=== PATIENT | female | born 1955 | race Caucasian/White ===

== ENCOUNTER → 2017-10-09 | Outpatient (CLI) | payer BC ==
[~2017-10-09] MED LIST: DOCU100C37 PO; HYDR-3816 PO; IBUP-1773 PO; LISI-552 PO; NITR-65 PO; PHEN-640 PO; SIME80TA16 PO; TRAM50TA2 PO
--- NOTE | 2017-10-10 19:51 | Diagnostic Imaging Report ---
Bilateral screening mammogram 2D views with tomosynthesis. The current study was also evaluated with a Computer Aided Detection (CAD) system. INDICATION: Screening. No current complaints stated on the questionnaire. COMPARISON: 02/02/2016. FINDINGS: The breasts are composed of scattered fibroglandular densities. There is suggestion of an intramammary lymph node in the outer aspect of the left breast stable from multiple prior exams. Allowing for technique and positional differences, no suspicious change is seen. IMPRESSION: No significant change. ACR BI-RADS Category 2: Benign findings. Result letter will be mailed to the patient. Note: At least 10% of breast cancer is not imaged by mammography. Dictated by: Dictated on workstation # [id number]
== END ==
LOC: RAD 09:27
PROVIDERS: ATTEND Internal Medicine
DX: Z12.31 Encounter for screening mammogram for malignant neoplasm of breast (principal)
CPT/HCPCS: 77067

== ENCOUNTER 2018-08-13 23:05 | Emergency (ER) | payer BC, MEDICARE ==
[~2018-08-13] VITALS: Ht 160 cm; Wt 79.4 kg
[~2018-08-13 23:05] MED LIST changes: +HYDR-34 PO; -HYDR-3816 PO
--- OUTSIDE RECORDS SUMMARY | 2018-08-13 23:10 | XMS REPORT ---
Author Author ANALI VEGA Organization [employer] Address Unknown Phone Unavailable Care Team Providers Care Bottle Machine Operator Name Role Phone ANALI VEGA CP Unavailable Allergies, Adverse Reactions, Alerts Substance Reaction Event Type N.K.D.A. Info Not Available Non Drug Allergy Problems Problem Type Condition Code Onset Dates Condition Status Problem Flat foot 734 Active Problem Cervicalgia 723.1 Active Problem Family history of diabetes mellitus V18.0 Active Assessment Allergic rhinitis, unspecified allergic rhinitis type J30.9 Active Assessment Acute otitis externa of left ear, unspecified type H60.502 Active Medications Medication Code System Code Instructions Start Date End Date Status Dosage Flonase [facility] 87149280999 50 MCG/ACT USE ONE SPRAY IN EACH NOSTRIL TWICE DAILY Lisinopril [facility] [address]-47 20 MG TAKE ONE TABLET BY MOUTH DAILY Flonase [facility] [address]-20 50 MCG/ACT Nasally Once a day June 10, 2016 1 spray in each nostril Albuterol Sulfate HFA [facility] [address]-01 108 (90 Base) MCG/ACT Inhalation every 4-6 hrs June 10, 2016 1-2 puffs as needed tramadol NDC 0 50 mg February 08, 2015 take 1 tablet by Oral route 1 time per day as needed PRN pain Procedures Procedure Coding System Code Date Office Visit, Est Pt., Level 3 CPT-4 06167 June 10, 2016 MEASURE BLOOD OXYGEN LEVEL CPT-4 93352 June 10, 2016 Vital Signs Date/Time: June 10, 2016 Cardiac Monitoring Heart Rate 80 bpm Weight 172.4 lbs Height 64 in Blood Pressure Diastolic 78 mmHg Blood Pressure Systolic 124 mmHg Results No Known Results Summary Purpose [employer] Submission
--- OUTSIDE RECORDS SUMMARY | 2018-08-13 23:10 | XMS REPORT ---
Author Author JAYY PRADO Organization [facility] Address [address] [place] [address] Care Team Providers Care Scanner Operator Name Role Phone JAYY PRADO Unavailable PROBLEMS Type Condition ICD9-CM Code CMT29-SK Code Onset Dates Condition Status SNOMED Code Problem Seasonal allergic rhinitis, unspecified trigger J30.2 Active [id number] ALLERGIES No Known Allergies ENCOUNTERS Encounter Location Date Diagnosis [facility] [address] [address] Jun, Seasonal allergic rhinitis, unspecified trigger J30.2 [facility] [address] [place] [address] Dec, Urinary frequency R35.0 ; Acute cystitis with hematuria N30.01 ; Seasonal allergic rhinitis, unspecified trigger J30.2 and Impacted cerumen, bilateral H61.23 [facility] [address] [address] Nov, Sore throat J02.9 and Strep pharyngitis J02.0 [facility] [address] [id number] Aug, Dental caries K02.9 [facility] [address] [place] [address] Jul, Allergic contact dermatitis, unspecified trigger L23.9 and Oral abscess K12.2 [facility] [address] [id number] Jul, Dental caries K02.9 and Dental examination Z01.20 [facility] [address] [place] [address] Aug, Periodontal abscess K05.219 [facility] [address] [address] May, Allergic rhinitis, unspecified allergic rhinitis type J30.9 and Acute otitis externa of left ear, unspecified type H60.502 [facility] [address] [address] Sep, [facility] [id number] [place] [address] Sep, Ankle pain, right M25.571 [facility] [id number] [place] [address] Aug, [facility] [id number] [place] [address] Aug, [facility] [id number] [place] [address] [id number] Jun, [facility] [id number] [place] [id number] May, Dental examination V72.2 [facility] [id number] [place] [address] May, [facility] [id number] [place] [phone] May, Dental examination V72.2 [facility] [id number] [place] [id number] Apr, Dental examination V72.2 [facility] [address] [id number] [address] Apr, [facility] [id number] [place] [id number] March, Dental examination V72.2 [facility] [address] [place] [address] March, [facility] [id number] [place] [address]16713- [address] 14 Feb, 2015 [facility] [place] [facility] [address] [id number] [place] [address] 13 Feb, 2015 [facility] [place] [facility] [address] [id number] [place] [address] 17 Jan, 2015 [facility] [place] [facility] [address] [id number] [place] [address] 17 Jan, 2015 [facility] [place] [facility] [address] [id number] [place] [address] 16 Jan, 2015 [facility] [place] [facility] [address] [id number] [place] [address] 16 Jan, 2015 [facility] [place] [facility] [address] [id number] [place] [address] 16 Jan, 2015 [facility] [place] [facility] [address] [id number] [place] [address] 16 Jan, 2015 [facility] [place] [facility] [address] [id number] [place] [address] 19 Dec, 2014 [facility] [place] [facility] [address] [id number] [place] [address] Dec, [facility] [place] [facility] [address] [id number] [place] [address] 16 Dec, 2014 [facility] [place] [facility] [address] [id number] [place] [address] 16 Dec, 2014 [facility] [place] [facility] [address] [id number] [place] [address] Nov, [facility] [place] [facility] [address] [id number] [place] [address] Nov, [facility] [place] [facility] [address] [id number] [place] [address] Oct, [facility] [place] [facility] [address] [id number] [place] [address] Oct, [facility] [place] [facility] [address] [id number] [place] [address] Oct, [facility] [place] [facility] [address] [id number] [place] [address] Oct, [facility] [place] [facility] [address] [id number] [place] [address] Oct, [facility] [place] [facility] [address] [id number] [place] [address] Oct, [facility] [place] [facility] [address] [id number] [place] [address] Sep, [facility] [place] [facility] [address] [id number] [place] [address] Sep, [facility] [place] [facility] [address] [id number] [place] [address] Sep, [facility] [place] [facility] [address] [id number] [place] [address] Sep, [facility] [place] [facility] [address] [id number] [place] [address] Sep, [facility] [place] [facility] [address] [id number] [place] [address] Sep, [facility] [place] [facility] [address] [id number] [place] [address] Sep, [facility] [place] [facility] [address] [id number] [place] [address] Sep, [facility] [place] [facility] [address] [id number] [place] [address] Aug, [facility] [place] [facility] [address] [id number] [place] [address] Aug, [facility] [place] [facility] [address] [id number] [place] [address]- [address] Aug, [facility] [place] [facility] [address] [id number] [place] [address]- 53[address] Aug, [facility] [place] [facility] [address] [id number] [place] [address] Aug, [facility] [place] [facility] [address] [id number] [place] [address] Aug, [facility] [place] [facility] [address] [id number] [place] [address]- [address] Aug, [facility] [place] [facility] [address] [id number] [place] [address] Aug, [facility] [place] [facility] [address] [id number] [place] [address]- [address] Aug, [facility] [place] [facility] [address] [id number] [place] [address]- [address] Aug, [facility] [place] [facility] [address] [id number] [place] [address]- [address] Jul, [facility] [place] [facility] [address] [id number] [place] [address]- [address] Jul, [facility] [place] [facility] [address] [id number] [place] [address]- 114[address] Jun, [facility] [place] [facility] [address] [id number] [place] [address] Jun, [facility] [place] [facility] [address] [id number] [place] [address]- [address] May, [facility] [place] [facility] [address] [id number], [place] [address] May, [facility] [place] [facility] [address] [id number] [place] [address]- [address] Apr, [facility] [place] [facility] [address] [id number] [place] [address]- [address] Apr, [facility] [place] [facility] [address] [id number] [place] [address]- 0[address] Apr, [facility] [place] [facility] [address] [id number] [place] [address]- 114[address] Apr, [facility] [place] [facility] [address] [id number] [place] [address]- [address] March, [facility] [place] [facility] [address] [id number] [place] [address]- 9[address] March, [facility] [place] [facility] [address] [id number] [place] [address]- [address] Jan, [facility] [place] [facility] [address] [id number] [place] [address]- 7[address] Jan, [facility] [place] [facility] [address] [id number] [place] [address] Oct, [facility] [place] [facility] [address] [id number] [place] [address]- [address] Oct, [facility] [place] [facility] [address] [id number] [place] [address]- 0[address] Sep, [facility] [place] [facility] [address] [id number] [place] [address]- 73[address] Sep, [facility] [place] [facility] [address] [id number] [place] [address]- 4[address] Aug, [facility] [place] [facility] [address] [facility] [id number] [place] [address]- 79[address] Aug, [facility] [place] [facility] [address] [id number] [place] [address]- 8[address] 25 Jul, 2012 [facility] [place] [facility] [address] [id number] [place] [address]- 68[address] 20 Jul, 2012 [facility] [place] [facility] [address] [id number] [place] [address]- 8987 16 Sep, 2012 [facility] [place] [facility] [address] [id number] [place] [address]- 9769 09 Sep, 2012 [facility] [place] [facility] [address] [id number] [place] [address]- 4[address] 05 Sep, 2012 [facility] [place] [facility] [address] [id number] [place] [address]- [address] Jul, [facility] [address] [id number] [place] [address]- 58[address] Jul, [facility] [place] [facility] [address] [id number] [place] [address]- [address] Jun, [facility] [place] [facility] [address] [id number] [place] [address]- 5199 Jun, [facility] [place] [facility] [address] [id number] [place] [address]- 9605 May, [facility] [place] [facility] [address] [id number] [place] [address]- 6510 May, [facility] [address] [id number] [place] [address]- [address] May, [facility] [address] [id number] [place] [address]- 7449 May, [facility] [address] [id number] [place] [address]- 4774 May, [facility] [address] [id number] [place] [address]- 6763 March, [facility] [address] [id number] [place] [address]- [address] March, [facility] [address] [id number] [place] [address]- 379[address] Oct, [facility] [place] [facility] [address] [id number] [place] [address]- [address] Oct, [facility] [place] [facility] [address] [id number] [place] [address]- 9[address] Jun, [facility] [place] [facility] [address] [id number] [place] [address]- [address] Nov, [facility] [place] [facility] [address] [id number] [place] [address]- [address] Aug, [facility] [address] [facility] [id number] [place] [address]- [address] Aug, [facility] [address] [facility] [address] [id number], [place] [address] Dec, [facility] [address] [facility] [address] [id number], [place] [address] Oct, [facility] [address] [facility] [address] [id number], [place] [address] Oct, [facility] [address] [facility] [address] [id number], [place] [address] Jun, IMMUNIZATIONS No Known Immunizations SOCIAL HISTORY Never Assessed REASON FOR VISIT congestion and stuffy nose--TRU Briones PLAN OF CARE Activity Details Follow Up 1 Week, prn Reason:if symptoms worsen or not improving VITAL SIGNS Height 64 in 2018-06-28 Weight 189.8 lbs 2018-06-28 Temperature 98.3 degrees Fahrenheit 2018-06-28 Heart Rate 84 bpm 2018-06-28 Respiratory Rate 18 2018-06-28 BMI 32.58 kg/m2 2018-06-28 Blood pressure systolic 134 mmHg 2018-06-28 Blood pressure diastolic 76 mmHg 2018-06-28 MEDICATIONS Medication Instructions Dosage Frequency Start Date End Date Duration Status Lisinopril 20 MG TAKE ONE TABLET BY MOUTH DAILY 30 Active Flonase 50 MCG/ACT Nasally twice a day 1 spray in each nostril 12h 16 May, 2016 30 days Active Cetirizine HCl 10 mg Orally Once a day 1 tablet 24h 2 Jul, 2018 30 days Active tramadol 50 mg take 1 tablet by Oral route 1 time per day as needed PRN pain Jan, Active RESULTS No Results PROCEDURES Procedure Date Ordered Result Body Site [facility] VISIT ESTABLISHED PATIENT Jun 28, 2018 INSTRUCTIONS MEDICATIONS ADMINISTERED No Known Medications MEDICAL (GENERAL) HISTORY Type Description Date Medical History hypertension Medical History Arthritis Medical History Family history of diabetes mellitus Medical History Flat foot Medical History Cervicalgia Surgical History bladder surgery Surgical History cyst removal Hospitalization History surgery related
--- OUTSIDE RECORDS SUMMARY | 2018-08-13 23:10 | XMS REPORT ---
Author Author ORQUIDEA FIORE Organization [employer] Address Unknown Phone Unavailable Care Team Providers Care Lock Up Worker Name Role Phone ORQUIDEA FIORE CP Unavailable Allergies No Known Allergies Problems Problem Type Condition Code Onset Dates Condition Status Problem Flat foot 734 Active Problem Cervicalgia 723.1 Active Problem Family history of diabetes mellitus V18.0 Active Medications Medication Code System Code Instructions Start Date End Date Status Dosage tramadol NDC 0 50 mg February 08, 2015 take 1 tablet by Oral route 1 time per day as needed PRN pain Results No Known Results Summary Purpose [employer] Submission
--- OUTSIDE RECORDS SUMMARY | 2018-08-13 23:11 | XMS REPORT ---
Author Author ORQUIDEA FIORE Organization [employer] Address Unknown Phone Unavailable Care Team Providers Care Uplands Division Director Name Role Phone ORQUIDEA FIORE CP Unavailable Allergies No Known Allergies Problems Problem Type Condition Code Onset Dates Condition Status Problem Flat foot 734 Active Problem Cervicalgia 723.1 Active Problem Family history of diabetes mellitus V18.0 Active Medications Medication Code System Code Instructions Start Date End Date Status Dosage Lisinopril [facility] [address]-01 20 MG TAKE ONE TABLET BY MOUTH DAILY Results No Known Results Summary Purpose [employer] Submission
--- OUTSIDE RECORDS SUMMARY | 2018-08-13 23:11 | XMS REPORT ---
Author Author SONIA RIVERA [facility] [employer] Address Unknown Phone Unavailable Care Team Providers Care Fur Trimmer Name Role Phone SONIA RIVERA CP Unavailable Allergies, Adverse Reactions, Alerts Substance Reaction Event Type N.K.D.A. Info Not Available Non Drug Allergy Problems Problem Type Condition Code Onset Dates Condition Status Problem Flat foot 734 Active Problem Cervicalgia 723.1 Active Problem Family history of diabetes mellitus V18.0 Active Assessment Ankle pain, right M25.571 Active Medications Medication Code System Code Instructions Start Date End Date Status Dosage Flonase ND 24117816016 50 MCG/ACT USE ONE SPRAY IN EACH NOSTRIL TWICE DAILY tramadol NDC 0 50 mg February 08, 2015 take 1 tablet by Oral route 1 time per day [place] [address]-43 20 MG TAKE ONE TABLET BY MOUTH DAILY Procedures Procedure Coding System Code Date Office Visit, Est Pt., Level 3 CPT-4 78093 Sep 30, 2015 X-RAY EXAM OF ANKLE CPT-4 08032 Sep 30, 2015 Vital Signs Date/Time: Sep 30, 2015 Temperature 98.8 F Weight 169 lbs Height 64 in BMI 29.01 Index Blood Pressure Diastolic 60 mmHg Blood Pressure Systolic 120 mmHg Cardiac Monitoring Heart Rate 70 bpm Results No Known Results Summary Purpose [employer] Submission
--- OUTSIDE RECORDS SUMMARY | 2018-08-13 23:11 | XMS REPORT ---
Author Author URIAH BLAKELY Organization [facility] Address [address] [place] [address] Care Team Providers Care Clinical Assessment Manager Name Role Phone URIAH BLAKELY Unavailable PROBLEMS Type Condition ICD9-CM Code [id number] Code Onset Dates Condition Status SNOMED Code Problem Cervicalgia 723.1 Active 80218010 Problem Flat foot 734 Active 50959344 Problem Family history of diabetes mellitus V18.0 Active [id number] ALLERGIES No Known Allergies ENCOUNTERS Encounter Location Date Diagnosis [facility] [address] [address] 16 Dec, 2017 Urinary frequency R35.0 ; Acute cystitis with hematuria N30.01 ; Seasonal allergic rhinitis, unspecified trigger J30.2 and Impacted cerumen, bilateral H61.23 [facility] [address] [address] Nov, Sore throat J02.9 and Strep pharyngitis J02.0 [facility] [address] [id number] Aug, Dental caries K02.9 [facility] [address] [address] Jul, Allergic contact dermatitis, unspecified trigger L23.9 and Oral abscess K12.2 [facility] [address] [id number] Jul, Dental caries K02.9 and Dental examination Z01.20 [facility] [address] [address] Aug, Periodontal abscess K05.219 [facility] [address] [address] May, Allergic rhinitis, unspecified allergic rhinitis type J30.9 and Acute otitis externa of left ear, unspecified type H60.502 [facility] [address] [address] Sep, [facility] [address] [address] Sep, Ankle pain, right M25.571 [facility] [address] [address] Aug, [facility] [id number] [place] [address] Aug, [facility] [id number] [place] [address] Jun, [facility] [id number] [place] [id number] May, Dental examination V72.2 [facility] [address] [id number] [address] May, [facility] [address] [place] [id number] [place] [id number] May, Dental examination V72.2 [facility] [address] [place] [id number] Apr, Dental examination V72.2 [facility] [address] [address] Apr, [facility] [address] [place] [address] [id number] [place] [id number] March, Dental examination V72.2 [facility] [address] [address] March, [facility] [address] [address] Feb, [facility] [address] [place] [address] 13 Feb, 2015 [facility] [place] [facility] [address] [id number] [place] [address] 17 Jan, 2014 [facility] [place] [facility] [address] [id number] [place] [address] 17 Jan, 2014 [facility] [place] [facility] [address] [facility] [id number] [place] [address] 16 Jan, 2014 [facility] [place] [facility] [address] [id number] [place] [address] 16 Jan, 2014 [facility] [place] [facility] [address] [id number] [place] [address] 16 Jan, 2015 [facility] [place] [facility] [address] [id number] [place] [address] 16 Jan, 2014 [facility] [place] [facility] [address] [facility] [id number] [place] [address] 19 Dec, 2014 [facility] [place] [facility] [address] [id number] [place] [address] 19 Dec, 2014 [facility] [place] [facility] [address] [id number] [place] [address] 16 Dec, 2014 [facility] [place] [facility] [address] [facility] [id number] [place] [address] 16 Dec, 2014 [facility] [place] [facility] [address] [facility] [id number] [place] [address] Nov, [facility] [place] [facility] [address] [facility] [id number] [place] [address] Nov, [facility] [place] [facility] [address] [id number] [place] [address] Oct, [facility] [place] [facility] [address] [facility] [id number] [place] [address] Oct, [facility] [place] [facility] [address] [facility] [id number] [place] [address] Oct, [facility] [place] [facility] [address] [id number] [place] [address] Oct, [facility] [place] [facility] [address] [id number] [place] [address] Oct, [facility] [place] [facility] [address] [id number] [place] [address] Oct, [facility] [place] [facility] [address] [id number] [place] [address] Sep, [facility] [place] [facility] [address] [id number] [place] [address] Sep, [facility] [place] [facility] [address] [id number] [place] [address] Sep, [facility] [place] [facility] [address] [id number] [place] [address]- [address] Sep, [facility] [place] [facility] [address] [id number] [place] [address]- [address] Sep, [facility] [place] [facility] [address] [id number] [place] [address] Sep, [facility] [place] [facility] [address] [id number] [place] [address]- [address] Sep, [facility] [place] [facility] [address] [id number] [place] [address]- [address] Sep, [facility] [place] [facility] [address] [id number] [place] [address] Aug, [facility] [place] [facility] [address] [id number] [place] [address]- [address] Aug, [facility] [place] [facility] [address] [id number] [place] [address]- [address] Aug, [facility] [place] [facility] [address] [id number] [place] [address]- [address] Aug, [facility] [place] [facility] [address] [id number] [place] [address]- [address] Aug, [facility] [place] [facility] [address] [id number] [place] [address]- [address] Aug, [facility] [place] [facility] [address] [id number] [place] [address]- [address] Aug, [facility] [place] [facility] [address] [id number] [place] [address] Aug, [facility] [place] [facility] [address] [id number] [place] [address] Aug, [facility] [place] [facility] [address] [id number] [place] [address]- [address] Aug, [facility] [place] [facility] [address] [id number] [place] [address]- [address] Jul, [facility] [place] [facility] [address] [id number] [place] [address]- [address] Jul, [facility] [place] [facility] [address] [id number] [place] [address]- [address] Jun, [facility] [place] [facility] [address] [id number] [place] [address]- [address] Jun, [facility] [place] [facility] [address] [id number] [place] [address]- [address] May, [facility] [place] [facility] [address] [id number] [place] [address]- [address] May, [facility] [place] [facility] [address] [id number] [place] [address]- [address] Apr, [facility] [place] [facility] [address] [id number] [place] [address]- [address] Apr, [facility] [place] [facility] [address] [id number] [place] [address]- [address] Apr, [facility] [place] [facility] [address] [id number] [place] [address]- [address] Apr, [facility] [place] [facility] [address] [id number] [place] [address]- [address] March, [facility] [address] [id number] [place] [address]- 4[address] March, [facility] [address] [id number] [place] [address]- [address] Jan, [facility] [address] [id number] [place] [address]- [address] Jan, [facility] [address] [id number] [place] [address]- 15[address] Oct, [facility] [address] [id number] [place] [address]- [address] Oct, [facility] [address] [id number] [place] [address]- [address] Sep, [facility] [address] [id number] [place] [address]- [address] Sep, [facility] [address] [id number] [place] [address]- [address] Aug, [facility] [address] [id number] [place] [address]- [address] Aug, [facility] [address] [id number] [place] [address]- [address] 25 Jul, 2012 [facility] [place] [facility] [address] [id number] [place] [address]- [address] 20 Jul, 2012 [facility] [address] [id number] [place] [address]- [address] 16 Sep, 2012 [facility] [place] [facility] [address] [id number] [place] [address]- [address] 09 Sep, 2012 [facility] [place] [facility] [address] [id number] [place] [address]- [address] 05 Sep, 2012 [facility] [address] [id number] [place] [address]- [address] Jul, [facility] [place] [facility] [address] [id number] [place] [address]- 0647 Jul, [facility] [place] [facility] [address] [id number] [place] [address]- [address] Jun, [facility] [place] [facility] [address] [id number] [place] [address]- [address] Jun, [facility] [place] [facility] [address] [id number] [place] [address]- [address] May, [facility] [place] [facility] [address] [id number] [place] [address]- 0[address] May, [facility] [place] [facility] [address] [id number] [place] [address]- 3480 May, [facility] [place] [facility] [address] [id number] [place] [address]- [address] May, [facility] [place] [facility] [address] [id number] [place] [address]- [address] May, [facility] [place] [facility] [address] [id number] [place] [address]- [address] March, [facility] [place] [facility] [address] [id number] [place] [address]- 75[address] March, [facility] [place] [facility] [address] [id number] [place] [address]- [address] Oct, [facility] [place] [facility] [address] [id number] [address]- [address] Oct, [facility] [place] [facility] [address] [id number] [place] [address]- [address] Jun, [facility] [place] [facility] [address] [id number] [place] [address]- [address] Nov, [facility] [place] [facility] [address] [id number] [place] [address]- [address] Aug, [facility] [place] [facility] [address] [id number] [address] Aug, [facility] [address] [facility] [id number] [address] Dec, [facility] [address] [facility] [id number] [address] Oct, [facility] [address] [facility] [id number] [address]- [address] Oct, [place] [address] [facility] [id number] [place] [address]- [address] Jun, IMMUNIZATIONS Vaccine Route Administration Date Status DEXAMETHASONE 4MG/ML (PER 1 MG) IM Intramuscular Aug 23, 2017 Administered DEPO MEDROL 40 MG/ML IM Intramuscular Aug 23, 2017 Administered SOCIAL HISTORY Never Assessed REASON FOR VISIT Rash on arms and neck. TRU Estes. PLAN OF CARE Activity Details Follow Up prn Reason: VITAL SIGNS Height 64 in 2017-08-23 Weight 182 lbs 2017-08-23 Temperature 98.1 degrees Fahrenheit 2017-08-23 Heart Rate 82 bpm 2017-08-23 Respiratory Rate 16 2017-08-23 BMI 31.24 kg/m2 2017-08-23 Blood pressure systolic 126 mmHg 2017-08-23 Blood pressure diastolic 76 mmHg 2017-08-23 MEDICATIONS Medication Instructions Dosage Frequency Start Date End Date Duration Status Lisinopril 20 MG TAKE ONE TABLET BY MOUTH DAILY 30 Active Amoxicillin 500 MG Orally every 8 hrs 1 capsule 8h Jul, Aug, 7 days Active Amoxicillin 500 MG Orally every 8 hrs 1 tablet 8h Jul, Aug, 7 days Active Flonase 50 MCG/ACT Nasally Once a day 1 spray in each nostril 24h May, Active tramadol 50 mg take 1 tablet by Oral route 1 time per day as needed PRN pain Jan, Active RESULTS No Results PROCEDURES Procedure Date Ordered Result Body Site DEPO MEDROL 40 MG/ML Aug 23, 2017 THER/PROPH/DIAG INJ, SC/IM Aug 23, 2017 DEXAMETHASONE 4MG/ML (PER 1 MG) Aug 23, 2017 INSTRUCTIONS MEDICATIONS ADMINISTERED No Known Medications MEDICAL (GENERAL) HISTORY Type Description Date Medical History hypertension Medical History Arthritis Surgical History bladder surgery Surgical History cyst removal Hospitalization History surgery related
--- OUTSIDE RECORDS SUMMARY | 2018-08-13 23:11 | XMS REPORT ---
Author Author URIAH BLAKELY Organization [facility] Address [address] [place] [address] Care Team Providers Care Business Sales Consultant Name Role Phone URIAH BLAKELY Unavailable PROBLEMS Type Condition ICD9-CM Code ERQ71-BL Code Onset Dates Condition Status SNOMED Code Problem Cervicalgia 723.1 Active 00593041 Problem Flat foot 734 Active 06115513 Problem Family history of diabetes mellitus V18.0 Active [id number] ALLERGIES No Known Allergies ENCOUNTERS Encounter Location Date Diagnosis [facility] [address] [address] Dec, Urinary frequency R35.0 ; Acute cystitis with hematuria N30.01 ; Seasonal allergic rhinitis, unspecified trigger J30.2 and Impacted cerumen, bilateral H61.23 [facility] [address] [address] Nov, Sore throat J02.9 and Strep pharyngitis J02.0 [facility] [address] [id number] Aug, Dental caries K02.9 [facility] [address] [address] Jul, Allergic contact dermatitis, unspecified trigger L23.9 and Oral abscess K12.2 [facility] [address] [id number] Jul, Dental caries K02.9 and Dental examination Z01.20 [facility] [address] [address] Aug, Periodontal abscess K05.219 [facility] [address] [address] May, Allergic rhinitis, unspecified allergic rhinitis type J30.9 and Acute otitis externa of left ear, unspecified type H60.502 [facility] [address] [address] Sep, [facility] [address] [address] Sep, Ankle pain, right M25.571 [facility] [address] [address] Aug, [facility] [address] [place] [address] Aug, [facility] [address] [place] [address] Jun, [facility] [address] [place] [phone] May, Dental examination V72.2 [facility] [address] [id number] [address] May, [facility] [id number] [place] [id number] May, Dental examination V72.2 [facility] [address] [place] [id number] Apr, Dental examination V72.2 [facility] [address] [address] Apr, [facility] [id number] [place] [phone] March, Dental examination V72.2 [facility] [address] [address] March, [facility] [address] [address] Feb, [facility] [address] [place] [address] 13 Feb, 2015 [facility] [place] [facility] [address] [id number] [place] [address] 17 Jan, 2014 [facility] [place] [facility] [address] [id number] [place] [address] 17 Jan, 2014 [facility] [place] [facility] [address] [facility] [id number] [place] [address] 16 Jan, 2014 [facility] [place] [facility] [address] [id number] [place] [address] 16 Jan, 2014 [facility] [place] [facility] [address] [id number] [place] [address] 16 Jan, 2015 [facility] [place] [facility] [address] [id number] [place] [address] 16 Jan, 2014 [facility] [place] [facility] [address] [facility] [id number] [place] [address] 19 Dec, 2014 [facility] [place] [facility] [address] [id number] [place] [address] 19 Dec, 2014 [facility] [place] [facility] [address] [id number] [place] [address] 16 Dec, 2014 [facility] [place] [facility] [address] [facility] [id number] [place] [address] 16 Dec, 2014 [facility] [place] [facility] [address] [facility] [id number] [place] [address] Nov, [facility] [place] [facility] [address] [facility] [id number] [address] Nov, [facility] [place] [facility] [address] [id number] [place] [address] Oct, [facility] [place] [facility] [address] [facility] [id number] [place] [address] Oct, [facility] [place] [facility] [address] [facility] [id number] [place] [address] Oct, [facility] [place] [facility] [address] [id number] [place] [address] Oct, [facility] [place] [facility] [address] [id number] [place] [address] Oct, [facility] [place] [facility] [address] [id number] [place] [address] Oct, [facility] [place] [facility] [address] [id number] [place] [address] Sep, [facility] [place] [facility] [address] [id number] [place] [address] Sep, [facility] [place] [facility] [address] [id number] [place] [address] Sep, [facility] [place] [facility] [address] [id number] [place] [address] Sep, [facility] [place] [facility] [address] [id number] [place] [address] Sep, [facility] [place] [facility] [address] [id number] [place] [address] Sep, [facility] [place] [facility] [address] [id number] [place] [address] Sep, [facility] [place] [facility] [address] [id number] [place] [address] Sep, [facility] [place] [facility] [address] [id number] [place] [address] Aug, [facility] [place] [facility] [address] [id number] [place] [address] Aug, [facility] [place] [facility] [address] [id number] [place] [address] Aug, [facility] [place] [facility] [address] [id number] [place] [address] Aug, [facility] [place] [facility] [address] [id number] [place] [address] Aug, [facility] [place] [facility] [address] [id number] [place] [address] Aug, [facility] [place] [facility] [address] [id number] [place] [address] Aug, [facility] [place] [facility] [address] [id number] [place] [address] Aug, [facility] [place] [facility] [address] [id number] [place] Aug, [facility] [place] [facility] [address] [id number] [place] [address] Aug, [facility] [place] [facility] [address] [id number] [place] [address] Jul, [facility] [place] [facility] [address] [id number] [place] [address] Jul, [facility] [place] [facility] [address] [id number] [place] [address] Jun, [facility] [place] [facility] [address] [id number] [place] [address] Jun, [facility] [place] [facility] [address] [id number] [place] [address] May, [facility] [place] [facility] [address] [id number] [place] [address] May, [facility] [place] [facility] [address] [id number] [place] [address] Apr, [facility] [place] [facility] [address] [id number] [place] [address] Apr, [facility] [place] [facility] [address] [id number] [place] [address]- [address] Apr, [facility] [place] [facility] [address] [id number] [place] [address] Apr, [facility] [place] [facility] [address] [id number] [place] [address] March, [facility] [address] [id number] [place] [address] March, [facility] [address] [id number] [place] [address] Jan, [facility] [address] [id number] [place] [address] Jan, [facility] [address] [id number] [place] [address] Oct, [facility] [address] [id number] [place] [address] Oct, [facility] [address] [id number] [place] [address] Sep, [facility] [address] [id number] [place] [address] Sep, [facility] [address] [id number] [place] [address]- [address] Aug, [facility] [address] [id number] [place] [address]- [address] Aug, [facility] [address] [id number] [place] [address]- [address] 25 Jul, 2012 [facility] [place] [facility] [address] [id number] [place] [address]- [address] 20 Jul, 2012 [facility] [address] [id number] [place] [address]- [address] 16 Sep, 2012 [facility] [place] [facility] [address] [id number] [place] [address]- [address] 09 Sep, 2012 [facility] [place] [facility] [address] [id number] [place] [address]- [address] 05 Sep, 2012 [facility] [address] [id number] [place] [address] Jul, [facility] [place] [facility] [address] [id number] [place] [address]- [address] Jul, [facility] [place] [facility] [address] [id number] [place] [address]- [address] Jun, [facility] [place] [facility] [address] [id number] [place] [address]- [address] Jun, [facility] [place] [facility] [address] [id number] [place] [address] May, [facility] [place] [facility] [address] [id number] [place] [address]- [address] May, [facility] [place] [facility] [address] [id number] [place] [address]- [address] May, [facility] [place] [facility] [address] [id number] [place] [address]- [address] May, [facility] [place] [facility] [address] [id number] [place] [address]- [address] May, [facility] [place] [facility] [address] [id number] [place] [address]- [address] March, [facility] [place] [facility] [address] [id number] [place] [address]- [address] March, [facility] [place] [facility] [address] [id number] [place] [address]- [address] Oct, [facility] [place] [facility] [address] [id number] [place] [address] Oct, [facility] [place] [facility] [address] [id number] [place] [address]- 76[address] Jun, [facility] [place] [facility] [address] [id number] [place] [address]- [address] Nov, [facility] [place] [facility] [address] [id number] [place] [address]- [address] Aug, [facility] [place] [facility] [address] [id number] [place] [address] Aug, [facility] [address] [facility] [id number] [address] Dec, [facility] [address] [facility] [id number] [place] [address] Oct, [facility] [address] [facility] [id number] [place] [address] Oct, [place] [address] [facility] [id number] [place] [address] Jun, IMMUNIZATIONS No Known Immunizations SOCIAL HISTORY Never Assessed REASON FOR VISIT fever/sore throat Pt states sore throat, fever and body aches for 2-3 days [facility] Lee PLAN OF CARE Activity Details Follow Up prn Reason: VITAL SIGNS Height 64 in 2017-12-14 Weight 182.4 lbs 2017-12-14 Temperature 98.6 degrees Fahrenheit 2017-12-14 Heart Rate 76 bpm 2017-12-14 Respiratory Rate 20 2017-12-14 BMI 31.31 kg/m2 2017-12-14 Blood pressure systolic 124 mmHg 2017-12-14 Blood pressure diastolic 70 mmHg 2017-12-14 MEDICATIONS Medication Instructions Dosage Frequency Start Date End Date Duration Status Amoxicillin 500 MG Orally every 12 hrs 1 capsule 12h Nov, Nov, 10 day(s) Active Albuterol Sulfate HFA 108 (90 Base) MCG/ACT Inhalation every 4-6 hrs 1-2 puffs as needed May, Not-Taking Flonase 50 MCG/ACT Nasally Once a day 1 spray in each nostril 24h May, Active Lisinopril 20 MG TAKE ONE TABLET BY MOUTH DAILY 30 Active tramadol 50 mg take 1 tablet by Oral route 1 time per day as needed PRN pain Jan, Active Flonase 50 MCG/ACT USE ONE SPRAY IN EACH NOSTRIL TWICE DAILY 30 Not-Taking RESULTS Name Result Date Reference Range INFLUENZA A & B (IN HOUSE) 2017-12-14 INFLUENZA A negative INFLUENZA B negative Control + Lot # [id number] Exp date [id number] STREP A (IN HOUSE) 2017-12-14 STREP A positive Control + Lot # [id number] Exp date 10/25/2018 PROCEDURES Procedure Date Ordered Result Body Site INFLUENZA ASSAY W/OPTIC Dec 14, 2017 STREP A ASSAY W/OPTIC Dec 14, 2017 INSTRUCTIONS MEDICATIONS ADMINISTERED No Known Medications MEDICAL (GENERAL) HISTORY Type Description Date Medical History hypertension Medical History Arthritis Surgical History bladder surgery Surgical History cyst removal Hospitalization History surgery related
--- OUTSIDE RECORDS SUMMARY | 2018-08-13 23:11 | XMS REPORT ---
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 Active Problem Lumbago 724.2 Active Problem Cervicalgia 723.1 Active Assessment Dental examination V72.2 Active Problem Other malaise and fatigue 780.79 Active Problem Special screening for malignant neoplasms, colon V76.51 Active Problem Other specified counseling V65.49 Active Problem Routine general medical examination at health care facility V70.0 Active Problem Special screening examination, human papillomavirus [HPV] V73.81 Active Problem Unspecified hypertrophic and atrophic condition of skin 701.9 Active Problem Impacted cerumen 380.4 Active Problem Flat foot 734 Active Problem Other hammer toe (acquired) 735.4 Active Problem Pain in soft tissues of limb 729.5 Active Problem Pain in joint, site unspecified 719.40 Active Problem Rash and other nonspecific skin eruption 782.1 Active Problem Other, multiple, and unspecified sites, insect bite, nonvenomous, without mention of infection 919.4 Active Problem Allergic rhinitis due to pollen 477.0 Active Problem Routine gynecological examination V72.31 Active Medications No Known Medications Procedures Procedure Coding System Code Date RESIN COMPOS - 2 SURFACES ANTERIOR CPT-4 D2331 June 11, 2015 Dental no charge CPT-4 D0099 June 11, 2015 RESIN COMPOS - 2 SURFACES ANTERIOR CPT-4 D2331 June 11, 2015 Billing Notes on claim CPT-4 EC109 June 11, 2015 Results No Known Results Summary Purpose [employer] Submission
--- OUTSIDE RECORDS SUMMARY | 2018-08-13 23:11 | XMS REPORT ---
Author Author SHANT MAYEN Rosalio [facility] Address Unknown Care Team Providers Care Neurological Surgery Teacher Name Role Phone SHANT MAYEN Unavailable PROBLEMS Type Condition ICD9-CM Code PMS26-WL Code Onset Dates Condition Status SNOMED Code Problem Cervicalgia 723.1 Active 83438711 Problem Flat foot 734 Active 68160572 Problem Family history of diabetes mellitus V18.0 Active [id number] ALLERGIES No Known Allergies ENCOUNTERS Encounter Location Date Diagnosis [facility] [address] [address] Dec, Urinary frequency R35.0 ; Acute cystitis with hematuria N30.01 ; Seasonal allergic rhinitis, unspecified trigger J30.2 and Impacted cerumen, bilateral H61.23 [facility] [address] [address] Nov, Sore throat J02.9 and Strep pharyngitis J02.0 [facility] [address] [id number] Aug, Dental caries K02.9 [facility] [address] [address] Jul, Allergic contact dermatitis, unspecified trigger L23.9 and Oral abscess K12.2 [facility] [address] [id number] Jul, Dental caries K02.9 and Dental examination Z01.20 [facility] [address] [address] Aug, Periodontal abscess K05.219 [facility] [address] [address] May, Allergic rhinitis, unspecified allergic rhinitis type J30.9 and Acute otitis externa of left ear, unspecified type H60.502 [facility] [address] [address] Sep, [facility] [address] [facility] [id number], [place] [address] Sep, Ankle pain, right M25.571 [facility] [address], [place] [address] Aug, [facility] [address] [address] Aug, [facility] [address], [place] [address] Jun, [facility] [address] [id number] May, Dental examination V72.2 [facility] [address] [id number], [place] [address] May, [facility] [address] [id number] [id number] May, Dental examination V72.2 [facility] [id number] [place] [id number] Apr, Dental examination V72.2 [facility] [address], [place] [address] Apr, [facility] [address] [id number] March, Dental examination V72.2 [facility] [address], [place] [address] March, [facility] [address] [id number] [address] Feb, [facility] [address], [place] [address] Feb, [facility] [place] [facility] [address] [id number] [place] [address] 17 Jan, 2015 [facility] [place] [facility] [address] [id number] [place] [address] 17 Jan, 2015 [facility] [place] [facility] [address] [id number] [place] [address] 16 Jan, 2015 [facility] [place] [facility] [address] [id number] [place] [address] 16 Jan, 2015 [facility] [place] [facility] [address] [id number] [place] [address] 16 Jan, 2015 [facility] [place] [facility] [address] [id number] [place] [address] 16 Jan, 2015 [facility] [place] [facility] [address] [id number] [place] [address] 19 Dec, 2014 [facility] [place] [facility] [address] [id number] [place] [address] 19 Dec, 2014 [facility] [place] [facility] [address] [id number] [place] [address] 16 Dec, 2014 [facility] [place] [facility] [address] [id number] [place] [address] 16 Dec, 2014 [facility] [place] [facility] [address] [id number] [place] [address] Nov, [facility] [place] [facility] [address] [id number] [place] [address] Nov, [facility] [place] [facility] [address] [id number] [place] [address] Oct, [facility] [place] [facility] [address] [id number] [place] [address] Oct, [facility] [place] [facility] [address] [id number] [place] [address] Oct, [facility] [place] [facility] [address] [id number], [place] [address] Oct, [facility] [place] [facility] [address] [id number] [place] [address] Oct, [facility] [place] [facility] [address] [id number] [place] [address] Oct, [facility] [place] [facility] [address] [id number] [place] [address] Sep, [facility] [place] [facility] [address] [id number] [place] [address] Sep, [facility] [place] [facility] [address] [id number] [place] [address] Sep, [facility] [place] [facility] [address] [id number] [place] [address] Sep, [facility] [place] [facility] [address] [id number] [place] [address] Sep, [facility] [place] [facility] [address] [id number], [place] [address] Sep, [facility] [place] [facility] [address] [id number] [place] [address] Sep, [facility] [place] [facility] [address] [id number], [place] [address] Sep, [facility] [place] [facility] [address] [id number], [place] [address] Aug, [facility] [place] [facility] [address] [id number], [place] [address] Aug, [facility] [place] [facility] [address] [id number], [place] [address] Aug, [facility] [place] [facility] [address] [id number], [place] [address] Aug, [facility] [place] [facility] [address] [id number], [place] [address] Aug, [facility] [place] [facility] [address] [id number] [place] [address] Aug, [facility] [place] [facility] [address] [id number] [place] [address] Aug, [facility] [place] [facility] [address] [id number] [place] [address] Aug, [facility] [place] [facility] [address] [id number] [place] [address] Aug, [facility] [place] [facility] [address] [id number] [place] [address] Aug, [facility] [place] [facility] [address] [id number] [place] [address] Jul, [facility] [place] [facility] [address] [id number] [place] [address] Jul, [facility] [place] [facility] [address] [id number] [place] [address] Jun, [facility] [place] [facility] [address] [id number] [place] [address] Jun, [facility] [place] [facility] [address] [id number] [place] [address] May, [facility] [place] [facility] [address] [id number] [place] [address] May, [facility] [place] [facility] [address] [id number] [place] [address] Apr, [facility] [place] [facility] [address] [id number] [place] [address] Apr, [facility] [place] [facility] [address] [id number] [place] [address] Apr, [facility] [place] [facility] [address] [id number] [place] [address] Apr, [facility] [place] [facility] [address] [id number] [place] [address] March, [facility] [place] [facility] [address] [id number] [place] [address] March, [facility] [place] [facility] [address] [id number] [place] [address] Jan, [facility] [place] [facility] [address] [id number] [place] [address] Jan, [facility] [place] [facility] [address] [id number] [place] [address] Oct, [facility] [place] [facility] [address] [id number] [place] [address] Oct, [facility] [place] [facility] [address] [id number] [place] [address] Sep, [facility] [place] [facility] [address] [id number] [place] [address] Sep, [facility] [place] [facility] [address] [id number], [place] [address] Aug, [facility] [place] [facility] [address] [id number] [place] [address] Aug, [facility] [place] [facility] [address] [id number] [place] [address] 25 Jul, 2013 [facility] [place] [facility] [address] [id number], [place] [address] 20 Jul, 2012 [facility] [place] [facility] [address] [id number], [place] [address] 16 Sep, 2012 [facility] [place] [facility] [address] [id number] [place] [address] 09 Sep, 2012 [facility] [place] [facility] [address] [id number], [place] [address] 05 Sep, 2012 [facility] [place] [facility] [address] [id number] [place] [address] 05 Sep, 2012 [facility] [place] [facility] [address] [id number] [place] [address] Jul, [facility] [address] [id number] [place] [address]- [address] Jun, [facility] [place] [facility] [address] [id number] [place] [address] Jun, [facility] [address] [id number] [place] [address] May, [facility] [place] [facility] [address] [id number] [place] [address] May, [facility] [address] [id number] [place] [address] May, [facility] [address] [id number] [place] [address]- [address] May, [facility] [address] [id number] [place] [address] May, [facility] [address] [id number] [place] [address] March, [facility] [address] [id number] [place] [address] March, [facility] [address] [id number] [place] [address] Oct, [facility] [place] [facility] [address] [id number] [place] [address]- [address] Oct, [facility] [place] [facility] [address] [id number] [place] [address] Jun, [facility] [place] [facility] [address] [id number] [place] [address]- [address] Nov, [facility] [place] [facility] [address] [id number] [place] [address]- [address] Aug, [facility] [place] [facility] [address] [id number] [place] [address] Aug, [facility] [address] [facility] [id number] [place] [address] Dec, [facility] [address] [facility] [id number], [place] [address] Oct, [facility] [address] [facility] [id number], [place] [address] Oct, [facility] [address] [facility] [id number], [place] [address] Jun, IMMUNIZATIONS No Known Immunizations SOCIAL HISTORY Never Assessed REASON FOR VISIT joaquina PLAN OF CARE Activity Details Follow Up 2 Weeks Reason:Extraction #26 and #27 VITAL SIGNS Height 64 in 2017-08-21 Blood pressure systolic 135 mmHg 2017-08-21 Blood pressure diastolic 78 mmHg 2017-08-21 MEDICATIONS Medication Instructions Dosage Frequency Start Date End Date Duration Status Amoxicillin 500 MG Orally every 8 hrs [...] PROCEDURES Procedure Date Ordered Result Body Site LTD ORAL EVALUATION - PROBLEM FOCUS Aug 21, 2017 INTRAORL-PERIAPICAL 1 FILM [id number] Aug 21, 2017 INSTRUCTIONS MEDICATIONS ADMINISTERED No Known Medications MEDICAL (GENERAL) HISTORY Type Description Date Medical History hypertension Medical History Arthritis Surgical History bladder surgery Surgical History cyst removal Hospitalization History surgery related
--- OUTSIDE RECORDS SUMMARY | 2018-08-13 23:11 | XMS REPORT ---
Author Author ORQUIDEA FIORE Organization [employer] Address Unknown Phone Unavailable Care Team Providers Care Client Service Manager Name Role Phone ORQUIDEA FIORE CP Unavailable [...]
--- OUTSIDE RECORDS SUMMARY | 2018-08-13 23:12 | XMS REPORT ---
Author MALICK Almeida [facility] [employer] Address Unknown Phone Unavailable Care Team Providers Care Diagram Clerk Name Role Phone MALICK MOFFETT CP Unavailable Allergies, Adverse Reactions, Alerts Substance Reaction Event Type N.K.D.A. Info Not Available Non Drug Allergy Problems Problem Type Condition Code Onset Dates Condition Status Problem Flat foot 734 Active Problem Cervicalgia 723.1 Active Problem Family history of diabetes mellitus V18.0 Active Assessment Periodontal abscess K05.219 Active Medications Medication Code System Code Instructions Start Date End Date [place] D[place] [address]-84 20 MG TAKE ONE TABLE[place] [address]-98 500 MG Orally every 12 hrs Sep 20, 2016 Sep 30, 2016 2 capsules tramadol NDC 0 50 mg February 08, 2015 take 1 tablet by Oral route 1 time per day as needed PRN pain Procedures Procedure Coding System Code Date Office Visit, Est Pt., Level 3 CPT-4 58573 Sep 20, 2016 Vital Signs Date/Time: Sep 20, 2016 Cardiac Monitoring Heart Rate 76 bpm Weight 167 lbs Height 64 in BMI 28.66 Index Blood Pressure Diastolic 90 mmHg Blood Pressure Systolic 130 mmHg Results No Known Results Summary Purpose [employer] Submission
--- OUTSIDE RECORDS SUMMARY | 2018-08-13 23:13 | XMS REPORT | Continuity of Care Document ---
Author Author [facility] Address Unknown Phone Unavailable Allergies Active Description Code Type Severity Reaction Onset Reported/Identified Relationship to Patient Clinical Status Yes No Known Drug Allergies [id number] Drug Allergy Unknown N/A 08/17/2016 Medications There is no data. Problems Date Dx Coded Attending Type Code Diagnosis Diagnosed By 07/14/2009 HILDA GOODRICH DO K 692.9 DERMATITIS 07/14/2009 692.9 DERMATITIS 07/14/2009 VIVIAN AQUINO APRN A 692.9 DERMATITIS 07/14/2009 ORQUIDEA FIORE APRN S 692.9 DERMATITIS 07/14/2009 JOCELYNE GOODRICH DOA K 692.9 DERMATITIS 07/14/2009 RUTH OSORIO DDS 692.9 DERMATITIS 07/14/2009 PATTI VMWARE ADMINISTRATORJOEY Brandt 692.9 DERMATITIS 07/14/2009 MALICK MOFFETT APRN 692.9 DERMATITIS 07/14/2009 GOODRICH , HILDA K 692.9 DERMATITIS 07/14/2009 JORGE FIORE APRNA S 692.9 DERMATITIS 07/14/2009 GOODRICH JOCELYNE CASTILLOA K 692.9 DERMATITIS 07/14/2009 GOODRICH JOCELYNE CASTILLOA K 692.9 DERMATITIS 07/14/2009 RANJANA FIORE APRNNDA S 692.9 DERMATITIS 11/02/2009 GOODRICH DO HILDA K 595.0 CYSTITIS ACUTE 11/02/2009 GOODRICH JOCELYNE CASTILLOA K 788.42 frequent, full-bladder emptying (polyuria) 11/02/2009 595.0 CYSTITIS ACUTE 11/02/2009 788.42 frequent, full-bladder emptying (polyuria) 11/02/2009 VIVIAN AQUINO APRN A 595.0 CYSTITIS ACUTE 11/02/2009 CARLOS A AQUINO APRNIDI A 788.42 frequent, full-bladder emptying (polyuria) 11/02/2009 ADEBAYO VMWARE ADMINISTRATOR, ORQUIDEA S 595.0 CYSTITIS ACUTE 11/02/2009 ADEBAYO VMWARE ADMINISTRATOR, ORQUIDEA S 788.42 FREQUENT, FULL-BLADDER EMPTYING (POLYURIA) 11/02/2009 GOODRICH DO, HILDA K 595.0 CYSTITIS ACUTE 11/02/2009 GOODRICH DO, HILDA K 788.42 FREQUENT, FULL-BLADDER EMPTYING (POLYURIA) 11/02/2009 WHITE DDS, RUTH D 595.0 CYSTITIS ACUTE 11/02/2009 WHITE DDS, RUTH D 788.42 FREQUENT, FULL-BLADDER EMPTYING (POLYURIA) 11/02/2009 MADL VMWARE ADMINISTRATOR, JOEY L 595.0 CYSTITIS ACUTE 11/02/2009 MADL VMWARE ADMINISTRATOR, JOEY L 788.42 FREQUENT, FULL-BLADDER EMPTYING (POLYURIA) 11/02/2009 ZUHAIR VMWARE ADMINISTRATOR, MALICK T 595.0 CYSTITIS ACUTE 11/02/2009 ZUHAIR VMWARE ADMINISTRATOR, MALICK T 788.42 FREQUENT, FULL-BLADDER EMPTYING (POLYURIA) 11/02/2009 GOODRICH DO, HILDA K 595.0 CYSTITIS ACUTE 11/02/2009 GOODRICH DO, HILDA K 788.42 FREQUENT, FULL-BLADDER EMPTYING (POLYURIA) 11/02/2009 ADEBAYO VMWARE ADMINISTRATOR, ORQUIDEA S 595.0 CYSTITIS ACUTE 11/02/2009 ADEBAYO VMWARE ADMINISTRATOR, ORQUIDEA S 788.42 FREQUENT, FULL-BLADDER EMPTYING (POLYURIA) 11/02/2009 GOODRICH DO, HILDA K 595.0 CYSTITIS ACUTE 11/02/2009 GOODRICH DO, HILDA K 788.42 FREQUENT, FULL-BLADDER EMPTYING (POLYURIA) 11/02/2009 GOODRICH DO, HILDA K 595.0 CYSTITIS ACUTE 11/02/2009 GOODRICH DO, HILDA K 788.42 FREQUENT, FULL-BLADDER EMPTYING (POLYURIA) 11/02/2009 ADEBAYO VMWARE ADMINISTRATOR, ORQUIDEA S 595.0 CYSTITIS ACUTE 11/02/2009 ADEBAYO VMWARE ADMINISTRATOR, ORQUIDEA S 788.42 FREQUENT, FULL-BLADDER EMPTYING (POLYURIA) 11/16/2009 GOODRICH DO, HILDA K V72.31 Pelvic Exam (Internal) 11/16/2009 V72.31 Pelvic Exam ( Internal) 11/16/2009 VIVIAN AQUINO APRN V72.31 Pelvic Exam (Internal) 11/16/2009 ADEBAYO COATSRANJANAORQUIDEA S V72.31 PELVIC EXAM (INTERNAL) 11/16/2009 GOODRICH DOJOCELYNEA K V72.31 PELVIC EXAM (INTERNAL) 11/16/2009 DEVON DDSRUTH V72.31 PELVIC EXAM (INTERNAL) 11/16/2009 JOEY ARMSTRONG APRN V72.31 PELVIC EXAM (INTERNAL) 11/16/2009 MALICK MOFFETT APRN V72.31 PELVIC EXAM (INTERNAL) 11/16/2009 GOODRICH DO HILDA K V72.31 PELVIC EXAM (INTERNAL) 11/16/2009 ADEBAYO MIDDLETONNRANJANAORQUIDEA S V72.31 PELVIC EXAM (INTERNAL) 11/16/2009 GOODRICH DO HILDA K V72.31 PELVIC EXAM (INTERNAL) 11/16/2009 GOODRICH DO HILDA K V72.31 PELVIC EXAM (INTERNAL) 11/16/2009 ADEBAYO COATS ORQUIDEA S V72.31 PELVIC EXAM (INTERNAL) 01/12/2010 JOLEEN CASTILLO HILDA K 599.0 URINARY TRACT INFECTION 01/12/2010 GOODRICH DO HILDA K 788.41 urinary frequency increased 01/12/2010 GOODRICH DO HILDA K 795.01 Cerv Pap Smear (+) Atyp Squamous Cells Undetermined Signif 01/12/2010 599.0 URINARY TRACT INFECTION 01/12/2010 788.41 urinary frequency increased 01/12/2010 795.01 Cerv Pap Smear (+) Atyp Squamous Cells Undetermined Signif 01/12/2010 KENIA VMWARE ADMINISTRATOR, VIVIAN A 599.0 URINARY TRACT INFECTION 01/12/2010 KENIA VMWARE ADMINISTRATOR, VIVIAN A 788.41 urinary frequency increased 01/12/2010 KENIA VMWARE ADMINISTRATOR, VIVIAN A 795.01 Cerv Pap Smear (+) Atyp Squamous Cells Undetermined Signif 01/12/2010 ADEBAYO VMWARE ADMINISTRATOR, ORQUIDEA S 599.0 URINARY TRACT INFECTION 01/12/2010 ADEBAYO VMWARE ADMINISTRATOR, ORQUIDEA S 788.41 URINARY FREQUENCY INCREASED 01/12/2010 ADEBAYO VMWARE ADMINISTRATOR, ORQUIDEA S 795.01 CERV PAP SMEAR (+) ATYP SQUAMOUS CELLS UNDETERMINED SIGNIF 01/12/2010 GOODRICH DO HILDA K 599.0 URINARY TRACT INFECTION 01/12/2010 GOODRICH DO HILDA K 788.41 URINARY FREQUENCY INCREASED 01/12/2010 GOODRICH DO, HILDA K 795.01 CERV PAP SMEAR (+) ATYP SQUAMOUS CELLS UNDETERMINED SIGNIF 01/12/2010 WHITE DDS, RUTH D 599.0 URINARY TRACT INFECTION 01/12/2010 WHITE DDS, RUTH D 788.41 URINARY FREQUENCY INCREASED 01/12/2010 WHITE DDS, RUTH D 795.01 CERV PAP SMEAR (+) ATYP SQUAMOUS CELLS UNDETERMINED SIGNIF 01/12/2010 MADL VMWARE ADMINISTRATOR, JOEY L 599.0 URINARY TRACT INFECTION 01/12/2010 MADL VMWARE ADMINISTRATOR, JOEY L 788.41 URINARY FREQUENCY INCREASED 01/12/2010 MADL VMWARE ADMINISTRATOR, JOEY L 795.01 CERV PAP SMEAR (+) ATYP SQUAMOUS CELLS UNDETERMINED SIGNIF 01/12/2010 ZUHAIR JORGE L MALICK T 599.0 URINARY TRACT INFECTION 01/12/2010 ZUHAIR VMWARE ADMINISTRATOR, MALICK T 788.41 URINARY FREQUENCY INCREASED 01/12/2010 ZUHAIR COATS MALICK T 795.01 CERV PAP SMEAR (+) ATYP SQUAMOUS CELLS UNDETERMINED SIGNIF 01/12/2010 GOODRICH DO, HILDA K 599.0 URINARY TRACT INFECTION 01/12/2010 GOODRICH DO, HILDA K 788.41 URINARY FREQUENCY INCREASED 01/12/2010 GOODRICH DO, HILDA K 795.01 CERV PAP SMEAR (+) ATYP SQUAMOUS CELLS UNDETERMINED SIGNIF 01/12/2010 ADEBAYO VMWARE ADMINISTRATOR, ORQUIDEA S 599.0 URINARY TRACT INFECTION 01/12/2010 ADEBAYO VMWARE ADMINISTRATOR, ORQUIDEA S 788.41 URINARY FREQUENCY INCREASED 01/12/2010 ADEBAYO VMWARE ADMINISTRATOR, ORQUIDEA S 795.01 CERV PAP SMEAR (+) ATYP SQUAMOUS CELLS UNDETERMINED SIGNIF 01/12/2010 GOODRICH DO, HILDA K 599.0 URINARY TRACT INFECTION 01/12/2010 GOODRICH DO, HILDA K 788.41 URINARY FREQUENCY INCREASED 01/12/2010 GOODRICH DO, HILDA K 795.01 CERV PAP SMEAR (+) ATYP SQUAMOUS CELLS UNDETERMINED SIGNIF 01/12/2010 GOODRICH DO, HILDA K 599.0 URINARY TRACT INFECTION 01/12/2010 GOODRICH DO, HILDA K 788.41 URINARY FREQUENCY INCREASED 01/12/2010 GOODRICH DO, HILDA K 795.01 CERV PAP SMEAR (+) ATYP SQUAMOUS CELLS UNDETERMINED SIGNIF 01/12/2010 ADEBAYO VMWARE ADMINISTRATOR ORQUIDEA S 599.0 URINARY TRACT INFECTION 01/12/2010 ADEBAYO VMWARE ADMINISTRATOR, ORQUIDEA S 788.41 URINARY FREQUENCY INCREASED 01/12/2010 ADEBAYO VMWARE ADMINISTRATOR, ORQUIDEA S 795.01 CERV PAP SMEAR (+) ATYP SQUAMOUS CELLS UNDETERMINED SIGNIF 01/31/2010 GOODRICH DO, HILDA K 380.4 IMPACTED CERUMEN 01/31/2010 GOODRICH DO, HILDA K 599.70 HEMATURIA, UNSPECIFIED 01/31/2010 380.4 IMPACTED CERUMEN 01/31/2010 599.70 HEMATURIA, UNSPECIFIED 01/31/2010 KENIA VMWARE ADMINISTRATOR, VIVIAN A 380.4 IMPACTED CERUMEN 01/31/2010 KENIA VMWARE ADMINISTRATOR, VIVIAN A 599.70 HEMATURIA, UNSPECIFIED 01/31/2010 ADEBAYO VMWARE ADMINISTRATOR, ORQUIDEA S 380.4 IMPACTED CERUMEN 01/31/2010 ADEBAYO VMWARE ADMINISTRATOR, ORQUIDEA S 599.70 HEMATURIA, UNSPECIFIED 01/31/2010 GOODRICH DO, HILDA K 380.4 IMPACTED CERUMEN 01/31/2010 GOODRICH DO, HILDA K 599.70 HEMATURIA, UNSPECIFIED 01/31/2010 WHITE DDS, RUTH D 380.4 IMPACTED CERUMEN 01/31/2010 WHITE DDS, RUTH D 599.70 HEMATURIA, UNSPECIFIED 01/31/2010 MADL VMWARE ADMINISTRATOR, JOEY L 380.4 IMPACTED CERUMEN 01/31/2010 MADL VMWARE ADMINISTRATOR, JOEY L 599.70 HEMATURIA, UNSPECIFIED 01/31/2010 MALICK MOFFETT APRN T 380.4 IMPACTED CERUMEN 01/31/2010 ZUHAIR VMWARE ADMINISTRATORMALICK Brandt T 599.70 HEMATURIA, UNSPECIFIED 01/31/2010 GOODRICH DO, HILDA K 380.4 IMPACTED CERUMEN 01/31/2010 GOODRICH DO, HILDA K 599.70 HEMATURIA, UNSPECIFIED 01/31/2010 ADEBAYO VMWARE ADMINISTRATOR, ORQUIDEA S 380.4 IMPACTED CERUMEN 01/31/2010 ADEBAYO VMWARE ADMINISTRATOR, ORQUIDEA S 599.70 HEMATURIA, UNSPECIFIED 01/31/2010 GOODRICH DO, HILDA K 380.4 IMPACTED CERUMEN 01/31/2010 GOODRICH DO, HILDA K 599.70 HEMATURIA, UNSPECIFIED 01/31/2010 GOODRICH DO, HILDA K 380.4 IMPACTED CERUMEN 01/31/2010 GOODRICH DOHILDA K 599.70 HEMATURIA, UNSPECIFIED 01/31/2010 ADEBAYO VMWARE ADMINISTRATORORQUIDEA S 380.4 IMPACTED CERUMEN 01/31/2010 ADEBAYO VMWARE ADMINISTRATOR, ORQUIDEA S 599.70 HEMATURIA, UNSPECIFIED 04/15/2010 GOODRICH DOHILDA K V06.5 DT, TETANUS-DIPHTHERIA [Td] ,TDAP 04/15/2010 V06.5 DT, TETANUS- DIPHTHERIA [Td] ,TDAP 04/15/2010 KENIA VMWARE ADMINISTRATORVIVIAN A V06.5 DT, TETANUS-DIPHTHERIA [Td] ,TDAP 04/15/2010 ADEBAYO COATS, ORQUIDEA S V06.5 DT, TETANUS-DIPHTHERIA [TD] ,TDAP 04/15/2010 GOODRICH DOHILDA K V06.5 DT, TETANUS-DIPHTHERIA [TD] ,TDAP 04/15/2010 DEVON DDS, RUTH Dacosta V06.5 DT, TETANUS-DIPHTHERIA [TD] ,TDAP 04/15/2010 PATTI VMWARE ADMINISTRATOR, JOEY Haile V06.5 DT, TETANUS-DIPHTHERIA [TD] ,TDAP 04/15/2010 ZUHAIR VMWARE ADMINISTRATORMALICK Brandt V06.5 DT, TETANUS-DIPHTHERIA [TD] ,TDAP 04/15/2010 GOODRICH DOHILDA K V06.5 DT, TETANUS-DIPHTHERIA [TD] ,TDAP 04/15/2010 ORQUIDEA FIORE APRN S V06.5 DT, TETANUS-DIPHTHERIA [TD] ,TDAP 04/15/2010 HILDA GOODRICH DO K V06.5 DT, TETANUS-DIPHTHERIA [TD] ,TDAP 04/15/2010 GOODRICH DOHILDA K V06.5 DT, TETANUS-DIPHTHERIA [TD] ,TDAP 04/15/2010 ORQUIDEA FIORE APRN S V06.5 DT, TETANUS-DIPHTHERIA [TD] ,TDAP 08/16/2011 HILDA GOODRICH DO K 401.0 HYPERTENSION MALIGNANT ESSENTIAL 08/16/2011 GOODRICH DOHILDA K 729.5 PAIN IN LIMB 08/16/2011 401.0 HYPERTENSION MALIGNANT ESSENTIAL 08/16/2011 729.5 PAIN IN LIMB 08/16/2011 KENIA VMWARE ADMINISTRATOR, VIVIAN A 401.0 HYPERTENSION MALIGNANT ESSENTIAL 08/16/2011 KENIA VMWARE ADMINISTRATOR, VIVIAN A 729.5 PAIN IN LIMB 08/16/2011 ADEBAYO VMWARE ADMINISTRATOR, ORQUIDEA S 401.0 HYPERTENSION MALIGNANT ESSENTIAL 08/16/2011 ADEBAYO VMWARE ADMINISTRATOR, ORQUIDEA S 729.5 PAIN IN LIMB 08/16/2011 GOODRICH DO, HILDA K 401.0 HYPERTENSION MALIGNANT ESSENTIAL 08/16/2011 GOODRICH DO, HILDA K 729.5 PAIN IN LIMB 08/16/2011 WHITE DDS, RUTH D 401.0 HYPERTENSION MALIGNANT ESSENTIAL 08/16/2011 WHITE DDS, RUTH D 729.5 PAIN IN LIMB 08/16/2011 MADL VMWARE ADMINISTRATOR, JOEY L 401.0 HYPERTENSION MALIGNANT ESSENTIAL 08/16/2011 MADL VMWARE ADMINISTRATOR, JOEY L 729.5 PAIN IN LIMB 08/16/2011 ZUHAIR VMWARE ADMINISTRATOR, MALICK T 401.0 HYPERTENSION MALIGNANT ESSENTIAL 08/16/2011 ZUHAIR VMWARE ADMINISTRATOR, MALICK T 729.5 PAIN IN LIMB 08/16/2011 GOODRICH DO, HILDA K 401.0 HYPERTENSION MALIGNANT ESSENTIAL 08/16/2011 GOODRICH DO, HILDA K 729.5 PAIN IN LIMB 08/16/2011 ADEBAYO VMWARE ADMINISTRATOR, ORQUIDEA S 401.0 HYPERTENSION MALIGNANT ESSENTIAL 08/16/2011 ADEBAYO VMWARE ADMINISTRATOR, ORQUIDEA S 729.5 PAIN IN LIMB 08/16/2011 GOODRICH DO, HILDA K 401.0 HYPERTENSION MALIGNANT ESSENTIAL 08/16/2011 GOODRICH DO, HILDA K 729.5 PAIN IN LIMB 08/16/2011 GOODRICH DO, HILDA K 401.0 HYPERTENSION MALIGNANT ESSENTIAL 08/16/2011 GOODRICH DO, HILDA K 729.5 PAIN IN LIMB 08/16/2011 ADEBAYO VMWARE ADMINISTRATOR, ORQUIDEA S 401.0 HYPERTENSION MALIGNANT ESSENTIAL 08/16/2011 ADEBAYO VMWARE ADMINISTRATOR, ORQUIDEA S 729.5 PAIN IN LIMB 08/23/2011 GOODRICH DO, HILDA K 465.9 UPPER RESPIRATORY INFECTION 08/23/2011 465.9 UPPER RESPIRATORY INFECTION 08/23/2011 KENIA VMWARE ADMINISTRATOR, VIVIAN A 465.9 UPPER RESPIRATORY INFECTION 08/23/2011 ADEBAYO VMWARE ADMINISTRATOR, ORQUIDEA S 465.9 UPPER RESPIRATORY INFECTION 08/23/2011 GOODRICH DO, HILDA K 465.9 UPPER RESPIRATORY INFECTION 08/23/2011 WHITE DDS, RUTH D 465.9 UPPER RESPIRATORY INFECTION 08/23/2011 PATTI VMWARE ADMINISTRATOR, JOEY L 465.9 UPPER RESPIRATORY INFECTION 08/23/2011 MALICK MOFFETT APRN 465.9 UPPER RESPIRATORY INFECTION 08/23/2011 GOODRICH DO, HILDA K 465.9 UPPER RESPIRATORY INFECTION 08/23/2011 ADEBAYO VMWARE ADMINISTRATOR, ORQUIDEA S 465.9 UPPER RESPIRATORY INFECTION 08/23/2011 GOODRICH DO, HILDA K 465.9 UPPER RESPIRATORY INFECTION 08/23/2011 GOODRICH DO, HILDA K 465.9 UPPER RESPIRATORY INFECTION 08/23/2011 ADEBAYO VMWARE ADMINISTRATOR, ORQUIDEA S 465.9 UPPER RESPIRATORY INFECTION 09/06/2011 GOODRICH DO, HILDA K V04.81 FLU DX (3 YRS AND ABOVE, IM) 09/06/2011 V04.81 FLU DX (3 YRS AND ABOVE, IM) 09/06/2011 CARLOS A AQUINO APRNIDI A V04.81 FLU DX (3 YRS AND ABOVE, IM) 09/06/2011 ADEBAYO VMWARE ADMINISTRATOR, ORQUIDEA S V04.81 FLU DX (3 YRS AND ABOVE, IM) 09/06/2011 GOODRICH DO, HILDA K V04.81 FLU DX (3 YRS AND ABOVE, IM) 09/06/2011 WHITE DDS, RUTH D V04.81 FLU DX (3 YRS AND ABOVE, IM) 09/06/2011 KELTONLazara VMWARE ADMINISTRATOR, JOEY L V04.81 FLU DX (3 YRS AND ABOVE, IM) 09/06/2011 MALICK MOFFETT APRN V04.81 FLU DX (3 YRS AND ABOVE, IM) 09/06/2011 GOODRICH DO, HILDA K V04.81 FLU DX (3 YRS AND ABOVE, IM) 09/06/2011 ADEBAYO VMWARE ADMINISTRATOR, ORQUIDEA S V04.81 FLU DX (3 YRS AND ABOVE, IM) 09/06/2011 GOODRICH DO, HILDA K V04.81 FLU DX (3 YRS AND ABOVE, IM) 09/06/2011 GOODRICH DO, HILDA K V04.81 FLU DX (3 YRS AND ABOVE, IM) 09/06/2011 ADEBAYO VMWARE ADMINISTRATOR, ORQUIDEA S V04.81 FLU DX (3 YRS AND ABOVE, IM) 12/22/2011 GOODRICH DO, HILDA K 726.79 TENDONITIS PERONEAL 12/22/2011 GOODRICH DO, HILDA K 734 FLAT FOOT 12/22/2011 GOODRICH DO, HILDA K 735.4 HAMMER TOE (ACQUIRED) 12/22/2011 726.79 TENDONITIS PERONEAL 12/22/2011 734 FLAT FOOT 12/22/2011 735.4 HAMMER TOE ( ACQUIRED) 12/22/2011 KENIA VMWARE ADMINISTRATOR, VIVIAN A 726.79 TENDONITIS PERONEAL 12/22/2011 KENIA VMWARE ADMINISTRATOR, VIVIAN A 734 FLAT FOOT 12/22/2011 KENIA VMWARE ADMINISTRATOR, VIVIAN A 735.4 HAMMER TOE (ACQUIRED) 12/22/2011 ADEBAYO VMWARE ADMINISTRATOR, ORQUIDEA S 726.79 TENDONITIS PERONEAL 12/22/2011 ADEBAYO VMWARE ADMINISTRATOR, ORQUIDEA S 734 FLAT FOOT 12/22/2011 ADEBAYO VMWARE ADMINISTRATOR, ORQUIDEA S 735.4 HAMMER TOE (ACQUIRED) 12/22/2011 GOODRICH DO, HILDA K 726.79 TENDONITIS PERONEAL 12/22/2011 GOODRICH DO, HILDA K 734 FLAT FOOT 12/22/2011 GOODRICH DO, HILDA K 735.4 HAMMER TOE (ACQUIRED) 12/22/2011 WHITE DDS, RUTH D 726.79 TENDONITIS PERONEAL 12/22/2011 WHITE DDS, RUTH D 734 FLAT FOOT 12/22/2011 WHITE DDS, RUTH D 735.4 HAMMER TOE (ACQUIRED) 12/22/2011 MADL VMWARE ADMINISTRATOR, JOEY L 726.79 TENDONITIS PERONEAL 12/22/2011 MADL VMWARE ADMINISTRATOR, JOEY L 734 FLAT FOOT 12/22/2011 MADL VMWARE ADMINISTRATOR, JOEY L 735.4 HAMMER TOE (ACQUIRED) 12/22/2011 MLAICK MOFFETT APRN T 726.79 TENDONITIS PERONEAL 12/22/2011 MALICK MOFFETT APRN T 734 FLAT FOOT 12/22/2011 MALICK MOFFETT APRN T 735.4 HAMMER TOE (ACQUIRED) 12/22/2011 GOODRICH DO, HILDA K 726.79 TENDONITIS PERONEAL 12/22/2011 GOODRICH DO, HILDA K 734 FLAT FOOT 12/22/2011 GOODRICH DO, HILDA K 735.4 HAMMER TOE (ACQUIRED) 12/22/2011 ADEBAYO VMWARE ADMINISTRATOR, ORQUIDEA S 726.79 TENDONITIS PERONEAL 12/22/2011 ADEBAYO VMWARE ADMINISTRATOR, ORQUIDEA S 734 FLAT FOOT 12/22/2011 ADEBAYO VMWARE ADMINISTRATOR, ORQUIDEA S 735.4 HAMMER TOE (ACQUIRED) 12/22/2011 GOODRICH DO, HILDA K 726.79 TENDONITIS PERONEAL 12/22/2011 GOODRICH DO, HILDA K 734 FLAT FOOT 12/22/2011 GOODRICH DO, HILDA K 735.4 HAMMER TOE (ACQUIRED) 12/22/2011 GOODRICH DO, HILDA K 726.79 TENDONITIS PERONEAL 12/22/2011 GOODRICH DO, HILDA K 734 FLAT FOOT 12/22/2011 GOODRICH DO, HILDA K 735.4 HAMMER TOE (ACQUIRED) 12/22/2011 ADEBAYO COATS, OQRUIDEA S 726.79 TENDONITIS PERONEAL 12/22/2011 ADEBAYO COATS, ORQUIDEA S 734 FLAT FOOT 12/22/2011 ADEBAYO MIDDLETONN, ORQUIDEA S 735.4 HAMMER TOE (ACQUIRED) 05/27/2013 724.2 BACK PAIN, LOWER 05/27/2013 780.79 fatigue 05/27/2013 V18.0 FAMILY HISTORY OF DIABETES MELLITUS 05/27/2013 V70.0 EXAM - ROUTINE H&P 05/27/2013 KENIA MIDDLETONN, VIVIAN A 724.2 BACK PAIN, LOWER 05/27/2013 KENIA MIDDLETONN, VIVIAN A 780.79 fatigue 05/27/2013 KENIA VMWARE ADMINISTRATOR, VIVIAN A V18.0 FAMILY HISTORY OF DIABETES MELLITUS 05/27/2013 KENIA VMWARE ADMINISTRATOR, VIVIAN A V70.0 EXAM - ROUTINE H&P 05/27/2013 ADEBAYO COATS OQRUIDEA S 724.2 BACK PAIN, LOWER 05/27/2013 ADEBAYO MIDDLETONN ORQUIDEA S 780.79 FATIGUE 05/27/2013 ADEBAYO COATS, ORQUIDEA S V18.0 FAMILY HISTORY OF DIABETES MELLITUS 05/27/2013 RANJANA FIORE APRNNDA S V70.0 EXAM - ROUTINE H&P 05/27/2013 GOODRICH DO, HILDA K 724.2 BACK PAIN, LOWER 05/27/2013 GOODRICH DO, HILDA K 780.79 FATIGUE 05/27/2013 GOODRICH DO, HILDA K V18.0 FAMILY HISTORY OF DIABETES MELLITUS 05/27/2013 GOODRICH DO, HILDA K V70.0 EXAM - ROUTINE H&P 05/27/2013 WHITE DDS, RUTH D 724.2 BACK PAIN, LOWER 05/27/2013 WHITE DDS, RUTH D 780.79 FATIGUE 05/27/2013 WHITE DDS, RUTH D V18.0 FAMILY HISTORY OF DIABETES MELLITUS 05/27/2013 WHITE DDS, RUTH D V70.0 EXAM - ROUTINE H&P 05/27/2013 MADL VMWARE ADMINISTRATOR, JOEY L 724.2 BACK PAIN, LOWER 05/27/2013 MADL VMWARE ADMINISTRATOR, JOEY L 780.79 FATIGUE 05/27/2013 MADL VMWARE ADMINISTRATOR, JOEY L V18.0 FAMILY HISTORY OF DIABETES MELLITUS 05/27/2013 MADL VMWARE ADMINISTRATOR, JOEY L V70.0 EXAM - ROUTINE H&P 05/27/2013 ZUHAIR VMWARE ADMINISTRATOR, MALICK T 724.2 BACK PAIN, LOWER 05/27/2013 ZUHAIR VMWARE ADMINISTRATOR, MALICK T 780.79 FATIGUE 05/27/2013 ZUHAIR COATS MALICK T V18.0 FAMILY HISTORY OF DIABETES MELLITUS 05/27/2013 ZUHAIR COATS MALICK T V70.0 EXAM - ROUTINE H&P 05/27/2013 GOODRICH DO, HILDA K 724.2 BACK PAIN, LOWER 05/27/2013 GOODRICH DO, HILDA K 780.79 FATIGUE 05/27/2013 GOODRICH DO, HILDA K V18.0 FAMILY HISTORY OF DIABETES MELLITUS 05/27/2013 GOODRICH DO, HILDA K V70.0 EXAM - ROUTINE H&P 05/27/2013 ADEBAYO VMWARE ADMINISTRATOR, ORQUIDEA S 724.2 BACK PAIN, LOWER 05/27/2013 ADEBAYO VMWARE ADMINISTRATOR, ORQUIDEA S 780.79 FATIGUE 05/27/2013 ADEBAYO VMWARE ADMINISTRATOR, ORQUIDEA S V18.0 FAMILY HISTORY OF DIABETES MELLITUS 05/27/2013 ADEBAYO VMWARE ADMINISTRATOR, ORQUIDEA S V70.0 EXAM - ROUTINE H&P 05/27/2013 GOODRICH DO, HILDA K 724.2 BACK PAIN, LOWER 05/27/2013 GOODRICH DO, HILDA K 780.79 FATIGUE 05/27/2013 GOODRICH DO, HILDA K V18.0 FAMILY HISTORY OF DIABETES MELLITUS 05/27/2013 JOLEEN CASTILLO, HILDA K V70.0 EXAM - ROUTINE H&P 05/27/2013 GOODRICH DO, HILDA K 724.2 BACK PAIN, LOWER 05/27/2013 GOODRICH DO, HILDA K 780.79 FATIGUE 05/27/2013 GOODRICH DO, HILDA K V18.0 FAMILY HISTORY OF DIABETES MELLITUS 05/27/2013 JOLEEN CASTILLO, HILDA K V70.0 EXAM - ROUTINE H&P 05/27/2013 RANJANA FIORE APRNNDA S 724.2 BACK PAIN, LOWER 05/27/2013 RANJANA FIORE APRNNDA S 780.79 FATIGUE 05/27/2013 RANJANA FIORE APRNNDA S V18.0 FAMILY HISTORY OF DIABETES MELLITUS 05/27/2013 RANJANA FIORE APRNNDA S V70.0 EXAM - ROUTINE H&P 07/23/2013 VIVIAN AQUINO APRN A 723.1 CERVICALGIA 07/23/2013 ORQUIDEA FIORE APRN S 723.1 CERVICALGIA 07/23/2013 GOODRICH DO HILDA K 723.1 CERVICALGIA 07/23/2013 RUTH OSORIO DDS 723.1 CERVICALGIA 07/23/2013 JOEY ARMSTRONG APRN 723.1 CERVICALGIA 07/23/2013 MALICK MOFFETT APRN 723.1 CERVICALGIA 07/23/2013 GOODRICH DO HILDA K 723.1 CERVICALGIA 07/23/2013 JROGE FIORE APRNA S 723.1 CERVICALGIA 07/23/2013 GOODRICH DO HILDA K 723.1 CERVICALGIA 07/23/2013 GOODRICH DO HILDA K 723.1 CERVICALGIA 07/23/2013 JORGE FIORE APRNA S 723.1 CERVICALGIA 07/29/2013 VIVIAN AQUINO APRN V65.49 OTHER SPECIFIED COUNSELING 07/29/2013 VIVIAN AQUINO APRN V73.81 HPV SCREENING 07/29/2013 VIVIAN AQUINO APRN V76.10 BREAST CANCER SCREENING 07/29/2013 VIVIAN AQUINO APRN V76.2 CERVICAL CANCER SCREENING (PAP SMEAR) 07/29/2013 KENIA [employer] ADMINISTRATOR, VIVIAN A V76.51 COLON CANCER SCREENING 07/29/2013 KENIA [employer] ADMINISTRATOR, VIVIAN A V82.81 SPECIAL SCREENING FOR OSTEOPOROSIS 07/29/2013 ADEBAYO [employer] ADMINISTRATOR ORQUIDEA S V65.49 OTHER SPECIFIED COUNSELING 07/29/2013 ADEBAYO VM[employer] ADMINISTRATOR, ORQUIDEA S V73.81 HPV SCREENING 07/29/2013 ADEBAYO VM[employer] ADMINISTRATOR, ORQUIDEA S V76.10 BREAST CANCER SCREENING 07/29/2013 ADEBAYO [employer] ADMINISTRATOR, ORQUIDEA S V76.2 CERVICAL CANCER SCREENING (PAP SMEAR) 07/29/2013 ADEBAYO [employer] ADMINISTRATOR, ORQUIDEA S V76.51 COLON CANCER SCREENING 07/29/2013 ADEBAYO VM[employer] ADMINISTRATOR, ORQUIDEA S V82.81 SPECIAL SCREENING FOR OSTEOPOROSIS 07/29/2013 HILDA GOODRICH DO V65.49 OTHER SPECIFIED COUNSELING 07/29/2013 HILDA GOODRICH DO K V73.81 HPV SCREENING 07/29/2013 HILDA GOODRICH DO K V76.10 BREAST CANCER SCREENING 07/29/2013 JOCELYNE GOODRICH DOA K V76.2 CERVICAL CANCER SCREENING (PAP SMEAR) 07/29/2013 HILDA GOODRICH DO K V76.51 COLON CANCER SCREENING 07/29/2013 JOCELYNE GOODRICH DOA K V82.81 SPECIAL SCREENING FOR OSTEOPOROSIS 07/29/2013 WHITE DDS, RUTH D V65.49 OTHER SPECIFIED COUNSELING 07/29/2013 WHITE DDS, RUTH D V73.81 HPV SCREENING 07/29/2013 WHITE DDSRUTH D V76.10 BREAST CANCER SCREENING 07/29/2013 WHITE DDSRUTH D V76.2 CERVICAL CANCER SCREENING (PAP SMEAR) 07/29/2013 WHITE DDS, RUTH D V76.51 COLON CANCER SCREENING 07/29/2013 WHITE DDS, RUTH D V82.81 SPECIAL SCREENING FOR OSTEOPOROSIS 07/29/2013 KELTONL VMWARE ADMINISTRATORJOEY Brandt L V65.49 OTHER SPECIFIED COUNSELING 07/29/2013 MADL VMWARE ADMINISTRATORNATHALIE BrandtA L V73.81 HPV SCREENING 07/29/2013 MADL [employer] ADMINISTRATOR, JOEY L V76.10 BREAST CANCER SCREENING 07/29/2013 MADL [employer] ADMINISTRATOR, JOEY L V76.2 CERVICAL CANCER SCREENING (PAP SMEAR) 07/29/2013 JOEY ARMSTRONG APRN L V76.51 COLON CANCER SCREENING 07/29/2013 PATTI VMWARE ADMINISTRATORJOEY Brandt L V82.81 SPECIAL SCREENING FOR OSTEOPOROSIS 07/29/2013 MALICK MOFFETT APRN V65.49 OTHER SPECIFIED COUNSELING 07/29/2013 MALICK MOFFETT APRN V73.81 HPV SCREENING 07/29/2013 MALICK MOFFETT APRN V76.10 BREAST CANCER SCREENING 07/29/2013 MALICK MOFFETT APRN V76.2 CERVICAL CANCER SCREENING (PAP SMEAR) 07/29/2013 MALICK MOFFETT APRN V76.51 COLON CANCER SCREENING 07/29/2013 MALICK MOFFETT APRN V82.81 SPECIAL SCREENING FOR OSTEOPOROSIS 07/29/2013 JOLEEN CASTILLO HILDA K V65.49 OTHER SPECIFIED COUNSELING 07/29/2013 GOODRICH DO HILDA K V73.81 HPV SCREENING 07/29/2013 GOODRICH DO HILDA K V76.10 BREAST CANCER SCREENING 07/29/2013 GOODRICH DO HILDA K V76.2 CERVICAL CANCER SCREENING (PAP SMEAR) 07/29/2013 GOODRICH DO HILDA K V76.51 COLON CANCER SCREENING 07/29/2013 GOODRICH DO HILDA K V82.81 SPECIAL SCREENING FOR OSTEOPOROSIS 07/29/2013 ADEBAYO COATS ORQUIDEA S V65.49 OTHER SPECIFIED COUNSELING 07/29/2013 ADEBAYO COATS ORQUIDEA S V73.81 HPV SCREENING 07/29/2013 ADEBAYO [employer] ADMINISTRATOR, ORQUIDEA S V76.10 BREAST CANCER SCREENING 07/29/2013 ADEBAYO COATS ORQUIDEA S V76.2 CERVICAL CANCER SCREENING (PAP SMEAR) 07/29/2013 ADEBAYO COATS ORQUIDEA S V76.51 COLON CANCER SCREENING 07/29/2013 ADEBAYO [employer] ADMINISTRATOR, ORQUIDEA S V82.81 SPECIAL SCREENING FOR OSTEOPOROSIS 07/29/2013 GOODRICH DO HILDA K V65.49 OTHER SPECIFIED COUNSELING 07/29/2013 GOODRICH DO HILDA K V73.81 HPV SCREENING 07/29/2013 GOODRICH DO, HILDA K V76.10 BREAST CANCER SCREENING 07/29/2013 GOODRICH DO, HILDA K V76.2 CERVICAL CANCER SCREENING (PAP SMEAR) 07/29/2013 GOODRICH DO HILDA K V76.51 COLON CANCER SCREENING 07/29/2013 GOODRICH DO, HILDA K V82.81 SPECIAL SCREENING FOR OSTEOPOROSIS 07/29/2013 GOODRICH DO, HILDA K V65.49 OTHER SPECIFIED COUNSELING 07/29/2013 GOODRICH DO, HILDA K V73.81 HPV SCREENING 07/29/2013 GOODRICH DO, HILDA K V76.10 BREAST CANCER SCREENING 07/29/2013 GOODRICH DO, HILDA K V76.2 CERVICAL CANCER SCREENING (PAP SMEAR) 07/29/2013 GOODRICH DO, HIDLA K V76.51 COLON CANCER SCREENING 07/29/2013 GOODRICH DO, HILDA K V82.81 SPECIAL SCREENING FOR OSTEOPOROSIS 07/29/2013 ADEBAYO VM[employer] ADMINISTRATOR, ORQUIDEA S V65.49 OTHER SPECIFIED COUNSELING 07/29/2013 ADEBAYO [employer] ADMINISTRATOR, ORQUIDEA S V73.81 HPV SCREENING 07/29/2013 ADEBAYO VMWARE ADMINISTRATOR, ORQUIDEA S V76.10 BREAST CANCER SCREENING 07/29/2013 ADEBAYO VM[employer] ADMINISTRATOR, ORQUIDEA S V76.2 CERVICAL CANCER SCREENING (PAP SMEAR) 07/29/2013 ADEBAYO VM[employer] ADMINISTRATOR, ORQUIDEA S V76.51 COLON CANCER SCREENING 07/29/2013 ADEBAYO [employer] ADMINISTRATOR, ORQUIDEA S V82.81 SPECIAL SCREENING FOR OSTEOPOROSIS 05/08/2014 JOEY ARMSTRONG APRN 919.4 INSECT BITE NONVENOMOUS OF OTHER MULTIPLE AND UNSPECIFIED SITES WITHOUT INFECTION 05/08/2014 MALICK MOFFETT APRN 919.4 INSECT BITE NONVENOMOUS OF OTHER MULTIPLE AND UNSPECIFIED SITES WITHOUT INFECTION 05/08/2014 GOODRICH DO, HILDA K 919.4 INSECT BITE NONVENOMOUS OF OTHER MULTIPLE AND UNSPECIFIED SITES WITHOUT INFECTION 05/08/2014 ADEBAYO VMWARE ADMINISTRATOR, ORQUIDEA S 919.4 INSECT BITE NONVENOMOUS OF OTHER MULTIPLE AND UNSPECIFIED SITES WITHOUT INFECTION 05/08/2014 GOODRICH DO, HILDA K 919.4 INSECT BITE NONVENOMOUS OF OTHER MULTIPLE AND UNSPECIFIED SITES WITHOUT INFECTION 05/08/2014 GOODRICH DO, HILDA K 919.4 INSECT BITE NONVENOMOUS OF OTHER MULTIPLE AND UNSPECIFIED SITES WITHOUT INFECTION 05/08/2014 ADEBAYO VMWARE ADMINISTRATOR, ORQUIDEA S 919.4 INSECT BITE NONVENOMOUS OF OTHER MULTIPLE AND UNSPECIFIED SITES WITHOUT INFECTION 06/16/2014 MALICK MOFFETT APRN 701.9 SKIN TAG 06/16/2014 GOODRICH DO, HILDA K 701.9 SKIN TAG 06/16/2014 ADEBAYO VMWARE ADMINISTRATOR, ORQUIDEA S 701.9 SKIN TAG 06/16/2014 GOODRICH DO, HILDA K 701.9 SKIN TAG 06/16/2014 GOODRICH DO, HILDA K 701.9 SKIN TAG 06/16/2014 ADEBAYO VMWARE ADMINISTRATOR, ORQUIDEA S 701.9 SKIN TAG 07/29/2014 GOODRICH DO, HILDA K V65.49 OTHER SPECIFIED COUNSELING 07/29/2014 GOODRICH DO, HILDA K V72.31 FIRE PROTECTION DESIGNER EXAM, ROUTINE 07/29/2014 GOODRICH DO, HILDA K V76.10 BREAST CANCER SCREENING 07/29/2014 GOODRICH DO, HILDA K V76.51 COLON CANCER SCREENING 07/29/2014 ADEBAYO VMWARE ADMINISTRATOR, ORQUIDEA S V65.49 OTHER SPECIFIED COUNSELING 07/29/2014 ADEBAYO VMWARE ADMINISTRATOR, ORQUIDEA S V72.31 FIRE PROTECTION DESIGNER EXAM, ROUTINE 07/29/2014 ADEBAYO VMWARE ADMINISTRATOR, ORQUIDEA S V76.10 BREAST CANCER SCREENING 07/29/2014 ADEBAYO VMWARE ADMINISTRATOR, ORQUIDEA S V76.51 COLON CANCER SCREENING 07/29/2014 GOODRICH DO, HILDA K V65.49 OTHER SPECIFIED COUNSELING 07/29/2014 GOODRICH DO, HILDA K V72.31 FIRE PROTECTION DESIGNER EXAM, ROUTINE 07/29/2014 GOODRICH DO, HILDA K V76.10 BREAST CANCER SCREENING 07/29/2014 GOODRICH DO, HILDA K V76.51 COLON CANCER SCREENING 07/29/2014 GOODRICH DO, HILDA K V65.49 OTHER SPECIFIED COUNSELING 07/29/2014 GOODRICH DO, HILDA K V72.31 FIRE PROTECTION DESIGNER EXAM, ROUTINE 07/29/2014 GOODRICH DO, HILDA K V76.10 BREAST CANCER SCREENING 07/29/2014 GOODRICH DO, HILDA K V76.51 COLON CANCER SCREENING 07/29/2014 ADEBAYO VMWARE ADMINISTRATOR, ORQUIDEA S V65.49 OTHER SPECIFIED COUNSELING 07/29/2014 ADEBAYO VMWARE ADMINISTRATOR, ORQUIDEA S V72.31 FIRE PROTECTION DESIGNER EXAM, ROUTINE 07/29/2014 ADEBAYO VMWARE ADMINISTRATOR, ORQUIDEA S V76.10 BREAST CANCER SCREENING 07/29/2014 ADEBAYO VMWARE ADMINISTRATOR, ORQUIDEA S V76.51 COLON CANCER SCREENING 09/14/2014 ADEBAYO VMWARE ADMINISTRATOR, ORQUIDEA S 380.4 CERUMEN IMPACTION 09/14/2014 GOODRICH DO, HILDA K 380.4 CERUMEN IMPACTION 09/14/2014 GOODRICH DO, HILDA K 380.4 CERUMEN IMPACTION 09/14/2014 ADEBAYO VMWARE ADMINISTRATOR, ORQUIDEA S 380.4 CERUMEN IMPACTION 10/15/2014 GOODRICH DO, HILDA K 477.0 ALLERGIC RHINITIS DUE TO POLLEN 10/15/2014 GOODRICH DO, HILDA K 782.1 RASH 10/15/2014 GOODRICH DO, HILDA K 477.0 ALLERGIC RHINITIS DUE TO POLLEN 10/15/2014 GOODRICH DO, HILDA K 782.1 RASH 10/15/2014 ADEBAYO VMWARE ADMINISTRATOR, ORQUIDEA S 477.0 ALLERGIC RHINITIS DUE TO POLLEN 10/15/2014 ADEBAYO VMWARE ADMINISTRATOR, ORQUIDEA S 782.1 RASH 11/06/2014 VIVIAN AQUINO APRN Ot V76.12 11/12/2014 GOODRICH DO, HILDA K 729.5 PAIN IN LIMB 11/12/2014 ADEBAYO VMWARE ADMINISTRATOR, ORQUIDEA S 729.5 PAIN IN LIMB 02/08/2015 ADEBAYO VMWARE ADMINISTRATOR, ORQUIDEA S 719.40 PAIN IN JOINT SITE UNSPECIFIED 02/02/2016 VIVIAN AQUINO VMWARE ADMINISTRATOR Ot V76.12 02/02/2016 VIVIAN AQUINO VMWARE ADMINISTRATOR Ot V76.12 02/16/2016 KRISTAL PARIKH, BETTY Dacosta Ot Z12.31 02/18/2016 HOWARD PARIKH, MARCO A Ot Z01.818 02/18/2016 HOWARD PARIKH, MARCO A Ot Z12.11 02/22/2016 HOWARD PARIKH, MARCO A Ot Z01.818 02/22/2016 HOWARD PARIKH, MARCO A Ot Z12.11 02/23/2016 HOWARD PARIKH, MARCO A Ot Z01.818 02/23/2016 HOWARD PARIKH, MARCO A Ot Z12.11 02/23/2016 HOWARD PARIKH, MARCO A Ot Z01.818 02/23/2016 HOWARD PARIKH, MARCO A Ot Z12.11 02/23/2016 HOWARD PARIKH, MARCO A Ot Z01.818 02/23/2016 HOWARD PARIKH, MARCO A Ot Z12.11 02/23/2016 HOWARD PARIKH, MARCO A Ot Z01.818 02/23/2016 HOWARD PARIKH, MARCO A [employer] Z12.11 02/23/2016 HOWARD PARIKH, MARCO A Ot K57.90 02/23/2016 HOWARD PARIKH, MARCO A Ot K64.0 02/23/2016 HOWARD PARIKH, MARCO A Sagastume Z12.11 02/23/2016 BETTY GIRALDO MD, Ot Z12.31 04/20/2016 JACKIE FREY [facility] Ot V76.12 OTH SCREEN MAMMO-MALIGN NEOPLASM OF FRANCOIS 04/21/2016 BETTY GIRALDO MD Ot R31.9 HEMATURIA, UNSPECIFIED 04/21/2016 BETTY GIRALDO MD Ot R31.9 HEMATURIA, UNSPECIFIED 05/01/2016 BETTY GIRALDO MD Ot R19.04 LEFT LOWER QUADRANT ABDOMINAL SWELLING, 05/05/2016 BETTY GIRALDO MD Ot R31.9 HEMATURIA, UNSPECIFIED 05/10/2016 BETTY GIRALDO MD Ot R19.04 LEFT LOWER QUADRANT ABDOMINAL SWELLING, 08/14/2016 JACKIE FREYP Ot V76.12 OTH SCREEN MAMMO-MALIGN NEOPLASM OF FRANCOIS 08/14/2016 BETTY GIRALDO MD Ot R31.9 HEMATURIA, UNSPECIFIED 08/14/2016 BETTY GIRALDO MD Ot R19.04 LEFT LOWER QUADRANT ABDOMINAL SWELLING, 08/14/2016 RICKY IBARRA DO Ot N81.10 CYSTOCELE, UNSPECIFIED 08/14/2016 RICKY IBARRA DO Ot N83.20 UNSPECIFIED OVARIAN CYSTS 08/14/2016 RICKY IBARRA DO Ot R32 UNSPECIFIED URINARY INCONTINENCE 08/14/2016 RICKY IBARRA DO Ot Z01.812 ENCOUNTER FOR PREPROCEDURAL LABORATORY E 08/14/2016 RICKY IBARRA DO Ot Z11.2 ENCOUNTER FOR SCREENING FOR OTHER BACTER 08/18/2016 RICKY IBARRA DO Ot N39.3 STRESS INCONTINENCE (FEMALE) (MALE) 08/18/2016 RICKY IBARRA DO Ot N81.4 UTEROVAGINAL PROLAPSE, UNSPECIFIED 08/18/2016 RICKY IBARRA DO Ot N83.20 UNSPECIFIED OVARIAN CYSTS 08/18/2016 RICKY IBARRA DO Ot N83.8 OTH NONINFLAMMATORY DISORD OF OVARY, FAL 08/18/2016 FENECH DO, RICKY S Ot N84.0 POLYP OF CORPUS UTERI 08/18/2016 SAURAV DO CORA K Ot I10 ESSENTIAL (PRIMARY) HYPERTENSION 08/18/2016 SAURAV DO, CORA K Ot N39.0 URINARY TRACT INFECTION, SITE NOT SPECIF 08/18/2016 SAURAV DO, CORA K Ot R30.0 DYSURIA 08/18/2016 SAURAV DO CORA K Ot Z79.899 OTHER USP (CURRENT) DRUG THERAPY 08/21/2016 FENECH DO, RICKY S Ot N39.3 STRESS INCONTINENCE (FEMALE) (MALE) 08/21/2016 FENECH DO, RICKY S Ot N81.4 UTEROVAGINAL PROLAPSE, UNSPECIFIED 08/21/2016 FENECH DO, RICKY S Ot N83.20 UNSPECIFIED OVARIAN CYSTS 08/21/2016 FENECH DO, RICKY S Ot N83.8 OTH NONINFLAMMATORY DISORD OF OVARY, FAL 08/21/2016 FENECH DO, RICKY S Ot N84.0 POLYP OF CORPUS UTERI 08/24/2016 FENECH DO, RICKY S Ot N39.3 STRESS INCONTINENCE (FEMALE) (MALE) 08/24/2016 FENECH DO, RICKY S Ot N81.4 UTEROVAGINAL PROLAPSE, UNSPECIFIED 08/24/2016 FENECH DO, RICKY S Ot N83.20 UNSPECIFIED OVARIAN CYSTS 08/24/2016 FENECH DO, RICKY S Ot N83.8 OTH NONINFLAMMATORY DISORD OF OVARY, FAL 08/24/2016 FENECH DO, RICKY S Ot N84.0 POLYP OF CORPUS UTERI 08/24/2016 SAURAV DO CORA K Ot I10 ESSENTIAL (PRIMARY) HYPERTENSION 08/24/2016 SAURAV DO CORA K Ot N39.0 URINARY TRACT INFECTION, SITE NOT SPECIF 08/24/2016 SAURAV DO CORA K Ot R30.0 DYSURIA 08/24/2016 SAURAV DO CORA K Ot Z79.899 OTHER USP (CURRENT) DRUG THERAPY 08/25/2016 FENECH DO, RICKY S Ot N39.3 STRESS INCONTINENCE (FEMALE) (MALE) 08/25/2016 FENECH DO, RICKY S Ot N81.4 UTEROVAGINAL PROLAPSE, UNSPECIFIED 08/25/2016 FENECH DO, RICKY S Ot N83.20 UNSPECIFIED OVARIAN CYSTS 08/25/2016 FENPERNELL CASTILLO, RICKY S Ot N83.8 OTH NONINFLAMMATORY DISORD OF OVARY, FAL 08/25/2016 FRED CASTILLO, RICKY S Ot N84.0 POLYP OF CORPUS UTERI 08/30/2016 JACKIE FREY PRODUCT SAFETY EXPERT Ot V76.12 OTH SCREEN MAMMO-MALIGN NEOPLASM OF FRANCOIS 08/30/2016 BETTY GIRALDO MD Ot R31.9 HEMATURIA, UNSPECIFIED 08/30/2016 BETTY GIRALDO MD Ot R19.04 LEFT LOWER QUADRANT ABDOMINAL SWELLING, 08/30/2016 JACKIE FREYP Ot V76.12 OTH SCREEN MAMMO-MALIGN NEOPLASM OF FRANCOIS 08/30/2016 BETTY GIRALDO MD Ot R31.9 HEMATURIA, UNSPECIFIED 08/30/2016 BETTY GIRALDO MD Ot R19.04 LEFT LOWER QUADRANT ABDOMINAL SWELLING, 08/30/2016 LUIS ANTONIO THORPE MD Ot S61.411A LACERATION WITHOUT FOREIGN BODY OF RIGHT 08/30/2016 LUIS ANTONIO THORPE MD Ot W25.XXXA CONTACT WITH [place], INITIAL ENCOUN 08/30/2016 LUIS ANTONIO THORPE MD Ot Y92.[address] IN [facility] NON-INSTITUT (PRIVATE 08/30/2016 LUIS ANTONIO THORPE MD Ot Y93.E5 ACTIVITY, FLOOR MOPPING AND CLEANING 08/30/2016 LUIS ANTONIO THORPE MD Ot Y99.8 OTHER EXTERNAL CAUSE STATUS 08/30/2016 LUIS ANTONIO THORPE MD Ot Z23 ENCOUNTER FOR IMMUNIZATION 09/01/2016 LUIS ANTONIO THORPE MD Ot S61.411A LACERATION WITHOUT FOREIGN BODY OF RIGHT 09/01/2016 LUIS ANTONIO THORPE MD Ot W25.XXXA CONTACT WITH [place], INITIAL ENCOUN 09/01/2016 LUIS ANTONIO THORPE MD Ot Y92.[address] IN [facility] NON-INSTITUT (PRIVATE 09/01/2016 LUIS ANTONIO THORPE MD Ot Y93.E5 ACTIVITY, FLOOR MOPPING AND CLEANING 09/01/2016 LUIS ANTONIO THORPE MD Ot Y99.8 OTHER EXTERNAL CAUSE STATUS 09/01/2016 LUIS ANTONIO THORPE MD Ot Z23 ENCOUNTER FOR IMMUNIZATION 09/05/2016 LUIS ANTONIO THORPE MD Ot S61.411A LACERATION WITHOUT FOREIGN BODY OF RIGHT 09/05/2016 LUIS ANTONIO THORPE MD Ot W25.XXXA CONTACT WITH [place], INITIAL ENCOUN 09/05/2016 LUIS ANTONIO THORPE MD Ot Y92.[address] [facility] [address] IN [facility] NON-INSTITUT (PRIVATE 09/05/2016 LUIS ANTONIO THORPE MD Ot Y93.E5 ACTIVITY, FLOOR MOPPING AND CLEANING 09/05/2016 LUIS ANTONIO THORPE MD Ot Y99.8 OTHER EXTERNAL CAUSE STATUS 09/05/2016 LUIS ANTONIO THORPE MD Ot Z23 ENCOUNTER FOR IMMUNIZATION 09/07/2016 ABRAN PARIKH, RD Umanzor Ot S61.412D LACERATION WITHOUT FOREIGN BODY OF LEFT 11/12/2016 JACKIE FREY [facility] Ot V76.12 OTH SCREEN MAMMO-MALIGN NEOPLASM OF FRANCOIS 11/12/2016 BETTY GIRALDO MD Ot R31.9 HEMATURIA, UNSPECIFIED 11/12/2016 BETTY GIRALDO MD Ot R19.04 LEFT LOWER QUADRANT ABDOMINAL SWELLING, 10/09/2017 JACKIE FREYP Ot V76.12 OTH SCREEN MAMMO-MALIGN NEOPLASM OF FRANCOIS 10/09/2017 BETTY GIRALDO MD Ot R31.9 HEMATURIA, UNSPECIFIED 10/09/2017 BETTY GIRALDO MD Ot R19.04 LEFT LOWER QUADRANT ABDOMINAL SWELLING, 10/10/2017 BETTY GIRALDO MD Ot Z12.31 ENCNTR SCREEN MAMMOGRAM FOR MALIGNANT NE 10/15/2017 BETTY GIRALDO MD Ot Z12.31 ENCNTR SCREEN MAMMOGRAM FOR MALIGNANT NE 10/17/2017 BETTY GIRALDO MD Ot Z12.31 ENCNTR SCREEN MAMMOGRAM FOR MALIGNANT NE Procedures Code [place] [address] BONE MINERAL DENSITY, HEEL US (IN HOUSE) 07/29/2013 47742 UA LONG DIP 07/29/2013 67109 HEMOCCULT 07/29/2013 28009 MAMMOGRAM, SCREENING 07/31/2013 55977 CULTURE URINE 07/31/2013 99712 PAP SMEAR 07/31/2013 Q0091 PAP SMEAR OBTAIN SMEAR 07/31/2013 98761 SKIN TAG REM 1-15 06/16/2014 75263 MAMMOGRAM, SCREENING 07/29/2014 GENERAL S JANE LAWRENCE 07/29/2014 77342 CERUMEN REMOVAL 09/18/2014 35691 ROUTINE VENIPUNCTURE 09/18/2014 60125 LIPID PANEL 09/18/2014 80506 CBC 09/18/2014 5764558 GFR CALC (RESULT ONLY) 09/18/2014 35002 CMP 09/18/2014 71954 XRAY FOOT LEFT 2 VIEWS 11/12/2014 57473 AMERITOX 02/08/2015 Results Test Result Range Methicillin resistant Staphylococcus aureus (MRSA) screening culture - 13:35 Methicillin resistant Staphylococcus aureus (MRSA) screening culture NEG NRG Complete blood count (CBC) with automated white blood cell (WBC) differential - 08/14/16 13:40 Blood leukocytes automated count (number/volume) 6.6 10*3/uL 4.3-11.0 Blood erythrocytes automated count (number/volume) 3.85 10*6/uL 4.35-5.85 Venous blood hemoglobin measurement (mass/volume) 11.5 g/dL 11.5-16.0 Blood hematocrit (volume fraction) 35 % 35-52 Automated erythrocyte mean corpuscular volume 90 [foz_us] 80-99 Automated erythrocyte mean corpuscular hemoglobin (mass per erythrocyte) 30 pg 25-34 Automated erythrocyte mean corpuscular hemoglobin concentration measurement ( mass/volume) 33 g/dL 32-36 Automated erythrocyte distribution width ratio 12.3 % 10.0-14.5 Automated blood platelet count (count/volume) 203 10*3/uL 130-400 Automated blood platelet mean volume measurement 10.6 [foz_us] 7.4-10.4 Automated blood neutrophils/100 leukocytes 58 % 42-75 Automated blood lymphocytes/100 leukocytes 30 % 12-44 Blood monocytes/100 leukocytes 7 % 0-12 Automated blood eosinophils/100 leukocytes 5 % 0-10 Automated blood basophils/100 leukocytes 1 % 0-10 Blood neutrophils automated count (number/volume) 3.8 10*3 1.8-7.8 Blood lymphocytes automated count (number/volume) 2.0 10*3 1.0-4.0 Blood monocytes automated count (number/volume) 0.4 10*3 0.0-1.0 Automated eosinophil count 0.3 10*3/uL 0.0-0.3 Automated blood basophil count (count/volume) 0.0 10*3/uL 0.0-0.1 Blood type T Indirect antibody screen panel - 08/14/16 13:40 ABO+Rh group OP NRG Transfusion band number TNP NRG Blood group antibody screen NEGATIVE NRG Blood type T Indirect antibody screen panel - 08/17/16 08:11 ABO+Rh group OP NRG Transfusion band number [id number] NRG Blood group antibody screen NEGATIVE NRG Complete urinalysis with reflex to culture - 08/18/16 21:45 Urine color determination YELLOW NRG Urine clarity determination CLEAR NRG Urine pH measurement by test strip 6.5 5-9 Specific gravity of urine by test strip 1.005 1.016- 1.022 Urine protein assay by test strip, semi-quantitative 1+ NEGATIVE Urine glucose detection by automated test strip NEGATIVE NEGATIVE Erythrocytes detection in urine sediment by light microscopy 5+ NEGATIVE Urine ketones detection by automated test strip NEGATIVE NEGATIVE Urine nitrite detection by test strip NEGATIVE NEGATIVE Urine total bilirubin detection by test strip NEGATIVE NEGATIVE Urine urobilinogen measurement by automated test strip (mass/volume) NORMAL NORMAL Urine leukocyte esterase detection by dipstick 3+ NEGATIVE Automated urine sediment erythrocyte count by microscopy (number/high power field) [HPF] NRG Automated urine sediment leukocyte count by microscopy (number/high power field ) [HPF] NRG Bacteria detection in urine sediment by light microscopy FEW NRG Crystals detection in urine sediment by light microscopy NONE NRG Casts detection in urine sediment by light microscopy NONE NRG Mucus detection in urine sediment by light microscopy NEGATIVE NRG Complete urinalysis with reflex to culture YES NRG Bacterial urine culture - 08/18/16 21:45 Bacterial urine culture [id number] NRG COLONY COUNT <10,000 NRG FTX;REPORTABLE SENSITIVITY REPORTED AT 08, 08-21-16 NRG Bacterial susceptibility panel - 08/18/16 21:45 Gentamicin susceptibility test by minimum inhibitory concentration < = NRG Trimethoprim/sulfamethoxazole susceptibility test by minimum inhibitoryconcentration <= NRG Tobramycin susceptibility test by minimum inhibitory concentration < = NRG Cefazolin susceptibility test by minimum inhibitory concentration > = NRG Piperacillin/tazobactam susceptibility test by minimum inhibitory concentration <= NRG Ciprofloxacin susceptibility test by minimum inhibitory concentration <= NRG Meropenem susceptibility test by minimum inhibitory concentration < = NRG Nitrofurantoin susceptibility test by minimum inhibitory concentration 32 NRG Aztreonam susceptibility test by minimum inhibitory concentration < = NRG Cefepime susceptibility test by minimum inhibitory concentration <= NRG Encounters ACCT No. Visit Date/Time Discharge Status Pt. Type Provider Facility Loc./Unit Complaint [id number] 02/08/2015 14:51:00 02/08/2015 23:59:59 CLS Outpatient ORQUIDEA FIORE APRN [id number] 11/12/2014 13:42:00 11/12/2014 23:59:59 CLS Outpatient HILDA GOODRICH DO [id number] 10/15/2014 12:51:00 10/15/2014 23:59:59 CLS Outpatient HILDA GOODRICH DO [id number] 09/18/2014 07:58:00 09/18/2014 23:59:59 CLS Outpatient ORQUIDEA FIORE APRN [id number] 07/29/2014 11:00:00 07/29/2014 23:59:59 CLS Outpatient HILDA GOODRICH DO [id number] 06/16/2014 13:48:00 06/16/2014 23:59:59 CLS Outpatient MALICK MOFFETT APRN Ruiz [id number] 05/08/2014 09:30:00 05/08/2014 23:59:59 CLS Outpatient JOEY ARMSTRONG APRN [id number] 05/01/2014 14:53:00 05/01/2014 23:59:59 CLS Outpatient DEVON JANY RUTH Dacosta [id number] 02/02/2014 16:57:00 02/02/2014 23:59:59 CLS Outpatient HILDA GOODRICH DO [id number] 09/11/2013 13:07:00 09/11/2013 23:59:59 CLS Outpatient ORQUIDEA FIORE APRN [id number] 07/29/2013 15:50:00 07/29/2013 23:59:59 CLS Outpatient KENIAVIVIAN HERRMANN APRN [id number] 12/22/2011 08:27:00 12/22/2011 23:59:59 CLS Outpatient HILDA GOODRICH DO [id number] 05/30/2013 08:41:00 Document Registration [id number] 01/11/2018 11:30:00 01/11/2018 23:59:59 CLS Outpatient LISA LAC, [facility] [id number] 10/09/2017 09:27:00 10/09/2017 23:59:59 CLS Outpatient BETTY GIRALDO MD [facility] RAD SCREENING [id number] 09/07/2016 08:05:00 09/07/2016 08:50:[address] OSULLIVAN MD [facility] ER STICHES REMOVAL [id number] 08/30/2016 07:31:00 08/30/2016 09:20:00 DIS Emergency LUIS ANTONIO THORPE MD [facility] ER FALL/MULTIPLE LAC ON RIGHT HAND [id number] 08/18/2016 21:24:00 08/18/2016 22:37:00 DIS Emergency SAURAV CASTILLO CORA K [facility] ER BURNING WHEN URINATING, INCONTINENCE [id number] 08/17/2016 07:58:00 08/18/2016 11:47:00 DIS Outpatient RICKY IBARRA DO Via [facility] RIGHT PELVIC ORGAN PROLAPSE; CYSTOCELE [id number] 08/14/2016 13:06:00 08/14/2016 13:55:00 DIS Outpatient RICKY IBARRA DO [facility] PREOP RIGHT PELVIC ORGAN PROLAPSE;CYSTOCELE [id number] 04/28/2016 09:22:00 04/28/2016 23:59:59 CLS Outpatient BETTY GIRALDO MD [facility] RAD L ADNEXA MASS [id number] 04/20/2016 12:35:00 04/20/2016 23:59:59 CLS Outpatient BETTY GIRALDO MD [facility] RAD HEMATURIA, NO INFECTION [id number] 02/23/2016 05:37:00 02/23/2016 23:59:59 CLS Outpatient MARCO A LAWRENCE MD [facility] PREOP [id number] 02/23/2016 08:31:00 02/23/2016 11:36:00 DIS Outpatient MARCO A LAWRENCE MD [facility] [id number] 02/02/2016 08:06:00 02/02/2016 23:59:59 CLS Outpatient BETTY GIRALDO MD [facility] RAD [id number] 11/13/2014 10:15:00 11/13/2014 23:59:59 CLS Preadmit RICKY MARCOS MD [facility] RAD [id number] 08/26/2014 09:32:00 08/26/2014 23:59:59 CLS Outpatient VIVIAN AQUINO APRN [facility] RAD [id number] 08/15/2013 09:15:00 08/15/2013 23:59:59 CLS Outpatient JACKIE FREY [facility] RAD SCREENING [id number] 04/20/2016 12:34:00 Document Registration
[2018-08-13] MEDS ORDERED: DEXAMETHASONE PF 10 MG/ML (DECADRON) VIAL IM STA (23:52)
--- NOTE | 2018-08-13 23:59 | ED Cough/URI ---
General Chief Complaint: Cough/Cold/Flu Symptoms Stated Complaint: CONGESTION Nursing Triage Note: nasal congestion x2 days. went to [facility] today no treatment. Source: patient Exam Limitations: no limitations History of Present Illness Date Seen by Provider: Aug 13, 2018 Time Seen by Provider: 23:40 Initial Comments Here with report of upper respiratory symptoms for the last 2-3 days. She was seen at [facility] today and not really better. She was started on treatment for urinary tract infection. She has been using dzrw-mub-[id number] cough and cold medicine and that is not helping. She was hoping for steroid Shot. Timing/Duration: getting worse Severity/Quality: moderate, dry cough Prior Episodes/Possible Cause: occasional episodes Modifying Factors: Worse With Coughing; Improves With Rest Associated Symptoms: cough, fever/chills, nasal congestion, nasal drainage, sore throat Allergies and Home Medications Allergies Coded Allergies: No Known Drug Allergies (Verified , 02/23/16) Home Medications Docusate Sodium 100 Mg Capsule, 100 MG PO BID PRN for CONSTIPATION Prescribed by: RICKY IBARRA on 08/17/16 1146 Lisinopril 20 Mg Tablet, 20 MG PO DAILY, (Reported) Tramadol HCl 50 Mg Tablet, 50-100 MG PO DAILY PRN for PAIN, (Reported) Patient Home Medication List Home Medication List Reviewed: Yes Review of Systems Review of Systems Constitutional: see HPI; No chills, No fever EENTM: nose congestion, throat pain Respiratory: cough; No short of breath Cardiovascular: no symptoms reported Gastrointestinal: no symptoms reported Musculoskeletal: no symptoms reported Past Nbkjsgj-Ufeoab-Fmindt Hx Past Med/Social Hx: Reviewed Nursing Past Med/Soc Hx Patient Social History Alcohol Use: Denies Use Recreational Drug Use: No Smoking Status: Never a Smoker Recent Foreign Travel: No Contact w/Someone Who Travel: No Recent Infectious Disease Expo: No Recent Hopitalizations: No Immunizations Up To Date Tetanus Booster (TDap): Unknown Date of Influenza Vaccine: Aug 11, 2016 Seasonal Allergies Seasonal Allergies: Yes Past Medical History Surgeries: Yes (BLADDER SLING/CYSTOCOELE REPAIR AND HYST/BSO 08/17/16) Bladder Surgery, Hysterectomy, Oophorectomy Respiratory: No Cardiac: Yes Hypertension Neurological: Yes Headaches /Migraines Reproductive Disorders: Yes Female Reproductive Disorders: Ovarian Cyst [employer] S[employer]TER History: Hysterectomy Genitourinary: No Gastrointestinal: No Musculoskeletal: Yes (MUSCLE CRAMPS) Arthritis Endocrine: No HEENT: No Loss of Vision: Bilateral Hearing Impairment: Denies Cancer: No Psychosocial: No Integumentary: No Blood Disorders: No Family Medical History Reviewed Nursing Family Hx Diabetes mellitus 19 FATHER Drug abuse G8 BROTHER FH: ovarian cancer G8 SISTER Respiratory disorder 19 MOTHER Physical Exam Vital Signs - First Documented 08/13/18 23:20 Temp 97.6 Pulse 90 Resp 18 B/P (MAP) 139/89 (106) Pulse Ox 98 O2 Delivery Room Air Capillary Refill : Less Than 3 Seconds Height: 5'3" Weight: 175lbs. 0oz. 79.852038kc; 29.23 BMI Method:Stated General Appearance: WD/WN, no apparent distress HEENT: PERRL/EOMI, pharynx normal Neck: full range of motion, supple Respiratory: lungs clear, normal breath sounds Cardiovascular: regular rate, rhythm, no murmur Neurologic/Psychiatric: alert, oriented x 3 Skin: normal color, warm/dry Procedures/Interventions Suture Size: 5-0 Progress/Results/Core Measures Suspected Sepsis Recent Fever Within 48 Hours: No Infection Criteria Present: None New/Unexplained Altered Menta: No Sepsis Screen: No Definite Risk SIRS Temperature:97.6 Pulse: 90 Respiratory Rate: 18 Blood Pressure 139 /89 Mean: 106 Results/Orders My Orders Orders - MAVERICK FOX MD Dexamethasone Pf Injection (Decadron Pf (08/13/18 23:52) Vital Signs/I&O 08/13/18 23:20 Temp 97.6 Pulse 90 Resp 18 B/P (MAP) 139/89 (106) Pulse Ox 98 O2 Delivery Room Air Capillary Refill : Less Than 3 Seconds Blood Pressure Mean: 106 Progress Note : Progress Note Seen and evaluated. Decadron 10 mg IM. Discharged home with return precautions. Patient verbalize understanding instructions and agreement with plan. Departure Impression Primary Impression: Upper respiratory infection Qualified Codes: J06.9 - Acute upper respiratory infection, unspecified Disposition: 01 HOME, SELF-CARE Condition: Stable Departure-Patient Inst. Decision time for Depature: 23:59 Referrals: [facility] (PCP/Family) Primary Care Physician Patient Instructions: Viral Upper Respiratory Infection, Adult (DC) Add. Discharge Instructions: All discharge instructions reviewed with patient and/or family. Voiced understanding. Continue your supportive therapy at home including plenty of fluids and rest. You may take Tylenol/acetaminophen and/or ibuprofen as needed for discomfort. You may take [id number] cold medicines but make sure that you are not taking too much acetaminophen. Follow-up with your Dr. in a few days for recheck. Return for worse pain, fever, vomiting, weakness, breathing problems or other concerns as needed. MAVERICK FOX MD Aug 13, 2018 23:59
[2018-08-14 00:05] VITALS: BP 139/89
[2018-08-14] MEDS ORDERED: RT-ALBUTEROL SULF 2.5 MG/3 ML PRE-MIX VIAL ONE (02:06)
== END 2018-08-14 00:03 | disposition home or self-care (01) ==
LOC: EDUNIT# 23:05 → ER 23:06
DX: J06.9 Acute upper respiratory infection, unspecified (principal); I10 Essential (primary) hypertension; G43.909 Migraine, unspecified, not intractable, without status migrainosus; Z80.41 Family history of malignant neoplasm of ovary; Z87.448 Personal history of other diseases of urinary system; Z90.710 Acquired absence of both cervix and uterus; Z96.0 Presence of urogenital implants
CPT/HCPCS: 96372; 99284

== ENCOUNTER 2019-05-26 09:15 | Outpatient (CLI) | payer MEDICARE ==
[~2019-05-26] VITALS: Ht 160 cm; Wt 79.4 kg
[~2019-05-26 09:15] MED LIST changes: +CETI10TA17 PO
== END 2019-05-26 09:27 | disposition home or self-care (01) ==
LOC: PREOP 09:15
PROVIDERS: ATTEND Surgery
DX: Z01.818 Encounter for other preprocedural examination (principal)

== ENCOUNTER → 2019-05-27 | Outpatient (CLI) | payer MEDICARE ==
--- NOTE | 2019-05-27 15:37 | Diagnostic Imaging Report ---
INDICATION: Screening. TECHNIQUE: The current study was also evaluated with a Computer Aided Detection (CAD) system. 3D Tomographic imaging was also performed. COMPARISON: 10/09/2017, 02/02/2016, and 08/26/2014. FINDINGS: There are scattered fibroglandular densities bilaterally. There are vascular calcifications. There is no dominant mass, spiculated lesion, or suspicious calcifications identified. The skin, nipples, and axillae are unremarkable. IMPRESSION: Benign findings. ACR BI-RADS Category 2: Benign findings. Result letter will be mailed to the patient. Note: At least 10% of breast cancer is not imaged by mammography. Dictated by: Dictated on workstation # [id number]
== END ==
LOC: RAD 11:33
PROVIDERS: ATTEND Internal Medicine
DX: Z12.31 Encounter for screening mammogram for malignant neoplasm of breast (principal); R19.5 Other fecal abnormalities
CPT/HCPCS: 77067

== ENCOUNTER 2019-05-28 10:49 | Day surgery (SDC) | payer MEDICARE ==
[~2019-05-28] VITALS: Ht 160 cm; Wt 79.4 kg
[~2019-05-28 10:49] MED LIST changes: +NS IV 500 ML 500 ML ONE
--- NOTE | 2019-05-28 11:04 | Conscious Sedation/ASA ---
Conscious Sedation Pre-Proced Time 10:30 ASA Score 2 For ASA 3 and 4: Consider anesthesia and medical clearance. Also, for patients with a history of failed moderate sedation consider anesthesia. Airway Lungs Heart ASA score ASA 1: a normal healthy patient ASA 2: a patient with a mild systemic disease (mid diabetes, controlled hypertension, obesity ASA 3: a patient with a severe systemic disease that limits activity (angina, COPD, prior Myocardial infarction) ASA 4: a patient with an incapacitating disease that is a constant threat to life (CHF, renal failure) ASA 5: a moribund patient not expected to survive 24 hrs. (ruptured aneurysm) ASA 6: a declared brain- patient whose organs are being harvested. For emergent operations, add the letter E after the classification Mallampati Classification Grade 2 Sedation Plan Analgesia, Amnesia, Plan communicated to team members, Discussed options with patient/fam, Discussed risks with patient/fam The patient is an appropriate candidate to undergo the planned procedure, sedation, and anesthesia. The patient immediately re-assessed prior to indication. MARCO A LAWRENCE MD May 28, 2019 11:04
--- NOTE | 2019-05-28 11:05 | Progress Note-Pre Operative ---
Pre-Operative Progress Note H&P Reviewed The H&P was reviewed, patient examined and no changes noted. Date Seen by Provider: May 28, 2019 Time Seen by Provider: 10:30 Date H&P Reviewed: May 28, 2019 Time H&P Reviewed: 10:30 Pre-Operative Diagnosis: heme positive stool MARCO A LAWRENCE MD May 28, 2019 11:04
--- NOTE | 2019-05-28 11:06 | Discharge Inst-Surgical ---
D/C Lap Instructions-HOWARD Follow Up Activity as tolerated High Fiber Diet 25g or more per day Avoid Alcohol, Caffeine, Spicy Nocatee and Acid foods. Drink 64 fluid oz or more of fluids per day. Symptoms to Report: Fever over 101 degree F, Nausea/Vomiting If any problems/questions: Contact your physician or go to Emergency Room MARCO A LAWRENCE MD May 28, 2019 11:06
[2019-05-28 11:15] VITALS: BP 119/78
[2019-05-28] MEDS ORDERED: ONDANSETRON 4 MG/2 ML (SDV) Z0FRAN IVP PRN (11:15)
[2019-05-28] MEDS ORDERED: morphine INJ 10 MG/ML 1ML (SYR OR VIAL) IVP PRN ×2 (11:15)
[2019-05-28] MEDS ORDERED: ACETAMINOPHEN 325 MG TABLET PO PRN (11:15)
[2019-05-28] MEDS ORDERED: HYDROcodone/APAP 5 MG/325 MG (LORTAB) TAB PO PRN (11:15)
[2019-05-28] MEDS ORDERED: NS IV 500 ML 500 ML IV PRN (11:25)
[2019-05-28] MEDS ORDERED: fentaNYL INJECTION 100 MCG/2 ML AMP IVP ONE (11:30)
[2019-05-28] MEDS ORDERED: MIDAZOLAM 2 MG/2 ML (VERSED) VIAL IVP ONE (11:30)
[2019-05-28] MEDS ORDERED: LIDOCAINE JELLY 2% 6 ML SYRINGE MM PRN (11:30)
[2019-05-28] MEDS ORDERED: MIDAZOLAM 2 MG/2 ML (VERSED) VIAL ONE ×5 (11:47→13:16)
[2019-05-28] MEDS ORDERED: LIDOCAINE JELLY 2% 6 ML SYRINGE ONE (11:47)
[2019-05-28] MEDS ORDERED: fentaNYL INJECTION 100 MCG/2 ML AMP ONE ×2 (11:48→13:18)
--- NOTE | 2019-05-28 13:49 | Progress Note-Post Operative ---
Post-Operative Progess Note Surgeon (s)/Skein Bleacher (s) Surgeon MARCO A LAWRENCE MD Skein Bleacher: none Pre-Operative Diagnosis heme positive stool Post-Operative Diagnosis mild colitis rectum and distal sig colon, mod sigmoid diverticulosis. Procedure & Operative Findings Date of Procedure 05/28/19 Procedure Performed/Findings colonoscopy with bx. Anesthesia Type cs Estimated Blood Loss Estimated blood loss (mL): minimal Specimens/Packing Specimens Removed sigmoid colon MARCO A LAWRENCE MD May 28, 2019 13:49
[2019-05-28 13:55] VITALS: BP 102/53
[2019-05-28 14:55] VITALS: BP 105/54
--- NOTE | 2019-05-28 21:04 | OPERATIVE REPORT ---
DATE OF SERVICE: 05/28/2019 ATTENDING PRIMARY CARE PHYSICIAN: Dr. Jolly. PREOPERATIVE DIAGNOSIS: Heme positive stools. POSTOPERATIVE DIAGNOSES: Mild chronic stage II external and internal hemorrhoids, mild patchy inflammatory changes of the rectum and distal sigmoid colon. No active bleeding. Moderate sigmoid diverticulosis. Remainder of the colon was normal. PROCEDURE: Colonoscopy with biopsy. SURGEON: Marco A Lawrence MD ANESTHESIA: Conscious sedation. ESTIMATED BLOOD LOSS: Minimal. FINDINGS: Same as postop. DISPOSITION: The patient tolerated the procedure well. INDICATIONS: The patient is a 64-year-old female known to us. She had a colonoscopy by us in 01/2016. Before that her last colonoscopy was in 1999 and 2003 where findings were diverticulosis. She has had issues of constipation and also has had a Hemoccult stool test that was positive recently. She does not report any family history of colon cancer. DESCRIPTION OF PROCEDURE: The patient was brought to the endoscopy suite, laid in the left lateral decubitus position. After adequate IV pain and sedative medications and conscious sedation anesthesia, a digital rectal examination was performed. Mild chronic stage II external and internal hemorrhoids were identified. Normal sphincter tone was felt and there were no palpable masses. The endoscope was then intubated to the anus and rectum gently insufflated. The endoscope was then advanced to the [facility] [place] in the rectum. Through the rectum as well as through the distal sigmoid colon, there were small areas of patchy inflammation. This may be related to some level of undiagnosed low level inflammatory bowel disease; however, this also could be related to bacterial overgrowth versus the colonic preparation alone. A biopsy was taken of one of these areas of patchy inflammation with visualization of good hemostasis. Endoscope was then advanced to the remainder of the sigmoid colon where a moderate sigmoid diverticulosis identified. The endoscope was then advanced to the remainder of the descending, transverse and ascending colon to the cecum. These segments were normal. There were no polyps or any neoplasms identified throughout the colon or rectum. The endoscope was then slowly withdrawn while taking a second look and suctioning of residual air with no additional findings. The patient tolerated the procedure well. We will recommend a high fiber diet with at least 25 grams of fiber per day as well as significant amounts of water daily to promote soft stools on a daily basis. We will await the biopsy results; however, if she does have worsening symptoms of crampy abdominal pain usually in the left lower abdominal quadrant as well as a rectal bleed, this may be related to worsening colitis or inflammatory bowel disease and we will treat her appropriately. Job ID: [id number] DocumentID: [id number] Dictated Date: 05/28/2019 13:38:18 City Administrator Date: 05/28/2019 21:04:08 Dictated By: MARCO A LAWRENCE MD
== END 2019-05-28 15:33 | disposition home or self-care (01) ==
LOC: ENDO 10:49
PROVIDERS: ATTEND Surgery
DX: K52.9 Noninfective gastroenteritis and colitis, unspecified (principal); K57.30 Diverticulosis of large intestine without perforation or abscess without bleeding; K64.1 Second degree hemorrhoids; I10 Essential (primary) hypertension; M19.91 Primary osteoarthritis, unspecified site; Z79.899 Other long term (current) drug therapy
CPT/HCPCS: 88305

== ENCOUNTER 2020-02-05 02:18 | Emergency (ER) | payer MEDICARE ==
[~2020-02-05] VITALS: Ht 160 cm; Wt 78.4 kg
[~2020-02-05 02:18] MED LIST changes: -NS IV 500 ML 500 ML ONE; -TRAM50TA2 PO; +TRM50T PO
[2020-02-05 02:28] VITALS: BP 139/98
[2020-02-05] MEDS ORDERED: methylPREDNISolone 125 MG (Solu-MEDROL) VIAL IM ONE (02:45)
[2020-02-05] MEDS ORDERED: PSEU60TA88 PO (02:45)
--- NOTE | 2020-02-05 02:46 | ED EENT ---
History of Present Illness General Stated Complaint: STUFFED UP NOSE Source: patient Exam Limitations: no limitations History of Present Illness Date Seen by Provider: Feb 05, 2020 Time Seen by Provider: 02:29 Initial Comments Patient resents ER by private conveyance with chief complaint she has a history of chronic nasal congestion. She went to see Dr. Giraldo her primary care doctor and he put her on Augmentin 2 days ago which she's been taking. She does not feel it is better. She would like a steroid. She also would like to try pseudoephedrine. She says she's used Flonase with no benefit. She has not used Afrin. She denies a history of coronary disease, dysrhythmia, thyroid disorder. Allergies and Home Medications Allergies Coded Allergies: No Known Drug Allergies (Verified , 02/23/16) Home Medications Cetirizine HCl 10 Mg Tablet, 10 MG PO DAILY, (Reported) Lisinopril 20 Mg Tablet, 20 MG PO DAILY, (Reported) Patient Home Medication List Home Medication List Reviewed: Yes Review of Systems Review of Systems Constitutional: No chills, No diaphoresis Eyes: Denies Blindness, Denies Blurred Vision Ears: Denies Dizziness, Denies Pain Nose: see HPI; denies clots; congestion Mouth: denies clots, denies loose teeth Throat: denies pain, denies swelling Gastrointestinal: No abdominal pain, No nausea Past Uxkgeoj-Qgrhdl-Zgaops Hx Patient Social History Recent Foreign Travel: No Contact w/Someone Who Travel: No Recent Hopitalizations: No Immunizations Up To Date Tetanus Booster (TDap): Unknown Date of Influenza Vaccine: Aug 11, 2016 Seasonal Allergies Seasonal Allergies: Yes Past Medical History Surgeries: Yes (BLADDER SLING/CYSTOCOELE REPAIR AND HYST/BSO 08/17/16) Bladder Surgery, Gallbladder, Hysterectomy, Oophorectomy Respiratory: No Cardiac: Yes Hypertension Neurological: Yes Headaches /Migraines Reproductive Disorders: Yes 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 0.0oz. 79.068777xf; 31.0 BMI Method:Stated General Appearance: WD/WN, no apparent distress Eyes: bilateral eye normal inspection, bilateral eye PERRL, bilateral eye EOMI Ears: bilateral ear auricle normal, bilateral ear canal normal, bilateral ear TM normal Nose: sinus tenderness (mild bilateral maxillary), other (nasal congestion bilateral rhinorrhea) Mouth/Throat: normal mouth inspection, pharynx normal; No dental tenderness Neck: full range of motion, supple, normal inspection Cardiovascular: normal peripheral pulses, regular rate, rhythm Respiratory: no respiratory distress, no accessory muscle use Neurologic/Psychiatric: alert, normal mood/affect, oriented x 3 Procedures/Interventions Suture Size: 5-0 Progress/Results/Core Measures Results/Orders My Orders Orders - SATURNINO LOPEZ Methylprednisolone Sod Succ (Solu-Medrol (02/05/20 02:45) Progress Progress Note : Time: 02:43 Progress Note Solu-Medrol IM. Pseudoephedrine. Recommended she follow up with Dr. Giraldo and discuss whether referral to ENT would be beneficial. Departure Impression Primary Impression: Nasal congestion with rhinorrhea Additional Impression: Sinusitis, acute maxillary Qualified Codes: J01.01 - Acute recurrent maxillary sinusitis Disposition: HOME, SELF-CARE Condition: Stable Departure-Patient Inst. Decision time for Depature: 02:44 Referrals: BETTY GIRALDO MD (PCP/Family) Primary Care Physician Patient Instructions: Chronic Sinusitis Add. Discharge Instructions: Continue taking the antibiotics as prescribed. Pseudoephedrine as prescribed. Follow-up with Dr. Giraldo and discuss whether your chronic sinusitis would be worth discussing with an ear nose and throat surgeon. Continue taking Zyrtec or Claritin daily. Rinse your nose out with nasal saline as often as necessary. Scripts Pseudoephedrine HCl (Pseudoephedrine HCl) 60 Mg Tablet 60 MG PO Q6H PRN for CONGESTION, #20 TAB 0 Refills Prov: SATURNINO LOPEZ 02/05/20 SATURNINO LOPEZ Feb 05, 2020 02:46
== END 2020-02-05 02:57 | disposition home or self-care (01) ==
LOC: EDUNIT# 02:18 → ER 02:22
DX: J01.90 Acute sinusitis, unspecified (principal); I10 Essential (primary) hypertension; Z80.8 Family history of malignant neoplasm of other organs or systems
CPT/HCPCS: 99284

== ENCOUNTER 2020-05-26 22:04 | Emergency (ER) | payer MEDICARE ==
[~2020-05-26] VITALS: Ht 160 cm; Wt 81.8 kg
[~2020-05-26 22:04] MED LIST changes: +PSEU60TA88 PO
--- NOTE | 2020-05-26 22:22 | ED EENT ---
History of Present Illness General Chief Complaint: Dental Problems/Pain Stated Complaint: FACIAL SWELLING,DENTAL PAIN Source: patient Exam Limitations: no limitations History of Present Illness Date Seen by Provider: May 26, 2020 Time Seen by Provider: 22:22 Allergies and Home Medications Allergies Coded Allergies: No Known Drug Allergies (Verified , 02/23/16) Home Medications Cetirizine HCl 10 Mg Tablet, 10 MG PO DAILY, (Reported) Lisinopril 20 Mg Tablet, 20 MG PO DAILY, (Reported) Pseudoephedrine HCl 60 Mg Tablet, 60 MG PO Q6H PRN for CONGESTION Prescribed by: SATURNINO LOPEZ on 02/05/20 0245 Past Elycdkg-Lzqrhl-Jueihf Hx Patient Social History 2nd Hand Smoke Exposure: Yes Recent Foreign Travel: No Contact w/Someone Who Travel: No Recent Hopitalizations: No Immunizations Up To Date Tetanus Booster (TDap): Unknown Date of Influenza Vaccine: Aug 11, 2016 Seasonal Allergies Seasonal Allergies: Yes Past Medical History Surgeries: Yes (BLADDER SLING/CYSTOCOELE REPAIR AND HYST/BSO 08/17/16) Bladder Surgery, Gallbladder, Hysterectomy, Oophorectomy Respiratory: No Cardiac: Yes Hypertension Neurological: Yes Headaches /Migraines Reproductive Disorders: Yes 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 0.0oz. [id number]; 30.00 BMI Method:Stated Procedures/Interventions Suture Size: 5-0 Progress/Results/Core Measures Results/Orders My Orders Orders - NICHOLAS MCCLURE Amoxicillin/Clavulanate Tablet (Augmenti (05/27/20 08:00) Vital Signs/I&O 05/26/20 22:21 Temp 36.3 Pulse 65 Resp 20 B/P (MAP) 132/81 (98) Pulse Ox 99 Departure Impression Primary Impression: Tooth abscess Disposition: 01 HOME, SELF-CARE Condition: Stable/Unchanged Departure-Patient Inst. Decision time for Depature: 22:34 Referrals: BETTY GIRALDO MD (PCP/Family) Primary Care Physician Patient Instructions: Tooth Abscess (DC) Add. Discharge Instructions: Medications as directed. You may use ibuprofen Tylenol as directed by the packaging. Follow-up with your dentist within 1 week for evaluation. Follow-up through primary care provider as needed. Return back to the emergency room for worsening symptoms or concerns as needed. All discharge instructions reviewed with patient and/or family. Voiced understanding. Scripts Amoxicillin/Potassium Clav (Augmentin 875-125 Tablet) 1 Each Tablet 1 EACH PO BID for 10 Days, #20 TAB 0 Refills Prov: NICHOLAS MCCLURE 05/26/20 NICHOLAS MCCLURE May 26, 2020 22:22
[2020-05-26] MEDS ORDERED: AMOX-358 PO (22:36)
[2020-05-26] MEDS ORDERED: AUGMENTIN 875 MG TAB (AMOXICILLIN/CLAVULANATE) ONE (22:42)
[2020-05-26 22:46] VITALS: BP 132/74
--- OUTSIDE RECORDS SUMMARY | 2020-05-26 23:06 | XMS REPORT ---
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 [email or web address] [facility] [employer] [facility] [employer] Address [address] [address] Care Team Providers Care Technical Aid Name Role Phone GARY ANALI Unavailable Unavailable BETTY GIRALDO Unavailable SONIA RIVERA Unavailable Unavailable ADEBAYO, ORQUIDEA Unavailable Unavailable RUTH OSORIO Unavailable Unavailable SHANT MAYEN Unavailable URIAH BLAKELY Unavailable URIAH BLAKELY Unavailable JAYY PRADO Unavailable JAYY PRADO Unavailable JOHAN JAIMA Unavailable HILDA GOODRICH Unavailable Migration, Doctor Unavailable Unavailable Migration, Doctor Unavailable Unavailable Migration, Doctor Unavailable Unavailable Migration, Doctor Unavailable Unavailable ADEBAYO, ORQUIDEA Unavailable MARCO A LAWRENCE MD Unavailable Unavailable FRED DORICKY Unavailable Unavailable SAURAV CASTILLO, CORA Umanzor Unavailable Unavailable BETTY GIRALDO MD Unavailable Unavailable MAURILIO PARIKH, LUIS ANTONIO Melchor Unavailable Unavailable JACKIE FREY Unavailable Unavailable RD OSULLIVAN MD Unavailable Unavailable ADEBAYO, ORQUIDEA Unavailable ADEBAYO, ORQUIDEA Unavailable BETTY GIRALDO MD Unavailable Unavailable MAVERICK FOX MD Unavailable Unavailable MALICK MOFFETT Unavailable VIVIAN Chung Unavailable ADEBAYO, ORQUIDEA Unavailable ADEBAYO, ORQUIDEA Unavailable ADEBAYO, ORQUIDEA Unavailable Migration, Doctor Unavailable Unavailable ADEBAYO, ORQUIDEA Unavailable ADEBAYO, ORQUIDEA Unavailable ADEBAYO, ORQUIDEA Unavailable ADEBAYO, ORQUIDEA Unavailable ADEBAYO, ORQUIDEA Unavailable JOEY ARMSTRONG Unavailable MALICK MOFFETT Unavailable zzHEIMROLF, VIVIAN Unavailable ADEBAYO, ORQUIDEA Unavailable Migration, Doctor Unavailable Unavailable MD Praneeth GIRALDO PCP SATURNINO LOPEZ MD Unavailable Unavailable zzHEIMAN, VIVIAN Unavailable ADEBAYO, ORQUIDEA Unavailable ADEBAYO, ORQUIDEA Unavailable ADEBAYO, ORQUIDEA Unavailable zzHEIMAN, VIVIAN Unavailable ADEBAYO, ORQUIDEA Unavailable ADEBAYO, ORQUIDEA Unavailable Unavailable Unavailable Unavailable Unavailable Unavailable Unavailable Unavailable Unavailable Allergies Normalized Allergy Reported Date of Reaction(s) Care Provider Facility Allergy Type classification allergen Allergy Onset DA (20 Unclassified No Known Drug 08-17-2016 - no information JACKIE Not Available sources.) Allergies SHANTE (03895) Medications Current Medications Medication Ingredient Drug Dose Dates Status Sig Sig Care Class(es) (Normalized) (Original) Provid er clotrimazol Clotrimazol Azole 10-15-20 Active no Gina trimazole no e 10 mg/ml e Antifungal mg/mL 14 information 1 % 1 inch name topical Translation by Topical cream (1 s: [ route 2 source.) Clotrimazol times per e 1 %] day for 10 days Sep, Active doxycycline Doxycycline Tetracyclin 100 mg 05-08-20 Active take 1 Doxycycline no hyclate 100 Translation e-class 14 tablet by Hyclate 100 name mg oral s: [ Drug mouth twice mg 1 tablet tablet (1 Doxycycline daily by Oral source.) Hyclate 100 route 2 mg] times per day for 14 days Apr, Active no Flonase 50 no 1 11-20-20 Active take 1 Flonase 5 0 no information mcg/actuati information spray( 14 spray(s) mcg/ac tuatio name (1 source.) on s) nasal route n 1 sprays twice daily by Nasal route 2 times per day in each nostril Sep, Active pseudoephed Pseudoephed alpha-Adren 02-05-20 Active no Pseud oephedr no rine rine ergic 20 information ine Hcl name hydrochlori Agonist Active 60 de 60 mg ORAL Every 6 oral tablet Hours as (1 source.) needed for Congestion February 05, 2020 2:45am sulfamethox sulfamethox Dihydrofola 08-13-20 Active no Sulfa methoxa no azole 800 azole / te 18 - information zole-Trimeth n laura mg / trimethopri Reductase 08-18-20 oprim trimethopri m Inhibitor 18 800-160 MG m 160 mg Translation Antibacteri Orally Twice oral tablet s: [ al, a day 1 (1 source.) Sulfamethox Sulfonamide tablet 12h azole-Trime Antimicrobi Jul, thoprim al Jul, 800-160 MG] 5 days Active Completed/Discontinued Medications Medication Ingredient Drug Dose Dates Status Sig Sig Care Class(es) (Normalized) (Original) Provid er no Nitrofurant no 08-19-20 Complete no Nitrofuranto no information oin information 16 - d information in name (1 source.) Monohyd/M-C 08-30-20 Monohyd/M-Cr ryst 16 yst Discontinued 100 ORAL Twice A Day August 18, 2016 10:32pm August 30, 2016 Problems Active Problems Problem Normalized Date Last Normalized Normalized Provider Fa cility Classification Problem(s) Recorded Problem Problem Sta tus Duration Residual Acquired Episodic Active MAVERICK [facility] Via codes; absence of MD Deob FOX unclassified both cervix Hospital - (2 sources.) and uterus [place] ([address]60) Acute Acute Episodic Active Doctor Community bronchitis (20 bronchitis, [facility] sources.) unspecified of [place] Translations: [place] (40093) [ - Acute bronchitis, unspecified organism J20.9] Diseases of Cellulitis and Episodic Active VIVIAN zzHEIMAN [facility] [place] [address] [facility] excluding mouth of [place] dental (10 Translations: [place] (38180) sources.) [ - Oral abscess K12.2] Diverticulosis Diverticulosis Chronic Active MARCO A LAWRENCE , Not Available and of intestine, (67041) diverticulitis part (6 sources.) unspecified, without perforation or abscess without bleeding Translations: [ DVRTCLOS OF LG INT W/O PERFORATION OR AB] Essential Essential Chronic Active CORA MG , DO Not Olga ilable hypertension (primary) (98338) (11 sources.) hypertension Residual Family history Episodic Active SATURNINO LOPEZ [facility] Via codes; of malignant MD [place] unclassified neoplasm of Hospital - (2 sources.) other organs [place] or systems (04334) Residual Family history Episodic Active MAVERICK [facility] Via codes; of malignant MD Debo FOX unclassified neoplasm of Hospital - (2 sources.) ovary [place] (81549) Hemorrhoids (6 First degree Episodic Active TAKAAKI KIDO , Not Available sources.) hemorrhoids (98029) Translations: [ SECOND DEGREE HEMORRHOIDS] Other ear and Impacted Episodic Active JAYY PRADO Commun ity sense organ cerumen, [address] [facility] disorders (20 bilateral of [place] sources.) Translations: [place] (75381) [ - Impacted cerumen, bilateral H61.23, - Impacted cerumen, bilateral H61.23] Open wounds of Laceration Episodic Active RD ODGERS No t Available extremities (3 without , (42932) sources.) foreign body of left hand, subsequent encounter Translations: [ Laceration of left hand] Headache; Migraine, Chronic Active MAVERICK [facility] Via including unspecified, MD [place] FOX migraine (4 not Hospital - sources.) intractable, [place] without status (06063) migrainosus Other upper Nasal Episodic Active SATURNINO LOPEZ [facility] Vi a respiratory congestion MD [place] disease (2 Hospital - sources.) [place] (64808) Other upper Nasal Episodic Active MD BETTY GIRALDO [facility] Via respiratory discharge [address] [place] disease (1 Hospital source.) (08021) Noninfectious Noninfective Episodic Active TAKAAKI KIDO , [facility] Via gastroenteriti gastroenteriti MD [place] s (4 sources.) s and colitis, Hospital - unspecified [place] (08307) Other Occult blood Episodic Active MD BETTY GIRALDO Asce nsion Via gastrointestin in stools [address] [place] al disorders Hospital (1 source.) (51262) Other Other fecal Episodic Active BETTY GIRALDO [facility] Vi a gastrointestin abnormalities MD [place] al disorders Hospital - (4 sources.) [place] ([address]50) Other Other long Episodic Active CORA MG , DO Not Av ailable aftercare (5 term (current) (66979) sources.) drug therapy Other upper Other seasonal Chronic Active JAYY PRADO [facility] respiratory allergic [address] [facility] disease (20 rhinitis of [facility] sources.) Translations: [place] (45177) [ - Seasonal allergic rhinitis, unspecified trigger J30.2, - Seasonal allergic rhinitis, unspecified trigger J30.2] Genitourinary Personal no information Active MAVERICK [facility] Via symptoms and history of MD Debo FOX ill-defined other diseases Hospital - conditions (4 of urinary [place] sources.) system (36995) Translations: [ PRESENCE OF UROGENITAL IMPLANTS, PRESENCE OF UROGENITAL IMPLANTS] Osteoarthritis Primary Chronic Active MARCO A LAWRENCE [facility] Via (4 sources.) osteoarthritis MD [place] , unspecified Hospital - site [place] (89727) Other upper Seasonal Chronic Active JAHILDA PRADO Communit y respiratory allergic [address] [facility] Center disease (20 rhinitis of [facility] sources.) Translations: [place] (57358) [ Seasonal allergic rhinitis, unspecified trigger, Seasonal allergic rhinitis, unspecified trigger] Genitourinary Unspecified Chronic Active RICKY IBARRA N ot Available symptoms and urinary , DO (98483) ill-defined incontinence conditions (2 Translations: sources.) [ PRESENCE OF UROGENITAL IMPLANTS] Prolapse of Uterovaginal Chronic Active RICKY IBARRA No t Available female genital prolapse, , DO (79004) organs (2 unspecified sources.) Translations: [ CYSTOCELE, UNSPECIFIED] Past or Other Problems Problem Normalized Date Last Normalized Normalized Provider Fa cility Classification Problem(s) Recorded Problem Problem Sta tus Duration External cause Activity, no information no information LUIS ANTONIO Not Available codes: floor mopping MAURILIO , (78741) Unspecified (2 and cleaning MD sources.) Translations: [ OTHER EXTERNAL CAUSE STATUS] External cause Contact with no information no information JOSHU A Not Available codes: sharp MAURILIO hopkins , (06777) Cut/kaplan (1 initial MD source.) encounter Open wounds of Laceration Episodic Completed LUIS ANTONIO Not Av ailable extremities (2 without [facility] , (74327) sources.) foreign body MD of right hand, initial encounter Other Left lower Episodic Completed BETTY GIRALDO , Not Olga ilable gastrointestin quadrant (44227) al disorders abdominal (1 source.) swelling, mass and lump Other female Other Episodic Completed RICKY FENECH Not A vailable genital noninflammator , DO (67003) disorders (1 y disorders of source.) ovary, fallopian tube and broad ligament Other female Polyp of Episodic Completed RICKY FENECH Not A vailable genital corpus uteri , DO (57849) disorders (1 source.) Ovarian cyst Unspecified Episodic Completed RICKY FENECH No t Available (2 sources.) ovarian cysts , DO (22737) External cause Unspecified no information no information LUIS ANTONIO Not Available codes: Place place in [facility] , (31194) of occurrence unspecified (1 source.) [facility] as the place of occurrence of the external cause Procedures Procedure Normalized Procedure Procedure Result Performer Facility Date 05-30-2013 Assay of thyroid no information no name [facility] stimulating hormone [facility] (69182) 09-18-2014 Blood count complete no information no name [facility] auto&auto difrntl wbc [facility] (70856) 05-30-2013 Blood count complete no information no name [facility] auto&auto difrntl wbc [facility] (97264) 09-18-2014 Collection venous no information no name [facility] blood venipuncture [facility] (14675) 05-30-2013 Collection venous no information no name [facility] blood venipuncture [facility] (66836) 09-18-2014 Comprehensive no information no name [facility] metabolic panel [facility] (43792) 05-30-2013 Comprehensive no information no name [facility] metabolic panel [facility] (67789) 08-13-2018 [facility] visit, estab pt no information no name [facility] (67403) 06-28-2018 [facility] visit, estab pt no information no name [facility] (72615) 05-30-2013 Hemoglobin no information no name [facility] glycosylated a1c [facility] (18326) 08-13-2018 LAB NOT BILLED BY no information no name [facility] (45359) 09-18-2014 Lipid panel no information no name [facility] (66533) 05-30-2013 Lipid panel no information no name [facility] (69423) 07-29-2014 Mammogram, screening no information no name [facility] (24360) 09-14-2014 Removal impacted no information no name [facility] cerumen [facility] instrumentation unilat [place] (21689) 06-16-2014 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 no 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 no name Co [facility] fibrq tags any area [facility] upw/[address] [place] [address] (56523) 08-13-2018 Urnls dip stick/tablet no information no name [facility] rgnt auto w/o [facility] (96134) Immunizations Normalized Immunization Date Notes Care Provider Facili ty Immunization pneumococcal 11-04-2019 no information no name [facility] conjugate vaccine, [facility] (04056) tetanus toxoid, 08-30-2016 no information MD BETTY GIRALDO [address] [place] [address] [facility] toxoid, and (51724) acellular pertussis vaccine, adsorbed Results Test Name Value Interpretation Reference Range Date Time Fa cility (Normalized) (Normalized) (Medline Reference) urinalysis on 2018-08-13 Bacteria SEE NOTE (no code) [facility] identified Cx [facility] Nom (U) [facility] (56911) Protein mass Negative (no code) 0 - 20 mg/dL [facility] conc (U) [facility] (47023) other on 2018-08-13 BLO 1+ (no code) [facility] (83427) Exp date Negative (no code) [facility] (83140) KET 09-25-2018~clear (no code) [facility] lth ~yellow~none~neg [facility] ative~negative~n [facility] egative (55499) Lot # [id number] (no code) [facility] (15949) SG 1.010 (no code) [facility] (77859) URO 0.2 (no code) [facility] (14368) hematology on 2018-08-13 pH (Bld) 5.5 [pH] (no code) 7.38 - 7.42 [pH] [facility] (19259) urinalysis on 2018-01-11 Protein mass Negative (no code) 0 - 20 mg/dL [facility] ealth conc (U) [facility] (81056) other on 2018-01-11 BLO 2+ (no code) [facility] (19475) Exp date Negative (no code) [facility] (35963) KET 2018 10 (no code) [facility] 31~clear~yellow~ [facility] none~negative~[facility] gative~negative (85867) Lot # [id number] (no code) [facility] (81616) SG 1.015 (no code) [facility] (52174) URO 0.2 (no code) [facility] (98323) hematology on 2018-01-11 pH (Bld) 5.0 [pH] (no code) 7.38 - 7.42 [pH] [facility] (80856) other on 2017-12-14 Control Negative (no code) [facility] (47327) Exp date Positive (no code) [facility] (51935) Exp date [id number] (no code) [facility] (76850) Vital Signs Vital Sign Value Interpretation Reference Date Time Care Prov ider Facility (Normalized) (Normalized) Range BMI (Body Mass 32.16 kg/m2 (no code) 15 - 25 kg/m2 08-13-2018 [facility] Index) 18:10-0400 40624 [facility] (79538) BMI (Body Mass 32.58 kg/m2 (no code) 15 - 25 kg/m2 06-28-2018 [facility] Index) 13:50-0400 57280 [facility] (97011) Body height 162.56 cm (no code) cm 07-29-2014 VIVIAN BANSAL [facility] 12:00-0400 83573 [facility] (49868) Body 98.1 [degF] (no code) 97.8 - 99.0 08-13-2018 [facility] Temperature [degF] 18:10-0400 89299 [facility] (79342) Body 98.3 [degF] (no code) 97.8 - 99.0 06-28-2018 [facility] Temperature [degF] 13:50-0400 06874 [facility] (10855) Body 99.1 [degF] (no code) 97.8 - 99.0 02-08-2015 [facility] Temperature [degF] 11:06-0400 93783 [facility] (87665) Body 98 [degF] (no code) 97.8 - 99.0 10-15-2014 [facility] Temperature [degF] 12:51-0500 33758 [facility] (97976) Body 97.8 [degF] (no code) 97.8 - 99.0 09-14-2014 [facility] Temperature [degF] 13:42-0400 90390 [facility] (36190) Body 97.1 [degF] (no code) 97.8 - 99.0 07-29-2014 VIVIAN HERRMANN [facility] temperature [degF] 12:00-0400 81813 [facility] (11206) Body 97.8 [degF] (no code) 97.8 - 99.0 06-16-2014 MALICK LOZANO Community Temperature [degF] 14:48-0400 63292 [facility] [place] (10411) Body 97.7 [degF] (no code) 97.8 - 99.0 05-08-2014 JOEYPRETTY MELARA [facility] Temperature [degF] 10:30-[id number] [place] [address] (40977) Body weight 77.25 kg (no code) kg 02-08-2015 [facility] 11:060400 57031 [facility] (30050) Body weight 76.66 kg (no code) kg 10-15-2014 ORQUIDEARaffaele [facility] 12:51-0500 16571 [facility] (77154) Body weight 75.89 kg (no code) kg 09-14-2014 [facility]ATOLY [facility] 13:42-0400 99478 [facility] (32483) Body weight 75.07 kg (no code) kg 07-29-2014 VIVIAN Guerra [facility] 12:00-0400 27032 [facility] (10932) Body weight 75.66 kg (no code) kg 06-16-2014 [facility] 14:48-0400 00415 [facility] (02678) Body weight 75.55 kg (no code) kg 05-08-2014 JOEYPRETTY ARMTSRONG [facility] 10:30-[id number] [place] [address] (64375) Height 162.56 cm (no code) cm 08-13-2018 JAYY Guevara [facility] 18:10-0400 22859 [facility] (72408) Height 162.56 cm (no code) cm 06-28-2018 JAYY Guevara [facility] 13:50-0400 76655 [facility] (75501) Height 162.56 cm (no code) cm 02-08-2015 [facility] 11:06-[id number] [place] [address] (92030) Height 162.56 cm (no code) cm 10-15-2014 [facility] 12:510500 [address] [place] [address] (71629) Height 162.56 cm (no code) cm 09-14-2014 [facility] 13:42-0400 43387 [facility] (54107) Height 162.56 cm (no code) cm 06-16-2014 MALICK Guevara [facility] 14:48-0400 93214 [facility] (40253) Height 162.56 cm (no code) cm 05-08-2014 JOEY ARMSTRONG [facility] 10:30-0400 41377 [facility] (51294) Weight 85 kg (no code) kg 08-13-2018 JAHILDA PRADO [facility] 18:10-0400 31893 [facility] (59911) Weight 86.09 kg (no code) kg 06-28-2018 JHOANAIMA PRADO [facility] 13:50-0400 25988 [facility] (20531) Interventions No Information Plan of Treatment Normalized Care Care Detail Care Activity Date Care Provider F acility Activity Patient Education Chronic Sinusitis [place] [address] [place] [address] [facility] (38531) Patient referral no information no information MD BETTY GIRALDO [address] [place] [address] [facility] (98263) Goals Patient Goal Desired Goal no information no information Social History Normalized Code Original Code Date Value no information no information 02-05-2020 Denies Use no information no information 02-05-2020 No no information no information 02-05-2020 Denies Sex Assigned At Sex Assigned At no information F emale Functional Status The data below is from unstructured sources Query Response Date Carmelo rded Patient Orientation Person Place Time Situation August 18, 2016 12:34pm Mental Status The data below is from unstructured sourcesNo Mental Status Information Available Encounters Encounter Normalized Encounter Encounter Diagnosis Care Provi shalom Organization Date Type 08-30-2018 (ESTAB) Establish Care no information MALICK MOFFETT (no [facility] phone) (no phone) 11-09-2018 (WALK-IN) Walk-In Care Acute bronchitis, RICKY BRIGHT (no [employer] [facility] - unspecified phone) RICKY MILTON (no phone) 11-09-2018 Alek (no phone) - 11-09-2018 08-13-2018 (WALK-IN) Walk-In Care Frequency of JAYY PRADO (n o [facility] - micturition phone) JAYY Gaston CARE (no phone) 08-13-2018 (no phone) - 08-13-2018 06-28-2018 (WALK-IN) Walk-In Care Other seasonal JAYY PRADO (no [facility] - allergic rhinitis phone) JAYY Gaston CARE (no phone) 06-28-2018 (no phone) - 06-28-2018 11-17-2019 [facility] Acute upper JAN BRINK (no [facility] CARE respiratory infection, phone) CARE (n o phone) unspecified 11-04-2019 [facility] Encounter for HILDA GOODRICH (no phone) [facility] immunization (no phone) 02-05-2020 Emergency department no information (no phone) [facility] [place] - patient visit Hospital (no phone) 02-05-2020 02-04-2020 Emergency department no information SATURNINO LOPEZ MD (no [facility] - patient visit phone) [facility] 02-04-2020 (no phone) 08-14-2018 Emergency department no information no name no organization name - patient visit 08-14-2018 08-13-2018 Emergency department no information MAVERICK VELEZ MD [facility] - patient visit (no phone) [facility] 08-13-2018 (no phone) 08-13-2018 Nursing evaluation of no information HILDA GOODRICH (no phone) [facility] - patient and report CARE (no phone) 08-13-2018 - 08-13-2018 08-14-2018 Patient encounter no information no name no or ganization name 08-13-2018 Patient encounter no information no name no or ganization name 01-11-2018 Patient encounter no information no name no or ganization name 12-14-2017 Patient encounter no information no name no or ganization name 10-09-2017 Patient encounter no information no name no or ganization name 04-20-2016 Patient encounter no information no name no or ganization name 02-04-2020 Patient encounter no information SATURNINO LOPEZ MD (no [facility] procedure phone) [facility] (no phone) 05-28-2019 Patient encounter no information no name no or ganization name - procedure 05-28-2019 05-28-2019 Patient encounter no information MARCO A LAWRENCE MD (n o [facility] - procedure phone) [facility] 05-28-2019 (no phone) 05-27-2019 Patient encounter no information BETTY GIRALDO MD ( no [facility] procedure phone) [facility] (no phone) 05-26-2019 Patient encounter no information no name no or ganization name - procedure 05-26-2019 05-26-2019 Patient encounter no information MARCO A LAWRENCE MD (n o [facility] - procedure phone) [facility] 05-26-2019 (no phone) 05-23-2019 Patient encounter no information no name no or ganization name procedure 11-09-2018 Patient encounter no information no name no or ganization name procedure 08-17-2016 Patient encounter no information no name no or ganization name - procedure 08-18-2016 04-28-2016 Patient encounter no information no name no or ganization name procedure 02-23-2016 Patient encounter no information no name no or ganization name - procedure 02-23-2016 08-26-2014 Patient encounter no information no name no or ganization name procedure 08-15-2013 Patient encounter no information no name no or ganization name procedure 08-13-2018 Telephone encounter no information JAYY PRADO (no [facility] - phone) JAYY Gaston (no phone) 08-13-2018 (no phone) - 08-13-2018 02-04-2020 no information Encounter for other no name no organization name preprocedural examination 02-08-2015 VISIT no information no name no organ ization name no information Encounter for dental no name no organi zation name examination and cleaning without abnormal findings no information Dental examination no name no organiza tion name no information Encounter for other no name no organiz ation name preprocedural examination no information Encounter for no name no organization name preprocedural laboratory examination Medical Equipment The data below is from unstructured sourcesNo Medical Equipment Information available Payers Normalized Payer Value Medicare no information ([id number]) Evaluation note Note Type Note Facility Evaluation No Assessments Information Available A scension note Via [facility] ([id number]) History general Narrative - Reported Note Type Note Facility History general Narrative - Reported Type Medical hypertension History Medical Arthritis History Medical Family history of diabetes mellitus History Medical Flat foot History Medical Cervicalgia History Surgical bladder surgery History Surgical cyst removal History Hospitaliz surgery related ation History [facility] ([id number]) Summary Purpose eClinicalWorks SubmissioneClinicalWorks SubmissioneClinicalWorks SubmissioneClinicalWorks SubmissioneClinicalWorks Submission Advance Directives Directive Response Recor ded Date/Time Advance Directives No 10:10am Health Care Power of X Ray Technologist No 08/17/16 10:10am Organ Donor No 08/17/16 10:10am Resuscitation Status Full Code 08/17/16 10:10am Directive Response Recor ded Date/Time Advance Directives No 9:41pm Health Care Power of X Ray Technologist No 08/18/16 9:41pm Organ Donor No 08/18/16 9:41pm Resuscitation Status Full Code 08/18/16 9:41pm Directive Response Recor ded Date/Time Advance Directives No 7:55am Health Care Power of X Ray Technologist No 08/30/16 7:55am Organ Donor No 08/30/16 7:55am Resuscitation Status Full Code 08/30/16 7:55am Directive Response Recor ded Date/Time Advance Directives No 7:55am Health Care Power of X Ray Technologist No 08/30/16 7:55am Organ Donor No 08/30/16 7:55am Directive Response Recor ded Date/Time Advance Directives No 3:09pm Health Care Power of X Ray Technologist No 02/22/16 3:09pm Advance Directive Response Recorded Date/Time Advance Directives No [facility] 2019 2:28am Health Care Power of X Ray Technologist No February 05, 2020 2:28am Organ Donor No January 2:28am Resuscitation Status Full Code February 05, 2020 2:28am Discharge Instructions Patient Instructions Physician Instructions New, Converted or Re-Newed RX: RX on Chart Additional Follow Up: Yes Activity: Activity as Tolerated Driving Instructions: No Driving for 1 Week NO SMOKING: NO SMOKING Nothing Inside Vagina: No Douching, No [place], No Tampons Discharge Diet: No Restrictions Symptoms to Report to : Bleeding Excessive, Pain Increased, Fever Over 101 Degrees F, Vaginal Bleeding Increase, Questions/Concerns For Any Problems or Questions: Contact Your Physician Infection Signs and Symptoms: Increased Redness, Foul Odor of Wound, Increased Drainage, Skin Itchy or Has a Rash, Increased Swelling, Temperature Above 101 F Operative Area Clean and Dry: Keep Incision Clean/Dry Stitches/[place]/Dermabond: Dermabond, Care of Stitches Bathing Instructions: Shower No hospital discharge instructions.No hospital discharge instructions.No hospital discharge instructions. Patient Instructions Physician Instructions Follow Up 10 years Activity as tolerated High Fiber Diet 25g or more per day Avoid Alcohol, Caffeine, Spicy [place] and Acid foods. Drink 64 fluid oz or more of fluids per day. Symptoms to Report: Fever over 101 degree F, Nausea/Vomiting If any problems/questions: Contact your physician or go to Emergency Room Chief Complaint and Reason for Visit Chief Complaint Nasal Problems Reason for Visit [id number] Additional Source Comments This clinical document has been generated using [employer] software that has been certified by the Office of the National Coordinator for Health Information Technology (ONC 15.99.04.3023.Diam.[id number]) and the National Committee for Weekend Anchor (NCQA, as an eMeasure certified technology). FOR RECORDS PERTAINING TO PATIENTS WHO ARE OR HAVE BEEN ENROLLED IN A CHEMICAL D EPENDENCY/SUBSTANCE ABUSE PROGRAM, SOME INFORMATION MAY BE OMITTED. This clinica l summary was aggregated from multiple sources. Caution should be exercised in using it in the provision of clinical care. This summary normalizes information from multiple sources, and as a consequence, information in this document may ma terially change the coding, format and clinical context of patient data. In jaime tion, data may be omitted in some cases. CLINICAL DECISIONS SHOULD BE BASED ON T HE PRIMARY CLINICAL RECORDS. [employer] provides no warranty or guara ntee of the accuracy or completeness of information in this document.The followi ng information is based on time limited clinical information UNRECOGNIZED CONTENT PROVIDED BELOW FOR UNRECOGNIZED SECTION MEDICAL (GENERAL) HISTORY Type Description Date Medical History hypertension Medical History Arthritis Surgical History bladder surgery Surgical History cyst removal Hospitalization History surgery related Type Description Date Medical History hypertension Medical History Arthritis Medical History Family history of di abetes mellitus Medical History Flat foot Medical History Cervicalgia Surgical History bladder surgery Surgical History cyst removal Hospitalization History surgery related UNRECOGNIZED CONTENT PROVIDED BELOW FOR UNRECOGNIZED SECTION REASON FOR VISIT congestion and stuffy nose--TSowell, MANasal congestion, sore throat JStrasserRN , Urinary frequency for awhile, worse now questioning careTriage JStrasserRNEMR- [id number]
--- OUTSIDE RECORDS SUMMARY | 2020-05-26 23:07 | XMS REPORT ---
Author Author Riya FIORE Organization [facility] Address [address] [place] [address] Care Team Providers Care Surveillance Manager Name Role Phone ORQUIDEA FIORE Unavailable PROBLEMS Type Condition ICD9-CM Code [id number] Code Onset Dates Condition S tatus SNOMED Code Problem Seasonal allergic rhinitis, unspecified trigger J3 0.2 Active [id number] ALLERGIES No Information ENCOUNTERS Encounter Location Date Diagnosis [facility] [place] [id number] [address] Oct, Viral upper respiratory trac t infection J06.[address] [address] Oct, Encounter for immunization Z 23 [facility] [address] [address] Oct, Acute bronchitis, unspecifie d organism J20.9 [facility] [address] [place] [id number] 18 Jul, 2018 [facility] [address] [place] [address] Jul, Urinary frequency R35.0 ; Ac [place] cystitis with hematuria N30.01 and Seasonal allergic rhinitis, unspecified trigger J30.2 [facility] [address] [place] [address] Jul, [facility] [address] [address] Jun, Seasonal allergic rhinitis, unspecified trigger J30.2 [facility] [address] [address] Dec, Urinary frequency R35.0 ; Ac [place] cystitis with hematuria N30.01 ; Seasonal allergic rhinitis, unspecified trigger J30.2 and Impacted cerumen, bilateral H61.23 [facility] [address] [address] Nov, Sore throat J02.9 and Strep pharyngitis J02.0 [facility] [address] [id number] Aug, Dental caries K02.9 [facility] [address] [address] Jul, Allergic contact dermatitis, unspecified trigger L23.9 and Oral abscess K12.2 [facility] [address] [id number] Jul, Dental caries K02.9 and Shanks al examination Z01.20 [facility] [address] [address] Aug, Periodontal abscess K05.219 [facility] [address] [address] May, Allergic rhinitis, unspecifi ed allergic rhinitis type J30.9 and Acute otitis externa of left ear, unspecified type H60.502 [place] [address] [address] Sep, [place] [address] [address] Sep, Ankle pain, right M25.571 [place] [address] [address] Aug, [place] [address] [address] Aug, [place] [address] [address] Jun, [facility] [address] [id number] [address] [place] [id number] May, Dental examination V72.2 [facility] [address] [id number] [address] [place] [address] May, [facility] [address] [id number] [address] [place] [id number] May, Dental examination V72.2 [facility] [address] [id number] [address] [place] [id number] Apr, Dental examination V72.2 [facility] [address] [id number] [address] [place] [phone] Apr, [facility] [address] [id number] [address] [place] [id number] March, Dental examination V72.2 [facility] [address] [id number] [address] [place] [phone] March, [facility] [address] [id number] [address] [place] [phone] Feb, [facility] [address] [id number] [address] [place] [phone] Feb, [facility] [address] [id number] [address] [place] [phone] Jan, [facility] [address] [id number] [address] [place] [phone] Jan, [facility] [address] [id number] [address] [place] [phone] Jan, [facility] [address] [id number] [address] [place] [phone] Jan, [facility] [address] [id number] [address] [place] [phone] Jan, [facility] [address] [id number] [address] [place] [phone] Jan, [facility] [address] [id number] [address] [place] [address], [place] [address] Dec, [facility] [address] [id number] [address] [place] [address], [place] [address] Dec, [facility] [address] [id number] [address] [place] [address], [place] [address] Dec, [facility] [address] [id number] [address] [place] [address], [place] [address] Dec, [facility] [address] [id number] [address] [place] [address], [place] [address] Nov, [facility] [address] [id number] [address] [place] [address], [place] [address] Nov, [facility] [address] [id number] [address] [place] [address], [place] [address] Oct, [facility] [address] [id number] [address] [place] [address], [place] [address] Oct, [facility] [address] [id number] [address] [place] [address], [place] [address] Oct, [facility] [address] [id number] [address] [place] [address], [place] [address] Oct, [facility] [address] [id number] [address] [place] [address], [place] [address] Oct, [facility] [address] [id number] [address] [place] [address], [place] [address] Oct, [facility] [address] [id number] [address] [place] [address], [place] [address] Sep, [facility] [address] [id number] [address] [place] [address], [place] [address] Sep, [facility] [address] [id number] [address] [place] [address], [place] [address] Sep, [facility] [address] [id number] [address] [place] [address], [place] [address] Sep, [facility] [address] [id number] [address] [place] [address], [place] [address] Sep, [facility] [address] [id number] [address] [place] [address], [place] [address] Sep, [facility] [address] [id number] [address] [place] [address], [place] [address] Sep, [facility] [address] [id number] [address] [place] [address], [place] [address] Sep, [facility] [address] [id number] [address] [place] [address], [place] [address] Aug, [facility] [address] [id number] [address] [place] [address], [place] [address] Aug, [facility] [address] [id number] [address] [place] [address], [place] [address] Aug, [facility] [address] [id number] [address] [place] [address], [place] [address] Aug, [facility] [address] [id number] [address] [place] [address], [place] [address] Aug, [facility] [address] [id number] [address] [place] [address], [place] [address] Aug, [facility] [address] [id number] [address] [place] [address], [place] [address] Aug, [facility] [address] [id number] [address] [place] [address], [place] [address] Aug, [facility] [address] [id number] [address] [place] [address], [place] [address] Aug, [facility] [address] [id number] [address] [place] [address], [place] [address] Aug, [facility] [address] [id number] [address] [place] [address], [place] [address] Jul, [facility] [address] [id number] [address] [place] [address], [place] [address] Jul, [facility] [address] [id number] [address] [place] [address], [place] [address] Jun, [facility] [address] [id number] [address] [place] [address], [place] [address] Jun, [facility] [address] [id number] [address] [place] [address], [place] [address] May, [facility] [address] [id number] [address] [place] [address], [place] [address] May, [facility] [address] [id number] [address] [place] [address], [place] [address] Apr, [facility] [address] [id number] [address] [place] [address], [place] [address] Apr, [facility] [address] [id number] [address] [place] [address], [place] [address] Apr, [facility] [address] [id number] [address] [place] [address], [place] [address] Apr, [facility] [address] [id number] [address] [place] [address], [place] [address] March, [facility] [address] [id number] [address] [place] [address], [place] [address] March, [facility] [address] [id number] [address] [place] [address], [place] [address] Jan, [facility] [address] [id number] [address] [place] [address], [place] [address] Jan, [facility] [address] [id number] [address] [place] [address], [place] [address] Oct, [facility] [address] [id number] [address] [place] [address], [place] [address] Oct, [facility] [address] [id number] [address] [place] [address], [place] [address] Sep, [facility] [address] [id number] [address] [place] [address], [place] [address] Sep, [facility] [address] [id number] [address] [place] [address], [place] [address] Aug, [facility] [address] [id number] [address] [place] [address], [place] [address] Aug, [facility] [address] [id number] [address] [place] [address], [place] [address] 25 Jul, 2012 [facility] [address] [id number] [address] [place] [address], [place] [address] 20 Jul, 2013 [facility] [address] [id number] [address] [place] [address], [place] [address] 16 Jul, 2013 [facility] [address] [id number] [address] [place] [address], [place] [address] 09 Jul, 2013 [facility] [address] [id number] [address] [place] [address], [place] [address] 05 Jul, 2013 [facility] [address] [id number] [address] [place] [address], [place] [address] 05 Jul, 2013 [facility] [address] [id number] [address] [place] [address], [place] [address] 03 Jul, 2013 [facility] [address] [id number] [address] [place] [address], [place] [address] Jun, [facility] [address] [id number] [address] [place] [address], [place] [address] Jun, [facility] [address] [id number] [address] [place] [address], [place] [address] May, [facility] [address] [id number] [address] [place] [address], [place] [address] May, [facility] [address] [id number] [address] [place] [address], [place] [address] May, [facility] [address] [id number] [address] [place] [phone] May, [facility] [address] [id number] [address] [place] [phone] May, [facility] [address] [id number] [address] [place] [phone] March, [facility] [address] [id number] [address] [place] [phone] March, [facility] [address] [id number] [address] [place] [address] Oct, [facility] [address] [id number] [address] [place] [phone] Oct, [facility] [address] [id number] [address] [place] [phone] Jun, [facility] [address] [id number] [address] [place] [phone] Nov, [facility] [address] [id number] [address] [place] [phone] Aug, [facility] [address] [id number] [address] [place] [phone] Aug, [facility] [address] [id number] [address] [place] [address] Dec, [facility] [address] [id number] [address] [place] [phone] Oct, [facility] [address] [id number] [address] [place] [phone] Oct, [facility] [address] [id number] [address] [place] [phone] Jun, IMMUNIZATIONS No Known Immunizations SOCIAL HISTORY Never Assessed REASON FOR VISIT PLAN OF CARE VITAL SIGNS Height 64 in 2013-05-27 Weight 184.57 lbs 2013-05-27 Temperature 97.2 degrees Fahrenheit 2013-05-27 Heart Rate 75 bpm 2013-05-27 Respiratory Rate 18 2013-05-27 Blood pressure systolic 120 mmHg 2013-05-27 Blood pressure diastolic 80 mmHg 2013-05-27 MEDICATIONS No Known Medications RESULTS No Results PROCEDURES Procedure Date Ordered Result Body Site X-RAY EXAM OF LOWER SPINE May 27, 2013 X-RAY EXAM OF NECK SPINE May 27, 2013 INSTRUCTIONS MEDICATIONS ADMINISTERED No Known Medications MEDICAL (GENERAL) HISTORY Type Description Date Medical History hypertension Medical History Arthritis Medical History Family history of diabetes mellitus Medical History Flat foot Medical History Cervicalgia Surgical History bladder surgery Surgical History cyst removal Hospitalization History surgery related
--- OUTSIDE RECORDS SUMMARY | 2020-05-26 23:07 | XMS REPORT ---
Author Author Riya Chung Organization [facility] Address [address] [place] [address] Care Team Providers Care Pattern Maker Programer Name Role Phone VIVIAN Chung Unavailable PROBLEMS Type Condition ICD9-CM Code [id number] Code Onset Dates Condition S tatus SNOMED Code Problem Seasonal allergic rhinitis, unspecified trigger J3 0.2 Active [id number] ALLERGIES No Information ENCOUNTERS Encounter Location Date Diagnosis [facility] [address] [address] Oct, Viral upper respiratory trac t infection J06.9 [facility] [address] [place] [address] Oct, Encounter for immunization Z 23 [facility] [address] [address] Oct, Acute bronchitis, unspecifie d organism J20.9 [facility] [address] [address] 18 Jul, 2018 [facility] [address] [address] Jul, Urinary frequency R35.0 ; Ac [place] cystitis with hematuria N30.01 and Seasonal allergic rhinitis, unspecified trigger J30.2 [facility] [address] [place] [address] Jul, [facility] [address] [address] Jun, Seasonal allergic rhinitis, unspecified trigger J30.2 [facility] [address] [address] Dec, Urinary frequency R35.0 ; Ac [place] cystitis with hematuria N30.01 ; Seasonal allergic rhinitis, unspecified trigger J30.2 and Impacted cerumen, bilateral H61.23 [facility] [address] [address] Nov, Sore throat J02.9 and Strep pharyngitis J02.0 [facility] [address] [id number] Aug, Dental caries K02.9 [facility] [address] [address] Jul, Allergic contact dermatitis, unspecified trigger L23.9 and Oral abscess K12.2 [facility] [address] [id number] Jul, Dental caries K02.9 and Lanagan al examination Z01.20 [facility] [address] [address] Aug, Periodontal abscess K05.219 [facility] [address] [address] May, Allergic rhinitis, unspecifi ed allergic rhinitis type J30.9 and Acute otitis externa of left ear, unspecified type H60.502 [place] [address] [address] Sep, [place] [address] [address] Sep, Ankle pain, right M25.571 [place] [address] [address] Aug, [place] [address] [address] Aug, [place] [address] [address] Jun, [facility] [address] [id number] [address] [place] [id number] May, Dental examination V72.2 [facility] [address] [id number] [address] [place] [address] May, [facility] [address] [id number] [address] [place] [id number] May, Dental examination V72.2 [facility] [address] [id number] [address] [place] [id number] Apr, Dental examination V72.2 [facility] [address] [id number] [address] [place] [address] Apr, [facility] [address] [id number] [address] [place] [id number] March, Dental examination V72.2 [facility] [address] [id number] [address] [place] [address] March, [facility] [address] [id number] [address] [place] [address] Feb, [facility] [address] [id number] [address] [place] [address] Feb, [facility] [address] [id number] [address] [place] [address] Jan, [facility] [address] [id number] [address] [place] [address] Jan, [facility] [address] [id number] [address] [place] [address] Jan, [facility] [address] [id number] [address] [place] [address] Jan, [facility] [address] [id number] [address] [place] [address] Jan, [facility] [address] [id number] [address] [place] [address] Jan, [facility] [address] [id number] [address] [place] [address], [place] [address] Dec, [facility] [address] [id number] [address] [place] [address], [place] [address] Dec, [facility] [address] [id number] [address] [place] [address], [place] [address] Dec, [facility] [address] [id number] [address] [place] [address], [place] [address] Dec, [facility] [address] [id number] [address] [place] [address], [place] [address] Nov, [facility] [address] [id number] [address] [place] [address], [place] [address] Nov, [facility] [address] [id number] [address] [place] [address], [place] [address] Oct, [facility] [address] [id number] [address] [place] [address], [place] [address] Oct, [facility] [address] [id number] [address] [place] [address], [place] [address] Oct, [facility] [address] [id number] [address] [place] [address], [place] [address] Oct, [facility] [address] [id number] [address] [place] [address], [place] [address] Oct, [facility] [address] [id number] [address] [place] [address], [place] [address] Oct, [facility] [address] [id number] [address] [place] [address], [place] [address] Sep, [facility] [address] [id number] [address] [place] [address], [place] [address] Sep, [facility] [address] [id number] [address] [place] [address], [place] [address] Sep, [facility] [address] [id number] [address] [place] [address], [place] [address] Sep, [facility] [address] [id number] [address] [place] [address], [place] [address] Sep, [facility] [address] [id number] [address] [place] [address], [place] [address] Sep, [facility] [address] [id number] [address] [place] [address], [place] [address] Sep, [facility] [address] [id number] [address] [place] [address], [place] [address] Sep, [facility] [address] [id number] [address] [place] [address], [place] [address] Aug, [facility] [address] [id number] [address] [place] [address], [place] [address] Aug, [facility] [address] [id number] [address] [place] [address], [place] [address] Aug, [facility] [address] [id number] [address] [place] [address], [place] [address] Aug, [facility] [address] [id number] [address] [place] [address], [place] [address] Aug, [facility] [address] [id number] [address] [place] [address], [place] [address] Aug, [facility] [address] [id number] [address] [place] [address], [place] [address] Aug, [facility] [address] [id number] [address] [place] [address], [place] [address] Aug, [facility] [address] [id number] [address] [place] [address], [place] [address] Aug, [facility] [address] [id number] [address] [place] [address], [place] [address] Aug, [facility] [address] [id number] [address] [place] [address], [place] [address] Jul, [facility] [address] [id number] [address] [place] [address], [place] [address] Jul, [facility] [address] [id number] [address] [place] [address], [place] [address] Jun, [facility] [address] [id number] [address] [place] [address], [place] [address] Jun, [facility] [address] [id number] [address] [place] [address], [place] [address] May, [facility] [address] [id number] [address] [place] [address], [place] [address] May, [facility] [address] [id number] [address] [place] [address], [place] [address] Apr, [facility] [address] [id number] [address] [place] [address], [place] [address] Apr, [facility] [address] [id number] [address] [place] [address], [place] [address] Apr, [facility] [address] [id number] [address] [place] [address], [place] [address] Apr, [facility] [address] [id number] [address] [place] [address], [place] [address] March, [facility] [address] [id number] [address] [place] [address], [place] [address] March, [facility] [address] [id number] [address] [place] [address], [place] [address] Jan, [facility] [address] [id number] [address] [place] [address], [place] [address] Jan, [facility] [address] [id number] [address] [place] [address], [place] [address] Oct, [facility] [address] [id number] [address] [place] [address], [place] [address] Oct, [facility] [address] [id number] [address] [place] [address], [place] [address] Sep, [facility] [address] [id number] [address] [place] [address], [place] [address] Sep, [facility] [address] [id number] [address] [place] [address], [place] [address] Aug, [facility] [address] [id number] [address] [place] [address], [place] [address] Aug, [facility] [address] [id number] [address] [place] [address], [place] [address] 25 Jul, 2012 [facility] [address] [id number] [address] [place] [address], [place] [address] 20 Jul, 2013 [facility] [address] [id number] [address] [place] [address], [place] [address] 16 Jul, 2013 [facility] [address] [id number] [address] [place] [address], [place] [address] 09 Jul, 2013 [facility] [address] [id number] [address] [place] [address], [place] [address] 05 Jul, 2013 [facility] [address] [id number] [address] [place] [address], [place] [address] 05 Jul, 2013 [facility] [address] [id number] [address] [place] [address], [place] [address] 03 Jul, 2013 [facility] [address] [id number] [address] [place] [address], [place] [address] Jun, [facility] [address] [id number] [address] [place] [address], [place] [address] Jun, [facility] [address] [id number] [address] [place] [address], [place] [address] May, [facility] [address] [id number] [address] [place] [address], [place] [address] May, [facility] [address] [id number] [address] [place] [address], [place] [address] May, [facility] [address] [id number] [address] [place] [address] May, [facility] [address] [id number] [address] [place] [address] May, [facility] [address] [id number] [address] [place] [address] March, [facility] [address] [id number] [address] [place] [address] March, [facility] [address] [id number] [address] [place] [address] Oct, [facility] [address] [id number] [address] [place] [address] Oct, [facility] [address] [id number] [address] [place] [address] Jun, [facility] [address] [id number] [address] [place] [address] Nov, [facility] [address] [id number] [address] [place] [address] Aug, [facility] [address] [id number] [address] [place] [address] Aug, [facility] [address] [id number] [address] [place] [address] Dec, [facility] [address] [id number] [address] [place] [address] Oct, [facility] [address] [id number] [address] [place] [address] Oct, [facility] [address] [id number] [address] [place] [address] Jun, IMMUNIZATIONS No Known Immunizations SOCIAL HISTORY Never Assessed REASON FOR VISIT PLAN OF CARE VITAL SIGNS MEDICATIONS No Known Medications RESULTS No Results PROCEDURES No Known procedures INSTRUCTIONS MEDICATIONS ADMINISTERED No Known Medications MEDICAL (GENERAL) HISTORY Type Description Date Medical History hypertension Medical History Arthritis Medical History Family history of diabetes mellitus Medical History Flat foot Medical History Cervicalgia Surgical History bladder surgery Surgical History cyst removal Hospitalization History surgery related
--- OUTSIDE RECORDS SUMMARY | 2020-05-26 23:07 | XMS REPORT ---
Author Author Riya FIORE Organization [facility] Address [address] [place] [address] Care Team Providers Care As400 Developer Name Role Phone ORQUIDEA FIORE Unavailable PROBLEMS Type Condition ICD9-CM Code XPU63-BL Code Onset Dates Condition S tatus SNOMED Code Problem Seasonal allergic rhinitis, unspecified trigger J3 0.2 Active [id number] ALLERGIES No Information ENCOUNTERS Encounter Location Date Diagnosis [facility] [place] [id number] [address] [address] Oct, Viral upper respiratory trac t infection J06.[address] [address] Oct, Encounter for immunization Z 23 [facility] [address] [address] Oct, Acute bronchitis, unspecifie d organism J20.9 [facility] [address] [place] [id number] 18 Jul, 2018 [facility] [address] [place] [address] Jul, Urinary frequency R35.0 ; Ac [place] cystitis with hematuria N30.01 and Seasonal allergic rhinitis, unspecified trigger J30.2 [facility] [address] [place] [address] Jul, [facility] [address] [address] Jun, Seasonal allergic rhinitis, unspecified trigger J30.2 [facility] [address] [address] Dec, Urinary frequency R35.0 ; Ac [place] cystitis with hematuria N30.01 ; Seasonal allergic rhinitis, unspecified trigger J30.2 and Impacted cerumen, bilateral H61.23 [facility] [address] [address] Nov, Sore throat J02.9 and Strep pharyngitis J02.0 [facility] [address] [id number] Aug, Dental caries K02.9 [facility] [address] [address] Jul, Allergic contact dermatitis, unspecified trigger L23.9 and Oral abscess K12.2 [facility] [address] [id number] Jul, Dental caries K02.9 and [place] al examination Z01.20 [facility] [address] [address] Aug, Periodontal abscess K05.219 [facility] [address] [address] May, Allergic rhinitis, unspecifi ed allergic rhinitis type J30.9 and Acute otitis externa of left ear, unspecified type H60.502 [place] [address] [address] Sep, [place] [address] [address] Sep, Ankle pain, right M25.571 [place] [address] [address] Aug, [place] [address] [address] Aug, [place] [address] [address] Jun, [facility] [address] [id number] [address] [place] [id number] May, Dental examination V72.2 [facility] [address] [id number] [address] [place] [address] May, [facility] [address] [id number] [address] [place] [id number] May, Dental examination V72.2 [facility] [address] [id number] [address] [place] [id number] Apr, Dental examination V72.2 [facility] [address] [id number] [address] [place] [address] Apr, [facility] [address] [id number] [address] [place] [id number] March, Dental examination V72.2 [facility] [address] [id number] [address] [place] [address] March, [facility] [address] [id number] [address] [place] [address] Feb, [facility] [address] [id number] [address] [place] [address] Feb, [facility] [address] [id number] [address] [place] [address] Jan, [facility] [address] [id number] [address] [place] [address] Jan, [facility] [address] [id number] [address] [place] [id number] Jan, [facility] [address] [id number] [address] [place] [address] Jan, [facility] [address] [id number] [address] [place] [id number] Jan, [facility] [address] [id number] [address] [place] [address] Jan, [facility] [address] [id number] [address] [place] [address], [place] [address] Dec, [facility] [address] [id number] [address] [place] [address], [place] [address] Dec, [facility] [address] [id number] [address] [place] [address], [place] [address] Dec, [facility] [address] [id number] [address] [place] [address], [place] [address] Dec, [facility] [address] [id number] [address] [place] [address], [place] [address] Nov, [facility] [address] [id number] [address] [place] [address], [place] [address] Nov, [facility] [address] [id number] [address] [place] [address], [place] [address] Oct, [facility] [address] [id number] [address] [place] [address], [place] [address] Oct, [facility] [address] [id number] [address] [place] [address], [place] [address] Oct, [facility] [address] [id number] [address] [place] [address], [place] [address] Oct, [facility] [address] [id number] [address] [place] [address], [place] [address] Oct, [facility] [address] [id number] [address] [place] [address], [place] [address] Oct, [facility] [address] [id number] [address] [place] [address], [place] [address] Sep, [facility] [address] [id number] [address] [place] [address], [place] [address] Sep, [facility] [address] [id number] [address] [place] [address], [place] [address] Sep, [facility] [address] [id number] [address] [place] [address], [place] [address] Sep, [facility] [address] [id number] [address] [place] [address], [place] [address] Sep, [facility] [address] [id number] [address] [place] [address], [place] [address] Sep, [facility] [address] [id number] [address] [place] [address], [place] [address] Sep, [facility] [address] [id number] [address] [place] [address], [place] [address] Sep, [facility] [address] [id number] [address] [place] [address], [place] [address] Aug, [facility] [address] [id number] [address] [place] [address], [place] [address] Aug, [facility] [address] [id number] [address] [place] [address], [place] [address] Aug, [facility] [address] [id number] [address] [place] [address], [place] [address] Aug, [facility] [address] [id number] [address] [place] [address], [place] [address] Aug, [facility] [address] [id number] [address] [place] [address], [place] [address] Aug, [facility] [address] [id number] [address] [place] [address], [place] [address] Aug, [facility] [address] [id number] [address] [place] [address], [place] [address] Aug, [facility] [address] [id number] [address] [place] [address], [place] [address] Aug, [facility] [address] [id number] [address] [place] [address], [place] [address] Aug, [facility] [address] [id number] [address] [place] [address], [place] [address] Jul, [facility] [address] [id number] [address] [place] [address], [place] [address] Jul, [facility] [address] [id number] [address] [place] [address], [place] [address] Jun, [facility] [address] [id number] [address] [place] [address], [place] [address] Jun, [facility] [address] [id number] [address] [place] [address], [place] [address] May, [facility] [address] [id number] [address] [place] [address], [place] [address] May, [facility] [address] [id number] [address] [place] [address], [place] [address] Apr, [facility] [address] [id number] [address] [place] [address], [place] [address] Apr, [facility] [address] [id number] [address] [place] [address], [place] [address] Apr, [facility] [address] [id number] [address] [place] [address], [place] [address] Apr, [facility] [address] [id number] [address] [place] [address], [place] [address] March, [facility] [address] [id number] [address] [place] [address], [place] [address] March, [facility] [address] [id number] [address] [place] [address], [place] [address] Jan, [facility] [address] [id number] [address] [place] [address], [place] [address] Jan, [facility] [address] [id number] [address] [place] [address], [place] [address] Oct, [facility] [address] [id number] [address] [place] [address], [place] [address] Oct, [facility] [address] [id number] [address] [place] [address], [place] [address] Sep, [facility] [address] [id number] [address] [place] [address], [place] [address] Sep, [facility] [address] [id number] [address] [place] [address], [place] [address] Aug, [facility] [address] [id number] [address] [place] [address], [place] [address] Aug, [facility] [address] [id number] [address] [place] [address], [place] [address] 25 Jul, 2012 [facility] [address] [id number] [address] [place] [address], [place] [address] 20 Jul, 2013 [facility] [address] [id number] [address] [place] [address], [place] [address] 16 Jul, 2013 [facility] [address] [id number] [address] [place] [address], [place] [address] 09 Jul, 2013 [facility] [address] [id number] [address] [place] [address], [place] [address] 05 Jul, 2013 [facility] [address] [id number] [address] [place] [address], [place] [address] 05 Jul, 2013 [facility] [address] [id number] [address] [place] [address], [place] [address] 03 Jul, 2013 [facility] [address] [id number] [address] [place] [address], [place] [address] Jun, [facility] [address] [id number] [address] [place] [address], [place] [address] Jun, [facility] [address] [id number] [address] [place] [address], [place] [address] May, [facility] [address] [id number] [address] [place] [address], [place] [address] May, [facility] [address] [id number] [address] [place] [address], [place] [address] May, [facility] [address] [id number] [address] [place] [address] May, [facility] [address] [id number] [address] [place] [address] May, [facility] [address] [id number] [address] [place] [address] March, [facility] [address] [id number] [address] [place] [address] March, [facility] [address] [id number] [address] [place] [address] Oct, [facility] [address] [id number] [address] [place] [address] Oct, [facility] [address] [id number] [address] [place] [address] Jun, [facility] [address] [id number] [address] [place] [address] Nov, [facility] [address] [id number] [address] [place] [address] Aug, [facility] [address] [id number] [address] [place] [address] Aug, [facility] [address] [id number] [address] [place] [address] Dec, [facility] [address] [id number] [address] [place] [address] Oct, [facility] [address] [id number] [address] [place] [address] Oct, [facility] [address] [id number] [address] [place] [address] Jun, IMMUNIZATIONS No Known Immunizations SOCIAL HISTORY [...]
--- OUTSIDE RECORDS SUMMARY | 2020-05-26 23:07 | XMS REPORT ---
Author Author Riya FIORE Organization [facility], [place] Address [address] [place] [address] Care Team Providers Care Histotechnologist Supervisor Name Role Phone ORQUIDEA FIORE Unavailable PROBLEMS Type Condition ICD9-CM Code [id number] Code Onset Dates Condition S tatus SNOMED Code Problem Seasonal allergic rhinitis, unspecified trigger J3 0.2 Active [id number] ALLERGIES No Information ENCOUNTERS Encounter Location Date Diagnosis [facility] WALK IN [place] [id number] [address] [address] Oct, Viral upper respiratory trac t infection J06.[address] [address] Oct, Encounter for immunization Z 23 [facility] WALK IN [address] [address] Oct, Acute bronchitis, unspecifie d organism J20.9 [facility] [place] [address] [place] [address] 18 Jul, 2018 [facility] WALK IN [facility] [address] [place] [address] Jul, Urinary frequency R35.0 ; Ac [place] cystitis with hematuria N30.01 and Seasonal allergic rhinitis, unspecified trigger J30.2 [facility] WALK IN CARE [address] [place] [address] Jul, [facility] WALK IN [address] [address] Jun, Seasonal allergic rhinitis, unspecified trigger J30.2 [facility] WALK IN CARE [facility] [address] [address] Dec, Urinary frequency R35.0 ; Ac [place] cystitis with hematuria N30.01 ; Seasonal allergic rhinitis, unspecified trigger J30.2 and Impacted cerumen, bilateral H61.23 [facility] WALK IN CARE [address] [address] Nov, Sore throat J02.9 and Strep pharyngitis J02.0 [facility] [address] [id number] Aug, Dental caries K02.9 [facility] WALK IN [facility] [address] [address] Jul, Allergic contact dermatitis, unspecified trigger L23.9 and Oral abscess K12.2 [facility] [address] [id number] Jul, Dental caries K02.9 and [place] al examination Z01.20 [facility] WALK IN CARE [address] [address] Aug, Periodontal abscess K05.219 [facility] WALK IN [address] [address] May, Allergic rhinitis, unspecifi ed allergic rhinitis type J30.9 and Acute otitis externa of left ear, unspecified type H60.502 [place] [address] [address] Sep, [place] [address] [address] Sep, Ankle pain, right M25.571 [place] [address] [address] Aug, [place] [address] [address] Aug, [place] [address] [address] Jun, [facility] [address] [id number] [address] [place] [id number] May, Dental examination V72.2 [facility] [address] [id number] [address] [place] [address] May, [facility] [address] [id number] [address] [place] [id number] May, Dental examination V72.2 [facility] [address] [id number] [address] [place] [id number] Apr, Dental examination V72.2 [facility] [place] [address] [id number] [address] [place] [address] Apr, [facility] [address] [id number] [address] [place] [id number] March, Dental examination V72.2 [facility] [place] [address] [id number] [address] [place] [address] March, [facility] [place] [address] [id number] [address] [place] [address] Feb, [facility] [address] [id number] [address] [place] [address] Feb, [facility] [address] [id number] [address] [place] [address] Jan, [facility] [address] [id number] [address] [place] [address] Jan, [facility] [address] [id number] [address] [place] [address] Jan, [facility] [address] [id number] [address] [place] [address] Jan, [facility] [address] [id number] [address] [place] [address] Jan, [facility] [address] [id number] [address] [place] [address] Jan, [facility] [address] [id number] [address] [place] [address], [place] [address] Dec, [facility] [address] [id number] [address] [place] [address], [place] [address] Dec, [facility] [address] [id number] [address] [place] [address], [place] [address] Dec, [facility] [address] [id number] [address] [place] [address], [place] [address] Dec, [facility] [address] [id number] [address] [place] [address], [place] [address] Nov, [facility] [address] [id number] [address] [place] [address], [place] [address] Nov, [facility] [address] [id number] [address] [place] [address], [place] [address] Oct, [facility] [address] [id number] [address] [place] [address], [place] [address] Oct, [facility] [address] [id number] [address] [place] [address], [place] [address] Oct, [facility] [address] [id number] [address] [place] [address], [place] [address] Oct, [facility] [address] [id number] [address] [place] [address], [place] [address] Oct, [facility] [address] [id number] [address] [place] [address], [place] [address] Oct, [facility] [address] [id number] [address] [place] [address], [place] [address] Sep, [facility] [address] [id number] [address] [place] [address], [place] [address] Sep, [facility] [address] [id number] [address] [place] [address], [place] [address] Sep, [facility] [address] [id number] [address] [place] [address], [place] [address] Sep, [facility] [address] [id number] [address] [place] [address], [place] [address] Sep, [facility] [address] [id number] [address] [place] [address], [place] [address] Sep, [facility] [address] [id number] [address] [place] [address], [place] [address] Sep, [facility] [address] [id number] [address] [place] [address], [place] [address] Sep, [facility] [address] [id number] [address] [place] [address], [place] [address] Aug, [facility] [address] [id number] [address] [place] [address], [place] [address] Aug, [facility] [address] [id number] [address] [place] [address], [place] [address] Aug, [facility] [address] [id number] [address] [place] [address], [place] [address] Aug, [facility] [address] [id number] [address] [place] [address], [place] [address] Aug, [facility] [address] [id number] [address] [place] [address], [place] [address] Aug, [facility] [address] [id number] [address] [place] [address], [place] [address] Aug, [facility] [address] [id number] [address] [place] [address], [place] [address] Aug, [facility] [address] [id number] [address] [place] [address], [place] [address] Aug, [facility] [address] [id number] [address] [place] [address], [place] [address] Aug, [facility] [address] [id number] [address] [place] [address], [place] [address] Jul, [facility] [address] [id number] [address] [place] [address], [place] [address] Jul, [facility] [address] [id number] [address] [place] [address], [place] [address] Jun, [facility] [address] [id number] [address] [place] [address], [place] [address] Jun, [facility] [address] [id number] [address] [place] [address], [place] [address] May, [facility] [address] [id number] [address] [place] [address], [place] [address] May, [facility] [address] [id number] [address] [place] [address], [place] [address] Apr, [facility] [address] [id number] [address] [place] [address], [place] [address] Apr, [facility] [address] [id number] [address] [place] [address], [place] [address] Apr, [facility] [address] [id number] [address] [place] [address], [place] [address] Apr, [facility] [address] [id number] [address] [place] [address], [place] [address] March, [facility] [address] [id number] [address] [place] [address], [place] [address] March, [facility] [address] [id number] [address] [place] [address], [place] [address] Jan, [facility] [address] [id number] [address] [place] [address], [place] [address] Jan, [facility] [address] [id number] [address] [place] [address], [place] [address] Oct, [facility] [address] [id number] [address] [place] [address], [place] [address] Oct, [facility] [address] [id number] [address] [place] [address], [place] [address] Sep, [facility] [address] [id number] [address] [place] [address], [place] [address] Sep, [facility] [address] [id number] [address] [place] [address], [place] [address] Aug, [facility] [address] [id number] [address] [place] [address], [place] [address] Aug, [facility] [address] [id number] [address] [place] [address], [place] [address] 25 Jul, 2012 [facility] [address] [id number] [address] [place] [address], [place] [address] 20 Jul, 2013 [facility] [address] [id number] [address] [place] [address], [place] [address] 16 Jul, 2013 [facility] [address] [id number] [address] [place] [address], [place] [address] 09 Jul, 2013 [facility] [address] [id number] [address] [place] [address], [place] [address] 05 Jul, 2013 [facility] [address] [id number] [address] [place] [address], [place] [address] 05 Jul, 2013 [facility] [address] [id number] [address] [place] [address], [place] [address] 03 Jul, 2013 [facility] [address] [id number] [address] [place] [address], [place] [address] Jun, [facility] [address] [id number] [address] [place] [address], [place] [address] Jun, [facility] [address] [id number] [address] [place] [address], [place] [address] May, [facility] [address] [id number] [address] [place] [address], [place] [address] May, [facility] [address] [id number] [address] [place] [address], [place] [address] May, [facility] [address] [id number] [address] [place] [address] May, [facility] [place] [address] [id number] [address] [place] [address] May, [facility] [place] [address] [id number] [address] [place] [address] March, [facility] [place] [address] [id number] [address] [place] [address] March, [facility] [place] [address] [id number] [address] [place] [address] Oct, [facility] [place] [address] [id number] [address] [place] [address] Oct, [facility] [place] [address] [id number] [address] [place] [address] Jun, [facility] [place] [address] [id number] [address] [place] [address] Nov, [facility] [place] [address] [id number] [address] [place] [address] Aug, [facility] [place] [address] [id number] [address] [place] [address] Aug, [facility] [place] [address] [id number] [address] [place] [address] Dec, [facility] [place] [address] [id number] [address] [place] [address] Oct, [facility] [place] [address] [id number] [address] [place] [address] Oct, [facility] [place] [address] [id number] [address] [place] [address] Jun, IMMUNIZATIONS No Known Immunizations SOCIAL HISTORY [...]
--- OUTSIDE RECORDS SUMMARY | 2020-05-26 23:07 | XMS REPORT ---
Author Author Riya FIORE Organization [facility] [place] Address [address] [place] [address] Care Team Providers Care Flat Sorting Machine Clerk Name Role Phone ORQUIDEA FIORE Unavailable PROBLEMS Type Condition ICD9-CM Code KLM93-IB Code Onset Dates Condition S tatus SNOMED Code Problem Seasonal allergic rhinitis, unspecified trigger J3 0.2 Active [id number] ALLERGIES No Information ENCOUNTERS Encounter Location Date Diagnosis [facility] [address] [address] Oct, Viral upper respiratory trac t infection J06.[address] [address] Oct, Encounter for immunization Z 23 [facility] [address] [address] Oct, Acute bronchitis, unspecifie d organism J20.9 [facility] [place] [address] [place] [address] Jul, [facility] [address] [address] Jul, Urinary frequency R35.0 ; Ac [place] cystitis with hematuria N30.01 and Seasonal allergic rhinitis, unspecified trigger J30.2 [facility] [address] [place] [address] Jul, [facility] [address] [address] Jun, Seasonal allergic rhinitis, unspecified trigger J30.2 [facility] [address] [address] Dec, Urinary frequency R35.0 ; Ac [place] cystitis with hematuria N30.01 ; Seasonal allergic rhinitis, unspecified trigger J30.2 and Impacted cerumen, bilateral H61.23 [facility] [address] [address] Nov, Sore throat J02.9 and Strep pharyngitis J02.0 [facility] [address] [id number] Aug, Dental caries K02.9 [facility] [address] [address] Jul, Allergic contact dermatitis, unspecified trigger L23.9 and Oral abscess K12.2 [facility] [address] [id number] Jul, Dental caries K02.9 and Jasper al examination Z01.20 [facility] [address] [address] Aug, Periodontal abscess K05.219 [facility] [address] [address] May, Allergic rhinitis, unspecifi ed allergic rhinitis type J30.9 and Acute otitis externa of left ear, unspecified type H60.502 [place] [address] [address] Sep, [place] [address] [address] Sep, Ankle pain, right M25.571 [place] [address] [address] Aug, [place] [address] [address] Aug, [place] [address] [address] Jun, [facility] [address] [id number] [address] [place] [id number] May, Dental examination V72.2 [facility] [address] [id number] [address] [place] [address] May, [facility] [address] [id number] [address] [place] [id number] May, Dental examination V72.2 [facility] [address] [id number] [address] [place] [id number] Apr, Dental examination V72.2 [facility] [place] [address] [id number] [address] [place] [address] Apr, [facility] [address] [id number] [address] [place] [id number] March, Dental examination V72.2 [facility] [place] [address] [id number] [address] [place] [phone] March, [facility] [place] [address] [id number] [address] [place] [address] Feb, [facility] [address] [id number] [address] [place] [phone] Feb, [facility] [address] [id number] [address] [place] [id number] Jan, [facility] [address] [id number] [address] [place] [phone] Jan, [facility] [address] [id number] [address] [place] [phone] Jan, [facility] [address] [id number] [address] [place] [phone] Jan, [facility] [address] [id number] [address] [place] [phone] Jan, [facility] [address] [id number] [address] [place] [phone] Jan, [facility] [address] [id number] [address] [place] [address], [place] [address] Dec, [facility] [address] [id number] [address] [place] [address], [place] [address] Dec, [facility] [address] [id number] [address] [place] [address], [place] [address] Dec, [facility] [address] [id number] [address] [place] [address], [place] [address] Dec, [facility] [address] [id number] [address] [place] [address], [place] [address] Nov, [facility] [address] [id number] [address] [place] [address], [place] [address] Nov, [facility] [address] [id number] [address] [place] [address], [place] [address] Oct, [facility] [address] [id number] [address] [place] [address], [place] [address] Oct, [facility] [address] [id number] [address] [place] [address], [place] [address] Oct, [facility] [address] [id number] [address] [place] [address], [place] [address] Oct, [facility] [address] [id number] [address] [place] [address], [place] [address] Oct, [facility] [address] [id number] [address] [place] [address], [place] [address] Oct, [facility] [address] [id number] [address] [place] [address], [place] [address] Sep, [facility] [address] [id number] [address] [place] [address], [place] [address] Sep, [facility] [address] [id number] [address] [place] [address], [place] [address] Sep, [facility] [address] [id number] [address] [place] [address], [place] [address] Sep, [facility] [address] [id number] [address] [place] [address], [place] [address] Sep, [facility] [address] [id number] [address] [place] [address], [place] [address] Sep, [facility] [address] [id number] [address] [place] [address], [place] [address] Sep, [facility] [address] [id number] [address] [place] [address], [place] [address] Sep, [facility] [address] [id number] [address] [place] [address], [place] [address] Aug, [facility] [address] [id number] [address] [place] [address], [place] [address] Aug, [facility] [address] [id number] [address] [place] [address], [place] [address] Aug, [facility] [address] [id number] [address] [place] [address], [place] [address] Aug, [facility] [address] [id number] [address] [place] [address], [place] [address] Aug, [facility] [address] [id number] [address] [place] [address], [place] [address] Aug, [facility] [address] [id number] [address] [place] [address], [place] [address] Aug, [facility] [address] [id number] [address] [place] [address], [place] [address] Aug, [facility] [address] [id number] [address] [place] [address], [place] [address] Aug, [facility] [address] [id number] [address] [place] [address], [place] [address] Aug, [facility] [address] [id number] [address] [place] [address], [place] [address] Jul, [facility] [address] [id number] [address] [place] [address], [place] [address] Jul, [facility] [address] [id number] [address] [place] [address], [place] [address] Jun, [facility] [address] [id number] [address] [place] [address], [place] [address] Jun, [facility] [address] [id number] [address] [place] [address], [place] [address] May, [facility] [address] [id number] [address] [place] [address], [place] [address] May, [facility] [address] [id number] [address] [place] [address], [place] [address] Apr, [facility] [address] [id number] [address] [place] [address], [place] [address] Apr, [facility] [address] [id number] [address] [place] [address], [place] [address] Apr, [facility] [address] [id number] [address] [place] [address], [place] [address] Apr, [facility] [address] [id number] [address] [place] [address], [place] [address] March, [facility] [address] [id number] [address] [place] [address], [place] [address] March, [facility] [address] [id number] [address] [place] [address], [place] [address] Jan, [facility] [address] [id number] [address] [place] [address], [place] [address] Jan, [facility] [address] [id number] [address] [place] [address], [place] [address] Oct, [facility] [address] [id number] [address] [place] [address], [place] [address] Oct, [facility] [address] [id number] [address] [place] [address], [place] [address] Sep, [facility] [address] [id number] [address] [place] [address], [place] [address] Sep, [facility] [address] [id number] [address] [place] [address], [place] [address] Aug, [facility] [address] [id number] [address] [place] [address], [place] [address] Aug, [facility] [address] [id number] [address] [place] [address], [place] [address] 25 Jul, 2012 [facility] [address] [id number] [address] [place] [address], [place] [address] 20 Jul, 2013 [facility] [address] [id number] [address] [place] [address], [place] [address] 16 Jul, 2013 [facility] [address] [id number] [address] [place] [address], [place] [address] 09 Jul, 2013 [facility] [address] [id number] [address] [place] [address], [place] [address] 05 Jul, 2013 [facility] [address] [id number] [address] [place] [address], [place] [address] 05 Jul, 2013 [facility] [address] [id number] [address] [place] [address], [place] [address] 03 Jul, 2013 [facility] [address] [id number] [address] [place] [address], [place] [address] Jun, [facility] [address] [id number] [address] [place] [address], [place] [address] Jun, [facility] [address] [id number] [address] [place] [address], [place] [address] May, [facility] [address] [id number] [address] [place] [address], [place] [address] May, [facility] [address] [id number] [address] [place] [address], [place] [address] May, [facility] [address] [id number] [address] [place] [address] May, [facility] [place] [address] [id number] [address] [place] [id number] May, [facility] [place] [address] [id number] [address] [place] [address] March, [facility] [place] [address] [id number] [address] [place] [id number] March, [facility] [place] [address] [id number] [address] [place] [id number] Oct, [facility] [place] [address] [id number] [address] [place] [id number] Oct, [facility] [place] [address] [id number] [address] [place] [id number] Jun, [facility] [place] [address] [id number] [address] [place] [id number] Nov, [facility] [place] [address] [id number] [address] [place] [phone] Aug, [facility] [place] [address] [id number] [address] [place] [phone] Aug, [facility] [place] [address] [id number] [address] [place] [phone] Dec, [facility] [place] [address] [id number] [address] [place] [id number] Oct, [facility] [place] [address] [id number] [address] [place] [id number] Oct, [facility] [place] [address] [id number] [address] [place] [id number] Jun, IMMUNIZATIONS No Known Immunizations SOCIAL HISTORY [...]
--- OUTSIDE RECORDS SUMMARY | 2020-05-26 23:08 | XMS REPORT ---
Author Author Riya FIORE Organization [facility] Address [address] [place] [address] Care Team Providers Care Strategic Analyst Name Role Phone ORQUIDEA FIORE Unavailable PROBLEMS Type Condition ICD9-CM Code [id number] Code Onset Dates Condition S tatus SNOMED Code Problem Seasonal allergic rhinitis, unspecified trigger J3 0.2 Active [id number] ALLERGIES No Information ENCOUNTERS Encounter Location Date Diagnosis [facility] [place] [id number] [address] Oct, Viral upper respiratory trac t infection J06.[address] [address] Oct, Encounter for immunization Z 23 [facility] [address] [address] Oct, Acute bronchitis, unspecifie d organism J20.9 [facility] [address] [place] [address] 18 Jul, 2018 [facility] [address] [place] [address] Jul, Urinary frequency R35.0 ; Ac [place] cystitis with hematuria N30.01 and Seasonal allergic rhinitis, unspecified trigger J30.2 [facility] [address] [place] [address] Jul, [facility] [address] [address] Jun, Seasonal allergic rhinitis, unspecified trigger J30.2 [facility] [address] [address] Dec, Urinary frequency R35.0 ; Ac [place] cystitis with hematuria N30.01 ; Seasonal allergic rhinitis, unspecified trigger J30.2 and Impacted cerumen, bilateral H61.23 [facility] [address] [address] Nov, Sore throat J02.9 and Strep pharyngitis J02.0 [facility] [address] [id number] Aug, Dental caries K02.9 [facility] [address] [address] Jul, Allergic contact dermatitis, unspecified trigger L23.9 and Oral abscess K12.2 [facility] [address] [id number] Jul, Dental caries K02.9 and [place] al examination Z01.20 [facility] [address] [address] Aug, Periodontal abscess K05.219 [facility] [address] [address] May, Allergic rhinitis, unspecifi ed allergic rhinitis type J30.9 and Acute otitis externa of left ear, unspecified type H60.502 [place] [address] [address] Sep, [place] [address] [address] Sep, Ankle pain, right M25.571 [place] [address] [address] Aug, [place] [address] [address] Aug, [place] [address] [address] Jun, [facility] [address] [id number] [address] [place] [id number] May, Dental examination V72.2 [facility] [address] [id number] [address] [place] [address] May, [facility] [address] [id number] [address] [place] [id number] May, Dental examination V72.2 [facility] [address] [id number] [address] [place] [id number] Apr, Dental examination V72.2 [facility] [address] [id number] [address] [place] [address] Apr, [facility] [address] [id number] [address] [place] [id number] March, Dental examination V72.2 [facility] [address] [id number] [address] [place] [address] March, [facility] [address] [id number] [address] [place] [address] Feb, [facility] [address] [id number] [address] [place] [address] Feb, [facility] [address] [id number] [address] [place] [address] Jan, [facility] [address] [id number] [address] [place] [address] Jan, [facility] [address] [id number] [address] [place] [id number] Jan, [facility] [address] [id number] [address] [place] [phone] Jan, [facility] [address] [id number] [address] [place] [address] Jan, [facility] [address] [id number] [address] [place] [address] Jan, [facility] [address] [id number] [address] [place] [address], [place] [address] Dec, [facility] [address] [id number] [address] [place] [address], [place] [address] Dec, [facility] [address] [id number] [address] [place] [address], [place] [address] Dec, [facility] [address] [id number] [address] [place] [address], [place] [address] Dec, [facility] [address] [id number] [address] [place] [address], [place] [address] Nov, [facility] [address] [id number] [address] [place] [address], [place] [address] Nov, [facility] [address] [id number] [address] [place] [address], [place] [address] Oct, [facility] [address] [id number] [address] [place] [address], [place] [address] Oct, [facility] [address] [id number] [address] [place] [address], [place] [address] Oct, [facility] [address] [id number] [address] [place] [address], [place] [address] Oct, [facility] [address] [id number] [address] [place] [address], [place] [address] Oct, [facility] [address] [id number] [address] [place] [address], [place] [address] Oct, [facility] [address] [id number] [address] [place] [address], [place] [address] Sep, [facility] [address] [id number] [address] [place] [address], [place] [address] Sep, [facility] [address] [id number] [address] [place] [address], [place] [address] Sep, [facility] [address] [id number] [address] [place] [address], [place] [address] Sep, [facility] [address] [id number] [address] [place] [address], [place] [address] Sep, [facility] [address] [id number] [address] [place] [address], [place] [address] Sep, [facility] [address] [id number] [address] [place] [address], [place] [address] Sep, [facility] [address] [id number] [address] [place] [address], [place] [address] Sep, [facility] [address] [id number] [address] [place] [address], [place] [address] Aug, [facility] [address] [id number] [address] [place] [address], [place] [address] Aug, [facility] [address] [id number] [address] [place] [address], [place] [address] Aug, [facility] [address] [id number] [address] [place] [address], [place] [address] Aug, [facility] [address] [id number] [address] [place] [address], [place] [address] Aug, [facility] [address] [id number] [address] [place] [address], [place] [address] Aug, [facility] [address] [id number] [address] [place] [address], [place] [address] Aug, [facility] [address] [id number] [address] [place] [address], [place] [address] Aug, [facility] [address] [id number] [address] [place] [address], [place] [address] Aug, [facility] [address] [id number] [address] [place] [address], [place] [address] Aug, [facility] [address] [id number] [address] [place] [address], [place] [address] Jul, [facility] [address] [id number] [address] [place] [address], [place] [address] Jul, [facility] [address] [id number] [address] [place] [address], [place] [address] Jun, [facility] [address] [id number] [address] [place] [address], [place] [address] Jun, [facility] [address] [id number] [address] [place] [address], [place] [address] May, [facility] [address] [id number] [address] [place] [address], [place] [address] May, [facility] [address] [id number] [address] [place] [address], [place] [address] Apr, [facility] [address] [id number] [address] [place] [address], [place] [address] Apr, [facility] [address] [id number] [address] [place] [address], [place] [address] Apr, [facility] [address] [id number] [address] [place] [address], [place] [address] Apr, [facility] [address] [id number] [address] [place] [address], [place] [address] March, [facility] [address] [id number] [address] [place] [address], [place] [address] March, [facility] [address] [id number] [address] [place] [address], [place] [address] Jan, [facility] [address] [id number] [address] [place] [address], [place] [address] Jan, [facility] [address] [id number] [address] [place] [address], [place] [address] Oct, [facility] [address] [id number] [address] [place] [address], [place] [address] Oct, [facility] [address] [id number] [address] [place] [address], [place] [address] Sep, [facility] [address] [id number] [address] [place] [address], [place] [address] Sep, [facility] [address] [id number] [address] [place] [address], [place] [address] Aug, [facility] [address] [id number] [address] [place] [address], [place] [address] Aug, [facility] [address] [id number] [address] [place] [address], [place] [address] 25 Jul, 2012 [facility] [address] [id number] [address] [place] [address], [place] [address] 20 Jul, 2013 [facility] [address] [id number] [address] [place] [address], [place] [address] 16 Jul, 2013 [facility] [address] [id number] [address] [place] [address], [place] [address] 09 Jul, 2013 [facility] [address] [id number] [address] [place] [address], [place] [address] 05 Jul, 2013 [facility] [address] [id number] [address] [place] [address], [place] [address] 05 Jul, 2013 [facility] [address] [id number] [address] [place] [address], [place] [address] 03 Jul, 2013 [facility] [address] [id number] [address] [place] [address], [place] [address] Jun, [facility] [address] [id number] [address] [place] [address], [place] [address] Jun, [facility] [address] [id number] [address] [place] [address], [place] [address] May, [facility] [address] [id number] [address] [place] [address], [place] [address] May, [facility] [address] [id number] [address] [place] [address], [place] [address] May, [facility] [address] [id number] [address] [place] [address] May, [facility] [address] [id number] [address] [place] [address] May, [facility] [address] [id number] [address] [place] [address] March, [facility] [address] [id number] [address] [place] [address] March, [facility] [address] [id number] [address] [place] [address] Oct, [facility] [address] [id number] [address] [place] [address] Oct, [facility] [address] [id number] [address] [place] [address] Jun, [facility] [address] [id number] [address] [place] [address] Nov, [facility] [address] [id number] [address] [place] [address] Aug, [facility] [address] [id number] [address] [place] [address] Aug, [facility] [address] [id number] [address] [place] [address] Dec, [facility] [address] [id number] [address] [place] [address] Oct, [facility] [address] [id number] [address] [place] [id number] Oct, [facility] [address] [id number] [address] [place] [address] Jun, IMMUNIZATIONS No Known Immunizations SOCIAL HISTORY [...]
--- OUTSIDE RECORDS SUMMARY | 2020-05-26 23:08 | XMS REPORT ---
Author Author Riya MOFFETT Organization [facility] Address [address] [place] [address] Care Team Providers Care Manager Of Internal Audit Name Role Phone MALICK MOFFETT Unavailable PROBLEMS Type Condition ICD9-CM Code [id number] Code Onset Dates Condition S tatus SNOMED Code Problem Seasonal allergic rhinitis, unspecified trigger J3 0.2 Active [id number] ALLERGIES No Information ENCOUNTERS Encounter Location Date Diagnosis [facility] [address] [place] [id number] Oct, Acute bronchitis, unspecifie d organism J20.9 [facility] [address] [address] Jul, [facility] [address] [address] Jul, Urinary frequency R35.0 ; Ac segundo cystitis with hematuria N30.01 and Seasonal allergic rhinitis, unspecified trigger J30.2 [facility] [address] [place] [address] Jul, [facility] [address] [address] Jun, Seasonal allergic rhinitis, unspecified trigger J30.2 [facility] [address] [place] [id number] 16 Dec, 2017 Urinary frequency R35.0 ; Ac segundo cystitis with hematuria N30.01 ; Seasonal allergic rhinitis, unspecified trigger J30.2 and Impacted cerumen, bilateral H61.23 [facility] [address] [place] [address] Nov, Sore throat J02.9 and Strep pharyngitis J02.0 [facility] [address] [id number] [address] [place] [id number] Aug, Dental caries K02.9 [facility] [address] [id number] [address] [place] [address] Jul, Allergic contact dermatitis, unspecified trigger L23.9 and Oral abscess K12.2 [facility] [address] [id number] [address] [place] [id number] Jul, Dental caries K02.9 and Jewell al examination Z01.20 [facility] [address] [id number] [address] [place] [address] Aug, Periodontal abscess K05.219 [facility] [address] [id number] [address] [place] [address] May, Allergic rhinitis, unspecifi ed allergic rhinitis type J30.9 and Acute otitis externa of left ear, unspecified type H60.502 [facility] [address] [id number] [address] [place] [address] Sep, [facility] [address] [id number] [address] [place] [address] Sep, Ankle pain, right M25.571 [facility] [address] [id number] [address] [place] [address] Aug, [facility] [address] [id number] [address] [place] [address] Aug, [facility] [address] [id number] [address] [place] [address] Jun, [facility] [address] [id number] [address] [place] [id number] May, Dental examination V72.2 [facility] [address] [id number] [address] [place] [address] May, [facility] [address] [id number] [address] [place] [address] [id number] May, Dental examination V72.2 [facility] [address] [id number] [address] [place] [id number] Apr, Dental examination V72.2 [facility] [address] [id number] [address] [place] [address] Apr, [facility] [address] [id number] [address] [place] [address] [id number] March, Dental examination V72.2 [facility] [address] [id number] [address] [place] [address] March, [facility] [address] [id number] [address] [place] [address] Feb, [facility] [address] [id number] [address] [place] [address] Feb, [facility] [address] [id number] [address] [place] [address] Jan, [facility] [address] [id number] [address] [place] [id number] 17 Jan, 2015 [facility] [address] [id number] [address] [place] [address] 16 Jan, 2015 [facility] [address] [id number] [address] [place] [address] 16 Jan, 2015 [facility] [address] [id number] [address] [place] [address] Jan, [facility] [address] [id number] [address] [place] [address] Jan, [facility] [address] [id number] [address] [place] [address] Dec, [facility] [address] [id number] [address] [place] [address] Dec, [facility] [address] [id number] [address] [place] [address] Dec, [facility] [address] [id number] [address] [place] [address], [place] [address] Dec, [facility] [address] [id number] [address] [place] [address], [place] [address] Nov, [facility] [address] [id number] [address] [place] [address], [place] [address] Nov, [facility] [address] [id number] [address] [place] [address], [place] [address] Oct, [facility] [address] [id number] [address] [place] [address], [place] [address] Oct, [facility] [address] [id number] [address] [place] [address], [place] [address] Oct, [facility] [address] [id number] [address] [place] [address], [place] [address] Oct, [facility] [address] [id number] [address] [place] [address], [place] [address] Oct, [facility] [address] [id number] [address] [place] [address], [place] [address] Oct, [facility] [address] [id number] [address] [place] [address], [place] [address] Sep, [facility] [address] [id number] [address] [place] [address], [place] [address] Sep, [facility] [address] [id number] [address] [place] [address], [place] [address] Sep, [facility] [address] [id number] [address] [place] [address], [place] [address] Sep, [facility] [address] [id number] [address] [place] [address], [place] [address] Sep, [facility] [address] [id number] [address] [place] [address], [place] [address] Sep, [facility] [address] [id number] [address] [place] [address], [place] [address] Sep, [facility] [address] [id number] [address] [place] [address], [place] [address] Sep, [facility] [address] [id number] [address] [place] [address], [place] [address] Aug, [facility] [address] [id number] [address] [place] [address], [place] [address] Aug, [facility] [address] [id number] [address] [place] [address], [place] [address] Aug, [facility] [address] [id number] [address] [place] [address], [place] [address] Aug, [facility] [address] [id number] [address] [place] [address], [place] [address] Aug, [facility] [address] [id number] [address] [place] [address], [place] [address] Aug, [facility] [address] [id number] [address] [place] [address], [place] [address] Aug, [facility] [address] [id number] [address] [place] [address], [place] [address] Aug, [facility] [address] [id number] [address] [place] [address], [place] [address] Aug, [facility] [address] [id number] [address] [place] [address], [place] [address] Aug, [facility] [address] [id number] [address] [place] [address], [place] [address] Jul, [facility] [address] [id number] [address] [place] [address], [place] [address] Jul, [facility] [address] [id number] [address] [place] [address], [place] [address] Jun, [facility] [address] [id number] [address] [place] [address] [address] Jun, [facility] [address] [id number] [address] [place] [address], [place] [address] May, [facility] [address] [id number] [address] [place] [address], [place] [address] May, [facility] [address] [id number] [address] [place] [address], [place] [address] Apr, [facility] [address] [id number] [address] [place] [address], [place] [address] Apr, [facility] [address] [id number] [address] [place] [address], [place] [address] Apr, [facility] [address] [id number] [address] [place] [address], [place] [address] Apr, [facility] [address] [id number] [address] [place] [address], [place] [address] March, [facility] [address] [id number] [address] [place] [address], [place] [address] March, [facility] [address] [id number] [address] [place] [address], [place] [address] Jan, [facility] [address] [id number] [address] [place] [address], [place] [address] Jan, [facility] [address] [id number] [address] [place] [address], [place] [address] Oct, [facility] [address] [id number] [address] [place] [address], [place] [address] Oct, [facility] [address] [id number] [address] [place] [address], [place] [address] Sep, [facility] [address] [id number] [address] [place] [address], [place] [address] Sep, [facility] [address] [id number] [address] [place] [address], [place] [address] 17 Aug, 2013 [facility] [address] [id number] [address] [place] [address], [place] [address] 17 Aug, 2013 [facility] [address] [id number] [address] [place] [address], [place] [address] 25 Jul, 2012 [facility] [address] [id number] [address] [place] [address], [place] [address] 20 Jul, 2012 [facility] [address] [id number] [address] [place] [address], [place] [address] 16 Jul, 2012 [facility] [address] [id number] [address] [place] [address], [place] [address] 09 Jul, 2012 [facility] [address] [id number] [address] [place] [address], [place] [address] 05 Jul, 2012 [facility] [address] [id number] [address] [place] [address], [place] [address] 05 Jul, 2012 [facility] [address] [id number] [address] [place] [address], [place] [address] 03 Jul, 2012 [facility] [address] [id number] [address] [place] [address], [place] [address] Jun, [facility] [address] [id number] [address] [place] [address], [place] [address] Jun, [facility] [address] [id number] [address] [place] [address], [place] [address] May, [facility] [address] [id number] [address] [place] [address], [place] [address] May, [facility] [address] [id number] [address] [place] [address], [place] [address] May, [facility] [address] [id number] [address] [place] [address], [place] [address] May, [facility] [address] [id number] [address] [place] [address], [place] [address] May, [facility] [address] [id number] [address] [place] [address], [place] [address] March, [facility] [address] [id number] [address] [place] [address] March, [facility] [address] [id number] [address] [place] [address] Oct, [facility] [address] [id number] [address] [place] [address] Oct, [facility] [address] [id number] [address] [place] [address] Jun, [facility] [address] [id number] [address] [place] [address] Nov, [facility] [address] [id number] [address] [place] [address] Aug, [facility] [address] [id number] [address] [place] [address] Aug, [facility] [address] [id number] [address] [place] [address] Dec, [facility] [address] [id number] [address] [place] [address] Oct, [facility] [address] [id number] [address] [place] [address] Oct, [facility] [address] [id number] [address] [place] [address] Jun, IMMUNIZATIONS No Known Immunizations SOCIAL HISTORY Never Assessed REASON FOR VISIT PLAN OF CARE VITAL SIGNS Height 64 in 2014-06-16 Weight 166.8 lbs 2014-06-16 Temperature 97.8 degrees Fahrenheit 2014-06-16 Heart Rate 80 bpm 2014-06-16 Respiratory Rate 16 2014-06-16 Blood pressure systolic 118 mmHg 2014-06-16 Blood pressure diastolic 74 mmHg 2014-06-16 MEDICATIONS No Known Medications RESULTS No Results PROCEDURES Procedure Date Ordered Result Body Site REMOVAL OF SKIN TAGS June 16, 2014 INSTRUCTIONS MEDICATIONS ADMINISTERED No Known Medications MEDICAL (GENERAL) HISTORY Type Description Date Medical History hypertension Medical History Arthritis Medical History Family history of diabetes mellitus Medical History Flat foot Medical History Cervicalgia Surgical History bladder surgery Surgical History cyst removal Hospitalization History surgery related
--- OUTSIDE RECORDS SUMMARY | 2020-05-26 23:08 | XMS REPORT ---
Author Author Riya FIORE Organization [facility] Address [address] [place] [address] Care Team Providers Care Formulation Technician Name Role Phone ORQUIDEA FIORE Unavailable PROBLEMS Type Condition ICD9-CM Code DHF13-SE Code Onset Dates Condition S tatus SNOMED Code Problem Seasonal allergic rhinitis, unspecified trigger J3 0.2 Active [id number] ALLERGIES No Information ENCOUNTERS Encounter Location Date Diagnosis [facility] [place] [id number] [address] [address] Oct, Viral upper respiratory trac t infection J06.[address] [address] Oct, Encounter for immunization Z 23 [facility] [address] [address] Oct, Acute bronchitis, unspecifie d organism J20.9 [facility] [address] [place] [id number] 18 Jul, 2018 [facility] [address] [place] [address] Jul, Urinary frequency R35.0 ; Ac akhiok cystitis with hematuria N30.01 and Seasonal allergic rhinitis, unspecified trigger J30.2 [facility] [address] [place] [address] Jul, [facility] [address] [address] Jun, Seasonal allergic rhinitis, unspecified trigger J30.2 [facility] [address] [address] Dec, Urinary frequency R35.0 ; Ac akhiok cystitis with hematuria N30.01 ; Seasonal allergic rhinitis, unspecified trigger J30.2 and Impacted cerumen, bilateral H61.23 [facility] [address] [address] Nov, Sore throat J02.9 and Strep pharyngitis J02.0 [facility] [address] [id number] Aug, Dental caries K02.9 [facility] [address] [address] Jul, Allergic contact dermatitis, unspecified trigger L23.9 and Oral abscess K12.2 [facility] [address] [id number] Jul, Dental caries K02.9 and [place] al examination Z01.20 [facility] [address] [address] Aug, Periodontal abscess K05.219 [facility] [address] [address] May, Allergic rhinitis, unspecifi ed allergic rhinitis type J30.9 and Acute otitis externa of left ear, unspecified type H60.502 [place] [address] [address] Sep, [place] [address] [address] Sep, Ankle pain, right M25.571 [place] [address] [address] Aug, [place] [address] [address] Aug, [place] [address] [address] Jun, [facility] [address] [id number] [address] [place] [id number] May, Dental examination V72.2 [facility] [address] [id number] [address] [place] [address] May, [facility] [address] [id number] [address] [place] [id number] May, Dental examination V72.2 [facility] [address] [id number] [address] [place] [id number] Apr, Dental examination V72.2 [facility] [address] [id number] [address] [place] [address] Apr, [facility] [address] [id number] [address] [place] [id number] March, Dental examination V72.2 [facility] [address] [id number] [address] [place] [address] March, [facility] [address] [id number] [address] [place] [address] Feb, [facility] [address] [id number] [address] [place] [address] Feb, [facility] [address] [id number] [address] [place] [address] Jan, [facility] [address] [id number] [address] [place] [address] Jan, [facility] [address] [id number] [address] [place] [address] Jan, [facility] [address] [id number] [address] [place] [address] Jan, [facility] [address] [id number] [address] [place] [address] Jan, [facility] [address] [id number] [address] [place] [address] Jan, [facility] [address] [id number] [address] [place] [address], [place] [address] Dec, [facility] [address] [id number] [address] [place] [address], [place] [address] Dec, [facility] [address] [id number] [address] [place] [address], [place] [address] Dec, [facility] [address] [id number] [address] [place] [address], [place] [address] Dec, [facility] [address] [id number] [address] [place] [address], [place] [address] Nov, [facility] [address] [id number] [address] [place] [address], [place] [address] Nov, [facility] [address] [id number] [address] [place] [address], [place] [address] Oct, [facility] [address] [id number] [address] [place] [address], [place] [address] Oct, [facility] [address] [id number] [address] [place] [address], [place] [address] Oct, [facility] [address] [id number] [address] [place] [address], [place] [address] Oct, [facility] [address] [id number] [address] [place] [address], [place] [address] Oct, [facility] [address] [id number] [address] [place] [address], [place] [address] Oct, [facility] [address] [id number] [address] [place] [address], [place] [address] Sep, [facility] [address] [id number] [address] [place] [address], [place] [address] Sep, [facility] [address] [id number] [address] [place] [address], [place] [address] Sep, [facility] [address] [id number] [address] [place] [address], [place] [address] Sep, [facility] [address] [id number] [address] [place] [address], [place] [address] Sep, [facility] [address] [id number] [address] [place] [address], [place] [address] Sep, [facility] [address] [id number] [address] [place] [address], [place] [address] Sep, [facility] [address] [id number] [address] [place] [address], [place] [address] Sep, [facility] [address] [id number] [address] [place] [address], [place] [address] Aug, [facility] [address] [id number] [address] [place] [address], [place] [address] Aug, [facility] [address] [id number] [address] [place] [address], [place] [address] Aug, [facility] [address] [id number] [address] [place] [address], [place] [address] Aug, [facility] [address] [id number] [address] [place] [address], [place] [address] Aug, [facility] [address] [id number] [address] [place] [address], [place] [address] Aug, [facility] [address] [id number] [address] [place] [address], [place] [address] Aug, [facility] [address] [id number] [address] [place] [address], [place] [address] Aug, [facility] [address] [id number] [address] [place] [address], [place] [address] Aug, [facility] [address] [id number] [address] [place] [address], [place] [address] Aug, [facility] [address] [id number] [address] [place] [address], [place] [address] Jul, [facility] [address] [id number] [address] [place] [address], [place] [address] Jul, [facility] [address] [id number] [address] [place] [address], [place] [address] Jun, [facility] [address] [id number] [address] [place] [address], [place] [address] Jun, [facility] [address] [id number] [address] [place] [address], [place] [address] May, [facility] [address] [id number] [address] [place] [address], [place] [address] May, [facility] [address] [id number] [address] [place] [address], [place] [address] Apr, [facility] [address] [id number] [address] [place] [address], [place] [address] Apr, [facility] [address] [id number] [address] [place] [address], [place] [address] Apr, [facility] [address] [id number] [address] [place] [address], [place] [address] Apr, [facility] [address] [id number] [address] [place] [address], [place] [address] March, [facility] [address] [id number] [address] [place] [address], [place] [address] March, [facility] [address] [id number] [address] [place] [address], [place] [address] Jan, [facility] [address] [id number] [address] [place] [address], [place] [address] Jan, [facility] [address] [id number] [address] [place] [address], [place] [address] Oct, [facility] [address] [id number] [address] [place] [address], [place] [address] Oct, [facility] [address] [id number] [address] [place] [address], [place] [address] Sep, [facility] [address] [id number] [address] [place] [address], [place] [address] Sep, [facility] [address] [id number] [address] [place] [address], [place] [address] Aug, [facility] [address] [id number] [address] [place] [address], [place] [address] Aug, [facility] [address] [id number] [address] [place] [address], [place] [address] 25 Jul, 2012 [facility] [address] [id number] [address] [place] [address], [place] [address] 20 Jul, 2013 [facility] [address] [id number] [address] [place] [address], [place] [address] 16 Jul, 2013 [facility] [address] [id number] [address] [place] [address], [place] [address] 09 Jul, 2013 [facility] [address] [id number] [address] [place] [address], [place] [address] 05 Jul, 2013 [facility] [address] [id number] [address] [place] [address], [place] [address] 05 Jul, 2013 [facility] [address] [id number] [address] [place] [address], [place] [address] 03 Jul, 2013 [facility] [address] [id number] [address] [place] [address], [place] [address] Jun, [facility] [address] [id number] [address] [place] [address], [place] [address] Jun, [facility] [address] [id number] [address] [place] [address], [place] [address] May, [facility] [address] [id number] [address] [place] [address], [place] [address] May, [facility] [address] [id number] [address] [place] [address], [place] [address] May, [facility] [address] [id number] [address] [place] [address] May, [facility] [address] [id number] [address] [place] [address] May, [facility] [address] [id number] [address] [place] [address] March, [facility] [address] [id number] [address] [place] [address] March, [facility] [address] [id number] [address] [place] [address] Oct, [facility] [address] [id number] [address] [place] [address] Oct, [facility] [address] [id number] [address] [place] [address] Jun, [facility] [address] [id number] [address] [place] [address] Nov, [facility] [address] [id number] [address] [place] [address] Aug, [facility] [address] [id number] [address] [place] [address] Aug, [facility] [address] [id number] [address] [place] [address] Dec, [facility] [address] [id number] [address] [place] [address] Oct, [facility] [address] [id number] [address] [place] [address] Oct, [facility] [address] [id number] [address] [place] [address] Jun, IMMUNIZATIONS No Known Immunizations SOCIAL HISTORY [...]
--- OUTSIDE RECORDS SUMMARY | 2020-05-26 23:08 | XMS REPORT ---
Author Author iRya FIORE Organization [facility] Address [address] [place] [address] Care Team Providers Care Alarm Signal Operator Name Role Phone ORQUIDEA FIORE Unavailable PROBLEMS Type Condition ICD9-CM Code QAU04-VO Code Onset Dates Condition S tatus SNOMED Code Problem Seasonal allergic rhinitis, unspecified trigger J3 0.2 Active [id number] ALLERGIES No Information ENCOUNTERS Encounter Location Date Diagnosis [facility] [place] [id number] [address] [address] Oct, Viral upper respiratory trac t infection J06.[address] [address] Oct, Encounter for immunization Z 23 [facility] [address] [address] Oct, Acute bronchitis, unspecifie d organism J20.9 [facility] [address] [place] [address] 18 Jul, 2018 [facility] [address] [place] [address] Jul, Urinary frequency R35.0 ; Ac wiyot cystitis with hematuria N30.01 and Seasonal allergic rhinitis, unspecified trigger J30.2 [facility] [address] [place] [address] Jul, [facility] [address] [address] Jun, Seasonal allergic rhinitis, unspecified trigger J30.2 [facility] [address] [address] Dec, Urinary frequency R35.0 ; Ac wiyot cystitis with hematuria N30.01 ; Seasonal allergic rhinitis, unspecified trigger J30.2 and Impacted cerumen, bilateral H61.23 [facility] [address] [address] Nov, Sore throat J02.9 and Strep pharyngitis J02.0 [facility] [address] [id number] Aug, Dental caries K02.9 [facility] [address] [address] Jul, Allergic contact dermatitis, unspecified trigger L23.9 and Oral abscess K12.2 [facility] [address] [id number] Jul, Dental caries K02.9 and [place] al examination Z01.20 [facility] [address] [address] Aug, Periodontal abscess K05.219 [facility] [address] [address] May, Allergic rhinitis, unspecifi ed allergic rhinitis type J30.9 and Acute otitis externa of left ear, unspecified type H60.502 [place] [address] [address] Sep, [place] [address] [address] Sep, Ankle pain, right M25.571 [place] [address] [address] Aug, [place] [address] [address] Aug, [place] [address] [address] Jun, [facility] [address] [id number] [address] [place] [id number] May, Dental examination V72.2 [facility] [address] [id number] [address] [place] [address] May, [facility] [address] [id number] [address] [place] [id number] May, Dental examination V72.2 [facility] [address] [id number] [address] [place] [id number] Apr, Dental examination V72.2 [facility] [address] [id number] [address] [place] [address] Apr, [facility] [address] [id number] [address] [place] [id number] March, Dental examination V72.2 [facility] [address] [id number] [address] [place] [address] March, [facility] [address] [id number] [address] [place] [address] Feb, [facility] [address] [id number] [address] [place] [address] Feb, [facility] [address] [id number] [address] [place] [address] Jan, [facility] [address] [id number] [address] [place] [phone] Jan, [facility] [address] [id number] [address] [place] [phone] Jan, [facility] [address] [id number] [address] [place] [address] Jan, [facility] [address] [id number] [address] [place] [address] Jan, [facility] [address] [id number] [address] [place] [phone] Jan, [facility] [address] [id number] [address] [place] [address], [place] [address] Dec, [facility] [address] [id number] [address] [place] [address], [place] [address] Dec, [facility] [address] [id number] [address] [place] [address], [place] [address] Dec, [facility] [address] [id number] [address] [place] [address], [place] [address] Dec, [facility] [address] [id number] [address] [place] [address], [place] [address] Nov, [facility] [address] [id number] [address] [place] [address], [place] [address] Nov, [facility] [address] [id number] [address] [place] [address], [place] [address] Oct, [facility] [address] [id number] [address] [place] [address], [place] [address] Oct, [facility] [address] [id number] [address] [place] [address], [place] [address] Oct, [facility] [address] [id number] [address] [place] [address], [place] [address] Oct, [facility] [address] [id number] [address] [place] [address], [place] [address] Oct, [facility] [address] [id number] [address] [place] [address], [place] [address] Oct, [facility] [address] [id number] [address] [place] [address], [place] [address] Sep, [facility] [address] [id number] [address] [place] [address], [place] [address] Sep, [facility] [address] [id number] [address] [place] [address], [place] [address] Sep, [facility] [address] [id number] [address] [place] [address], [place] [address] Sep, [facility] [address] [id number] [address] [place] [address], [place] [address] Sep, [facility] [address] [id number] [address] [place] [address], [place] [address] Sep, [facility] [address] [id number] [address] [place] [address], [place] [address] Sep, [facility] [address] [id number] [address] [place] [address], [place] [address] Sep, [facility] [address] [id number] [address] [place] [address], [place] [address] Aug, [facility] [address] [id number] [address] [place] [address], [place] [address] Aug, [facility] [address] [id number] [address] [place] [address], [place] [address] Aug, [facility] [address] [id number] [address] [place] [address], [place] [address] Aug, [facility] [address] [id number] [address] [place] [address], [place] [address] Aug, [facility] [address] [id number] [address] [place] [address], [place] [address] Aug, [facility] [address] [id number] [address] [place] [address], [place] [address] Aug, [facility] [address] [id number] [address] [place] [address], [place] [address] Aug, [facility] [address] [id number] [address] [place] [address], [place] [address] Aug, [facility] [address] [id number] [address] [place] [address], [place] [address] Aug, [facility] [address] [id number] [address] [place] [address], [place] [address] Jul, [facility] [address] [id number] [address] [place] [address], [place] [address] Jul, [facility] [address] [id number] [address] [place] [address], [place] [address] Jun, [facility] [address] [id number] [address] [place] [address], [place] [address] Jun, [facility] [address] [id number] [address] [place] [address], [place] [address] May, [facility] [address] [id number] [address] [place] [address], [place] [address] May, [facility] [address] [id number] [address] [place] [address], [place] [address] Apr, [facility] [address] [id number] [address] [place] [address], [place] [address] Apr, [facility] [address] [id number] [address] [place] [address], [place] [address] Apr, [facility] [address] [id number] [address] [place] [address], [place] [address] Apr, [facility] [address] [id number] [address] [place] [address], [place] [address] March, [facility] [address] [id number] [address] [place] [address], [place] [address] March, [facility] [address] [id number] [address] [place] [address], [place] [address] Jan, [facility] [address] [id number] [address] [place] [address], [place] [address] Jan, [facility] [address] [id number] [address] [place] [address], [place] [address] Oct, [facility] [address] [id number] [address] [place] [address], [place] [address] Oct, [facility] [address] [id number] [address] [place] [address], [place] [address] Sep, [facility] [address] [id number] [address] [place] [address], [place] [address] Sep, [facility] [address] [id number] [address] [place] [address], [place] [address] Aug, [facility] [address] [id number] [address] [place] [address], [place] [address] Aug, [facility] [address] [id number] [address] [place] [address], [place] [address] 25 Jul, 2012 [facility] [address] [id number] [address] [place] [address], [place] [address] 20 Jul, 2013 [facility] [address] [id number] [address] [place] [address], [place] [address] 16 Jul, 2013 [facility] [address] [id number] [address] [place] [address], [place] [address] 09 Jul, 2013 [facility] [address] [id number] [address] [place] [address], [place] [address] 05 Jul, 2013 [facility] [address] [id number] [address] [place] [address], [place] [address] 05 Jul, 2013 [facility] [address] [id number] [address] [place] [address], [place] [address] 03 Jul, 2013 [facility] [address] [id number] [address] [place] [address], [place] [address] Jun, [facility] [address] [id number] [address] [place] [address], [place] [address] Jun, [facility] [address] [id number] [address] [place] [address], [place] [address] May, [facility] [address] [id number] [address] [place] [address], [place] [address] May, [facility] [address] [id number] [address] [place] [address], [place] [address] May, [facility] [address] [id number] [address] [place] [address] May, [facility] [address] [id number] [address] [place] [address] May, [facility] [address] [id number] [address] [place] [phone] March, [facility] [address] [id number] [address] [place] [address] March, [facility] [address] [id number] [address] [place] [address] Oct, [facility] [address] [id number] [address] [place] [address] Oct, [facility] [address] [id number] [address] [place] [address] Jun, [facility] [address] [id number] [address] [place] [address] Nov, [facility] [address] [id number] [address] [place] [address] Aug, [facility] [address] [id number] [address] [place] [phone] Aug, [facility] [address] [id number] [address] [place] [id number] Dec, [facility] [address] [id number] [address] [place] [address] Oct, [facility] [address] [id number] [address] [place] [phone] Oct, [facility] [address] [id number] [address] [place] [address] Jun, IMMUNIZATIONS No Known Immunizations SOCIAL HISTORY Never Assessed REASON FOR VISIT PLAN OF CARE VITAL SIGNS MEDICATIONS No Known Medications RESULTS No Results PROCEDURES Procedure Date Ordered Result Body Site COMPLETE CBC W/AUTO DIFF WBC May 30, 2013 ASSAY THYROID STIM HORMONE May 30, 2013 GLYCATED HEMOGLOBIN TEST May 30, 2013 LIPID PANEL May 30, 2013 COMPREHEN METABOLIC PANEL May 30, 2013 VENIPUNCT, ROUTINE* May 30, 2013 INSTRUCTIONS MEDICATIONS ADMINISTERED No Known Medications MEDICAL (GENERAL) HISTORY Type Description Date Medical History hypertension Medical History Arthritis Medical History Family history of diabetes mellitus Medical History Flat foot Medical History Cervicalgia Surgical History bladder surgery Surgical History cyst removal Hospitalization History surgery related
--- OUTSIDE RECORDS SUMMARY | 2020-05-26 23:08 | XMS REPORT ---
Author Author Riya Chung Organization [facility] Address [address] [place] [address] Care Team Providers Care Patient Accounts Coordinator Name Role Phone VIVIAN Chung Unavailable PROBLEMS Type Condition ICD9-CM Code MHQ18-KH Code Onset Dates Condition S tatus SNOMED Code Problem Seasonal allergic rhinitis, unspecified trigger J3 0.2 Active [id number] ALLERGIES No Information ENCOUNTERS Encounter Location Date Diagnosis [facility] [address] [address] Oct, Viral upper respiratory trac t infection J06.9 [facility] [address] [place] [address] Oct, Encounter for immunization Z 23 [facility] [address] [address] Oct, Acute bronchitis, unspecifie d organism J20.9 [facility] [address] [address] 18 Jul, 2018 [facility] [address] [address] Jul, Urinary frequency R35.0 ; Ac bad river band cystitis with hematuria N30.01 and Seasonal allergic rhinitis, unspecified trigger J30.2 [facility] [address] [place] [address] Jul, [facility] [address] [address] Jun, Seasonal allergic rhinitis, unspecified trigger J30.2 [facility] [address] [address] Dec, Urinary frequency R35.0 ; Ac bad river band cystitis with hematuria N30.01 ; Seasonal allergic rhinitis, unspecified trigger J30.2 and Impacted cerumen, bilateral H61.23 [facility] [address] [address] Nov, Sore throat J02.9 and Strep pharyngitis J02.0 [facility] [address] [id number] Aug, Dental caries K02.9 [facility] [address] [address] Jul, Allergic contact dermatitis, unspecified trigger L23.9 and Oral abscess K12.2 [facility] [address] [id number] Jul, Dental caries K02.9 and [place] al examination Z01.20 [facility] [address] [address] Aug, Periodontal abscess K05.219 [facility] [address] [address] May, Allergic rhinitis, unspecifi ed allergic rhinitis type J30.9 and Acute otitis externa of left ear, unspecified type H60.502 [place] [address] [address] Sep, [place] [address] [address] Sep, Ankle pain, right M25.571 [place] [address] [address] Aug, [place] [address] [address] Aug, [place] [address] [address] Jun, [facility] [address] [id number] [address] [place] [id number] May, Dental examination V72.2 [facility] [address] [id number] [address] [place] [address] May, [facility] [address] [id number] [address] [place] [id number] May, Dental examination V72.2 [facility] [address] [id number] [address] [place] [id number] Apr, Dental examination V72.2 [facility] [address] [id number] [address] [place] [address] Apr, [facility] [address] [id number] [address] [place] [id number] March, Dental examination V72.2 [facility] [address] [id number] [address] [place] [address] March, [facility] [address] [id number] [address] [place] [phone] Feb, [facility] [address] [id number] [address] [place] [id number] Feb, [facility] [address] [id number] [address] [place] [phone] Jan, [facility] [address] [id number] [address] [place] [phone] Jan, [facility] [address] [id number] [address] [place] [address] Jan, [facility] [address] [id number] [address] [place] [phone] Jan, [facility] [address] [id number] [address] [place] [address] Jan, [facility] [address] [id number] [address] [place] [phone] Jan, [facility] [address] [id number] [address] [place] [address], [place] [address] Dec, [facility] [address] [id number] [address] [place] [address], [place] [address] Dec, [facility] [address] [id number] [address] [place] [address], [place] [address] Dec, [facility] [address] [id number] [address] [place] [address], [place] [address] Dec, [facility] [address] [id number] [address] [place] [address], [place] [address] Nov, [facility] [address] [id number] [address] [place] [address], [place] [address] Nov, [facility] [address] [id number] [address] [place] [address], [place] [address] Oct, [facility] [address] [id number] [address] [place] [address], [place] [address] Oct, [facility] [address] [id number] [address] [place] [address], [place] [address] Oct, [facility] [address] [id number] [address] [place] [address], [place] [address] Oct, [facility] [address] [id number] [address] [place] [address], [place] [address] Oct, [facility] [address] [id number] [address] [place] [address], [place] [address] Oct, [facility] [address] [id number] [address] [place] [address], [place] [address] Sep, [facility] [address] [id number] [address] [place] [address], [place] [address] Sep, [facility] [address] [id number] [address] [place] [address], [place] [address] Sep, [facility] [address] [id number] [address] [place] [address], [place] [address] Sep, [facility] [address] [id number] [address] [place] [address], [place] [address] Sep, [facility] [address] [id number] [address] [place] [address], [place] [address] Sep, [facility] [address] [id number] [address] [place] [address], [place] [address] Sep, [facility] [address] [id number] [address] [place] [address], [place] [address] Sep, [facility] [address] [id number] [address] [place] [address], [place] [address] Aug, [facility] [address] [id number] [address] [place] [address], [place] [address] Aug, [facility] [address] [id number] [address] [place] [address], [place] [address] Aug, [facility] [address] [id number] [address] [place] [address], [place] [address] Aug, [facility] [address] [id number] [address] [place] [address], [place] [address] Aug, [facility] [address] [id number] [address] [place] [address], [place] [address] Aug, [facility] [address] [id number] [address] [place] [address], [place] [address] Aug, [facility] [address] [id number] [address] [place] [address], [place] [address] Aug, [facility] [address] [id number] [address] [place] [address], [place] [address] Aug, [facility] [address] [id number] [address] [place] [address], [place] [address] Aug, [facility] [address] [id number] [address] [place] [address], [place] [address] Jul, [facility] [address] [id number] [address] [place] [address], [place] [address] Jul, [facility] [address] [id number] [address] [place] [address], [place] [address] Jun, [facility] [address] [id number] [address] [place] [address], [place] [address] Jun, [facility] [address] [id number] [address] [place] [address], [place] [address] May, [facility] [address] [id number] [address] [place] [address], [place] [address] May, [facility] [address] [id number] [address] [place] [address], [place] [address] Apr, [facility] [address] [id number] [address] [place] [address], [place] [address] Apr, [facility] [address] [id number] [address] [place] [address], [place] [address] Apr, [facility] [address] [id number] [address] [place] [address], [place] [address] Apr, [facility] [address] [id number] [address] [place] [address], [place] [address] March, [facility] [address] [id number] [address] [place] [address], [place] [address] March, [facility] [address] [id number] [address] [place] [address], [place] [address] Jan, [facility] [address] [id number] [address] [place] [address], [place] [address] Jan, [facility] [address] [id number] [address] [place] [address], [place] [address] Oct, [facility] [address] [id number] [address] [place] [address], [place] [address] Oct, [facility] [address] [id number] [address] [place] [address], [place] [address] Sep, [facility] [address] [id number] [address] [place] [address], [place] [address] Sep, [facility] [address] [id number] [address] [place] [address], [place] [address] Aug, [facility] [address] [id number] [address] [place] [address], [place] [address] Aug, [facility] [address] [id number] [address] [place] [address], [place] [address] 25 Jul, 2012 [facility] [address] [id number] [address] [place] [address], [place] [address] 20 Jul, 2013 [facility] [address] [id number] [address] [place] [address], [place] [address] 16 Jul, 2013 [facility] [address] [id number] [address] [place] [address], [place] [address] 09 Jul, 2013 [facility] [address] [id number] [address] [place] [address], [place] [address] 05 Jul, 2013 [facility] [address] [id number] [address] [place] [address], [place] [address] 05 Jul, 2013 [facility] [address] [id number] [address] [place] [address], [place] [address] 03 Jul, 2013 [facility] [address] [id number] [address] [place] [address], [place] [address] Jun, [facility] [address] [id number] [address] [place] [address], [place] [address] Jun, [facility] [address] [id number] [address] [place] [address], [place] [address] May, [facility] [address] [id number] [address] [place] [address], [place] [address] May, [facility] [address] [id number] [address] [place] [address], [place] [address] May, [facility] [address] [id number] [address] [place] [address] May, [facility] [address] [id number] [address] [place] [id number] May, [facility] [address] [id number] [address] [place] [id number] March, [facility] [address] [id number] [address] [place] [address] March, [facility] [address] [id number] [address] [place] [id number] Oct, [facility] [address] [id number] [address] [place] [id number] Oct, [facility] [address] [id number] [address] [place] [phone] Jun, [facility] [address] [id number] [address] [place] [address] Nov, [facility] [address] [id number] [address] [place] [phone] Aug, [facility] [address] [id number] [address] [place] [id number] Aug, [facility] [address] [id number] [address] [place] [phone] Dec, [facility] [address] [id number] [address] [place] [phone] Oct, [facility] [address] [id number] [address] [place] [id number] Oct, [facility] [address] [id number] [address] [place] [id number] Jun, IMMUNIZATIONS No Known Immunizations SOCIAL HISTORY Never Assessed REASON FOR VISIT PLAN OF CARE VITAL SIGNS Height 64 in 2014-07-29 Weight 165.5 lbs 2014-07-29 Temperature 97.1 degrees Fahrenheit 2014-07-29 Heart Rate 82 bpm 2014-07-29 Respiratory Rate 18 2014-07-29 Blood pressure systolic 112 mmHg 2014-07-29 Blood pressure diastolic 72 mmHg 2014-07-29 MEDICATIONS No Known Medications RESULTS No Results PROCEDURES Procedure Date Ordered Result Body Site MAMMOGRAM, SCREENING Jul 29, 2014 INSTRUCTIONS MEDICATIONS ADMINISTERED No Known Medications MEDICAL (GENERAL) HISTORY Type Description Date Medical History hypertension Medical History Arthritis Medical History Family history of diabetes mellitus Medical History Flat foot Medical History Cervicalgia Surgical History bladder surgery Surgical History cyst removal Hospitalization History surgery related
--- OUTSIDE RECORDS SUMMARY | 2020-05-26 23:08 | XMS REPORT ---
Author Author Riya Chung Organization [facility] Address [address] [place] [address] Care Team Providers Care Commissioner Public [employer] Name Role Phone VIVIAN Chung Unavailable PROBLEMS Type Condition ICD9-CM Code ZEN74-QO Code Onset Dates Condition S tatus SNOMED Code Problem Seasonal allergic rhinitis, unspecified trigger J3 0.2 Active [id number] ALLERGIES No Information ENCOUNTERS Encounter Location Date Diagnosis [facility] [address] [address] Oct, Viral upper respiratory trac t infection J06.[address] [address] Oct, Encounter for immunization Z23 [facility] [address] [address] Oct, Acute bronchitis, unspecifie d organism J20.[address] [address] 18 Jul, 2018 [facility] [address] [address] Jul, Urinary frequency R35.0 ; Ac segundo cystitis with hematuria N30.01 and Seasonal allergic rhinitis, unspecified trigger J30.2 [facility] [address] [place] [address] Jul, [facility] [address] [place] [address] Jun, Seasonal allergic rhinitis, unspecified trigger J30.2 [facility] [address] [place] [address] Dec, Urinary frequency R35.0 ; Ac segundo cystitis with hematuria N30.01 ; Seasonal allergic rhinitis, unspecified trigger J30.2 and Impacted cerumen, bilateral H61.23 [facility] [address] [place] [address] Nov, Sore throat J02.9 and Strep pharyngitis J02.0 [facility] [address] [id number] Aug, Dental caries K02.9 [facility] [address] [address] Jul, Allergic contact dermatitis, unspecified trigger L23.9 and Oral abscess K12.2 [facility] [address] [id number] Jul, Dental caries K02.9 and Dental examinati on Z01.20 [facility] [address] [place] [address] Aug, Periodontal abscess K05.219 [facility] [address] [address] May, Allergic rhinitis, unspecifi ed allergic rhinitis type J30.9 and Acute otitis externa of left ear, unspecified type H60.502 [place] [address] [place] [address] [address] Sep, [address] [address] Sep, Ankle pain, right M25.[address] [address] Aug, [address] [address] Aug, [place] [address] [address] Jun, [facility] [address] [id number] May, Dental examination V72.2 [facility] [address] [id number] [place] [address] May, [facility] [address] [id number] May, Dental examination V72.2 [facility] [address] [id number] Apr, Dental examination V72.2 [facility] [address] [address] Apr, [facility] [address] [id number] March, Dental examination V72.2 [facility] [id number] [place] [address] March, [facility] [address] [address] Feb, [facility] [address] [id number] [place] [address] Feb, [facility] [address] [address] Jan, [facility] [id number] [place] [id number] 17 Jan, 2015 [facility] [id number] [place] [address] 16 Jan, 2015 [facility] [address] [address] Jan, [facility] [id number] [place] [address] Jan, [facility] [id number] [place] [address] Jan, [facility] [address] [id number] [place] [address] Dec, [facility] [address] [id number] [place] [address] Dec, 2014 [facility] [address] [id number] [place] [address] Dec, [facility] [address] [id number] [place] [address] Dec, [facility] [address] [id number] [place] [address] Nov, [facility] [address] [id number] [place] [address] Nov, [facility] [address] [id number] [place] [address] Oct, [facility] [address] [id number] [place] [address] Oct, [facility] [address] [id number] [place] [address] Oct, [facility] [address] [id number] [place] [address] Oct, [facility] [address] [id number] [place] [address] Oct, [facility] [address] [id number] [place] [address] Oct, [facility] [address] [id number] [place] [address] Sep, [facility] [address] [id number] [place] [address] Sep, [facility] [address] [id number] [place] [address] Sep, [facility] [address] [id number] [place] [address] Sep, [facility] [address] [id number] [place] [address] Sep, [facility] [address] [id number] [place] [address] Sep, [facility] [address] [id number] [place] [address] Sep, [facility] [address] [id number] [place] [address] Sep, [facility] [address] [id number] [place] [address] Aug, [facility] [address] [id number] [place] [address] Aug, [facility] [address] [id number] [place] [address] Aug, [facility] [address] [id number] [place] [address] Aug, [facility] [address] [id number] [place] [address] Aug, [facility] [address] [id number] [place] [address] Aug, [facility] [address] [id number] [place] [address] Aug, [facility] [address] [id number] [place] [address] Aug, [facility] [address] [id number] [place] [address] Aug, [facility] [address] [id number] [place] [address] Aug, [facility] [address] [id number] [place] [address] Jul, [facility] [address] [id number] [place] [address] Jul, [facility] [address] [id number] [place] [address] Jun, [facility] [address] [id number] [place] [address] Jun, [facility] [address] [id number] [place] [address] May, [facility] [address] [facility] [id number] [place] [address] May, [facility] [address] [facility] [id number] [facility] [address] Apr, [facility] [address] [id number] [place] [address] Apr, [facility] [address] [id number] [facility] [address] Apr, [facility] [address] [facility] [id number] [facility] [place] [address] Apr, [facility] [address] [id number] [place] [address] March, [facility] [address] [id number] [place] [address] March, [facility] [address] [id number] [place] [address] Jan, [facility] [address] [id number] [place] [address] Jan, [facility] [address] [id number] [place] [address] Oct, [facility] [address] [id number] [place] [address] Oct, [facility] [address] [id number] [place] [address] Sep, [facility] [address] [id number] [place] [address] Sep, [facility] [address] [id number] [place] [address] Aug, [facility] [address] [id number] [place] [address] Aug, [facility] [address] [id number] [place] [address] Jul, [facility] [address] [id number] [place] [address] 20 Jul, 2012 [facility] [address] [facility] [id number] [place] [address] 16 Jul, 2012 [facility] [address] [id number] [place] [address] Jul, 2012 [facility] [address] [id number] [place] [address] 05 Jul, 2012 [facility] [address] [id number] [place] [address] 05 Jul, 2012 [facility] [address] [id number] [place] [address] Jul, [facility] [address] [id number] [place] [address] Jun, [facility] [address] [id number] [place] [address] Jun, [facility] [address] [id number] [place] [address] May, [facility] [address] [id number] [place] [address] May, [facility] [address] [id number] [place] [address] May, [facility] [address] [id number] [place] [address] May, [facility] [address] [id number] [place] [address] May, [facility] [address] [id number] [place] [address] March, [facility] [address] [id number] [place] [address] March, [facility] [address] [id number] [place] [address] Oct, [facility] [address] [id number] [place] [address] Oct, [facility] [address] [id number] [place] [address] Jun, [facility] [address] [id number] [place] [address] Nov, [facility] [address] [id number] [place] [address] Aug, [facility] [address] [id number] [place] [address] Aug, [facility] [address] [id number] [place] [address] Dec, [facility] [address] [id number] [place] [address] Oct, [facility] [address] [id number] [place] [address] Oct, [facility] [address] [id number] [place] [address] Jun, IMMUNIZATIONS No Known Immunizations SOCIAL HISTORY [...]
--- OUTSIDE RECORDS SUMMARY | 2020-05-26 23:08 | XMS REPORT ---
Author Author Riya FIORE Organization [facility] Address [address] [place] [address] Care Team Providers Care Automation Qa Lead Name Role Phone ORQUIDEA FIORE Unavailable PROBLEMS Type Condition ICD9-CM Code SRP02-UP Code Onset Dates Condition S tatus SNOMED Code Problem Seasonal allergic rhinitis, unspecified trigger J3 0.2 Active [id number] ALLERGIES No Information ENCOUNTERS Encounter Location Date Diagnosis [facility] [address] [address] Oct, Viral upper respiratory trac t infection J06.[address] [address] Oct, Encounter for immunization Z23 [facility] [address] [address] Oct, Acute bronchitis, unspecifie d organism J20.[address] [address] 18 Jul, 2018 [facility] [address] [address] Jul, Urinary frequency R35.0 ; Ac segundo cystitis with hematuria N30.01 and Seasonal allergic rhinitis, unspecified trigger J30.2 [facility] [address] [place] [address] Jul, [facility] [address] [place] [address] Jun, Seasonal allergic rhinitis, unspecified trigger J30.2 [facility] [address] [place] [address] Dec, Urinary frequency R35.0 ; Ac segundo cystitis with hematuria N30.01 ; Seasonal allergic rhinitis, unspecified trigger J30.2 and Impacted cerumen, bilateral H61.23 [facility] [address] [place] [address] Nov, Sore throat J02.9 and Strep pharyngitis J02.0 [facility] [address] [id number] Aug, Dental caries K02.9 [facility] [address] [address] Jul, Allergic contact dermatitis, unspecified trigger L23.9 and Oral abscess K12.2 [facility] [address] [id number] Jul, Dental caries K02.9 and Dental examinati on Z01.20 [facility] [address] [place] [address] Aug, Periodontal abscess K05.219 [facility] [address] [address] May, Allergic rhinitis, unspecifi ed allergic rhinitis type J30.9 and Acute otitis externa of left ear, unspecified type H60.502 [place] [address] [address] Sep, [address] [address] Sep, Ankle pain, right M25.[address] [address] Aug, [address] [address] Aug, [place] [address] [address] Jun, [facility] [address] [id number] May, Dental examination V72.2 [facility] [place] [facility] [address] [id number] [place] [address] May, [facility] [place] [facility] [address] [id number] May, Dental examination V72.2 [facility] [address] [id number] Apr, Dental examination V72.2 [facility] [place] [facility] [address] [address] Apr, [facility] [place] [facility] [address] [id number] March, Dental examination V72.2 [facility] [place] [facility] [address] [id number] [place] [address] March, [facility] [place] [facility] [address] [address] Feb, [facility] [place] [facility] [address] [id number] [place] [address] Feb, [facility] [place] [facility] [address] [address] Jan, [facility] [place] [facility] [address] [id number] [place] [address] 17 Jan, 2015 [facility] [place] [facility] [address] [place] [id number] [place] [address] 16 Jan, 2015 [facility] [place] [facility] [address] [address] Jan, [facility] [place] [facility] [address] [id number] [place] [address] Jan, [facility] [place] [facility] [address] [place] [id number] [place] [address] Jan, [facility] [place] [facility] [address] [id number] [place] [address] Dec, [facility] [place] [facility] [address] [id number] [place] [address] Dec, 2014 [facility] [place] [facility] [address] [id number] [place] [address] Dec, [facility] [place] [facility] [address] [id number] [place] [address] Dec, [facility] [place] [facility] [address] [id number] [place] [address] Nov, [facility] [place] [facility] [address] [id number] [place] [address] Nov, [facility] [place] [facility] [address] [id number] [place] [address] Oct, [facility] [place] [facility] [address] [id number] [place] [address] Oct, [facility] [place] [facility] [address] [id number] [place] [address] Oct, [facility] [place] [facility] [address] [id number] [place] [address] Oct, [facility] [place] [facility] [address] [id number] [place] [address] Oct, [facility] [place] [facility] [address] [id number] [place] [address] Oct, [facility] [place] [facility] [address] [id number] [place] [address] Sep, [facility] [place] [facility] [address] [id number] [place] [address] Sep, [facility] [place] [facility] [address] [id number] [place] [address] Sep, [facility] [place] [facility] [address] [id number] [place] [address] Sep, [facility] [place] [facility] [address] [id number] [place] [address] Sep, [facility] [place] [facility] [address] [id number] [place] [address] Sep, [facility] [place] [facility] [address] [id number] [place] [address] Sep, [facility] [place] [facility] [address] [id number] [place] [address] Sep, [facility] [place] [facility] [address] [id number] [place] [address] Aug, [facility] [place] [facility] [address] [id number] [place] [address] Aug, [facility] [place] [facility] [address] [id number] [place] [address] Aug, [facility] [place] [facility] [address] [id number] [place] [address] Aug, [facility] [place] [facility] [address] [id number] [place] [address] Aug, [facility] [place] [facility] [address] [id number] [place] [address] Aug, [facility] [place] [facility] [address] [id number] [place] [address] Aug, [facility] [place] [facility] [address] [id number] [place] [address] Aug, [facility] [place] [facility] [address] [id number] [place] [address] Aug, [facility] [place] [facility] [address] [id number] [place] [address] Aug, [facility] [place] [facility] [address] [id number] [place] [address] Jul, [facility] [place] [facility] [address] [id number] [place] [address] Jul, [facility] [place] [facility] [address] [id number] [place] [address] Jun, [facility] [place] [facility] [address] [id number] [place] [address] Jun, [facility] [place] [facility] [address] [id number] [place] [address] May, [facility] [place] [facility] [address] [facility] [id number] [place] [address] May, [facility] [place] [facility] [address] [facility] [id number] [place] [address] Apr, [facility] [place] [facility] [address] [id number] [place] [address] Apr, [facility] [place] [facility] [address] [id number] [place] [address] Apr, [facility] [place] [facility] [address] [facility] [id number] [place] [address] Apr, [facility] [place] [facility] [address] [id number] [place] [address] March, [facility] [place] [facility] [address] [id number] [place] [address] March, [facility] [place] [facility] [address] [id number] [place] [address] Jan, [facility] [place] [facility] [address] [id number] [place] [address] Jan, [facility] [place] [facility] [address] [id number] [place] [address] Oct, [facility] [place] [facility] [address] [id number] [place] [address] Oct, [facility] [place] [facility] [address] [id number] [place] [address] Sep, [facility] [place] [facility] [address] [id number] [place] [address] Sep, [facility] [place] [facility] [address] [id number] [place] [address] Aug, [facility] [place] [facility] [address] [id number] [place] [address] Aug, [facility] [place] [facility] [address] [id number] [place] [address] Jul, [facility] [place] [facility] [address] [id number] [place] [address] 20 Jul, 2012 [facility] [place] [facility] [address] [facility] [id number] [place] [address] 16 Jul, 2012 [facility] [place] [facility] [address] [id number] [place] [address] Jul, 2012 [facility] [place] [facility] [address] [id number] [place] [address] 05 Jul, 2012 [facility] [place] [facility] [address] [id number] [place] [address] 05 Jul, 2012 [facility] [place] [facility] [address] [id number] [place] [address] Jul, [facility] [place] [facility] [address] [id number] [place] [address] Jun, [facility] [place] [facility] [address] [id number] [place] [address] Jun, [facility] [place] [facility] [address] [id number] [place] [address] May, [facility] [place] [facility] [address] [id number] [place] [address] May, [facility] [place] [facility] [address] [id number] [place] [address] May, [facility] [place] [facility] [address] [id number] [place] [address] May, [facility] [place] [facility] [address] [id number] [place] [address] May, [facility] [place] [facility] [address] [id number] [place] [address] March, [facility] [place] [facility] [address] [id number] [place] [address] March, [facility] [place] [facility] [address] [id number] [place] [address] Oct, [facility] [place] [facility] [address] [id number] [place] [address] Oct, [facility] [place] [facility] [address] [id number] [place] [address] Jun, [facility] [address] [id number] [place] [address] Nov, [facility] [address] [id number] [place] [address] Aug, [facility] [address] [id number] [place] [address] Aug, [facility] [address] [id number] [place] [address] Dec, [facility] [address] [id number] [place] [address] Oct, [facility] [address] [id number] [place] [address] Oct, [facility] [address] [id number] [place] [address] Jun, IMMUNIZATIONS No Known Immunizations SOCIAL HISTORY [...]
--- OUTSIDE RECORDS SUMMARY | 2020-05-26 23:08 | XMS REPORT ---
Author Author Riya ARMSTRONG Organization [facility] Address [address] [place] [address] Care Team Providers Care Hand Clerical Verifier Name Role Phone KELTONLazara JOEY Unavailable PROBLEMS Type Condition ICD9-CM Code TUW39-RP Code Onset Dates Condition S tatus SNOMED Code Problem Seasonal allergic rhinitis, unspecified trigger J3 0.2 Active [id number] ALLERGIES No Information ENCOUNTERS Encounter Location Date Diagnosis [facility] [address] [place] [id number] Oct, Acute bronchitis, unspecifie d organism J20.9 [facility] [address] [address] Jul, [facility] [address] [place] [phone] Jul, Urinary frequency R35.0 ; Ac naknek cystitis with hematuria N30.01 and Seasonal allergic rhinitis, unspecified trigger J30.2 [facility] [address] [address] Jul, [facility] [address] [place] [phone] Jun, Seasonal allergic rhinitis, unspecified trigger J30.2 [facility] [address] [place] [phone] Dec, Urinary frequency R35.0 ; Ac naknek cystitis with hematuria N30.01 ; Seasonal allergic rhinitis, unspecified trigger J30.2 and Impacted cerumen, bilateral H61.23 [facility] [address] [place] [id number] Nov, Sore throat J02.9 and Strep pharyngitis J02.0 [facility] [address] [id number] [address] [place] [id number] Aug, Dental caries K02.9 [facility] [address] [id number] [address] [place] [id number] Jul, Allergic contact dermatitis, unspecified trigger L23.9 and Oral abscess K12.2 [facility] [address] [id number] [address] [place] [id number] Jul, Dental caries K02.9 and Wykoff al examination Z01.20 [facility] [address] [facility] [id number] [address] [place] [phone] Aug, Periodontal abscess K05.219 [facility] [address] [place] [id number] [address] [place] [phone] May, Allergic rhinitis, unspecifi ed allergic rhinitis type J30.9 and Acute otitis externa of left ear, unspecified type H60.502 [facility] [id number] [place] [phone] Sep, [facility] [address] [address] Sep, Ankle pain, right M25.571 [facility] [address] [place] [id number] [address] [place] [phone] Aug, [facility] [address] [place] [id number] [address] [place] [phone] Aug, [facility] [address] [place] [id number] [address] [place] [phone] Jun, [facility] [id number] [place] [id number] May, Dental examination V72.2 [facility] [address] [facility] [id number] [address] [place] [phone] May, [facility] [address] [place] [id number] [address] [place] [id number] May, Dental examination V72.2 [facility] [address] [id number] [address] [place] [address] [id number] Apr, Dental examination V72.2 [facility] [address] [id number] [address] [place] [phone] Apr, [facility] [address] [id number] [address] [place] [id number] March, Dental examination V72.2 [facility] [address] [id number] [address] [place] [phone] March, [facility] [address] [id number] [address] [place] [phone] Feb, [facility] [address] [id number] [address] [place] [phone] Feb, [facility] [address] [id number] [address] [place] [phone] Jan, [facility] [address] [id number] [address] [place] [phone] 17 Jan, 2015 [facility] [address] [id number] [address] [place] [phone] 16 Jan, 2015 [facility] [address] [id number] [address] [place] [phone] 16 Jan, 2015 [facility] [address] [id number] [address] [place] [phone] Jan, [facility] [address] [id number] [address] [place] [phone] Jan, [facility] [address] [id number] [address] [place] [phone] Dec, [facility] [address] [id number] [address] [place] [phone] Dec, [facility] [address] [id number] [address] [place] [address], [place] [address] 16 Dec, 2014 [facility] [address] [id number] [address] [place] [address], [place] [address] Dec, [facility] [address] [id number] [address] [place] [address], [place] [address] Nov, [facility] [address] [id number] [address] [place] [address], [place] [address] Nov, [facility] [address] [id number] [address] [place] [address], [place] [address] Oct, [facility] [address] [id number] [address] [place] [address], [place] [address] Oct, [facility] [address] [id number] [address] [place] [address], [place] [address] Oct, [facility] [address] [id number] [address] [place] [address], [place] [address] Oct, [facility] [address] [id number] [address] [place] [address], [place] [address] Oct, [facility] [address] [id number] [address] [place] [address], [place] [address] Oct, [facility] [address] [id number] [address] [place] [address], [place] [address] Sep, [facility] [address] [id number] [address] [place] [address], [place] [address] Sep, [facility] [address] [id number] [address] [place] [address], [place] [address] Sep, [facility] [address] [id number] [address] [place] [address], [place] [address] Sep, [facility] [address] [id number] [address] [place] [address], [place] [address] Sep, [facility] [address] [id number] [address] [place] [address], [place] [address] Sep, [facility] [address] [id number] [address] [place] [address], [place] [address] Sep, [facility] [address] [id number] [address] [place] [address], [place] [address] Sep, [facility] [address] [id number] [address] [place] [address], [place] [address] Aug, [facility] [address] [id number] [address] [place] [address], [place] [address] Aug, [facility] [address] [id number] [address] [place] [address], [place] [address] Aug, [facility] [address] [id number] [address] [place] [address], [place] [address] Aug, [facility] [address] [id number] [address] [place] [address], [place] [address] Aug, [facility] [address] [id number] [address] [place] [address], [place] [address] Aug, [facility] [address] [id number] [address] [place] [address], [place] [address] Aug, [facility] [address] [id number] [address] [place] [phone] Aug, [facility] [address] [id number] [address] [place] [phone] Aug, [facility] [address] [id number] [address] [place] [phone] Aug, [facility] [address] [id number] [address] [place] [address], [place] [address] Jul, [facility] [address] [id number] [address] [place] [address], [place] [address] Jul, [facility] [address] [id number] [address] [place] [phone] Jun, [facility] [address] [id number] [address] [place] [phone] Jun, [facility] [address] [id number] [address] [place] [address], [place] [address] May, [facility] [address] [id number] [address] [place] [address], [place] [address] May, [facility] [address] [id number] [address] [place] [address], [place] [address] Apr, [facility] [address] [id number] [address] [place] [address], [place] [address] Apr, [facility] [address] [id number] [address] [place] [address], [place] [address] Apr, [facility] [address] [id number] [address] [place] [address], [place] [address] Apr, [facility] [address] [id number] [address] [place] [address], [place] [address] March, [facility] [address] [id number] [address] [place] [address], [place] [address] March, [facility] [address] [id number] [address] [place] [address], [place] [address] Jan, [facility] [address] [id number] [address] [place] [address], [place] [address] Jan, [facility] [address] [id number] [address] [place] [address], [place] [address] Oct, [facility] [address] [id number] [address] [place] [address], [place] [address] Oct, [facility] [address] [id number] [address] [place] [address], [place] [address] Sep, [facility] [address] [id number] [address] [place] [address], [place] [address] Sep, [facility] [address] [id number] [address] [place] [address], [place] [address] Aug, [facility] [address] [id number] [address] [place] [address], [place] [address] 17 Aug, 2013 [facility] [address] [id number] [address] [place] [address], [place] [address] 25 Jul, 2012 [facility] [address] [id number] [address] [place] [address], [place] [address] 20 Jul, 2012 [facility] [address] [id number] [address] [place] [address], [place] [address] 16 Jul, 2012 [facility] [address] [id number] [address] [place] [address], [place] [address] 09 Jul, 2012 [facility] [address] [id number] [address] [place] [address], [place] [address] 05 Jul, 2012 [facility] [address] [id number] [address] [place] [address], [place] [address] 05 Jul, 2012 [facility] [address] [id number] [address] [place] [address], [place] [address] 03 Jul, 2012 [facility] [address] [id number] [address] [place] [address], [place] [address] Jun, [facility] [address] [id number] [address] [place] [address], [place] [address] Jun, [facility] [address] [id number] [address] [place] [address], [place] [address] May, [facility] [address] [id number] [address] [place] [address], [place] [address] May, [facility] [address] [id number] [address] [place] [address], [place] [address] May, [facility] [address] [id number] [address] [place] [address], [place] [address] May, [facility] [address] [id number] [address] [place] [address], [place] [address] May, [facility] [address] [id number] [address] [place] [address] [address] March, [facility] [address] [id number] [address] [place] [phone] March, [facility] [address] [id number] [address] [place] [phone] Oct, [facility] [address] [id number] [address] [place] [address] Oct, [facility] [address] [id number] [address] [place] [id number] Jun, [facility] [address] [id number] [address] [place] [phone] Nov, [facility] [address] [id number] [address] [place] [phone] Aug, [facility] [address] [id number] [address] [place] [phone] Aug, [facility] [address] [id number] [address] [place] [phone] Dec, [facility] [address] [id number] [address] [place] [phone] Oct, [facility] [address] [id number] [address] [place] [address] Oct, [facility] [address] [id number] [address] [place] [address] Jun, IMMUNIZATIONS No Known Immunizations SOCIAL HISTORY Never Assessed REASON FOR VISIT PLAN OF CARE VITAL SIGNS Height 64 in 2014-05-08 Weight 166.56 lbs 2014-05-08 Temperature 97.7 degrees Fahrenheit 2014-05-08 Heart Rate 78 bpm 2014-05-08 Respiratory Rate 16 2014-05-08 Blood pressure systolic 114 mmHg 2014-05-08 Blood pressure diastolic 70 mmHg 2014-05-08 MEDICATIONS No Known Medications RESULTS No Results PROCEDURES No Known procedures INSTRUCTIONS MEDICATIONS ADMINISTERED No Known Medications MEDICAL (GENERAL) HISTORY Type Description Date Medical History hypertension Medical History Arthritis Medical History Family history of diabetes mellitus Medical History Flat foot Medical History Cervicalgia Surgical History bladder surgery Surgical History cyst removal Hospitalization History surgery related
--- OUTSIDE RECORDS SUMMARY | 2020-05-26 23:08 | XMS REPORT ---
Author Author Riya Aguirre Doctor Organization [facility] Address Unknown Phone Unavailable Care Team Providers Care Turf Keeper Name Role Phone Migration, Doctor Unavailable Unavailable PROBLEMS Type Condition ICD9-CM Code QHL53-HR Code Onset Dates Condition S tatus SNOMED Code Problem Seasonal allergic rhinitis, unspecified trigger J3 0.2 Active [id number] ALLERGIES No Information ENCOUNTERS Encounter Location Date Diagnosis [facility] WALK IN [address] [address] Oct, Viral upper respiratory trac t infection J06.[address] [address] Oct, Encounter for immunization Z23 [facility] W[facility] IN [address] [address] Oct, Acute bronchitis, unspecifie d organism J20.[address] [address] 18 Jul, 2018 [facility] W[facility] IN [address] [address] 18 Jul, 2018 Urinary frequency R35.0 ; Ac kake cystitis with hematuria N30.01 and Seasonal allergic rhinitis, unspecified trigger J30.2 [facility] Formerly named [facility] [address] [address] Jul, [facility]ARE [address] [place] [address] Jun, Seasonal allergic rhinitis, unspecified trigger J30.2 [facility] [address] [place] [address] 16 Dec, 2017 Urinary frequency R35.0 ; Ac kake cystitis with hematuria N30.01 ; Seasonal allergic rhinitis, unspecified trigger J30.2 and Impacted cerumen, bilateral H61.23 [facility] [address] [address] Nov, Sore throat J02.9 and Strep pharyngitis J02.0 [facility] [address] [id number] Aug, Dental caries K02.9 [facility] [address] [address] Jul, Allergic contact dermatitis, unspecified trigger L23.9 and Oral abscess K12.2 [facility] [address] [id number] Jul, Dental caries K02.9 and Dental examinati on Z01.20 [facility] W[facility] IN [address] [address] Aug, Periodontal abscess K05.219 [facility] [address] [address] May, Allergic rhinitis, unspecifi ed allergic rhinitis type J30.9 and Acute otitis externa of left ear, unspecified type H60.502 [place] [address] [address] Sep, [place] [address] [address] Sep, Ankle pain, right M25.571 [place] [address] [address] Aug, [place] [address] [address] Aug, [place] [address] [address] Jun, [facility] [address] [id number] May, Dental examination V72.2 [place] [address] [place] [id number] [place] [address] May, [facility] [address] [place] [id number] [place] [id number] May, Dental examination V72.2 [facility] [address] [place] [id number] [place] [id number] Apr, Dental examination V72.2 [facility] [address] [place] [address] [id number] [place] [address] Apr, [facility] [address] [id number] March, Dental examination V72.2 [facility] [address] [address] March, [facility] [address] [place] [id number] [place] [address] Feb, [facility] [address] [address] Feb, [facility] [id number] [place] [address] Jan, [facility] [address] [place] [id number] [place] [address] Jan, [facility] [address] [place] [id number] [place] [address] 16 Jan, 2015 [facility] [address] [id number] [place] [address] Jan, [facility] [id number] [place] [address] Jan, [facility] [address] [id number] [place] [address] Jan, [facility] [id number] [place] [address] Dec, [facility] [id number] [place] [address] Dec, [facility] [id number] [place] [address] Dec, [facility] [address] [id number] [place] [address] Dec, [facility] [address] [id number] [place] [address] Nov, [facility] [address] [id number] [place] [address] Nov, [facility] [address] [id number] [place] [address] Oct, [facility] [address] [id number] [place] [address] Oct, [facility] [address] [id number] [place] [address] Oct, [facility] [address] [id number] [place] [address] Oct, [facility] [address] [id number] [place] [address] Oct, [facility] [address] [id number] [place] [address] Oct, [facility] [address] [id number] [place] [address] Sep, [facility] [address] [id number] [place] [address] Sep, [facility] [address] [id number] [place] [address] Sep, [facility] [address] [id number] [place] [address] Sep, [facility] [address] [place] [address] [id number] [place] [address] Sep, [facility] [address] [id number] [place] [address] Sep, [facility] [address] [id number] [place] [address] 15 Sep, 2014 [facility] [address] [id number] [place] [address] Sep, [facility] [address] [id number] [place] [address] Aug, [facility] [address] [id number] [place] [address] Aug, [facility] [address] [id number] [place] [address] Aug, [facility] [address] [facility] [id number] [place] [address] Aug, [facility] [address] [id number] [place] [address] Aug, [facility] [address] [id number] [place] [address] Aug, [facility] [address] [id number] [place] [address] Aug, [facility] [address] [id number] [place] [address] Aug, [facility] [address] [id number] [place] [address] Aug, [facility] [address] [id number] [place] [address] Aug, [facility] [address] [id number] [place] [address] Jul, [facility] [address] [id number] [place] [address] Jul, [facility] [address] [id number] [place] [address] Jun, [facility] [address] [id number] [place] [address] Jun, [facility] [address] [id number] [place] [address] May, [facility] [address] [id number] [place] [address] May, [facility] [address] [facility] [id number] [place] [address] Apr, [facility] [address] [id number] [place] [address] Apr, [facility] [address] [id number] [place] [address] Apr, [facility] [address] [id number] [place] [address] Apr, [facility] [address] [facility] [id number] [place] [address] March, [facility] [address] [id number] [place] [address] March, [facility] [address] [id number] [place] [address] Jan, [facility] [address] [id number] [place] [address] Jan, [facility] [address] [id number] [place] [address] Oct, [facility] [address] [id number] [place] [address] Oct, [facility] [address] [id number] [place] [address] Sep, [facility] [address] [id number] [place] [address] Sep, [facility] [address] [id number] [place] [address] Aug, [facility] [address] [id number] [place] [address] Aug, [facility] [address] [id number] [place] [address] Jul, [facility] [address] [id number] [place] [address] Jul, [facility] [address] [id number] [place] [address] 16 Jul, 2012 [facility] [address] [id number] [facility] [place] [address] 09 Jul, 2012 [facility] [address] [id number] [place] [address] 05 Jul, 2012 [facility] [address] [id number] [place] [address] 05 Jul, 2012 [facility] [address] [id number] [place] [address] Jul, 2012 [facility] [address] [id number] [place] [address] Jun, [facility] [address] [id number] [place] [address] Jun, [facility] [address] [id number] [place] [address] May, [facility] [address] [id number] [place] [address] May, [facility] [address] [id number] [place] [address] May, [facility] [address] [id number] [place] [address] May, [facility] [address] [id number] [place] [address] May, [facility] [address] [id number] [place] [address] March, [facility] [address] [id number] [place] [address] March, [facility] [address] [id number] [place] [address] Oct, [facility] [address] [id number] [place] [address] Oct, [facility] [address] [id number] [place] [address] Jun, [facility] [address] [id number] [place] [address] Nov, [facility] [address] [id number] [place] [address] Aug, [facility] [address] [id number] [place] [address] Aug, [facility] [address] [id number] [place] [address] Dec, [facility] [address] [id number] [place] [address] Oct, [facility] [address] [id number] [place] [address] Oct, [facility] [address] [id number] [place] [address] Jun, IMMUNIZATIONS No Known Immunizations SOCIAL HISTORY [...]
--- OUTSIDE RECORDS SUMMARY | 2020-05-26 23:09 | XMS REPORT ---
Author Author Riya FIORE Organization [facility] Address [address] [place] [address] Care Team Providers Care Wastewater Supervisor Name Role Phone ORQUIDEA FIORE Unavailable PROBLEMS Type Condition ICD9-CM Code [id number] Code Onset Dates Condition S tatus SNOMED Code Problem Seasonal allergic rhinitis, unspecified trigger J3 0.2 Active [id number] ALLERGIES No Information ENCOUNTERS Encounter Location Date Diagnosis [facility] [address] [place] [address] Oct, Acute bronchitis, unspecifie d organism J20.9 [facility] [address] [address] Jul, [facility] [address] [place] [address] Jul, Urinary frequency R35.0 ; Ac [place] cystitis with hematuria N30.01 and Seasonal allergic rhinitis, unspecified trigger J30.2 [facility] [address] [address] Jul, [facility] [address] [place] [address] Jun, Seasonal allergic rhinitis, unspecified trigger J30.2 [facility] [address] [place] [address] Dec, Urinary frequency R35.0 ; Ac [place] cystitis with hematuria N30.01 ; Seasonal allergic rhinitis, unspecified trigger J30.2 and Impacted cerumen, bilateral H61.23 [facility] [address] [place] [address] Nov, Sore throat J02.9 and Strep pharyngitis J02.0 [facility] [address] [id number] [address] [place] [phone] Aug, Dental caries K02.9 [facility] [address] [id number] [address] [place] [address] Jul, Allergic contact dermatitis, unspecified trigger L23.9 and Oral abscess K12.2 [facility] [address] [id number] [address] [place] [id number] Jul, Dental caries K02.9 and [place] al examination Z01.20 [facility] [address] [facility] [id number] [address] [place] [address] Aug, Periodontal abscess K05.219 [facility] [address] [place] [id number] [address] [place] [address] May, Allergic rhinitis, unspecifi ed allergic rhinitis type J30.9 and Acute otitis externa of left ear, unspecified type H60.502 [facility] [id number] [place] [address] Sep, [facility] [address] [address] Sep, Ankle pain, right M25.571 [facility] [address] [place] [id number] [address] [place] [address] Aug, [facility] [address] [place] [id number] [address] [place] [address] Aug, [facility] [address] [place] [id number] [address] [place] [address] Jun, [facility] [address] [id number] [place] [id number] May, Dental examination V72.2 [facility] [address] [facility] [id number] [address] [place] [address] May, [facility] [address] [place] [id number] [address] [place] [id number] May, Dental examination V72.2 [facility] [address] [id number] [address] [place] [id number] Apr, Dental examination V72.2 [facility] [address] [id number] [address] [place] [address] Apr, [facility] [address] [id number] [address] [place] [id number] March, Dental examination V72.2 [facility] [address] [id number] [address] [place] [address] March, [facility] [address] [id number] [address] [place] [address] Feb, [facility] [address] [id number] [address] [place] [address] Feb, [facility] [address] [id number] [address] [place] [phone] Jan, [facility] [address] [id number] [address] [place] [id number] 17 Jan, 2015 [facility] [address] [id number] [address] [place] [id number] 16 Jan, 2015 [facility] [address] [id number] [address] [place] [id number] 16 Jan, 2015 [facility] [address] [id number] [address] [place] [id number] Jan, [facility] [address] [id number] [address] [place] [phone] Jan, [facility] [address] [id number] [address] [place] [address] Dec, [facility] [address] [id number] [address] [place] [id number] Dec, [facility] [address] [id number] [address] [place] [address], [place] [address] 16 Dec, 2014 [facility] [address] [id number] [address] [place] [address], [place] [address] Dec, [facility] [address] [id number] [address] [place] [address], [place] [address] Nov, [facility] [address] [id number] [address] [place] [address], [place] [address] Nov, [facility] [address] [id number] [address] [place] [address], [place] [address] Oct, [facility] [address] [id number] [address] [place] [address], [place] [address] Oct, [facility] [address] [id number] [address] [place] [address], [place] [address] Oct, [facility] [address] [id number] [address] [place] [address], [place] [address] Oct, [facility] [address] [id number] [address] [place] [address], [place] [address] Oct, [facility] [address] [id number] [address] [place] [address], [place] [address] Oct, [facility] [address] [id number] [address] [place] [address], [place] [address] Sep, [facility] [address] [id number] [address] [place] [address], [place] [address] Sep, [facility] [address] [id number] [address] [place] [address], [place] [address] Sep, [facility] [address] [id number] [address] [place] [address], [place] [address] Sep, [facility] [address] [id number] [address] [place] [address], [place] [address] Sep, [facility] [address] [id number] [address] [place] [address], [place] [address] Sep, [facility] [address] [id number] [address] [place] [address], [place] [address] Sep, [facility] [address] [id number] [address] [place] [address], [place] [address] Sep, [facility] [address] [id number] [address] [place] [address], [place] [address] Aug, [facility] [address] [id number] [address] [place] [address], [place] [address] Aug, [facility] [address] [id number] [address] [place] [address], [place] [address] Aug, [facility] [address] [id number] [address] [place] [address], [place] [address] Aug, [facility] [address] [id number] [address] [place] [address], [place] [address] Aug, [facility] [address] [id number] [address] [place] [address], [place] [address] Aug, [facility] [address] [id number] [address] [place] [address], [place] [address] Aug, [facility] [address] [id number] [address] [place] [id number] Aug, [facility] [address] [id number] [address] [place] [address] Aug, [facility] [address] [id number] [address] [place] [address] Aug, [facility] [address] [id number] [address] [place] [address], [place] [address] Jul, [facility] [address] [id number] [address] [place] [address], [place] [address] Jul, [facility] [address] [id number] [address] [place] [address] Jun, [facility] [address] [id number] [address] [place] [id number] Jun, [facility] [address] [id number] [address] [place] [address], [place] [address] May, [facility] [address] [id number] [address] [place] [address], [place] [address] May, [facility] [address] [id number] [address] [place] [address], [place] [address] Apr, [facility] [address] [id number] [address] [place] [address], [place] [address] Apr, [facility] [address] [id number] [address] [place] [address], [place] [address] Apr, [facility] [address] [id number] [address] [place] [address], [place] [address] Apr, [facility] [address] [id number] [address] [place] [address], [place] [address] March, [facility] [address] [id number] [address] [place] [address], [place] [address] March, [facility] [address] [id number] [address] [place] [address], [place] [address] Jan, [facility] [address] [id number] [address] [place] [address], [place] [address] Jan, [facility] [address] [id number] [address] [place] [address], [place] [address] Oct, [facility] [address] [id number] [address] [place] [address], [place] [address] Oct, [facility] [address] [id number] [address] [place] [address], [place] [address] Sep, [facility] [address] [id number] [address] [place] [address], [place] [address] Sep, [facility] [address] [id number] [address] [place] [address], [place] [address] Aug, [facility] [address] [id number] [address] [place] [address], [place] [address] 17 Aug, 2013 [facility] [address] [id number] [address] [place] [address], [place] [address] 25 Jul, 2012 [facility] [address] [id number] [address] [place] [address], [place] [address] 20 Jul, 2012 [facility] [address] [id number] [address] [place] [address], [place] [address] 16 Jul, 2012 [facility] [address] [id number] [address] [place] [address], [place] [address] 09 Jul, 2012 [facility] [address] [id number] [address] [place] [address], [place] [address] 05 Jul, 2012 [facility] [address] [id number] [address] [place] [address], [place] [address] 05 Jul, 2012 [facility] [address] [id number] [address] [place] [address], [place] [address] 03 Jul, 2012 [facility] [address] [id number] [address] [place] [address], [place] [address] Jun, [facility] [address] [id number] [address] [place] [address], [place] [address] Jun, [facility] [address] [id number] [address] [place] [address], [place] [address] May, [facility] [address] [id number] [address] [place] [address], [place] [address] May, [facility] [address] [id number] [address] [place] [address], [place] [address] May, [facility] [address] [id number] [address] [place] [address], [place] [address] May, [facility] [address] [id number] [address] [place] [address], [place] [address] May, [facility] [address] [id number] [address] [place] [address] [address] March, [facility] [address] [id number] [address] [place] [address] March, [facility] [address] [id number] [address] [place] [address] Oct, [facility] [address] [id number] [address] [place] [address] Oct, [facility] [address] [id number] [address] [place] [address] Jun, [facility] [address] [id number] [address] [place] [address] Nov, [facility] [address] [id number] [address] [place] [address] Aug, [facility] [address] [id number] [address] [place] [address] Aug, [facility] [address] [id number] [address] [place] [address] Dec, [facility] [address] [id number] [address] [place] [address] Oct, [facility] [address] [id number] [address] [place] [address] Oct, [facility] [address] [id number] [address] [place] [address] Jun, IMMUNIZATIONS No Known Immunizations SOCIAL HISTORY Never Assessed REASON FOR VISIT PLAN OF CARE VITAL SIGNS Height 64 in 2014-10-15 Weight 169 lbs 2014-10-15 Temperature 98 degrees Fahrenheit 2014-10-15 Heart Rate 80 bpm 2014-10-15 Respiratory Rate 18 2014-10-15 Blood pressure systolic 122 mmHg 2014-10-15 Blood pressure diastolic 64 mmHg 2014-10-15 MEDICATIONS No Known Medications RESULTS No Results PROCEDURES No Known procedures INSTRUCTIONS MEDICATIONS ADMINISTERED No Known Medications MEDICAL (GENERAL) HISTORY Type Description Date Medical History hypertension Medical History Arthritis Medical History Family history of diabetes mellitus Medical History Flat foot Medical History Cervicalgia Surgical History bladder surgery Surgical History cyst removal Hospitalization History surgery related
--- OUTSIDE RECORDS SUMMARY | 2020-05-26 23:09 | XMS REPORT ---
Author Author Riya FIORE Organization [facility] Address [address] [place] [address] Care Team Providers Care Sticker Machine Operator Name Role Phone ORQUIDEA FIORE Unavailable PROBLEMS Type Condition ICD9-CM Code EDQ77-HR Code Onset Dates Condition S tatus SNOMED Code Problem Seasonal allergic rhinitis, unspecified trigger J3 0.2 Active [id number] ALLERGIES No Information ENCOUNTERS Encounter Location Date Diagnosis [facility] [address] [place] [id number] Oct, Acute bronchitis, unspecifie d organism J20.9 [facility] [address] [id number] Jul, [facility] [address] [place] [phone] Jul, Urinary frequency R35.0 ; Ac [place] cystitis with hematuria N30.01 and Seasonal allergic rhinitis, unspecified trigger J30.2 [facility] [address] [address] Jul, [facility] [address] [place] [phone] Jun, Seasonal allergic rhinitis, unspecified trigger J30.2 [facility] [address] [place] [phone] Dec, Urinary frequency R35.0 ; Ac [place] cystitis with hematuria N30.01 ; Seasonal allergic rhinitis, unspecified trigger J30.2 and Impacted cerumen, bilateral H61.23 [facility] [address] [place] [phone] Nov, Sore throat J02.9 and Strep pharyngitis J02.0 [facility] [address] [id number] [address] [place] [id number] Aug, Dental caries K02.9 [facility] [address] [id number] [address] [place] [address] Jul, Allergic contact dermatitis, unspecified trigger L23.9 and Oral abscess K12.2 [facility] [address] [id number] [address] [place] [address] [id number] Jul, Dental caries K02.9 and [place] al examination Z01.20 [facility] [address] [facility] [id number] [address] [place] [id number] Aug, Periodontal abscess K05.219 [facility] [address] [place] [id number] [address] [place] [address] May, Allergic rhinitis, unspecifi ed allergic rhinitis type J30.9 and Acute otitis externa of left ear, unspecified type H60.502 [facility] [id number] [place] [address] Sep, [facility] [address] [address] Sep, Ankle pain, right M25.571 [facility] [address] [place] [id number] [address] [place] [phone] Aug, [facility] [address] [place] [id number] [address] [place] [address] Aug, [facility] [address] [place] [id number] [address] [place] [phone] Jun, [facility] [address] [id number] [place] [id number] May, Dental examination V72.2 [facility] [address] [facility] [id number] [address] [place] [address] May, [facility] [address] [place] [id number] [address] [place] [id number] May, Dental examination V72.2 [facility] [address] [id number] [address] [place] [id number] Apr, Dental examination V72.2 [facility] [address] [id number] [address] [place] [phone] Apr, [facility] [address] [id number] [address] [place] [address] [id number] March, Dental examination V72.2 [facility] [address] [id number] [address] [place] [phone] March, [facility] [address] [id number] [address] [place] [id number] Feb, [facility] [address] [id number] [address] [place] [phone] Feb, [facility] [address] [id number] [address] [place] [phone] Jan, [facility] [address] [id number] [address] [place] [phone] 17 Jan, 2015 [facility] [address] [id number] [address] [place] [id number] 16 Jan, 2015 [facility] [address] [id number] [address] [place] [id number] 16 Jan, 2015 [facility] [address] [id number] [address] [place] [phone] Jan, [facility] [address] [id number] [address] [place] [phone] Jan, [facility] [address] [id number] [address] [place] [phone] Dec, [facility] [address] [id number] [address] [place] [phone] Dec, [facility] [address] [id number] [address] [place] [address], [place] [address] 16 Dec, 2014 [facility] [address] [id number] [address] [place] [address], [place] [address] Dec, [facility] [address] [id number] [address] [place] [address], [place] [id number] Nov, [facility] [address] [id number] [address] [place] [address], [place] [address] Nov, [facility] [address] [id number] [address] [place] [address], [place] [id number] Oct, [facility] [address] [id number] [address] [place] [address], [place] [address] Oct, [facility] [address] [id number] [address] [place] [address], [place] [address] Oct, [facility] [address] [id number] [address] [place] [address], [place] [address] Oct, [facility] [address] [id number] [address] [place] [address], [place] [address] Oct, [facility] [address] [id number] [address] [place] [address], [place] [address] Oct, [facility] [address] [id number] [address] [place] [address], [place] [id number] Sep, [facility] [address] [id number] [address] [place] [address], [place] [address] Sep, [facility] [address] [id number] [address] [place] [address], [place] [address] Sep, [facility] [address] [id number] [address] [place] [address], [place] [address] Sep, [facility] [address] [id number] [address] [place] [address], [place] [address] Sep, [facility] [address] [id number] [address] [place] [address], [place] [address] Sep, [facility] [address] [id number] [address] [place] [address], [place] [address] Sep, [facility] [address] [id number] [address] [place] [address], [place] [address] Sep, [facility] [address] [id number] [address] [place] [address], [place] [address] Aug, [facility] [address] [id number] [address] [place] [address], [place] [address] Aug, [facility] [address] [id number] [address] [place] [address], [place] [address] Aug, [facility] [address] [id number] [address] [place] [address], [place] [address] Aug, [facility] [address] [id number] [address] [place] [address], [place] [address] Aug, [facility] [address] [id number] [address] [place] [address], [place] [address] Aug, [facility] [address] [id number] [address] [place] [address], [place] [address] Aug, [facility] [address] [id number] [address] [place] [phone] Aug, [facility] [address] [id number] [address] [place] [address] Aug, [facility] [address] [id number] [address] [place] [id number] Aug, [facility] [address] [id number] [address] [place] [address], [place] [address] Jul, [facility] [address] [id number] [address] [place] [address], [place] [address] Jul, [facility] [address] [id number] [address] [place] [id number] Jun, [facility] [address] [id number] [address] [place] [address] Jun, [facility] [address] [id number] [address] [place] [address], [place] [address] May, [facility] [address] [id number] [address] [place] [address], [place] [address] May, [facility] [address] [id number] [address] [place] [address], [place] [address] Apr, [facility] [address] [id number] [address] [place] [address], [place] [address] Apr, [facility] [address] [id number] [address] [place] [address], [place] [address] Apr, [facility] [address] [id number] [address] [place] [address], [place] [address] Apr, [facility] [address] [id number] [address] [place] [address], [place] [address] March, [facility] [address] [id number] [address] [place] [address], [place] [address] March, [facility] [address] [id number] [address] [place] [address], [place] [address] Jan, [facility] [address] [id number] [address] [place] [address], [place] [address] Jan, [facility] [address] [id number] [address] [place] [address], [place] [address] Oct, [facility] [address] [id number] [address] [place] [address], [place] [address] Oct, [facility] [address] [id number] [address] [place] [address], [place] [address] Sep, [facility] [address] [id number] [address] [place] [address], [place] [address] Sep, [facility] [address] [id number] [address] [place] [address], [place] [address] Aug, [facility] [address] [id number] [address] [place] [address], [place] [address] 17 Aug, 2013 [facility] [address] [id number] [address] [place] [address], [place] [address] 25 Jul, 2012 [facility] [address] [id number] [address] [place] [address], [place] [address] 20 Jul, 2012 [facility] [address] [id number] [address] [place] [address], [place] [address] 16 Jul, 2012 [facility] [address] [id number] [address] [place] [address], [place] [address] 09 Jul, 2012 [facility] [address] [id number] [address] [place] [address], [place] [address] 05 Jul, 2012 [facility] [address] [id number] [address] [place] [address], [place] [address] 05 Jul, 2012 [facility] [address] [id number] [address] [place] [address], [place] [address] 03 Jul, 2012 [facility] [address] [id number] [address] [place] [address], [place] [address] Jun, [facility] [address] [id number] [address] [place] [address], [place] [address] Jun, [facility] [address] [id number] [address] [place] [address], [place] [address] May, [facility] [address] [id number] [address] [place] [address], [place] [address] May, [facility] [address] [id number] [address] [place] [address], [place] [address] May, [facility] [address] [id number] [address] [place] [address], [place] [address] May, [facility] [address] [id number] [address] [place] [address], [place] [address] May, [facility] [address] [id number] [address] [place] [address] [address] March, [facility] [address] [id number] [address] [place] [address] March, [facility] [address] [id number] [address] [place] [address] Oct, [facility] [address] [id number] [address] [place] [address] Oct, [facility] [address] [id number] [address] [place] [address] Jun, [facility] [address] [id number] [address] [place] [address] Nov, [facility] [address] [id number] [address] [place] [address] Aug, [facility] [address] [id number] [address] [place] [address] Aug, [facility] [address] [id number] [address] [place] [id number] Dec, [facility] [address] [id number] [address] [place] [phone] Oct, [facility] [address] [id number] [address] [place] [address] Oct, [facility] [address] [id number] [address] [place] [address] Jun, IMMUNIZATIONS No Known Immunizations SOCIAL HISTORY [...]
--- OUTSIDE RECORDS SUMMARY | 2020-05-26 23:09 | XMS REPORT ---
Author Author Riya FIORE Organization [facility] Address [address] [place] [address] Care Team Providers Care Vault Person Name Role Phone ORQUIDEA FIORE Unavailable PROBLEMS Type Condition ICD9-CM Code WIF10-CN Code Onset Dates Condition S tatus SNOMED Code Problem Seasonal allergic rhinitis, unspecified trigger J3 0.2 Active [id number] ALLERGIES No Information ENCOUNTERS Encounter Location Date Diagnosis [facility] [address] [place] [id number] Oct, Acute bronchitis, unspecifie d organism J20.9 [facility] [address] [id number] Jul, [facility] [address] [place] [id number] Jul, Urinary frequency R35.0 ; Ac [place] cystitis with hematuria N30.01 and Seasonal allergic rhinitis, unspecified trigger J30.2 [facility] [address] [address] Jul, [facility] [address] [place] [phone] Jun, Seasonal allergic rhinitis, unspecified trigger J30.2 [facility] [address] [place] [phone] Dec, Urinary frequency R35.0 ; Ac [place] cystitis with hematuria N30.01 ; Seasonal allergic rhinitis, unspecified trigger J30.2 and Impacted cerumen, bilateral H61.23 [facility] [address] [place] [phone] Nov, Sore throat J02.9 and Strep pharyngitis J02.0 [facility] [address] [id number] [address] [place] [id number] Aug, Dental caries K02.9 [facility] [address] [id number] [address] [place] [address] Jul, Allergic contact dermatitis, unspecified trigger L23.9 and Oral abscess K12.2 [facility] [address] [id number] [address] [place] [id number] Jul, Dental caries K02.9 and [place] al examination Z01.20 [facility] [address] [facility] [id number] [address] [place] [address] Aug, Periodontal abscess K05.219 [facility] [address] [id number] [address] [place] [phone] May, Allergic rhinitis, unspecifi ed allergic rhinitis type J30.9 and Acute otitis externa of left ear, unspecified type H60.502 [facility] [id number] [place] [address] Sep, [facility] [address] [address] Sep, Ankle pain, right M25.571 [facility] [address] [id number] [address] [place] [id number] Aug, [facility] [address] [id number] [address] [place] [phone] Aug, [facility] [address] [id number] [address] [place] [id number] Jun, [facility] [id number] [place] [address] [id number] May, Dental examination V72.2 [facility] [address] [facility] [id number] [address] [place] [phone] May, [facility] [address] [id number] [address] [place] [id number] May, Dental examination V72.2 [facility] [address] [id number] [address] [place] [address] [id number] Apr, Dental examination V72.2 [facility] [address] [id number] [address] [place] [phone] Apr, [facility] [address] [id number] [address] [place] [id number] March, Dental examination V72.2 [facility] [address] [id number] [address] [place] [phone] March, [facility] [address] [id number] [address] [place] [id number] Feb, [facility] [address] [id number] [address] [place] [id number] Feb, [facility] [address] [id number] [address] [place] [id number] Jan, [facility] [address] [id number] [address] [place] [phone] 17 Jan, 2015 [facility] [address] [id number] [address] [place] [id number] 16 Jan, 2015 [facility] [address] [id number] [address] [place] [id number] 16 Jan, 2015 [facility] [address] [id number] [address] [place] [id number] Jan, [facility] [address] [id number] [address] [place] [phone] Jan, [facility] [address] [id number] [address] [place] [phone] Dec, [facility] [address] [id number] [address] [place] [id number] Dec, [facility] [address] [id number] [address] [place] [address], [place] [phone] 16 Dec, 2014 [facility] [address] [id number] [address] [place] [address], [place] [phone] Dec, [facility] [address] [id number] [address] [place] [address], [place] [address] Nov, [facility] [address] [id number] [address] [place] [address], [place] [address] Nov, [facility] [address] [id number] [address] [place] [address], [place] [phone] Oct, [facility] [address] [id number] [address] [place] [address], [place] [address] Oct, [facility] [address] [id number] [address] [place] [address], [place] [id number] Oct, [facility] [address] [id number] [address] [place] [address], [place] [address] Oct, [facility] [address] [id number] [address] [place] [address], [place] [phone] Oct, [facility] [address] [id number] [address] [place] [address], [place] [phone] Oct, [facility] [address] [id number] [address] [place] [address], [place] [phone] Sep, [facility] [address] [id number] [address] [place] [address], [place] [id number] Sep, [facility] [address] [id number] [address] [place] [address], [place] [address] Sep, [facility] [address] [id number] [address] [place] [address], [place] [address] Sep, [facility] [address] [id number] [address] [place] [address], [place] [id number] Sep, [facility] [address] [id number] [address] [place] [address], [place] [address] Sep, [facility] [address] [id number] [address] [place] [address], [place] [address] Sep, [facility] [address] [id number] [address] [place] [address], [place] [id number] Sep, [facility] [address] [id number] [address] [place] [address], [place] [address] Aug, [facility] [address] [id number] [address] [place] [address], [place] [address] Aug, [facility] [address] [id number] [address] [place] [address], [place] [address] Aug, [facility] [address] [id number] [address] [place] [address], [place] [address] Aug, [facility] [address] [id number] [address] [place] [address], [place] [address] Aug, [facility] [address] [id number] [address] [place] [address], [place] [address] Aug, [facility] [address] [id number] [address] [place] [address], [place] [address] Aug, [facility] [address] [id number] [address] [place] [phone] Aug, [facility] [address] [id number] [address] [place] [phone] Aug, [facility] [address] [id number] [address] [place] [phone] Aug, [facility] [address] [id number] [address] [place] [address], [place] [address] Jul, [facility] [address] [id number] [address] [place] [address], [place] [address] Jul, [facility] [address] [id number] [address] [place] [phone] Jun, [facility] [address] [id number] [address] [place] [phone] Jun, [facility] [address] [id number] [address] [place] [address], [place] [address] May, [facility] [address] [id number] [address] [place] [address], [place] [id number] May, [facility] [address] [id number] [address] [place] [address], [place] [address] Apr, [facility] [address] [id number] [address] [place] [address], [place] [address] Apr, [facility] [address] [id number] [address] [place] [address], [place] [address] Apr, [facility] [address] [id number] [address] [place] [address], [place] [address] Apr, [facility] [address] [id number] [address] [place] [address], [place] [address] March, [facility] [address] [id number] [address] [place] [address], [place] [address] March, [facility] [address] [id number] [address] [place] [address], [place] [address] Jan, [facility] [address] [id number] [address] [place] [address], [place] [address] Jan, [facility] [address] [id number] [address] [place] [address], [place] [id number] Oct, [facility] [address] [id number] [address] [place] [address], [place] [address] Oct, [facility] [address] [id number] [address] [place] [address], [place] [address] Sep, [facility] [address] [id number] [address] [place] [address], [place] [id number] Sep, [facility] [address] [id number] [address] [place] [address], [place] [id number] Aug, [facility] [address] [id number] [address] [place] [address], [place] [id number] 17 Aug, 2013 [facility] [address] [id number] [address] [place] [address], [place] [address] 25 Jul, 2012 [facility] [address] [id number] [address] [place] [address], [place] [address] 20 Jul, 2012 [facility] [address] [id number] [address] [place] [address], [place] [address] 16 Jul, 2012 [facility] [address] [id number] [address] [place] [address], [place] [address] 09 Jul, 2012 [facility] [address] [id number] [address] [place] [address], [place] [address] 05 Jul, 2012 [facility] [address] [id number] [address] [place] [address], [place] [address] 05 Jul, 2012 [facility] [address] [id number] [address] [place] [address], [place] [address] 03 Jul, 2012 [facility] [address] [id number] [address] [place] [address], [place] [address] Jun, [facility] [address] [id number] [address] [place] [address], [place] [address] Jun, [facility] [address] [id number] [address] [place] [address], [place] [address] May, [facility] [address] [id number] [address] [place] [address], [place] [address] May, [facility] [address] [id number] [address] [place] [address], [place] [address] May, [facility] [address] [id number] [address] [place] [address], [place] [address] May, [facility] [address] [id number] [address] [place] [address], [place] [address] May, [facility] [address] [id number] [address] [place] [address] [address] March, [facility] [address] [id number] [address] [place] [phone] March, [facility] [address] [id number] [address] [place] [phone] Oct, [facility] [address] [id number] [address] [place] [id number] Oct, [facility] [address] [id number] [address] [place] [phone] Jun, [facility] [address] [id number] [address] [place] [phone] Nov, [facility] [address] [id number] [address] [place] [phone] Aug, [facility] [address] [id number] [address] [place] [phone] Aug, [facility] [address] [id number] [address] [place] [phone] Dec, [facility] [address] [id number] [address] [place] [phone] Oct, [facility] [address] [id number] [address] [place] [phone] Oct, [facility] [address] [id number] [address] [place] [phone] Jun, IMMUNIZATIONS No Known Immunizations SOCIAL HISTORY [...]
--- OUTSIDE RECORDS SUMMARY | 2020-05-26 23:09 | XMS REPORT ---
Author Author Riya FIORE Organization [facility] Address [address] [place] [address] Care Team Providers Care Line Dancer Name Role Phone ORQUIDEA FIORE Unavailable PROBLEMS Type Condition ICD9-CM Code [id number] Code Onset Dates Condition S tatus SNOMED Code Problem Seasonal allergic rhinitis, unspecified trigger J3 0.2 Active [id number] ALLERGIES No Information ENCOUNTERS Encounter Location Date Diagnosis [facility] [address] [place] [phone] Oct, Acute bronchitis, unspecifie d organism J20.9 [facility] [address] [phone] Jul, [facility] [address] [place] [phone] Jul, Urinary frequency R35.0 ; Ac [place] cystitis with hematuria N30.01 and Seasonal allergic rhinitis, unspecified trigger J30.2 [facility] [address] [address] Jul, [facility] [address] [place] [phone] Jun, Seasonal allergic rhinitis, unspecified trigger J30.2 [facility] [address] [place] [phone] Dec, Urinary frequency R35.0 ; Ac [place] cystitis with hematuria N30.01 ; Seasonal allergic rhinitis, unspecified trigger J30.2 and Impacted cerumen, bilateral H61.23 [facility] [address] [place] [phone] Nov, Sore throat J02.9 and Strep pharyngitis J02.0 [facility] [address] [id number] [address] [place] [id number] Aug, Dental caries K02.9 [facility] [address] [id number] [address] [place] [phone] Jul, Allergic contact dermatitis, unspecified trigger L23.9 and Oral abscess K12.2 [facility] [address] [id number] [address] [place] [id number] Jul, Dental caries K02.9 and [place] al examination Z01.20 [facility] [address] [facility] [id number] [address] [place] [phone] Aug, Periodontal abscess K05.219 [facility] [address] [id number] [address] [place] [phone] May, Allergic rhinitis, unspecifi ed allergic rhinitis type J30.9 and Acute otitis externa of left ear, unspecified type H60.502 [facility] [id number] [place] [phone] Sep, [facility] [address] [address] Sep, Ankle pain, right M25.571 [facility] [address] [id number] [address] [place] [phone] Aug, [facility] [address] [id number] [address] [place] [phone] Aug, [facility] [address] [id number] [address] [place] [phone] Jun, [facility] [id number] [place] [id number] May, Dental examination V72.2 [facility] [address] [facility] [id number] [address] [place] [phone] May, [facility] [address] [id number] [address] [place] [address] [id number] May, Dental examination V72.2 [facility] [address] [id number] [address] [place] [id number] Apr, Dental examination V72.2 [facility] [address] [id number] [address] [place] [phone] Apr, [facility] [address] [id number] [address] [place] [id number] March, Dental examination V72.2 [facility] [address] [id number] [address] [place] [phone] March, [facility] [address] [id number] [address] [place] [phone] Feb, [facility] [address] [id number] [address] [place] [phone] Feb, [facility] [address] [id number] [address] [place] [phone] Jan, [facility] [address] [id number] [address] [place] [phone] 17 Jan, 2015 [facility] [address] [id number] [address] [place] [phone] 16 Jan, 2015 [facility] [address] [id number] [address] [place] [phone] 16 Jan, 2015 [facility] [address] [id number] [address] [place] [phone] Jan, [facility] [address] [id number] [address] [place] [phone] Jan, [facility] [address] [id number] [address] [place] [phone] Dec, [facility] [address] [id number] [address] [place] [phone] Dec, [facility] [address] [id number] [address] [place] [address], [place] [id number] 16 Dec, 2014 [facility] [address] [id number] [address] [place] [address], [place] [address] Dec, [facility] [address] [id number] [address] [place] [address], [place] [address] Nov, [facility] [address] [id number] [address] [place] [address], [place] [address] Nov, [facility] [address] [id number] [address] [place] [address], [place] [address] Oct, [facility] [address] [id number] [address] [place] [address], [place] [address] Oct, [facility] [address] [id number] [address] [place] [address], [place] [address] Oct, [facility] [address] [id number] [address] [place] [address], [place] [address] Oct, [facility] [address] [id number] [address] [place] [address], [place] [address] Oct, [facility] [address] [id number] [address] [place] [address], [place] [address] Oct, [facility] [address] [id number] [address] [place] [address], [place] [address] Sep, [facility] [address] [id number] [address] [place] [address], [place] [address] Sep, [facility] [address] [id number] [address] [place] [address], [place] [address] Sep, [facility] [address] [id number] [address] [place] [address], [place] [address] Sep, [facility] [address] [id number] [address] [place] [address], [place] [address] Sep, [facility] [address] [id number] [address] [place] [address], [place] [address] Sep, [facility] [address] [id number] [address] [place] [address], [place] [address] Sep, [facility] [address] [id number] [address] [place] [address], [place] [address] Sep, [facility] [address] [id number] [address] [place] [address], [place] [address] Aug, [facility] [address] [id number] [address] [place] [address], [place] [address] Aug, [facility] [address] [id number] [address] [place] [address], [place] [address] Aug, [facility] [address] [id number] [address] [place] [address], [place] [address] Aug, [facility] [address] [id number] [address] [place] [address], [place] [address] Aug, [facility] [address] [id number] [address] [place] [address], [place] [address] Aug, [facility] [address] [id number] [address] [place] [address], [place] [address] Aug, [facility] [address] [id number] [address] [place] [phone] Aug, [facility] [address] [id number] [address] [place] [phone] Aug, [facility] [address] [id number] [address] [place] [phone] Aug, [facility] [address] [id number] [address] [place] [address], [place] [address] Jul, [facility] [address] [id number] [address] [place] [address], [place] [address] Jul, [facility] [address] [id number] [address] [place] [phone] Jun, [facility] [address] [id number] [address] [place] [phone] Jun, [facility] [address] [id number] [address] [place] [address], [place] [address] May, [facility] [address] [id number] [address] [place] [address], [place] [address] May, [facility] [address] [id number] [address] [place] [address], [place] [address] Apr, [facility] [address] [id number] [address] [place] [address], [place] [address] Apr, [facility] [address] [id number] [address] [place] [address], [place] [address] Apr, [facility] [address] [id number] [address] [place] [address], [place] [address] Apr, [facility] [address] [id number] [address] [place] [address], [place] [address] March, [facility] [address] [id number] [address] [place] [address], [place] [address] March, [facility] [address] [id number] [address] [place] [address], [place] [address] Jan, [facility] [address] [id number] [address] [place] [address], [place] [address] Jan, [facility] [address] [id number] [address] [place] [address], [place] [address] Oct, [facility] [address] [id number] [address] [place] [address], [place] [address] Oct, [facility] [address] [id number] [address] [place] [address], [place] [address] Sep, [facility] [address] [id number] [address] [place] [address], [place] [address] Sep, [facility] [address] [id number] [address] [place] [address], [place] [address] Aug, [facility] [address] [id number] [address] [place] [address], [place] [address] 17 Aug, 2013 [facility] [address] [id number] [address] [place] [address], [place] [address] 25 Jul, 2012 [facility] [address] [id number] [address] [place] [address], [place] [address] 20 Jul, 2012 [facility] [address] [id number] [address] [place] [address], [place] [address] 16 Jul, 2012 [facility] [address] [id number] [address] [place] [address], [place] [address] 09 Jul, 2012 [facility] [address] [id number] [address] [place] [address], [place] [address] 05 Jul, 2012 [facility] [address] [id number] [address] [place] [address], [place] [address] 05 Jul, 2012 [facility] [address] [id number] [address] [place] [address], [place] [address] 03 Jul, 2012 [facility] [address] [id number] [address] [place] [address], [place] [address] Jun, [facility] [address] [id number] [address] [place] [address], [place] [address] Jun, [facility] [address] [id number] [address] [place] [address], [place] [address] May, [facility] [address] [id number] [address] [place] [address], [place] [address] May, [facility] [address] [id number] [address] [place] [address], [place] [address] May, [facility] [address] [id number] [address] [place] [address], [place] [address] May, [facility] [address] [id number] [address] [place] [address], [place] [address] May, [facility] [address] [id number] [address] [place] [address] [address] March, [facility] [address] [id number] [address] [place] [phone] March, [facility] [address] [id number] [address] [place] [phone] Oct, [facility] [address] [id number] [address] [place] [phone] Oct, [facility] [address] [id number] [address] [place] [id number] Jun, [facility] [address] [id number] [address] [place] [phone] Nov, [facility] [address] [id number] [address] [place] [phone] Aug, [facility] [address] [id number] [address] [place] [id number] Aug, [facility] [address] [id number] [address] [place] [id number] Dec, [facility] [address] [id number] [address] [place] [id number] Oct, [facility] [address] [id number] [address] [place] [phone] Oct, [facility] [address] [id number] [address] [place] [id number] Jun, IMMUNIZATIONS No Known Immunizations SOCIAL HISTORY [...]
--- OUTSIDE RECORDS SUMMARY | 2020-05-26 23:09 | XMS REPORT ---
Author Author Riya FIORE Organization [facility] Address [address] [place] [address] Care Team Providers Care Rod Finisher Name Role Phone ORQUIDEA FIORE Unavailable PROBLEMS Type Condition ICD9-CM Code [id number] Code Onset Dates Condition S tatus SNOMED Code Problem Seasonal allergic rhinitis, unspecified trigger J3 0.2 Active [id number] ALLERGIES No Information ENCOUNTERS Encounter Location Date Diagnosis [facility] [address] [place] [id number] Oct, Acute bronchitis, unspecifie d organism J20.9 [facility] [address] [address] Jul, [facility] [address] [place] [phone] Jul, Urinary frequency R35.0 ; 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 and Seasonal allergic rhinitis, unspecified trigger J30.2 [facility] [address] [address] Jul, [facility] [address] [place] [address] Jun, Seasonal allergic rhinitis, unspecified trigger J30.2 [facility] [address] [place] [phone] Dec, Urinary frequency R35.0 ; 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 ; Seasonal allergic rhinitis, unspecified trigger J30.2 and Impacted cerumen, bilateral H61.23 [facility] [address] [place] [address] Nov, Sore throat J02.9 and Strep pharyngitis J02.0 [facility] [address] [id number] [address] [place] [phone] Aug, Dental caries K02.9 [facility] [address] [id number] [address] [place] [address] Jul, Allergic contact dermatitis, unspecified trigger L23.9 and Oral abscess K12.2 [facility] [address] [id number] [address] [place] [id number] Jul, Dental caries K02.9 and [place] al examination Z01.20 [facility] [address] [facility] [id number] [address] [place] [address] Aug, Periodontal abscess K05.[address] [facility] [address] [place] [id number] [address] [place] [address] May, Allergic rhinitis, unspecifi ed allergic rhinitis type J30.9 and Acute otitis externa of left ear, unspecified type H60.502 [facility] [id number] [place] [address] Sep, [facility] [address] [address] Sep, Ankle pain, right M25.571 [facility] [address] [id number] [address] [place] [address] Aug, [facility] [address] [id number] [address] [place] [address] Aug, [facility] [address] [id number] [address] [place] [phone] Jun, [facility] [id number] [place] [phone] May, Dental examination V72.2 [facility] [address] [facility] [id number] [address] [place] [phone] May, [facility] [address] [id number] [address] [place] [id number] May, Dental examination V72.2 [facility] [address] [id number] [address] [place] [id number] Apr, Dental examination V72.2 [facility] [address] [id number] [address] [place] [phone] Apr, [facility] [address] [id number] [address] [place] [phone] March, Dental examination V72.2 [facility] [address] [id number] [address] [place] [phone] March, [facility] [address] [id number] [address] [place] [phone] Feb, [facility] [address] [id number] [address] [place] [id number] Feb, [facility] [address] [id number] [address] [place] [phone] Jan, [facility] [address] [id number] [address] [place] [id number] 17 Jan, 2015 [facility] [address] [id number] [address] [place] [phone] 16 Jan, 2015 [facility] [address] [id number] [address] [place] [phone] 16 Jan, 2015 [facility] [address] [id number] [address] [place] [phone] Jan, [facility] [address] [id number] [address] [place] [phone] Jan, [facility] [address] [id number] [address] [place] [phone] Dec, [facility] [address] [id number] [address] [place] [phone] Dec, [facility] [address] [id number] [address] [place] [address], [place] [phone] 16 Dec, 2014 [facility] [address] [id number] [address] [place] [address], [place] [address] Dec, [facility] [address] [id number] [address] [place] [address], [place] [address] Nov, [facility] [address] [id number] [address] [place] [address], [place] [address] Nov, [facility] [address] [id number] [address] [place] [address], [place] [address] Oct, [facility] [address] [id number] [address] [place] [address], [place] [address] Oct, [facility] [address] [id number] [address] [place] [address], [place] [address] Oct, [facility] [address] [id number] [address] [place] [address], [place] [address] Oct, [facility] [address] [id number] [address] [place] [address], [place] [address] Oct, [facility] [address] [id number] [address] [place] [address], [place] [address] Oct, [facility] [address] [id number] [address] [place] [address], [place] [address] Sep, [facility] [address] [id number] [address] [place] [address], [place] [address] Sep, [facility] [address] [id number] [address] [place] [address], [place] [address] Sep, [facility] [address] [id number] [address] [place] [address], [place] [address] Sep, [facility] [address] [id number] [address] [place] [address], [place] [address] Sep, [facility] [address] [id number] [address] [place] [address], [place] [address] Sep, [facility] [address] [id number] [address] [place] [address], [place] [address] Sep, [facility] [address] [id number] [address] [place] [address], [place] [address] Sep, [facility] [address] [id number] [address] [place] [address], [place] [address] Aug, [facility] [address] [id number] [address] [place] [address], [place] [address] Aug, [facility] [address] [id number] [address] [place] [address], [place] [address] Aug, [facility] [address] [id number] [address] [place] [address], [place] [address] Aug, [facility] [address] [id number] [address] [place] [address], [place] [address] Aug, [facility] [address] [id number] [address] [place] [address], [place] [address] Aug, [facility] [address] [id number] [address] [place] [address], [place] [address] Aug, [facility] [address] [id number] [address] [place] [phone] Aug, [facility] [address] [id number] [address] [place] [phone] Aug, [facility] [address] [id number] [address] [place] [phone] Aug, [facility] [address] [id number] [address] [place] [address], [place] [address] Jul, [facility] [address] [id number] [address] [place] [address], [place] [address] Jul, [facility] [address] [id number] [address] [place] [phone] Jun, [facility] [address] [id number] [address] [place] [address] Jun, [facility] [address] [id number] [address] [place] [address], [place] [address] May, [facility] [address] [id number] [address] [place] [address], [place] [address] May, [facility] [address] [id number] [address] [place] [address], [place] [address] Apr, [facility] [address] [id number] [address] [place] [address], [place] [address] Apr, [facility] [address] [id number] [address] [place] [address], [place] [address] Apr, [facility] [address] [id number] [address] [place] [address], [place] [address] Apr, [facility] [address] [id number] [address] [place] [address], [place] [address] March, [facility] [address] [id number] [address] [place] [address], [place] [address] March, [facility] [address] [id number] [address] [place] [address], [place] [address] Jan, [facility] [address] [id number] [address] [place] [address], [place] [address] Jan, [facility] [address] [id number] [address] [place] [address], [place] [address] Oct, [facility] [address] [id number] [address] [place] [address], [place] [address] Oct, [facility] [address] [id number] [address] [place] [address], [place] [address] Sep, [facility] [address] [id number] [address] [place] [address], [place] [address] Sep, [facility] [address] [id number] [address] [place] [address], [place] [address] Aug, [facility] [address] [id number] [address] [place] [address], [place] [address] 17 Aug, 2013 [facility] [address] [id number] [address] [place] [address], [place] [address] 25 Jul, 2012 [facility] [address] [id number] [address] [place] [address], [place] [address] 20 Jul, 2012 [facility] [address] [id number] [address] [place] [address], [place] [address] 16 Jul, 2012 [facility] [address] [id number] [address] [place] [address], [place] [address] 09 Jul, 2012 [facility] [address] [id number] [address] [place] [address], [place] [address] 05 Jul, 2012 [facility] [address] [id number] [address] [place] [address], [place] [address] 05 Jul, 2012 [facility] [address] [id number] [address] [place] [address], [place] [address] 03 Jul, 2012 [facility] [address] [id number] [address] [place] [address], [place] [address] Jun, [facility] [address] [id number] [address] [place] [address], [place] [address] Jun, [facility] [address] [id number] [address] [place] [address], [place] [address] May, [facility] [address] [id number] [address] [place] [address], [place] [address] May, [facility] [address] [id number] [address] [place] [address], [place] [address] May, [facility] [address] [id number] [address] [place] [address], [place] [address] May, [facility] [address] [id number] [address] [place] [address], [place] [address] May, [facility] [address] [id number] [address] [place] [address] [address] March, [facility] [address] [id number] [address] [place] [address] March, [facility] [address] [id number] [address] [place] [id number] Oct, [facility] [address] [id number] [address] [place] [address] Oct, [facility] [address] [id number] [address] [place] [address] Jun, [facility] [address] [id number] [address] [place] [phone] Nov, [facility] [address] [id number] [address] [place] [address] Aug, [facility] [address] [id number] [address] [place] [id number] Aug, [facility] [address] [id number] [address] [place] [address] Dec, [facility] [address] [id number] [address] [place] [id number] Oct, [facility] [address] [id number] [address] [place] [address] Oct, [facility] [address] [id number] [address] [place] [phone] Jun, IMMUNIZATIONS No Known Immunizations SOCIAL HISTORY Never Assessed REASON FOR VISIT PLAN OF CARE VITAL SIGNS MEDICATIONS No Known Medications RESULTS No Results PROCEDURES Procedure Date Ordered Result Body Site COMPLETE CBC W/AUTO DIFF WBC Sep 18, 2014 LIPID PANEL Sep 18, 2014 COMPREHEN METABOLIC PANEL Sep 18, 2014 VENIPUNCT, ROUTINE* Sep 18, 2014 INSTRUCTIONS MEDICATIONS ADMINISTERED No Known Medications MEDICAL (GENERAL) HISTORY Type Description Date Medical History hypertension Medical History Arthritis Medical History Family history of diabetes mellitus Medical History Flat foot Medical History Cervicalgia Surgical History bladder surgery Surgical History cyst removal Hospitalization History surgery related
--- OUTSIDE RECORDS SUMMARY | 2020-05-26 23:09 | XMS REPORT ---
Author Author Riya Aguirre Doctor Organization [facility] Address Unknown Phone Unavailable Care Team Providers Care Panel Wirer Name Role Phone Migration, Doctor Unavailable Unavailable PROBLEMS ALLERGIES No Information ENCOUNTERS IMMUNIZATIONS No Known Immunizations SOCIAL HISTORY No smoking Hx information available REASON FOR VISIT PLAN OF CARE VITAL SIGNS MEDICATIONS No Known Medications RESULTS No Results PROCEDURES No Known procedures INSTRUCTIONS MEDICATIONS ADMINISTERED No Known Medications MEDICAL (GENERAL) HISTORY
--- OUTSIDE RECORDS SUMMARY | 2020-05-26 23:09 | XMS REPORT ---
Author Author Riya SEGUNDO Organization [facility] Address [address] [place] [address] Care Team Providers Care Store Standards Associate Name Role Phone ALEE SEGUNDO Unavailable PROBLEMS Type Condition ICD9-CM Code [id number] Code Onset Dates Condition S tatus SNOMED Code Problem Seasonal allergic rhinitis, unspecified trigger J3 0.2 Active [id number] ALLERGIES No Information ENCOUNTERS Encounter Location Date Diagnosis [facility] [address] [place] [phone] Oct, Acute bronchitis, unspecifie d organism J20.9 [facility] [address] [address] 18 Jul, 2018 [facility] [address] [place] [address] Jul, Urinary frequency R35.0 ; Ac kasigl[place] cystitis with hematuria N30.01 and Seasonal allergic rhinitis, unspecified trigger J30.2 [facility] [address] [place] [phone] Jul, [facility] [address] [place] [phone] Jun, Seasonal allergic rhinitis, unspecified trigger J30.2 [facility] [address] [place] [phone] Dec, Urinary frequency R35.0 ; Ac kasigl[place] cystitis with hematuria N30.01 ; Seasonal allergic rhinitis, unspecified trigger J30.2 and Impacted cerumen, bilateral H61.23 [facility] [address] [place] [address] Nov, Sore throat J02.9 and Strep pharyngitis J02.0 [facility] [address] [id number] [address] [place] [phone] Aug, Dental caries K02.9 [facility] [address] [id number] [address] [place] [phone] Jul, Allergic contact dermatitis, unspecified trigger L23.9 and Oral abscess K12.2 [facility] [address] [id number] [address] [place] [id number] Jul, Dental caries K02.9 and Converse al examination Z01.20 [facility] [address] [id number] [address] [place] [address] Aug, Periodontal abscess K05.219 [facility] [address] [id number] [address] [place] [phone] May, Allergic rhinitis, unspecifi ed allergic rhinitis type J30.9 and Acute otitis externa of left ear, unspecified type H60.502 [facility] [address] [id number] [address] [place] [address] Sep, [facility] [address] [id number] [address] [place] [address] Sep, Ankle pain, right M25.571 [facility] [address] [id number] [address] [place] [address] Aug, [facility] [address] [id number] [address] [place] [phone] Aug, [facility] [address] [id number] [address] [place] [phone] Jun, [facility] [address] [id number] [address] [place] [id number] May, Dental examination V72.2 [facility] [address] [id number] [address] [place] [address] May, [facility] [address] [id number] [address] [place] [address] [id number] May, Dental examination V72.2 [facility] [address] [id number] [address] [place] [id number] Apr, Dental examination V72.2 [facility] [address] [id number] [address] [place] [id number] Apr, [facility] [address] [id number] [address] [place] [id number] March, Dental examination V72.2 [facility] [address] [id number] [address] [place] [id number] March, [facility] [address] [id number] [address] [place] [id number] 14 Feb, 2015 [facility] [address] [id number] [address] [place] [id number] Feb, [facility] [address] [id number] [address] [place] [address] Jan, [facility] [address] [id number] [address] [place] [phone] 17 Jan, 2015 [facility] [address] [id number] [address] [place] [phone] 16 Jan, 2015 [facility] [address] [id number] [address] [place] [phone] Jan, [facility] [address] [id number] [address] [place] [phone] Jan, [facility] [address] [id number] [address] [place] [phone] Jan, [facility] [address] [id number] [address] [place] [id number] Dec, [facility] [address] [id number] [address] [place] [phone] Dec, [facility] [address] [id number] [address] [place] [address], [place] [address] 16 Dec, 2014 [facility] [address] [id number] [address] [place] [address], [place] [address] Dec, [facility] [address] [id number] [address] [place] [address], [place] [address] Nov, [facility] [address] [id number] [address] [place] [address], [place] [address] Nov, [facility] [address] [id number] [address] [place] [address], [place] [address] Oct, [facility] [address] [id number] [address] [place] [address], [place] [address] Oct, [facility] [address] [id number] [address] [place] [address], [place] [address] Oct, [facility] [address] [id number] [address] [place] [address], [place] [address] Oct, [facility] [address] [id number] [address] [place] [address], [place] [address] Oct, [facility] [address] [id number] [address] [place] [address], [place] [address] Oct, [facility] [address] [id number] [address] [place] [address], [place] [address] Sep, [facility] [address] [id number] [address] [place] [address], [place] [address] Sep, [facility] [address] [id number] [address] [place] [address], [place] [address] Sep, [facility] [address] [id number] [address] [place] [address], [place] [address] Sep, [facility] [address] [id number] [address] [place] [address], [place] [address] Sep, [facility] [address] [id number] [address] [place] [address], [place] [address] Sep, [facility] [address] [id number] [address] [place] [address], [place] [address] Sep, [facility] [address] [id number] [address] [place] [address], [place] [address] Sep, [facility] [address] [id number] [address] [place] [address], [place] [address] Aug, [facility] [address] [id number] [address] [place] [address], [place] [address] Aug, [facility] [address] [id number] [address] [place] [address], [place] [address] Aug, [facility] [address] [id number] [address] [place] [address], [place] [address] Aug, [facility] [address] [id number] [address] [place] [address], [place] [address] Aug, [facility] [address] [id number] [address] [place] [address], [place] [address] Aug, [facility] [address] [id number] [address] [place] [address], [place] [address] Aug, [facility] [address] [id number] [address] [place] [address], [place] [address] Aug, [facility] [address] [id number] [address] [place] [address], [place] [address] Aug, [facility] [address] [id number] [address] [place] [address], [place] [address] Aug, [facility] [address] [id number] [address] [place] [address], [place] [address] Jul, [facility] [address] [id number] [address] [place] [address], [place] [address] Jul, [facility] [address] [id number] [address] [place] [address], [place] [address] Jun, [facility] [address] [id number] [address] [place] [address], [place] [address] Jun, [facility] [address] [id number] [address] [place] [address], [place] [address] May, [facility] [address] [id number] [address] [place] [address], [place] [address] May, [facility] [address] [id number] [address] [place] [address], [place] [address] Apr, [facility] [address] [id number] [address] [place] [address], [place] [address] Apr, [facility] [address] [id number] [address] [place] [address], [place] [address] Apr, [facility] [address] [id number] [address] [place] [address], [place] [address] Apr, [facility] [address] [id number] [address] [place] [address], [place] [address] March, [facility] [address] [id number] [address] [place] [address], [place] [address] March, [facility] [address] [id number] [address] [place] [address], [place] [address] Jan, [facility] [address] [id number] [address] [place] [address], [place] [address] Jan, [facility] [address] [id number] [address] [place] [address], [place] [address] Oct, [facility] [address] [id number] [address] [place] [address], [place] [address] Oct, [facility] [address] [id number] [address] [place] [address], [place] [address] Sep, [facility] [address] [id number] [address] [place] [address], [place] [address] Sep, [facility] [address] [id number] [address] [place] [address], [place] [address] Aug, [facility] [address] [id number] [address] [place] [address], [place] [address] 17 Aug, 2013 [facility] [address] [id number] [address] [place] [address], [place] [address] 25 Jul, 2012 [facility] [address] [id number] [address] [place] [address], [place] [address] 20 Jul, 2012 [facility] [address] [id number] [address] [place] [address], [place] [address] 16 Jul, 2012 [facility] [address] [id number] [address] [place] [address], [place] [address] 09 Jul, 2012 [facility] [address] [id number] [address] [place] [address], [place] [address] 05 Jul, 2012 [facility] [address] [id number] [address] [place] [address], [place] [address] 05 Jul, 2012 [facility] [address] [id number] [address] [place] [address], [place] [address] Jul, 2012 [facility] [address] [id number] [address] [place] [address], [place] [address] Jun, [facility] [address] [id number] [address] [place] [address], [place] [address] Jun, [facility] [address] [id number] [address] [place] [address], [place] [address] May, [facility] [address] [id number] [address] [place] [address], [place] [address] May, [facility] [address] [id number] [address] [place] [address], [place] [address] May, [facility] [address] [id number] [address] [place] [address], [place] [address] May, [facility] [address] [id number] [address] [place] [address], [place] [address] May, [facility] [address] [id number] [address] [place] [address], [place] [address] March, [facility] [address] [id number] [address] [place] [address] March, [facility] [address] [id number] [address] [place] [address] Oct, [facility] [address] [id number] [address] [place] [address] Oct, [facility] [address] [id number] [address] [place] [address] Jun, [facility] [address] [id number] [address] [place] [address] Nov, [facility] [address] [id number] [address] [place] [address] Aug, [facility] [address] [id number] [address] [place] [address] Aug, [facility] [address] [id number] [address] [place] [address] Dec, [facility] [address] [id number] [address] [place] [address] Oct, [facility] [address] [id number] [address] [place] [address] Oct, [facility] [address] [id number] [address] [place] [address] Jun, IMMUNIZATIONS No Known Immunizations SOCIAL HISTORY [...]
--- OUTSIDE RECORDS SUMMARY | 2020-05-26 23:09 | XMS REPORT ---
Author Author Riya FIORE Organization [facility] Address [address] [place] [address] Care Team Providers Care Extruder Operator Vertical Name Role Phone ORQUIDEA FIORE Unavailable PROBLEMS Type Condition ICD9-CM Code [id number] Code Onset Dates Condition S tatus SNOMED Code Problem Seasonal allergic rhinitis, unspecified trigger J3 0.2 Active [id number] ALLERGIES No Information ENCOUNTERS Encounter Location Date Diagnosis [facility] [address] [place] [id number] Oct, Acute bronchitis, unspecifie d organism J20.9 [facility] [address] [address] Jul, [facility] [address] [place] [phone] Jul, Urinary frequency R35.0 ; Ac venetie cystitis with hematuria N30.01 and Seasonal allergic rhinitis, unspecified trigger J30.2 [facility] [address] [address] Jul, [facility] [address] [place] [phone] Jun, Seasonal allergic rhinitis, unspecified trigger J30.2 [facility] [address] [place] [id number] Dec, Urinary frequency R35.0 ; Ac venetie cystitis with hematuria N30.01 ; Seasonal allergic rhinitis, unspecified trigger J30.2 and Impacted cerumen, bilateral H61.23 [facility] [address] [place] [id number] Nov, Sore throat J02.9 and Strep pharyngitis J02.0 [facility] [address] [id number] [address] [place] [id number] Aug, Dental caries K02.9 [facility] [address] [id number] [address] [place] [id number] Jul, Allergic contact dermatitis, unspecified trigger L23.9 and Oral abscess K12.2 [facility] [address] [id number] [address] [place] [id number] Jul, Dental caries K02.9 and [place] al examination Z01.20 [facility] [address] [facility] [id number] [address] [place] [id number] Aug, Periodontal abscess K05.219 [facility] [address] [id number] [address] [place] [id number] May, Allergic rhinitis, unspecifi ed allergic rhinitis type J30.9 and Acute otitis externa of left ear, unspecified type H60.502 [facility] [id number] [place] [address] Sep, [facility] [address] [address] Sep, Ankle pain, right M25.571 [facility] [address] [id number] [address] [place] [id number] Aug, [facility] [address] [id number] [address] [place] [id number] Aug, [facility] [address] [id number] [address] [place] [id number] Jun, [facility] [id number] [place] [id number] May, Dental examination V72.2 [facility] [address] [facility] [id number] [address] [place] [phone] May, [facility] [address] [id number] [address] [place] [id number] May, Dental examination V72.2 [facility] [address] [id number] [address] [place] [id number] Apr, Dental examination V72.2 [facility] [address] [id number] [address] [place] [id number] Apr, [facility] [address] [id number] [address] [place] [id number] March, Dental examination V72.2 [facility] [address] [id number] [address] [place] [id number] March, [facility] [address] [id number] [address] [place] [id number] Feb, [facility] [address] [id number] [address] [place] [id number] Feb, [facility] [address] [id number] [address] [place] [id number] Jan, [facility] [address] [id number] [address] [place] [id number] 17 Jan, 2015 [facility] [address] [id number] [address] [place] [id number] 16 Jan, 2015 [facility] [address] [id number] [address] [place] [id number] 16 Jan, 2015 [facility] [address] [id number] [address] [place] [phone] Jan, [facility] [address] [id number] [address] [place] [id number] Jan, [facility] [address] [id number] [address] [place] [id number] Dec, [facility] [address] [id number] [address] [place] [phone] Dec, [facility] [address] [id number] [address] [place] [address], [place] [id number] 16 Dec, 2014 [facility] [address] [id number] [address] [place] [address], [place] [id number] Dec, [facility] [address] [id number] [address] [place] [address], [place] [id number] Nov, [facility] [address] [id number] [address] [place] [address], [place] [id number] Nov, [facility] [address] [id number] [address] [place] [address], [place] [id number] Oct, [facility] [address] [id number] [address] [place] [address], [place] [id number] Oct, [facility] [address] [id number] [address] [place] [address], [place] [id number] Oct, [facility] [address] [id number] [address] [place] [address], [place] [id number] Oct, [facility] [address] [id number] [address] [place] [address], [place] [id number] Oct, [facility] [address] [id number] [address] [place] [address], [place] [id number] Oct, [facility] [address] [id number] [address] [place] [address], [place] [id number] Sep, [facility] [address] [id number] [address] [place] [address], [place] [id number] Sep, [facility] [address] [id number] [address] [place] [address], [place] [id number] Sep, [facility] [address] [id number] [address] [place] [address], [place] [id number] Sep, [facility] [address] [id number] [address] [place] [address], [place] [address] Sep, [facility] [address] [id number] [address] [place] [address], [place] [address] Sep, [facility] [address] [id number] [address] [place] [address], [place] [address] Sep, [facility] [address] [id number] [address] [place] [address], [place] [id number] Sep, [facility] [address] [id number] [address] [place] [address], [place] [address] Aug, [facility] [address] [id number] [address] [place] [address], [place] [id number] Aug, [facility] [address] [id number] [address] [place] [address], [place] [address] Aug, [facility] [address] [id number] [address] [place] [address], [place] [id number] Aug, [facility] [address] [id number] [address] [place] [address], [place] [id number] Aug, [facility] [address] [id number] [address] [place] [address], [place] [id number] Aug, [facility] [address] [id number] [address] [place] [address], [place] [id number] Aug, [facility] [address] [id number] [address] [place] [phone] Aug, [facility] [address] [id number] [address] [place] [id number] Aug, [facility] [address] [id number] [address] [place] [id number] Aug, [facility] [address] [id number] [address] [place] [address], [place] [address] Jul, [facility] [address] [id number] [address] [place] [address], [place] [address] Jul, [facility] [address] [id number] [address] [place] [phone] Jun, [facility] [address] [id number] [address] [place] [id number] Jun, [facility] [address] [id number] [address] [place] [address], [place] [address] May, [facility] [address] [id number] [address] [place] [address], [place] [address] May, [facility] [address] [id number] [address] [place] [address], [place] [address] Apr, [facility] [address] [id number] [address] [place] [address], [place] [address] Apr, [facility] [address] [id number] [address] [place] [address], [place] [address] Apr, [facility] [address] [id number] [address] [place] [address], [place] [address] Apr, [facility] [address] [id number] [address] [place] [address], [place] [address] March, [facility] [address] [id number] [address] [place] [address], [place] [address] March, [facility] [address] [id number] [address] [place] [address], [place] [address] Jan, [facility] [address] [id number] [address] [place] [address], [place] [address] Jan, [facility] [address] [id number] [address] [place] [address], [place] [id number] Oct, [facility] [address] [id number] [address] [place] [address], [place] [address] Oct, [facility] [address] [id number] [address] [place] [address], [place] [address] Sep, [facility] [address] [id number] [address] [place] [address], [place] [address] Sep, [facility] [address] [id number] [address] [place] [address], [place] [address] Aug, [facility] [address] [id number] [address] [place] [address], [place] [address] 17 Aug, 2013 [facility] [address] [id number] [address] [place] [address], [place] [address] 25 Jul, 2012 [facility] [address] [id number] [address] [place] [address], [place] [address] 20 Jul, 2012 [facility] [address] [id number] [address] [place] [address], [place] [id number] 16 Jul, 2012 [facility] [address] [id number] [address] [place] [address], [place] [address] 09 Jul, 2012 [facility] [address] [id number] [address] [place] [address], [place] [address] 05 Jul, 2012 [facility] [address] [id number] [address] [place] [address], [place] [id number] 05 Jul, 2012 [facility] [address] [id number] [address] [place] [address], [place] [address] 03 Jul, 2012 [facility] [address] [id number] [address] [place] [address], [place] [address] Jun, [facility] [address] [id number] [address] [place] [address], [place] [address] Jun, [facility] [address] [id number] [address] [place] [address], [place] [address] May, [facility] [address] [id number] [address] [place] [address], [place] [address] May, [facility] [address] [id number] [address] [place] [address], [place] [address] May, [facility] [address] [id number] [address] [place] [address], [place] [address] May, [facility] [address] [id number] [address] [place] [address], [place] [address] May, [facility] [address] [id number] [address] [place] [address] [address] March, [facility] [address] [id number] [address] [place] [id number] March, [facility] [address] [id number] [address] [place] [id number] Oct, [facility] [address] [id number] [address] [place] [id number] Oct, [facility] [address] [id number] [address] [place] [id number] Jun, [facility] [address] [id number] [address] [place] [id number] Nov, [facility] [address] [id number] [address] [place] [id number] Aug, [facility] [address] [id number] [address] [place] [id number] Aug, [facility] [address] [id number] [address] [place] [id number] Dec, [facility] [address] [id number] [address] [place] [id number] Oct, [facility] [address] [id number] [address] [place] [id number] Oct, [facility] [address] [id number] [address] [place] [id number] Jun, IMMUNIZATIONS No Known Immunizations SOCIAL HISTORY [...]
--- OUTSIDE RECORDS SUMMARY | 2020-05-26 23:10 | XMS REPORT ---
Author Author Riya FIORE Organization [facility] Address [address] [place] [address] Care Team Providers Care Risk Control Representative Name Role Phone ORQUIDEA FIORE Unavailable PROBLEMS Type Condition ICD9-CM Code SJR79-TZ Code Onset Dates Condition S tatus SNOMED Code Problem Seasonal allergic rhinitis, unspecified trigger J3 0.2 Active [id number] ALLERGIES No Information ENCOUNTERS Encounter Location Date Diagnosis [facility] [address] [place] [phone] Oct, Acute bronchitis, unspecifie d organism J20.9 [facility] [address] [phone] Jul, [facility] [address] [place] [phone] Jul, Urinary frequency R35.0 ; Ac samish cystitis with hematuria N30.01 and Seasonal allergic rhinitis, unspecified trigger J30.2 [facility] [address] [address] Jul, [facility] [address] [place] [phone] Jun, Seasonal allergic rhinitis, unspecified trigger J30.2 [facility] [address] [place] [phone] Dec, Urinary frequency R35.0 ; Ac samish cystitis with hematuria N30.01 ; Seasonal allergic rhinitis, unspecified trigger J30.2 and Impacted cerumen, bilateral H61.23 [facility] [address] [place] [phone] Nov, Sore throat J02.9 and Strep pharyngitis J02.0 [facility] [address] [id number] [address] [place] [id number] Aug, Dental caries K02.9 [facility] [address] [id number] [address] [place] [phone] Jul, Allergic contact dermatitis, unspecified trigger L23.9 and Oral abscess K12.2 [facility] [address] [id number] [address] [place] [phone] Jul, Dental caries K02.9 and [place] al examination Z01.20 [facility] [address] [facility] [id number] [address] [place] [phone] Aug, Periodontal abscess K05.219 [facility] [address] [place] [id number] [address] [place] [phone] May, Allergic rhinitis, unspecifi ed allergic rhinitis type J30.9 and Acute otitis externa of left ear, unspecified type H60.502 [facility] [id number] [place] [phone] Sep, [facility] [address] [address] Sep, Ankle pain, right M25.571 [facility] [address] [place] [id number] [address] [place] [phone] Aug, [facility] [address] [place] [id number] [address] [place] [phone] Aug, [facility] [address] [place] [id number] [address] [place] [phone] Jun, [facility] [address] [id number] [place] [id number] May, Dental examination V72.2 [facility] [address] [facility] [id number] [address] [place] [phone] May, [facility] [address] [address] [id number] [address] [place] [phone] May, Dental examination V72.2 [facility] [address] [id number] [address] [place] [phone] Apr, Dental examination V72.2 [facility] [address] [id number] [address] [place] [phone] Apr, [facility] [address] [id number] [address] [place] [phone] March, Dental examination V72.2 [facility] [address] [id number] [address] [place] [phone] March, [facility] [address] [id number] [address] [place] [id number] Feb, [facility] [address] [id number] [address] [place] [id number] Feb, [facility] [address] [id number] [address] [place] [phone] Jan, [facility] [address] [id number] [address] [place] [phone] 17 Jan, 2015 [facility] [address] [id number] [address] [place] [phone] 16 Jan, 2015 [facility] [address] [id number] [address] [place] [phone] 16 Jan, 2015 [facility] [address] [id number] [address] [place] [phone] Jan, [facility] [address] [id number] [address] [place] [phone] Jan, [facility] [address] [id number] [address] [place] [phone] Dec, [facility] [address] [id number] [address] [place] [phone] Dec, [facility] [address] [id number] [address] [place] [address], [place] [phone] 16 Dec, 2014 [facility] [address] [id number] [address] [place] [address], [place] [phone] Dec, [facility] [address] [id number] [address] [place] [address], [place] [phone] Nov, [facility] [address] [id number] [address] [place] [address], [place] [phone] Nov, [facility] [address] [id number] [address] [place] [address], [place] [phone] Oct, [facility] [address] [id number] [address] [place] [address], [place] [phone] Oct, [facility] [address] [id number] [address] [place] [address], [place] [phone] Oct, [facility] [address] [id number] [address] [place] [address], [place] [phone] Oct, [facility] [address] [id number] [address] [place] [address], [place] [phone] Oct, [facility] [address] [id number] [address] [place] [address], [place] [phone] Oct, [facility] [address] [id number] [address] [place] [address], [place] [phone] Sep, [facility] [address] [id number] [address] [place] [address], [place] [phone] Sep, [facility] [address] [id number] [address] [place] [address], [place] [phone] Sep, [facility] [address] [id number] [address] [place] [address], [place] [phone] Sep, [facility] [address] [id number] [address] [place] [address], [place] [phone] Sep, [facility] [address] [id number] [address] [place] [address], [place] [phone] Sep, [facility] [place] [facility] [address] [id number] [address] [place] [address], [place] [phone] Sep, [facility] [place] [facility] [address] [id number] [address] [place] [address], [place] [phone] Sep, [facility] [place] [facility] [address] [id number] [address] [place] [address], [place] [phone] Aug, [facility] [place] [facility] [address] [id number] [address] [place] [address], [place] [phone] Aug, [facility] [place] [facility] [address] [id number] [address] [place] [address], [place] [phone] Aug, [facility] [place] [facility] [address] [id number] [address] [place] [address], [place] [phone] Aug, [facility] [place] [facility] [address] [id number] [address] [place] [address], [place] [phone] Aug, [facility] [place] [facility] [address] [id number] [address] [place] [address], [place] [phone] Aug, [facility] [place] [facility] [address] [id number] [address] [place] [address], [place] [phone] Aug, [facility] [place] [facility] [address] [id number] [address] [place] [phone] Aug, [facility] [place] [facility] [address] [id number] [address] [place] [phone] Aug, [facility] [place] [facility] [address] [id number] [address] [place] [phone] Aug, [facility] [place] [address] [id number] [address] [place] [address], [place] [phone] Jul, [facility] [place] [address] [id number] [address] [place] [address], [place] [phone] Jul, [facility] [address] [id number] [address] [place] [phone] Jun, [facility] [place] [address] [id number] [address] [place] [phone] Jun, [facility] [address] [id number] [address] [place] [address], [place] [address] May, [facility] [address] [id number] [address] [place] [address], [place] [phone] May, [facility] [address] [id number] [address] [place] [address], [place] [phone] Apr, [facility] [address] [id number] [address] [place] [address], [place] [address] Apr, [facility] [address] [id number] [address] [place] [address], [place] [phone] Apr, [facility] [address] [id number] [address] [place] [address], [place] [phone] Apr, [facility] [address] [id number] [address] [place] [address], [place] [phone] March, [facility] [address] [id number] [address] [place] [address], [place] [address] March, [facility] [address] [id number] [address] [place] [address], [place] [phone] Jan, [facility] [address] [id number] [address] [place] [address], [place] [phone] Jan, [facility] [address] [id number] [address] [place] [address], [place] [phone] Oct, [facility] [address] [id number] [address] [place] [address], [place] [address] Oct, [facility] [address] [id number] [address] [place] [address], [place] [phone] Sep, [facility] [address] [id number] [address] [place] [address], [place] [address] Sep, [facility] [address] [id number] [address] [place] [address], [place] [phone] Aug, [facility] [address] [id number] [address] [place] [address], [place] [address] 17 Aug, 2013 [facility] [address] [id number] [address] [place] [address], [place] [address] 25 Jul, 2012 [facility] [address] [id number] [address] [place] [address], [place] [phone] 20 Jul, 2012 [facility] [address] [id number] [address] [place] [address], [place] [phone] 16 Jul, 2012 [facility] [address] [id number] [address] [place] [address], [place] [phone] 09 Jul, 2012 [facility] [address] [id number] [address] [place] [address], [place] [phone] 05 Jul, 2012 [facility] [address] [id number] [address] [place] [address], [place] [address] 05 Jul, 2012 [facility] [address] [id number] [address] [place] [address], [place] [address] 03 Jul, 2012 [facility] [address] [id number] [address] [place] [address], [place] [phone] Jun, [facility] [address] [id number] [address] [place] [address], [place] [phone] Jun, [facility] [address] [id number] [address] [place] [address], [place] [address] May, [facility] [address] [id number] [address] [place] [address], [place] [phone] May, [facility] [address] [id number] [address] [place] [address], [place] [address] May, [facility] [address] [id number] [address] [place] [address], [place] [address] May, [facility] [address] [id number] [address] [place] [address], [place] [phone] May, [facility] [address] [id number] [address] [place] [address] [address] March, [facility] [address] [id number] [address] [place] [phone] March, [facility] [address] [id number] [address] [place] [phone] Oct, [facility] [address] [id number] [address] [place] [phone] Oct, [facility] [address] [id number] [address] [place] [phone] Jun, [facility] [address] [id number] [address] [place] [phone] Nov, [facility] [address] [id number] [address] [place] [phone] Aug, [facility] [address] [id number] [address] [place] [phone] Aug, [facility] [address] [id number] [address] [place] [phone] Dec, [facility] [address] [id number] [address] [place] [phone] Oct, [facility] [address] [id number] [address] [place] [phone] Oct, [facility] [address] [id number] [address] [place] [phone] Jun, IMMUNIZATIONS No Known Immunizations SOCIAL HISTORY Never Assessed REASON FOR VISIT PLAN OF CARE VITAL SIGNS Height 64 in 2014-09-14 Weight 167.31 lbs 2014-09-14 Temperature 97.8 degrees Fahrenheit 2014-09-14 Heart Rate 80 bpm 2014-09-14 Respiratory Rate 18 2014-09-14 Blood pressure systolic 116 mmHg 2014-09-14 Blood pressure diastolic 74 mmHg 2014-09-14 MEDICATIONS No Known Medications RESULTS No Results PROCEDURES Procedure Date Ordered Result Body Site EAR IRRIGATION Sep 14, 2014 INSTRUCTIONS MEDICATIONS ADMINISTERED No Known Medications MEDICAL (GENERAL) HISTORY Type Description Date Medical History hypertension Medical History Arthritis Medical History Family history of diabetes mellitus Medical History Flat foot Medical History Cervicalgia Surgical History bladder surgery Surgical History cyst removal Hospitalization History surgery related
--- OUTSIDE RECORDS SUMMARY | 2020-05-26 23:10 | XMS REPORT ---
Author Author Riya FIORE Organization [facility] Address [address] [place] [address] Care Team Providers Care Back Hanger Name Role Phone ORQUIDEA FIORE Unavailable PROBLEMS Type Condition ICD9-CM Code [id number] Code Onset Dates Condition S tatus SNOMED Code Problem Seasonal allergic rhinitis, unspecified trigger J3 0.2 Active [id number] ALLERGIES No Information ENCOUNTERS Encounter Location Date Diagnosis [facility] [address] [place] [address] Oct, Acute bronchitis, unspecifie d organism J20.9 [facility] [address] [address] Jul, [facility] [address] [place] [address] Jul, Urinary frequency R35.0 ; Ac makah cystitis with hematuria N30.01 and Seasonal allergic rhinitis, unspecified trigger J30.2 [facility] [address] [address] Jul, [facility] [address] [place] [address] Jun, Seasonal allergic rhinitis, unspecified trigger J30.2 [facility] [address] [place] [phone] Dec, Urinary frequency R35.0 ; Ac makah cystitis with hematuria N30.01 ; Seasonal allergic rhinitis, unspecified trigger J30.2 and Impacted cerumen, bilateral H61.23 [facility] [address] [place] [address] Nov, Sore throat J02.9 and Strep pharyngitis J02.0 [facility] [address] [id number] [address] [place] [id number] Aug, Dental caries K02.9 [facility] [address] [id number] [address] [place] [address] Jul, Allergic contact dermatitis, unspecified trigger L23.9 and Oral abscess K12.2 [facility] [address] [id number] [address] [place] [id number] Jul, Dental caries K02.9 and [place] examination Z01.20 [facility] [address] [facility] [id number] [address] [place] [address] Aug, Periodontal abscess K05.219 [facility] [address] [place] [id number] [address] [place] [address] May, Allergic rhinitis, unspecifi ed allergic rhinitis type J30.9 and Acute otitis externa of left ear, unspecified type H60.502 [facility] [id number] [place] [address] Sep, [facility] [address] [address] Sep, Ankle pain, right M25.571 [facility] [address] [place] [id number] [address] [place] [address] Aug, [facility] [address] [place] [place] [id number] [address] [place] [address] Aug, [facility] [address] [place] [place] [id number] [address] [place] [address] Jun, [facility] [address] [id number] [place] [id number] May, Dental examination V72.2 [facility] [address] [facility] [id number] [address] [place] [address] May, [facility] [address] [id number] [address] [place] [address] [phone] May, Dental examination V72.2 [facility] [address] [id number] [address] [place] [id number] Apr, Dental examination V72.2 [facility] [address] [id number] [address] [place] [id number] Apr, [facility] [address] [id number] [address] [place] [id number] March, Dental examination V72.2 [facility] [address] [id number] [address] [place] [id number] March, [facility] [address] [id number] [address] [place] [address] Feb, [facility] [address] [id number] [address] [place] [id number] Feb, [facility] [address] [id number] [address] [place] [id number] Jan, [facility] [address] [id number] [address] [place] [id number] 17 Jan, 2015 [facility] [address] [id number] [address] [place] [id number] 16 Jan, 2015 [facility] [address] [id number] [address] [place] [id number] 16 Jan, 2015 [facility] [address] [id number] [address] [place] [id number] Jan, [facility] [address] [id number] [address] [place] [id number] Jan, [facility] [address] [id number] [address] [place] [address] Dec, [facility] [address] [id number] [address] [place] [phone] Dec, [facility] [address] [id number] [address] [place] [address], [place] [id number] 16 Dec, 2014 [facility] [address] [id number] [address] [place] [address], [place] [address] Dec, [facility] [address] [id number] [address] [place] [address], [place] [address] Nov, [facility] [address] [id number] [address] [place] [address], [place] [address] Nov, [facility] [address] [id number] [address] [place] [address], [place] [address] Oct, [facility] [address] [id number] [address] [place] [address], [place] [address] Oct, [facility] [address] [id number] [address] [place] [address], [place] [address] Oct, [facility] [address] [id number] [address] [place] [address], [place] [address] Oct, [facility] [address] [id number] [address] [place] [address], [place] [address] Oct, [facility] [address] [id number] [address] [place] [address], [place] [address] Oct, [facility] [address] [id number] [address] [place] [address], [place] [address] Sep, [facility] [address] [id number] [address] [place] [address], [place] [address] Sep, [facility] [address] [id number] [address] [place] [address], [place] [address] Sep, [facility] [address] [id number] [address] [place] [address], [place] [address] Sep, [facility] [address] [id number] [address] [place] [address], [place] [address] Sep, [facility] [address] [id number] [address] [place] [address], [place] [address] Sep, [facility] [address] [id number] [address] [place] [address], [place] [address] Sep, [facility] [address] [id number] [address] [place] [address], [place] [address] Sep, [facility] [address] [id number] [address] [place] [address], [place] [address] Aug, [facility] [address] [id number] [address] [place] [address], [place] [address] Aug, [facility] [address] [id number] [address] [place] [address], [place] [address] Aug, [facility] [address] [id number] [address] [place] [address], [place] [address] Aug, [facility] [address] [id number] [address] [place] [address], [place] [address] Aug, [facility] [address] [id number] [address] [place] [address], [place] [address] Aug, [facility] [address] [id number] [address] [place] [address], [place] [address] Aug, [facility] [address] [id number] [address] [place] [address] Aug, [facility] [address] [id number] [address] [place] [address] Aug, [facility] [address] [id number] [address] [place] [address] Aug, [facility] [address] [id number] [address] [place] [address], [place] [address] Jul, [facility] [address] [id number] [address] [place] [address], [place] [address] Jul, [facility] [address] [id number] [address] [place] [address] Jun, [facility] [address] [id number] [address] [place] [id number] Jun, [facility] [address] [id number] [address] [place] [address], [place] [address] May, [facility] [address] [id number] [address] [place] [address], [place] [address] May, [facility] [address] [id number] [address] [place] [address], [place] [address] Apr, [facility] [address] [id number] [address] [place] [address], [place] [address] Apr, [facility] [address] [id number] [address] [place] [address], [place] [address] Apr, [facility] [address] [id number] [address] [place] [address], [place] [address] Apr, [facility] [address] [id number] [address] [place] [address], [place] [address] March, [facility] [address] [id number] [address] [place] [address], [place] [address] March, [facility] [address] [id number] [address] [place] [address], [place] [address] Jan, [facility] [address] [id number] [address] [place] [address], [place] [address] Jan, [facility] [address] [id number] [address] [place] [address], [place] [address] Oct, [facility] [address] [id number] [address] [place] [address], [place] [address] Oct, [facility] [address] [id number] [address] [place] [address], [place] [address] Sep, [facility] [address] [id number] [address] [place] [address], [place] [address] Sep, [facility] [address] [id number] [address] [place] [address], [place] [address] Aug, [facility] [address] [id number] [address] [place] [address], [place] [address] 17 Aug, 2013 [facility] [address] [id number] [address] [place] [address], [place] [address] 25 Jul, 2012 [facility] [address] [id number] [address] [place] [address], [place] [address] 20 Jul, 2012 [facility] [address] [id number] [address] [place] [address], [place] [address] 16 Jul, 2012 [facility] [address] [id number] [address] [place] [address], [place] [address] 09 Jul, 2012 [facility] [address] [id number] [address] [place] [address], [place] [address] 05 Jul, 2012 [facility] [address] [id number] [address] [place] [address], [place] [address] 05 Jul, 2012 [facility] [address] [id number] [address] [place] [address], [place] [address] 03 Jul, 2012 [facility] [address] [id number] [address] [place] [address], [place] [address] Jun, [facility] [address] [id number] [address] [place] [address], [place] [address] Jun, [facility] [address] [id number] [address] [place] [address], [place] [address] May, [facility] [address] [id number] [address] [place] [address], [place] [address] May, [facility] [address] [id number] [address] [place] [address], [place] [address] May, [facility] [address] [id number] [address] [place] [address], [place] [address] May, [facility] [address] [id number] [address] [place] [address], [place] [address] May, [facility] [address] [id number] [address] [place] [address] [address] March, [facility] [address] [id number] [address] [place] [address] March, [facility] [address] [id number] [address] [place] [id number] Oct, [facility] [address] [id number] [address] [place] [address] Oct, [facility] [address] [id number] [address] [place] [address] Jun, [facility] [address] [id number] [address] [place] [address] Nov, [facility] [address] [id number] [address] [place] [id number] Aug, [facility] [address] [id number] [address] [place] [address] Aug, [facility] [address] [id number] [address] [place] [address] Dec, [facility] [address] [id number] [address] [place] [address] Oct, [facility] [address] [id number] [address] [place] [id number] Oct, [facility] [address] [id number] [address] [place] [address] Jun, IMMUNIZATIONS No Known Immunizations SOCIAL HISTORY [...]
--- OUTSIDE RECORDS SUMMARY | 2020-05-26 23:10 | XMS REPORT ---
Author Author Riya Chung Organization [facility] Address [address] [place] [address] Care Team Providers Care Senior Qa Tester Name Role Phone VIVIAN Chung Unavailable PROBLEMS Type Condition ICD9-CM Code [id number] Code Onset Dates Condition S tatus SNOMED Code Problem Seasonal allergic rhinitis, unspecified trigger J3 0.2 Active [id number] ALLERGIES No Information ENCOUNTERS Encounter Location Date Diagnosis [facility] [address] [address] Oct, Acute bronchitis, unspecifie d organism J20.9 [facility] [address] [address] Jul, [facility] [address] [place] [address] Jul, Urinary frequency R35.0 ; Ac [place] cystitis with hematuria N30.01 and Seasonal allergic rhinitis, unspecified trigger J30.2 [facility] [address] [address] Jul, [facility] [address] [place] [address] Jun, Seasonal allergic rhinitis, unspecified trigger J30.2 [facility] [address] [place] [address] Dec, Urinary frequency R35.0 ; Ac [place] cystitis with hematuria N30.01 ; Seasonal allergic rhinitis, unspecified trigger J30.2 and Impacted cerumen, bilateral H61.23 [facility] [address] [place] [address] Nov, Sore throat J02.9 and Strep pharyngitis J02.0 [facility] [address] [id number] [address] [place] [id number] Aug, Dental caries K02.9 [facility] [address] [id number] [address] [place] [address] Jul, Allergic contact dermatitis, unspecified trigger L23.9 and Oral abscess K12.2 [facility] [address] [id number] [address] [place] [id number] Jul, Dental caries K02.9 and [place] al examination Z01.20 [facility] [address] [facility] [id number] [address] [place] [address] Aug, Periodontal abscess K05.219 [facility] [address] [place] [id number] [address] [place] [address] May, Allergic rhinitis, unspecifi ed allergic rhinitis type J30.9 and Acute otitis externa of left ear, unspecified type H60.502 [facility] [id number] [place] [address] Sep, [facility] [address] [address] Sep, Ankle pain, right M25.571 [facility] [address] [place] [id number] [address] [place] [address] Aug, [facility] [address] [place] [id number] [address] [place] [address] Aug, [facility] [address] [place] [id number] [address] [place] [address] Jun, [facility] [id number] [place] [address] [id number] May, Dental examination V72.2 [facility] [address] [facility] [id number] [address] [place] [address] May, [facility] [address] [id number] [address] [place] [address] [id number] May, Dental examination V72.2 [facility] [address] [id number] [address] [place] [id number] Apr, Dental examination V72.2 [facility] [address] [id number] [address] [place] [address] Apr, [facility] [address] [id number] [address] [place] [address] [id number] March, Dental examination V72.2 [facility] [address] [id number] [address] [place] [address] March, [facility] [address] [id number] [address] [place] [address] Feb, [facility] [address] [id number] [address] [place] [address] Feb, [facility] [address] [id number] [address] [place] [address] Jan, [facility] [address] [id number] [address] [place] [id number] 17 Jan, 2015 [facility] [address] [id number] [address] [place] [id number] 16 Jan, 2015 [facility] [address] [id number] [address] [place] [id number] 16 Jan, 2015 [facility] [address] [id number] [address] [place] [id number] Jan, [facility] [address] [id number] [address] [place] [id number] Jan, [facility] [address] [id number] [address] [place] [phone] Dec, [facility] [address] [id number] [address] [place] [phone] Dec, [facility] [address] [id number] [address] [place] [address], [place] [address] 16 Dec, 2014 [facility] [address] [id number] [address] [place] [address], [place] [address] Dec, [facility] [address] [id number] [address] [place] [address], [place] [address] Nov, [facility] [address] [id number] [address] [place] [address], [place] [address] Nov, [facility] [address] [id number] [address] [place] [address], [place] [address] Oct, [facility] [address] [id number] [address] [place] [address], [place] [address] Oct, [facility] [address] [id number] [address] [place] [address], [place] [address] Oct, [facility] [address] [id number] [address] [place] [address], [place] [address] Oct, [facility] [address] [id number] [address] [place] [address], [place] [address] Oct, [facility] [address] [id number] [address] [place] [address], [place] [address] Oct, [facility] [address] [id number] [address] [place] [address], [place] [address] Sep, [facility] [address] [id number] [address] [place] [address], [place] [address] Sep, [facility] [address] [id number] [address] [place] [address], [place] [address] Sep, [facility] [address] [id number] [address] [place] [address], [place] [address] Sep, [facility] [address] [id number] [address] [place] [address], [place] [address] Sep, [facility] [address] [id number] [address] [place] [address], [place] [address] Sep, [facility] [address] [id number] [address] [place] [address], [place] [address] Sep, [facility] [address] [id number] [address] [place] [address], [place] [address] Sep, [facility] [address] [id number] [address] [place] [address], [place] [address] Aug, [facility] [address] [id number] [address] [place] [address], [place] [address] Aug, [facility] [address] [id number] [address] [place] [address], [place] [address] Aug, [facility] [address] [id number] [address] [place] [address], [place] [address] Aug, [facility] [address] [id number] [address] [place] [address], [place] [address] Aug, [facility] [address] [id number] [address] [place] [address], [place] [address] Aug, [facility] [address] [id number] [address] [place] [address], [place] [address] Aug, [facility] [address] [id number] [address] [place] [id number] Aug, [facility] [address] [id number] [address] [place] [address] Aug, [facility] [address] [id number] [address] [place] [address] Aug, [facility] [address] [id number] [address] [place] [address], [place] [address] Jul, [facility] [address] [id number] [address] [place] [address], [place] [address] Jul, [facility] [address] [id number] [address] [place] [address] Jun, [facility] [address] [id number] [address] [place] [address] Jun, [facility] [address] [id number] [address] [place] [address], [place] [address] May, [facility] [address] [id number] [address] [place] [address], [place] [address] May, [facility] [address] [id number] [address] [place] [address], [place] [address] Apr, [facility] [address] [id number] [address] [place] [address], [place] [address] Apr, [facility] [address] [id number] [address] [place] [address], [place] [address] Apr, [facility] [address] [id number] [address] [place] [address], [place] [address] Apr, [facility] [address] [id number] [address] [place] [address], [place] [address] March, [facility] [address] [id number] [address] [place] [address], [place] [address] March, [facility] [address] [id number] [address] [place] [address], [place] [address] Jan, [facility] [address] [id number] [address] [place] [address], [place] [address] Jan, [facility] [address] [id number] [address] [place] [address], [place] [address] Oct, [facility] [address] [id number] [address] [place] [address], [place] [address] Oct, [facility] [address] [id number] [address] [place] [address], [place] [address] Sep, [facility] [address] [id number] [address] [place] [address], [place] [address] Sep, [facility] [address] [id number] [address] [place] [address], [place] [address] Aug, [facility] [address] [id number] [address] [place] [address], [place] [address] 17 Aug, 2013 [facility] [address] [id number] [address] [place] [address], [place] [address] 25 Jul, 2012 [facility] [address] [id number] [address] [place] [address], [place] [address] 20 Jul, 2012 [facility] [address] [id number] [address] [place] [address], [place] [address] 16 Jul, 2012 [facility] [address] [id number] [address] [place] [address], [place] [address] 09 Jul, 2012 [facility] [address] [id number] [address] [place] [address], [place] [address] 05 Jul, 2012 [facility] [address] [id number] [address] [place] [address], [place] [address] 05 Jul, 2012 [facility] [address] [id number] [address] [place] [address], [place] [address] 03 Jul, 2012 [facility] [address] [id number] [address] [place] [address], [place] [address] Jun, [facility] [address] [id number] [address] [place] [address], [place] [address] Jun, [facility] [address] [id number] [address] [place] [address], [place] [address] May, [facility] [address] [id number] [address] [place] [address], [place] [address] May, [facility] [address] [id number] [address] [place] [address], [place] [address] May, [facility] [address] [id number] [address] [place] [address], [place] [address] May, [facility] [address] [id number] [address] [place] [address], [place] [address] May, [facility] [address] [id number] [address] [place] [address] [address] March, [facility] [address] [id number] [address] [place] [address] March, [facility] [address] [id number] [address] [place] [address] Oct, [facility] [address] [id number] [address] [place] [address] Oct, [facility] [address] [id number] [address] [place] [address] Jun, [facility] [address] [id number] [address] [place] [address] Nov, [facility] [address] [id number] [address] [place] [address] Aug, [facility] [address] [id number] [address] [place] [address] Aug, [facility] [address] [id number] [address] [place] [address] Dec, [facility] [address] [id number] [address] [place] [address] Oct, [facility] [address] [id number] [address] [place] [address] Oct, [facility] [address] [id number] [address] [place] [address] Jun, IMMUNIZATIONS No Known Immunizations SOCIAL HISTORY [...]
--- OUTSIDE RECORDS SUMMARY | 2020-05-26 23:10 | XMS REPORT ---
Author Author Riya MOFFETT Organization [facility] Address [address] [place] [address] Care Team Providers Care Cosmetic Counselor Name Role Phone MALICK MOFFETT Unavailable PROBLEMS Type Condition ICD9-CM Code DCN66-PL Code Onset Dates Condition S tatus SNOMED Code Problem Seasonal allergic rhinitis, unspecified trigger J3 0.2 Active [id number] ALLERGIES No Information ENCOUNTERS Encounter Location Date Diagnosis [facility] [address] [place] [id number] Oct, Acute bronchitis, unspecifie d organism J20.9 [facility] [address] [address] Jul, [facility] [address] [address] Jul, Urinary frequency R35.0 ; Ac segundo cystitis with hematuria N30.01 and Seasonal allergic rhinitis, unspecified trigger J30.2 [facility] [address] [place] [address] Jul, [facility] [address] [place] [address] Jun, Seasonal allergic rhinitis, unspecified trigger J30.2 [facility] [address] [place] [id number] 16 Dec, 2017 Urinary frequency R35.0 ; Ac segundo cystitis with hematuria N30.01 ; Seasonal allergic rhinitis, unspecified trigger J30.2 and Impacted cerumen, bilateral H61.23 [facility] [address] [place] [address] Nov, Sore throat J02.9 and Strep pharyngitis J02.0 [facility] [address] [id number] [address] [place] [id number] Aug, Dental caries K02.9 [facility] [address] [id number] [address] [place] [id number] Jul, Allergic contact dermatitis, unspecified trigger L23.9 and Oral abscess K12.2 [facility] [address] [id number] [address] [place] [id number] Jul, Dental caries K02.9 and Evangeline al examination Z01.20 [facility] [address] [id number] [address] [place] [id number] Aug, Periodontal abscess K05.219 [facility] [address] [id number] [address] [place] [phone] May, Allergic rhinitis, unspecifi ed allergic rhinitis type J30.9 and Acute otitis externa of left ear, unspecified type H60.502 [facility] [address] [id number] [address] [place] [id number] Sep, [facility] [address] [id number] [address] [place] [address] Sep, Ankle pain, right M25.571 [facility] [address] [id number] [address] [place] [phone] Aug, [facility] [address] [id number] [address] [place] [phone] Aug, [facility] [address] [id number] [address] [place] [phone] Jun, [facility] [address] [id number] [address] [place] [id number] May, Dental examination V72.2 [facility] [address] [id number] [address] [place] [phone] May, [facility] [address] [id number] [address] [place] [id number] May, Dental examination V72.2 [facility] [address] [id number] [address] [place] [address] [id number] Apr, Dental examination V72.2 [facility] [address] [id number] [address] [place] [id number] Apr, [facility] [address] [id number] [address] [place] [address] [id number] March, Dental examination V72.2 [facility] [address] [id number] [address] [place] [phone] March, [facility] [address] [id number] [address] [place] [phone] Feb, [facility] [address] [id number] [address] [place] [phone] Feb, [facility] [address] [id number] [address] [place] [phone] Jan, [facility] [address] [id number] [address] [place] [phone] 17 Jan, 2015 [facility] [address] [id number] [address] [place] [phone] 16 Jan, 2015 [facility] [address] [id number] [address] [place] [phone] 16 Jan, 2015 [facility] [address] [id number] [address] [place] [phone] Jan, [facility] [address] [id number] [address] [place] [phone] Jan, [facility] [address] [id number] [address] [place] [phone] Dec, [facility] [address] [id number] [address] [place] [phone] Dec, [facility] [address] [id number] [address] [place] [phone] Dec, [facility] [address] [id number] [address] [place] [address], [place] [address] Dec, [facility] [address] [id number] [address] [place] [address], [place] [address] Nov, [facility] [address] [id number] [address] [place] [address], [place] [address] Nov, [facility] [address] [id number] [address] [place] [address], [place] [address] Oct, [facility] [address] [id number] [address] [place] [address], [place] [address] Oct, [facility] [address] [id number] [address] [place] [address], [place] [address] Oct, [facility] [address] [id number] [address] [place] [address], [place] [address] Oct, [facility] [address] [id number] [address] [place] [address], [place] [address] Oct, [facility] [address] [id number] [address] [place] [address], [place] [address] Oct, [facility] [address] [id number] [address] [place] [address], [place] [address] Sep, [facility] [address] [id number] [address] [place] [address], [place] [address] Sep, [facility] [address] [id number] [address] [place] [address], [place] [address] Sep, [facility] [address] [id number] [address] [place] [address], [place] [address] Sep, [facility] [address] [id number] [address] [place] [address], [place] [address] Sep, [facility] [address] [id number] [address] [place] [address], [place] [address] Sep, [facility] [address] [id number] [address] [place] [address], [place] [address] Sep, [facility] [address] [id number] [address] [place] [address], [place] [address] Sep, [facility] [address] [id number] [address] [place] [address], [place] [address] Aug, [facility] [address] [id number] [address] [place] [address], [place] [address] Aug, [facility] [address] [id number] [address] [place] [address], [place] [address] Aug, [facility] [address] [id number] [address] [place] [address], [place] [address] Aug, [facility] [address] [id number] [address] [place] [address], [place] [address] Aug, [facility] [address] [id number] [address] [place] [address], [place] [address] Aug, [facility] [address] [id number] [address] [place] [address], [place] [address] Aug, [facility] [address] [id number] [address] [place] [address], [place] [address] Aug, [facility] [address] [id number] [address] [place] [address], [place] [address] Aug, [facility] [address] [id number] [address] [place] [address], [place] [address] Aug, [facility] [address] [id number] [address] [place] [address], [place] [address] Jul, [facility] [address] [id number] [address] [place] [address], [place] [address] Jul, [facility] [address] [id number] [address] [place] [address], [place] [address] Jun, [facility] [address] [id number] [address] [place] [address] [address] Jun, [facility] [address] [id number] [address] [place] [address], [place] [address] May, [facility] [address] [id number] [address] [place] [address], [place] [address] May, [facility] [address] [id number] [address] [place] [address], [place] [address] Apr, [facility] [address] [id number] [address] [place] [address], [place] [address] Apr, [facility] [address] [id number] [address] [place] [address], [place] [address] Apr, [facility] [address] [id number] [address] [place] [address], [place] [address] Apr, [facility] [address] [id number] [address] [place] [address], [place] [address] March, [facility] [address] [id number] [address] [place] [address], [place] [address] March, [facility] [address] [id number] [address] [place] [address], [place] [address] Jan, [facility] [address] [id number] [address] [place] [address], [place] [address] Jan, [facility] [address] [id number] [address] [place] [address], [place] [address] Oct, [facility] [address] [id number] [address] [place] [address], [place] [address] Oct, [facility] [address] [id number] [address] [place] [address], [place] [address] Sep, [facility] [address] [id number] [address] [place] [address], [place] [address] Sep, [facility] [address] [id number] [address] [place] [address], [place] [address] 17 Aug, 2013 [facility] [address] [id number] [address] [place] [address], [place] [address] 17 Aug, 2013 [facility] [address] [id number] [address] [place] [address], [place] [address] 25 Jul, 2012 [facility] [address] [id number] [address] [place] [address], [place] [address] 20 Jul, 2012 [facility] [address] [id number] [address] [place] [address], [place] [address] 16 Jul, 2012 [facility] [address] [id number] [address] [place] [address], [place] [address] 09 Jul, 2012 [facility] [address] [id number] [address] [place] [address], [place] [address] 05 Jul, 2012 [facility] [address] [id number] [address] [place] [address], [place] [address] 05 Jul, 2012 [facility] [address] [id number] [address] [place] [address], [place] [address] 03 Jul, 2012 [facility] [address] [id number] [address] [place] [address], [place] [address] Jun, [facility] [address] [id number] [address] [place] [address], [place] [address] Jun, [facility] [address] [id number] [address] [place] [address], [place] [address] May, [facility] [address] [id number] [address] [place] [address], [place] [address] May, [facility] [address] [id number] [address] [place] [address], [place] [address] May, [facility] [address] [id number] [address] [place] [address], [place] [address] May, [facility] [address] [id number] [address] [place] [address], [place] [address] May, [facility] [address] [id number] [address] [place] [address], [place] [address] March, [facility] [address] [id number] [address] [place] [id number] March, [facility] [address] [id number] [address] [place] [id number] Oct, [facility] [address] [id number] [address] [place] [id number] Oct, [facility] [address] [id number] [address] [place] [address] Jun, [facility] [address] [id number] [address] [place] [address] Nov, [facility] [address] [id number] [address] [place] [address] Aug, [facility] [address] [id number] [address] [place] [id number] Aug, [facility] [address] [id number] [address] [place] [address] Dec, [facility] [address] [id number] [address] [place] [id number] Oct, [facility] [address] [id number] [address] [place] [id number] Oct, [facility] [address] [id number] [address] [place] [id number] Jun, IMMUNIZATIONS No Known Immunizations SOCIAL HISTORY [...]
--- OUTSIDE RECORDS SUMMARY | 2020-05-26 23:10 | XMS REPORT ---
Author Author Riya FIORE Organization [facility] Address [address] [place] [address] Care Team Providers Care Junior Loan Processor Name Role Phone ORQUIDEA FIORE Unavailable PROBLEMS Type Condition ICD9-CM Code VOP36-ER Code Onset Dates Condition S tatus SNOMED Code Problem Seasonal allergic rhinitis, unspecified trigger J3 0.2 Active [id number] ALLERGIES No Information ENCOUNTERS Encounter Location Date Diagnosis [facility] [address] [place] [id number] Oct, Acute bronchitis, unspecifie d organism J20.9 [facility] [address] [address] Jul, [facility] [address] [place] [phone] Jul, Urinary frequency R35.0 ; Ac [place] cystitis with hematuria N30.01 and Seasonal allergic rhinitis, unspecified trigger J30.2 [facility] [address] [address] Jul, [facility] [address] [place] [address] Jun, Seasonal allergic rhinitis, unspecified trigger J30.2 [facility] [address] [place] [address] Dec, Urinary frequency R35.0 ; Ac [place] cystitis with hematuria N30.01 ; Seasonal allergic rhinitis, unspecified trigger J30.2 and Impacted cerumen, bilateral H61.23 [facility] [address] [place] [address] Nov, Sore throat J02.9 and Strep pharyngitis J02.0 [facility] [address] [id number] [address] [place] [id number] Aug, Dental caries K02.9 [facility] [address] [id number] [address] [place] [phone] Jul, Allergic contact dermatitis, unspecified trigger L23.9 and Oral abscess K12.2 [facility] [address] [id number] [address] [place] [id number] Jul, Dental caries K02.9 and Fairlee al examination Z01.20 [facility] [address] [facility] [id number] [address] [place] [address] Aug, Periodontal abscess K05.219 [facility] [address] [id number] [address] [place] [id number] May, Allergic rhinitis, unspecifi ed allergic rhinitis type J30.9 and Acute otitis externa of left ear, unspecified type H60.502 [facility] [id number] [place] [address] Sep, [facility] [address] [address] Sep, Ankle pain, right M25.571 [facility] [address] [id number] [address] [place] [address] Aug, [facility] [address] [id number] [address] [place] [phone] Aug, [facility] [address] [id number] [address] [place] [id number] Jun, [facility] [address] [id number] [place] [id number] May, Dental examination V72.2 [facility] [address] [facility] [id number] [address] [place] [phone] May, [facility] [address] [id number] [address] [place] [id number] May, Dental examination V72.2 [facility] [address] [id number] [address] [place] [id number] Apr, Dental examination V72.2 [facility] [address] [id number] [address] [place] [phone] Apr, [facility] [address] [id number] [address] [place] [id number] March, Dental examination V72.2 [facility] [address] [id number] [address] [place] [phone] March, [facility] [address] [id number] [address] [place] [phone] Feb, [facility] [address] [id number] [address] [place] [phone] Feb, [facility] [address] [id number] [address] [place] [id number] Jan, [facility] [address] [id number] [address] [place] [id number] 17 Jan, 2015 [facility] [address] [id number] [address] [place] [phone] 16 Jan, 2015 [facility] [address] [id number] [address] [place] [id number] 16 Jan, 2015 [facility] [address] [id number] [address] [place] [phone] Jan, [facility] [address] [id number] [address] [place] [phone] Jan, [facility] [address] [id number] [address] [place] [phone] Dec, [facility] [address] [id number] [address] [place] [phone] Dec, [facility] [address] [id number] [address] [place] [address], [place] [address] 16 Dec, 2014 [facility] [address] [id number] [address] [place] [address], [place] [address] Dec, [facility] [address] [id number] [address] [place] [address], [place] [address] Nov, [facility] [address] [id number] [address] [place] [address], [place] [address] Nov, [facility] [address] [id number] [address] [place] [address], [place] [address] Oct, [facility] [address] [id number] [address] [place] [address], [place] [address] Oct, [facility] [address] [id number] [address] [place] [address], [place] [address] Oct, [facility] [address] [id number] [address] [place] [address], [place] [address] Oct, [facility] [address] [id number] [address] [place] [address], [place] [address] Oct, [facility] [address] [id number] [address] [place] [address], [place] [address] Oct, [facility] [address] [id number] [address] [place] [address], [place] [address] Sep, [facility] [address] [id number] [address] [place] [address], [place] [address] Sep, [facility] [address] [id number] [address] [place] [address], [place] [address] Sep, [facility] [address] [id number] [address] [place] [address], [place] [address] Sep, [facility] [address] [id number] [address] [place] [address], [place] [address] Sep, [facility] [address] [id number] [address] [place] [address], [place] [address] Sep, [facility] [address] [id number] [address] [place] [address], [place] [address] Sep, [facility] [address] [id number] [address] [place] [address], [place] [address] Sep, [facility] [address] [id number] [address] [place] [address], [place] [address] Aug, [facility] [address] [id number] [address] [place] [address], [place] [address] Aug, [facility] [address] [id number] [address] [place] [address], [place] [address] Aug, [facility] [address] [id number] [address] [place] [address], [place] [address] Aug, [facility] [address] [id number] [address] [place] [address], [place] [address] Aug, [facility] [address] [id number] [address] [place] [address], [place] [address] Aug, [facility] [address] [id number] [address] [place] [address], [place] [address] Aug, [facility] [address] [id number] [address] [place] [phone] Aug, [facility] [address] [id number] [address] [place] [phone] Aug, [facility] [address] [id number] [address] [place] [phone] Aug, [facility] [address] [id number] [address] [place] [address], [place] [address] Jul, [facility] [address] [id number] [address] [place] [address], [place] [address] Jul, [facility] [address] [id number] [address] [place] [phone] Jun, [facility] [address] [id number] [address] [place] [phone] Jun, [facility] [address] [id number] [address] [place] [address], [place] [address] May, [facility] [address] [id number] [address] [place] [address], [place] [address] May, [facility] [address] [id number] [address] [place] [address], [place] [address] Apr, [facility] [address] [id number] [address] [place] [address], [place] [address] Apr, [facility] [address] [id number] [address] [place] [address], [place] [address] Apr, [facility] [address] [id number] [address] [place] [address], [place] [address] Apr, [facility] [address] [id number] [address] [place] [address], [place] [address] March, [facility] [address] [id number] [address] [place] [address], [place] [address] March, [facility] [address] [id number] [address] [place] [address], [place] [address] Jan, [facility] [address] [id number] [address] [place] [address], [place] [address] Jan, [facility] [address] [id number] [address] [place] [address], [place] [address] Oct, [facility] [address] [id number] [address] [place] [address], [place] [address] Oct, [facility] [address] [id number] [address] [place] [address], [place] [address] Sep, [facility] [address] [id number] [address] [place] [address], [place] [address] Sep, [facility] [address] [id number] [address] [place] [address], [place] [address] Aug, [facility] [address] [id number] [address] [place] [address], [place] [address] 17 Aug, 2013 [facility] [address] [id number] [address] [place] [address], [place] [address] 25 Jul, 2012 [facility] [address] [id number] [address] [place] [address], [place] [address] 20 Jul, 2012 [facility] [address] [id number] [address] [place] [address], [place] [address] 16 Jul, 2012 [facility] [address] [id number] [address] [place] [address], [place] [address] 09 Jul, 2012 [facility] [address] [id number] [address] [place] [address], [place] [address] 05 Jul, 2012 [facility] [address] [id number] [address] [place] [address], [place] [address] 05 Jul, 2012 [facility] [address] [id number] [address] [place] [address], [place] [address] 03 Jul, 2012 [facility] [address] [id number] [address] [place] [address], [place] [address] Jun, [facility] [address] [id number] [address] [place] [address], [place] [address] Jun, [facility] [address] [id number] [address] [place] [address], [place] [address] May, [facility] [address] [id number] [address] [place] [address], [place] [address] May, [facility] [address] [id number] [address] [place] [address], [place] [address] May, [facility] [address] [id number] [address] [place] [address], [place] [address] May, [facility] [address] [id number] [address] [place] [address], [place] [address] May, [facility] [address] [id number] [address] [place] [address] [address] March, [facility] [address] [id number] [address] [place] [id number] March, [facility] [address] [id number] [address] [place] [id number] Oct, [facility] [address] [id number] [address] [place] [phone] Oct, [facility] [address] [id number] [address] [place] [phone] Jun, [facility] [address] [id number] [address] [place] [phone] Nov, [facility] [address] [id number] [address] [place] [phone] Aug, [facility] [address] [id number] [address] [place] [phone] Aug, [facility] [address] [id number] [address] [place] [id number] Dec, [facility] [address] [id number] [address] [place] [id number] Oct, [facility] [address] [id number] [address] [place] [id number] Oct, [facility] [address] [id number] [address] [place] [phone] Jun, IMMUNIZATIONS No Known Immunizations SOCIAL HISTORY [...]
--- OUTSIDE RECORDS SUMMARY | 2020-05-26 23:10 | XMS REPORT ---
Author Author Riya FIORE Organization [facility] Address [address] [place] [address] Care Team Providers Care Slate Splitter Name Role Phone ORQUIDEA FIORE Unavailable PROBLEMS Type Condition ICD9-CM Code QXW66-ID Code Onset Dates Condition S tatus SNOMED Code Problem Seasonal allergic rhinitis, unspecified trigger J3 0.2 Active [id number] ALLERGIES No Information ENCOUNTERS Encounter Location Date Diagnosis [facility] [address] [place] [address] Oct, Acute bronchitis, unspecifie d organism J20.9 [facility] [address] [address] Jul, [facility] [address] [place] [address] Jul, Urinary frequency R35.0 ; Ac hoh cystitis with hematuria N30.01 and Seasonal allergic rhinitis, unspecified trigger J30.2 [facility] [address] [address] Jul, [facility] [address] [place] [address] Jun, Seasonal allergic rhinitis, unspecified trigger J30.2 [facility] [address] [place] [address] Dec, Urinary frequency R35.0 ; Ac hoh cystitis with hematuria N30.01 ; Seasonal allergic rhinitis, unspecified trigger J30.2 and Impacted cerumen, bilateral H61.23 [facility] [address] [place] [address] Nov, Sore throat J02.9 and Strep pharyngitis J02.0 [facility] [address] [id number] [address] [place] [id number] Aug, Dental caries K02.9 [facility] [address] [id number] [address] [place] [address] Jul, Allergic contact dermatitis, unspecified trigger L23.9 and Oral abscess K12.2 [facility] [address] [id number] [address] [place] [id number] Jul, Dental caries K02.9 and [place] al examination Z01.20 [facility] [address] [facility] [id number] [address] [place] [address] Aug, Periodontal abscess K05.219 [facility] [address] [place] [id number] [address] [place] [address] May, Allergic rhinitis, unspecifi ed allergic rhinitis type J30.9 and Acute otitis externa of left ear, unspecified type H60.502 [facility] [id number] [place] [address] Sep, [facility] [address] [address] Sep, Ankle pain, right M25.571 [facility] [address] [place] [id number] [address] [place] [address] Aug, [facility] [address] [id number] [address] [place] [phone] Aug, [facility] [address] [id number] [address] [place] [address] Jun, [facility] [id number] [place] [id number] May, Dental examination V72.2 [facility] [address] [facility] [id number] [address] [place] [address] May, [facility] [address] [id number] [address] [place] [id number] May, Dental examination V72.2 [facility] [address] [id number] [address] [place] [id number] Apr, Dental examination V72.2 [facility] [address] [id number] [address] [place] [address] Apr, [facility] [address] [id number] [address] [place] [id number] March, Dental examination V72.2 [facility] [address] [id number] [address] [place] [id number] March, [facility] [address] [id number] [address] [place] [address] Feb, [facility] [address] [id number] [address] [place] [address] Feb, [facility] [address] [id number] [address] [place] [id number] Jan, [facility] [address] [id number] [address] [place] [id number] 17 Jan, 2015 [facility] [address] [id number] [address] [place] [id number] 16 Jan, 2015 [facility] [address] [id number] [address] [place] [id number] 16 Jan, 2015 [facility] [address] [id number] [address] [place] [id number] Jan, [facility] [address] [id number] [address] [place] [id number] Jan, [facility] [address] [id number] [address] [place] [phone] Dec, [facility] [address] [id number] [address] [place] [phone] Dec, [facility] [address] [id number] [address] [place] [address], [place] [address] 16 Dec, 2014 [facility] [address] [id number] [address] [place] [address], [place] [address] Dec, [facility] [address] [id number] [address] [place] [address], [place] [address] Nov, [facility] [address] [id number] [address] [place] [address], [place] [address] Nov, [facility] [address] [id number] [address] [place] [address], [place] [address] Oct, [facility] [address] [id number] [address] [place] [address], [place] [address] Oct, [facility] [address] [id number] [address] [place] [address], [place] [address] Oct, [facility] [address] [id number] [address] [place] [address], [place] [address] Oct, [facility] [address] [id number] [address] [place] [address], [place] [address] Oct, [facility] [address] [id number] [address] [place] [address], [place] [address] Oct, [facility] [address] [id number] [address] [place] [address], [place] [address] Sep, [facility] [address] [id number] [address] [place] [address], [place] [address] Sep, [facility] [address] [id number] [address] [place] [address], [place] [address] Sep, [facility] [address] [id number] [address] [place] [address], [place] [address] Sep, [facility] [address] [id number] [address] [place] [address], [place] [address] Sep, [facility] [address] [id number] [address] [place] [address], [place] [address] Sep, [facility] [address] [id number] [address] [place] [address], [place] [address] Sep, [facility] [address] [id number] [address] [place] [address], [place] [address] Sep, [facility] [address] [id number] [address] [place] [address], [place] [address] Aug, [facility] [address] [id number] [address] [place] [address], [place] [address] Aug, [facility] [address] [id number] [address] [place] [address], [place] [address] Aug, [facility] [address] [id number] [address] [place] [address], [place] [address] Aug, [facility] [address] [id number] [address] [place] [address], [place] [address] Aug, [facility] [address] [id number] [address] [place] [address], [place] [address] Aug, [facility] [address] [id number] [address] [place] [address], [place] [address] Aug, [facility] [address] [id number] [address] [place] [address] Aug, [facility] [address] [id number] [address] [place] [address] Aug, [facility] [address] [id number] [address] [place] [address] Aug, [facility] [address] [id number] [address] [place] [address], [place] [address] Jul, [facility] [address] [id number] [address] [place] [address], [place] [address] Jul, [facility] [address] [id number] [address] [place] [address] Jun, [facility] [address] [id number] [address] [place] [address] Jun, [facility] [address] [id number] [address] [place] [address], [place] [address] May, [facility] [address] [id number] [address] [place] [address], [place] [address] May, [facility] [address] [id number] [address] [place] [address], [place] [address] Apr, [facility] [address] [id number] [address] [place] [address], [place] [address] Apr, [facility] [address] [id number] [address] [place] [address], [place] [address] Apr, [facility] [address] [id number] [address] [place] [address], [place] [address] Apr, [facility] [address] [id number] [address] [place] [address], [place] [address] March, [facility] [address] [id number] [address] [place] [address], [place] [address] March, [facility] [address] [id number] [address] [place] [address], [place] [address] Jan, [facility] [address] [id number] [address] [place] [address], [place] [address] Jan, [facility] [address] [id number] [address] [place] [address], [place] [address] Oct, [facility] [address] [id number] [address] [place] [address], [place] [address] Oct, [facility] [address] [id number] [address] [place] [address], [place] [address] Sep, [facility] [address] [id number] [address] [place] [address], [place] [address] Sep, [facility] [address] [id number] [address] [place] [address], [place] [address] Aug, [facility] [address] [id number] [address] [place] [address], [place] [address] 17 Aug, 2013 [facility] [address] [id number] [address] [place] [address], [place] [address] 25 Jul, 2012 [facility] [address] [id number] [address] [place] [address], [place] [address] 20 Jul, 2012 [facility] [address] [id number] [address] [place] [address], [place] [address] 16 Jul, 2012 [facility] [address] [id number] [address] [place] [address], [place] [address] 09 Jul, 2012 [facility] [address] [id number] [address] [place] [address], [place] [address] 05 Jul, 2012 [facility] [address] [id number] [address] [place] [address], [place] [address] 05 Jul, 2012 [facility] [address] [id number] [address] [place] [address], [place] [address] 03 Jul, 2012 [facility] [address] [id number] [address] [place] [address], [place] [address] Jun, [facility] [address] [id number] [address] [place] [address], [place] [address] Jun, [facility] [address] [id number] [address] [place] [address], [place] [address] May, [facility] [address] [id number] [address] [place] [address], [place] [address] May, [facility] [address] [id number] [address] [place] [address], [place] [address] May, [facility] [address] [id number] [address] [place] [address], [place] [address] May, [facility] [address] [id number] [address] [place] [address], [place] [address] May, [facility] [address] [id number] [address] [place] [address] [address] March, [facility] [address] [id number] [address] [place] [address] March, [facility] [address] [id number] [address] [place] [address] Oct, [facility] [address] [id number] [address] [place] [address] Oct, [facility] [address] [id number] [address] [place] [address] Jun, [facility] [address] [id number] [address] [place] [address] Nov, [facility] [address] [id number] [address] [place] [address] Aug, [facility] [address] [id number] [address] [place] [address] Aug, [facility] [address] [id number] [address] [place] [address] Dec, [facility] [address] [id number] [address] [place] [address] Oct, [facility] [address] [id number] [address] [place] [address] Oct, [facility] [address] [id number] [address] [place] [address] Jun, IMMUNIZATIONS No Known Immunizations SOCIAL HISTORY Never Assessed REASON FOR VISIT PLAN OF CARE VITAL SIGNS Height 64 in 2015-02-08 Weight 170.31 lbs 2015-02-08 Temperature 99.1 degrees Fahrenheit 2015-02-08 Heart Rate 72 bpm 2015-02-08 Respiratory Rate 18 2015-02-08 Blood pressure systolic 112 mmHg 2015-02-08 Blood pressure diastolic 62 mmHg 2015-02-08 MEDICATIONS No Known Medications RESULTS No Results PROCEDURES Procedure Date Ordered Result Body Site VISIT February 08, 2015 INSTRUCTIONS MEDICATIONS ADMINISTERED No Known Medications MEDICAL (GENERAL) HISTORY Type Description Date Medical History hypertension Medical History Arthritis Medical History Family history of diabetes mellitus Medical History Flat foot Medical History Cervicalgia Surgical History bladder surgery Surgical History cyst removal Hospitalization History surgery related
--- OUTSIDE RECORDS SUMMARY | 2020-05-26 23:10 | XMS REPORT ---
Author Author Riya FIORE Organization [facility] Address [address] [place] [address] Care Team Providers Care Sales Center Manager Name Role Phone ORQUIDEA FIORE Unavailable PROBLEMS Type Condition ICD9-CM Code [id number] Code Onset Dates Condition S tatus SNOMED Code Problem Seasonal allergic rhinitis, unspecified trigger J3 0.2 Active [id number] ALLERGIES No Information ENCOUNTERS Encounter Location Date Diagnosis [facility] [address] [place] [address] Oct, Acute bronchitis, unspecifie d organism J20.9 [facility] [address] [address] Jul, [facility] [address] [place] [address] Jul, Urinary frequency R35.0 ; Ac [place] cystitis with hematuria N30.01 and Seasonal allergic rhinitis, unspecified trigger J30.2 [facility] [address] [address] Jul, [facility] [address] [place] [address] Jun, Seasonal allergic rhinitis, unspecified trigger J30.2 [facility] [address] [place] [address] Dec, Urinary frequency R35.0 ; Ac [place] cystitis with hematuria N30.01 ; Seasonal allergic rhinitis, unspecified trigger J30.2 and Impacted cerumen, bilateral H61.23 [facility] [address] [place] [address] Nov, Sore throat J02.9 and Strep pharyngitis J02.0 [facility] [address] [id number] [address] [place] [id number] Aug, Dental caries K02.9 [facility] [address] [id number] [address] [place] [address] Jul, Allergic contact dermatitis, unspecified trigger L23.9 and Oral abscess K12.2 [facility] [address] [id number] [address] [place] [id number] Jul, Dental caries K02.9 and Rociada al examination Z01.20 [facility] [address] [facility] [id number] [address] [place] [address] Aug, Periodontal abscess K05.219 [facility] [address] [place] [id number] [address] [place] [address] May, Allergic rhinitis, unspecifi ed allergic rhinitis type J30.9 and Acute otitis externa of left ear, unspecified type H60.502 [facility] [id number] [place] [address] Sep, [facility] [address] [address] Sep, Ankle pain, right M25.571 [facility] [address] [place] [id number] [address] [place] [address] Aug, [facility] [address] [place] [id number] [address] [place] [address] Aug, [facility] [address] [place] [id number] [address] [place] [address] Jun, [facility] [address] [id number] [place] [id number] May, Dental examination V72.2 [facility] [address] [facility] [id number] [address] [place] [address] May, [facility] [address] [id number] [address] [place] [id number] May, Dental examination V72.2 [facility] [address] [id number] [address] [place] [id number] Apr, Dental examination V72.2 [facility] [address] [id number] [address] [place] [phone] Apr, [facility] [address] [id number] [address] [place] [id number] March, Dental examination V72.2 [facility] [address] [id number] [address] [place] [address] March, [facility] [address] [id number] [address] [place] [id number] Feb, [facility] [address] [id number] [address] [place] [phone] Feb, [facility] [address] [id number] [address] [place] [phone] Jan, [facility] [address] [id number] [address] [place] [phone] 17 Jan, 2015 [facility] [address] [id number] [address] [place] [phone] 16 Jan, 2015 [facility] [address] [id number] [address] [place] [phone] 16 Jan, 2015 [facility] [address] [id number] [address] [place] [phone] Jan, [facility] [address] [id number] [address] [place] [phone] Jan, [facility] [address] [id number] [address] [place] [phone] Dec, [facility] [address] [id number] [address] [place] [phone] Dec, [facility] [address] [id number] [address] [place] [address], [place] [address] 16 Dec, 2014 [facility] [address] [id number] [address] [place] [address], [place] [address] Dec, [facility] [address] [id number] [address] [place] [address], [place] [address] Nov, [facility] [address] [id number] [address] [place] [address], [place] [address] Nov, [facility] [address] [id number] [address] [place] [address], [place] [address] Oct, [facility] [address] [id number] [address] [place] [address], [place] [address] Oct, [facility] [address] [id number] [address] [place] [address], [place] [address] Oct, [facility] [address] [id number] [address] [place] [address], [place] [address] Oct, [facility] [address] [id number] [address] [place] [address], [place] [address] Oct, [facility] [address] [id number] [address] [place] [address], [place] [address] Oct, [facility] [address] [id number] [address] [place] [address], [place] [address] Sep, [facility] [address] [id number] [address] [place] [address], [place] [address] Sep, [facility] [address] [id number] [address] [place] [address], [place] [address] Sep, [facility] [address] [id number] [address] [place] [address], [place] [address] Sep, [facility] [address] [id number] [address] [place] [address], [place] [address] Sep, [facility] [address] [id number] [address] [place] [address], [place] [address] Sep, [facility] [address] [id number] [address] [place] [address], [place] [address] Sep, [facility] [address] [id number] [address] [place] [address], [place] [address] Sep, [facility] [address] [id number] [address] [place] [address], [place] [address] Aug, [facility] [address] [id number] [address] [place] [address], [place] [address] Aug, [facility] [address] [id number] [address] [place] [address], [place] [address] Aug, [facility] [address] [id number] [address] [place] [address], [place] [address] Aug, [facility] [address] [id number] [address] [place] [address], [place] [address] Aug, [facility] [address] [id number] [address] [place] [address], [place] [address] Aug, [facility] [address] [id number] [address] [place] [address], [place] [address] Aug, [facility] [address] [id number] [address] [place] [address] Aug, [facility] [address] [id number] [address] [place] [phone] Aug, [facility] [address] [id number] [address] [place] [phone] Aug, [facility] [address] [id number] [address] [place] [address], [place] [address] Jul, [facility] [address] [id number] [address] [place] [address], [place] [address] Jul, [facility] [address] [id number] [address] [place] [phone] Jun, [facility] [address] [id number] [address] [place] [phone] Jun, [facility] [address] [id number] [address] [place] [address], [place] [address] May, [facility] [address] [id number] [address] [place] [address], [place] [address] May, [facility] [address] [id number] [address] [place] [address], [place] [address] Apr, [facility] [address] [id number] [address] [place] [address], [place] [address] Apr, [facility] [address] [id number] [address] [place] [address], [place] [address] Apr, [facility] [address] [id number] [address] [place] [address], [place] [address] Apr, [facility] [address] [id number] [address] [place] [address], [place] [address] March, [facility] [address] [id number] [address] [place] [address], [place] [address] March, [facility] [address] [id number] [address] [place] [address], [place] [address] Jan, [facility] [address] [id number] [address] [place] [address], [place] [address] Jan, [facility] [address] [id number] [address] [place] [address], [place] [address] Oct, [facility] [address] [id number] [address] [place] [address], [place] [address] Oct, [facility] [address] [id number] [address] [place] [address], [place] [address] Sep, [facility] [address] [id number] [address] [place] [address], [place] [address] Sep, [facility] [address] [id number] [address] [place] [address], [place] [address] Aug, [facility] [address] [id number] [address] [place] [address], [place] [address] 17 Aug, 2013 [facility] [address] [id number] [address] [place] [address], [place] [address] 25 Jul, 2012 [facility] [address] [id number] [address] [place] [address], [place] [address] 20 Jul, 2012 [facility] [address] [id number] [address] [place] [address], [place] [address] 16 Jul, 2012 [facility] [address] [id number] [address] [place] [address], [place] [address] 09 Jul, 2012 [facility] [address] [id number] [address] [place] [address], [place] [address] 05 Jul, 2012 [facility] [address] [id number] [address] [place] [address], [place] [address] 05 Jul, 2012 [facility] [address] [id number] [address] [place] [address], [place] [address] 03 Jul, 2012 [facility] [address] [id number] [address] [place] [address], [place] [address] Jun, [facility] [address] [id number] [address] [place] [address], [place] [address] Jun, [facility] [address] [id number] [address] [place] [address], [place] [address] May, [facility] [address] [id number] [address] [place] [address], [place] [address] May, [facility] [address] [id number] [address] [place] [address], [place] [address] May, [facility] [address] [id number] [address] [place] [address], [place] [address] May, [facility] [address] [id number] [address] [place] [address], [place] [address] May, [facility] [address] [id number] [address] [place] [address] [address] March, [facility] [address] [id number] [address] [place] [phone] March, [facility] [address] [id number] [address] [place] [address] Oct, [facility] [address] [id number] [address] [place] [address] Oct, [facility] [address] [id number] [address] [place] [address] Jun, [facility] [address] [id number] [address] [place] [address] Nov, [facility] [address] [id number] [address] [place] [address] Aug, [facility] [address] [id number] [address] [place] [address] Aug, [facility] [address] [id number] [address] [place] [address] Dec, [facility] [address] [id number] [address] [place] [phone] Oct, [facility] [address] [id number] [address] [place] [address] Oct, [facility] [address] [id number] [address] [place] [address] Jun, IMMUNIZATIONS No Known Immunizations SOCIAL HISTORY [...]
--- OUTSIDE RECORDS SUMMARY | 2020-05-26 23:10 | XMS REPORT ---
Author Author Riya FIORE Organization [facility] Address [address] [place] [address] Care Team Providers Care Insurance Claims Assistant Name Role Phone ORQUIDEA FIORE Unavailable PROBLEMS Type Condition ICD9-CM Code EVD61-VB Code Onset Dates Condition S tatus SNOMED Code Problem Seasonal allergic rhinitis, unspecified trigger J3 0.2 Active [id number] ALLERGIES No Information ENCOUNTERS Encounter Location Date Diagnosis [facility] [address] [place] [address] Oct, Acute bronchitis, unspecifie d organism J20.9 [facility] [address] [address] Jul, [facility] [address] [place] [address] Jul, Urinary frequency R35.0 ; Ac [place] cystitis with hematuria N30.01 and Seasonal allergic rhinitis, unspecified trigger J30.2 [facility] [address] [address] Jul, [facility] [address] [place] [address] Jun, Seasonal allergic rhinitis, unspecified trigger J30.2 [facility] [address] [place] [address] Dec, Urinary frequency R35.0 ; Ac [place] cystitis with hematuria N30.01 ; Seasonal allergic rhinitis, unspecified trigger J30.2 and Impacted cerumen, bilateral H61.23 [facility] [address] [place] [address] Nov, Sore throat J02.9 and Strep pharyngitis J02.0 [facility] [address] [id number] [address] [place] [id number] Aug, Dental caries K02.9 [facility] [address] [id number] [address] [place] [address] Jul, Allergic contact dermatitis, unspecified trigger L23.9 and Oral abscess K12.2 [facility] [address] [id number] [address] [place] [id number] Jul, Dental caries K02.9 and Troy al examination Z01.20 [facility] [address] [facility] [id number] [address] [place] [address] Aug, Periodontal abscess K05.219 [facility] [address] [place] [id number] [address] [place] [address] May, Allergic rhinitis, unspecifi ed allergic rhinitis type J30.9 and Acute otitis externa of left ear, unspecified type H60.502 [facility] [id number] [place] [address] Sep, [facility] [address] [address] Sep, Ankle pain, right M25.571 [facility] [address] [place] [id number] [address] [place] [address] Aug, [facility] [address] [place] [id number] [address] [place] [address] Aug, [facility] [address] [place] [id number] [address] [place] [address] Jun, [facility] [address] [id number] [place] [id number] May, Dental examination V72.2 [facility] [address] [facility] [id number] [address] [place] [address] May, [facility] [address] [place] [place] [id number] [address] [place] [address] [id number] May, Dental examination V72.2 [facility] [address] [id number] [address] [place] [id number] Apr, Dental examination V72.2 [facility] [address] [id number] [address] [place] [address] Apr, [facility] [address] [id number] [address] [place] [address] [id number] March, Dental examination V72.2 [facility] [address] [id number] [address] [place] [address] March, [facility] [address] [id number] [address] [place] [address] Feb, [facility] [address] [id number] [address] [place] [address] Feb, [facility] [address] [id number] [address] [place] [address] Jan, [facility] [address] [id number] [address] [place] [address] 17 Jan, 2015 [facility] [address] [id number] [address] [place] [address] 16 Jan, 2015 [facility] [address] [id number] [address] [place] [address] 16 Jan, 2015 [facility] [address] [id number] [address] [place] [address] Jan, [facility] [address] [id number] [address] [place] [address] Jan, [facility] [address] [id number] [address] [place] [address] Dec, [facility] [address] [id number] [address] [place] [address] Dec, [facility] [address] [id number] [address] [place] [address], [place] [address] 16 Dec, 2014 [facility] [address] [id number] [address] [place] [address], [place] [address] Dec, [facility] [address] [id number] [address] [place] [address], [place] [address] Nov, [facility] [address] [id number] [address] [place] [address], [place] [address] Nov, [facility] [address] [id number] [address] [place] [address], [place] [address] Oct, [facility] [address] [id number] [address] [place] [address], [place] [address] Oct, [facility] [address] [id number] [address] [place] [address], [place] [address] Oct, [facility] [address] [id number] [address] [place] [address], [place] [address] Oct, [facility] [address] [id number] [address] [place] [address], [place] [address] Oct, [facility] [address] [id number] [address] [place] [address], [place] [address] Oct, [facility] [address] [id number] [address] [place] [address], [place] [address] Sep, [facility] [address] [id number] [address] [place] [address], [place] [address] Sep, [facility] [address] [id number] [address] [place] [address], [place] [address] Sep, [facility] [address] [id number] [address] [place] [address], [place] [address] Sep, [facility] [address] [id number] [address] [place] [address], [place] [address] Sep, [facility] [address] [id number] [address] [place] [address], [place] [address] Sep, [facility] [address] [id number] [address] [place] [address], [place] [address] Sep, [facility] [address] [id number] [address] [place] [address], [place] [address] Sep, [facility] [address] [id number] [address] [place] [address], [place] [address] Aug, [facility] [address] [id number] [address] [place] [address], [place] [address] Aug, [facility] [address] [id number] [address] [place] [address], [place] [address] Aug, [facility] [address] [id number] [address] [place] [address], [place] [address] Aug, [facility] [address] [id number] [address] [place] [address], [place] [address] Aug, [facility] [address] [id number] [address] [place] [address], [place] [address] Aug, [facility] [address] [id number] [address] [place] [address], [place] [address] Aug, [facility] [address] [id number] [address] [place] [address] Aug, [facility] [address] [id number] [address] [place] [address] Aug, [facility] [address] [id number] [address] [place] [address] Aug, [facility] [address] [id number] [address] [place] [address], [place] [address] Jul, [facility] [address] [id number] [address] [place] [address], [place] [address] Jul, [facility] [address] [id number] [address] [place] [address] Jun, [facility] [address] [id number] [address] [place] [address] Jun, [facility] [address] [id number] [address] [place] [address], [place] [address] May, [facility] [address] [id number] [address] [place] [address], [place] [address] May, [facility] [address] [id number] [address] [place] [address], [place] [address] Apr, [facility] [address] [id number] [address] [place] [address], [place] [address] Apr, [facility] [address] [id number] [address] [place] [address], [place] [address] Apr, [facility] [address] [id number] [address] [place] [address], [place] [address] Apr, [facility] [address] [id number] [address] [place] [address], [place] [address] March, [facility] [address] [id number] [address] [place] [address], [place] [address] March, [facility] [address] [id number] [address] [place] [address], [place] [address] Jan, [facility] [address] [id number] [address] [place] [address], [place] [address] Jan, [facility] [address] [id number] [address] [place] [address], [place] [address] Oct, [facility] [address] [id number] [address] [place] [address], [place] [address] Oct, [facility] [address] [id number] [address] [place] [address], [place] [address] Sep, [facility] [address] [id number] [address] [place] [address], [place] [address] Sep, [facility] [address] [id number] [address] [place] [address], [place] [address] Aug, [facility] [address] [id number] [address] [place] [address], [place] [address] 17 Aug, 2013 [facility] [address] [id number] [address] [place] [address], [place] [address] 25 Jul, 2012 [facility] [address] [id number] [address] [place] [address], [place] [address] 20 Jul, 2012 [facility] [address] [id number] [address] [place] [address], [place] [address] 16 Jul, 2012 [facility] [address] [id number] [address] [place] [address], [place] [address] 09 Jul, 2012 [facility] [address] [id number] [address] [place] [address], [place] [address] 05 Jul, 2012 [facility] [address] [id number] [address] [place] [address], [place] [address] 05 Jul, 2012 [facility] [address] [id number] [address] [place] [address], [place] [address] 03 Jul, 2012 [facility] [address] [id number] [address] [place] [address], [place] [address] Jun, [facility] [address] [id number] [address] [place] [address], [place] [address] Jun, [facility] [address] [id number] [address] [place] [address], [place] [address] May, [facility] [address] [id number] [address] [place] [address], [place] [address] May, [facility] [address] [id number] [address] [place] [address], [place] [address] May, [facility] [address] [id number] [address] [place] [address], [place] [address] May, [facility] [address] [id number] [address] [place] [address], [place] [address] May, [facility] [address] [id number] [address] [place] [address] [address] March, [facility] [address] [id number] [address] [place] [address] March, [facility] [address] [id number] [address] [place] [address] Oct, [facility] [address] [id number] [address] [place] [address] Oct, [facility] [address] [id number] [address] [place] [address] Jun, [facility] [address] [id number] [address] [place] [address] Nov, [facility] [address] [id number] [address] [place] [address] Aug, [facility] [address] [id number] [address] [place] [address] Aug, [facility] [address] [id number] [address] [place] [address] Dec, [facility] [address] [id number] [address] [place] [address] Oct, [facility] [address] [id number] [address] [place] [address] Oct, [facility] [address] [id number] [address] [place] [address] Jun, IMMUNIZATIONS No Known Immunizations SOCIAL HISTORY [...]
--- OUTSIDE RECORDS SUMMARY | 2020-05-26 23:11 | XMS REPORT ---
Author Author Riya Aguirre Doctor Organization [facility] Address Unknown Phone Unavailable Care Team Providers Care Laminator Name Role Phone Migration, Doctor Unavailable Unavailable PROBLEMS Type Condition ICD9-CM Code UFL22-WD Code Onset Dates Condition S tatus SNOMED Code Problem Seasonal allergic rhinitis, unspecified trigger J3 0.2 Active [id number] ALLERGIES No Information ENCOUNTERS Encounter Location Date Diagnosis [facility] [address] [place] [id number] Oct, Acute bronchitis, unspecifie d organism J20.9 [facility] [address] [place] [phone] Jul, [facility] [address] [place] [phone] Jul, Urinary frequency R35.0 ; Ac sokaogon cystitis with hematuria N30.01 and Seasonal allergic rhinitis, unspecified trigger J30.2 [facility] [address] [place] [phone] Jul, [facility] [address] [place] [phone] Jun, Seasonal allergic rhinitis, unspecified trigger J30.2 [facility] [address] [place] [phone] 16 Dec, 2017 Urinary frequency R35.0 ; Ac sokaogon cystitis with hematuria N30.01 ; Seasonal allergic rhinitis, unspecified trigger J30.2 and Impacted cerumen, bilateral H61.23 [facility] [address] [place] [phone] Nov, Sore throat J02.9 and Strep pharyngitis J02.0 [facility] [address] [id number] [address] [place] [phone] Aug, Dental caries K02.9 [facility] [address] [id number] [address] [place] [phone] Jul, Allergic contact dermatitis, unspecified trigger L23.9 and Oral abscess K12.2 [facility] [address] [id number] [address] [place] [id number] Jul, Dental caries K02.9 and [place] al examination Z01.20 [facility] [address] [id number] [address] [place] [phone] Aug, Periodontal abscess K05.219 [facility] [address] [id number] [address] [place] [phone] May, Allergic rhinitis, unspecifi ed allergic rhinitis type J30.9 and Acute otitis externa of left ear, unspecified type H60.502 [facility] [address] [id number] [address] [place] [phone] Sep, [facility] [address] [id number] [address] [place] [phone] Sep, Ankle pain, right M25.571 [facility] [address] [id number] [address] [place] [phone] Aug, [facility] [address] [id number] [address] [place] [phone] Aug, [facility] [address] [id number] [address] [place] [phone] Jun, [facility] [address] [id number] [address] [place] [phone] May, Dental examination V72.2 [facility] [address] [id number] [address] [place] [phone] May, [facility] [address] [id number] [address] [place] [id number] May, Dental examination V72.2 [facility] [address] [id number] [address] [place] [phone] Apr, Dental examination V72.2 [facility] [address] [id number] [address] [place] [phone] Apr, [facility] [address] [id number] [address] [place] [phone] March, Dental examination V72.2 [facility] [address] [id number] [address] [place] [phone] March, [facility] [address] [id number] [address] [place] [phone] Feb, [facility] [address] [id number] [address] [place] [phone] Feb, [facility] [address] [id number] [address] [place] [phone] 17 Jan, 2015 [facility] [address] [id number] [address] [place] [phone] 17 Jan, 2015 [facility] [address] [id number] [address] [place] [phone] Jan, [facility] [address] [id number] [address] [place] [phone] Jan, [facility] [address] [id number] [address] [place] [phone] Jan, [facility] [address] [id number] [address] [place] [phone] Jan, [facility] [address] [id number] [address] [place] [phone] Dec, [facility] [address] [id number] [address] [place] [phone] Dec, [facility] [address] [id number] [address] [place] [phone] Dec, [facility] [address] [id number] [address] [place] [address], [place] [phone] 16 Dec, 2014 [facility] [address] [id number] [address] [place] [address], [place] [address] Nov, [facility] [address] [id number] [address] [place] [address], [place] [phone] Nov, [facility] [address] [id number] [address] [place] [address], [place] [address] Oct, [facility] [address] [id number] [address] [place] [address], [place] [address] Oct, [facility] [address] [id number] [address] [place] [address], [place] [phone] Oct, [facility] [address] [id number] [address] [place] [address], [place] [address] Oct, [facility] [address] [id number] [address] [place] [address], [place] [phone] Oct, [facility] [address] [id number] [address] [place] [address], [place] [address] Oct, [facility] [address] [id number] [address] [place] [address], [place] [address] Sep, [facility] [address] [id number] [address] [place] [address], [place] [address] Sep, [facility] [address] [id number] [address] [place] [address], [place] [address] Sep, [facility] [address] [id number] [address] [place] [address], [place] [address] Sep, [facility] [address] [id number] [address] [place] [address], [place] [address] Sep, [facility] [address] [id number] [address] [place] [address], [place] [address] Sep, [facility] [address] [id number] [address] [place] [address], [place] [address] Sep, [facility] [address] [id number] [address] [place] [address], [place] [address] Sep, [facility] [address] [id number] [address] [place] [address], [place] [address] Aug, [facility] [address] [id number] [address] [place] [address], [place] [address] Aug, [facility] [address] [id number] [address] [place] [address], [place] [address] Aug, [facility] [address] [id number] [address] [place] [address], [place] [address] Aug, [facility] [address] [id number] [address] [place] [address], [place] [address] Aug, [facility] [address] [id number] [address] [place] [address], [place] [address] Aug, [facility] [address] [id number] [address] [place] [address], [place] [address] Aug, [facility] [address] [id number] [address] [place] [address], [place] [address] Aug, [facility] [address] [id number] [address] [place] [phone] Aug, [facility] [address] [id number] [address] [place] [address], [place] [address] Aug, [facility] [address] [id number] [address] [place] [phone] Jul, [facility] [address] [id number] [address] [place] [address], [place] [address] Jul, [facility] [address] [id number] [address] [place] [address], [place] [address] Jun, [facility] [address] [id number] [address] [place] [address], [place] [address] Jun, [facility] [address] [id number] [address] [place] [address], [place] [address] May, [facility] [address] [id number] [address] [place] [address], [place] [address] May, [facility] [address] [id number] [address] [place] [address], [place] [address] Apr, [facility] [address] [id number] [address] [place] [address], [place] [address] Apr, [facility] [address] [id number] [address] [place] [address], [place] [address] Apr, [facility] [address] [id number] [address] [place] [address], [place] [address] Apr, [facility] [address] [id number] [address] [place] [address], [place] [address] March, [facility] [address] [id number] [address] [place] [address], [place] [address] March, [facility] [address] [id number] [address] [place] [address], [place] [address] Jan, [facility] [address] [id number] [address] [place] [address], [place] [address] Jan, [facility] [address] [id number] [address] [place] [address], [place] [address] Oct, [facility] [address] [id number] [address] [place] [address], [place] [address] Oct, [facility] [address] [id number] [address] [place] [address], [place] [address] Sep, [facility] [address] [id number] [address] [place] [address], [place] [address] Sep, [facility] [address] [id number] [address] [place] [address], [place] [address] Aug, [facility] [address] [id number] [address] [place] [address], [place] [address] Aug, [facility] [address] [id number] [facility] [place] [address] 25 Jul, 2012 [facility] [address] [id number] [address] [place] [address], [place] [address] 20 Jul, 2012 [facility] [address] [id number] [address] [place] [address], [place] [address] 16 Jul, 2012 [facility] [address] [id number] [address] [place] [address], [place] [address] 09 Jul, 2012 [facility] [address] [id number] [address] [place] [address], [place] [address] 05 Jul, 2012 [facility] [address] [id number] [address] [place] [address], [place] [address] 05 Jul, 2012 [facility] [address] [id number] [address] [place] [address], [place] [address] 03 Jul, 2012 [facility] [address] [id number] [address] [place] [address], [place] [address] Jun, [facility] [address] [id number] [address] [place] [address], [place] [address] Jun, [facility] [address] [id number] [address] [place] [address], [place] [address] May, [facility] [address] [id number] [address] [place] [address], [place] [address] May, [facility] [address] [id number] [address] [place] [address], [place] [address] May, [facility] [address] [id number] [address] [place] [address], [place] [address] May, [facility] [address] [id number] [address] [place] [address], [place] [address] May, [facility] [address] [id number] [address] [place] [address], [place] [address] March, [facility] [address] [id number] [address] [place] [address], [place] [address] March, [facility] [address] [id number] [address] [place] [phone] Oct, [facility] [address] [id number] [address] [place] [phone] Oct, [facility] [address] [id number] [address] [place] [id number] Jun, [facility] [address] [id number] [address] [place] [id number] Nov, [facility] [address] [id number] [address] [place] [id number] Aug, [facility] [address] [id number] [address] [place] [phone] Aug, [facility] [address] [id number] [address] [place] [phone] Dec, [facility] [address] [id number] [address] [place] [id number] Oct, [facility] [address] [id number] [address] [place] [phone] Oct, [facility] [address] [id number] [address] [place] [phone] Jun, IMMUNIZATIONS No Known Immunizations SOCIAL HISTORY Never Assessed [place]ASON [place] [place] VITAL SIGNS MEDICATIONS No [...]
--- OUTSIDE RECORDS SUMMARY | 2020-05-26 23:11 | XMS REPORT ---
Author Author Hilda GOODRICH Organization [facility] Address [address] [place] [address] Care Team Providers Care Insurance And Financial Services Agent Name Role Phone JOLEEN HILDA Unavailable PROBLEMS Type Condition ICD9-CM Code VVR50-SK Code Onset Dates Condition S tatus SNOMED Code Problem Seasonal allergic rhinitis, unspecified trigger J3 0.2 Active [id number] ALLERGIES No Information ENCOUNTERS Encounter Location Date Diagnosis [facility] [address] [address] Jul, [facility] [address] [address] Jul, Urinary frequency R35.0 ; 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 and Seasonal allergic rhinitis, unspecified trigger J30.2 [facility] [address] [address] Jul, [facility] [address] [address] Jun, Seasonal allergic rhinitis, unspecified trigger J30.2 [facility] [address] [address] Dec, Urinary frequency R35.0 ; 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 ; Seasonal allergic rhinitis, unspecified trigger J30.2 and Impacted cerumen, bilateral H61.23 [facility] [address] [place] [address] Nov, Sore throat J02.9 and Strep pharyngitis J02.0 [facility] [address] [id number] [address] [place] [phone] Aug, Dental caries K02.9 [facility] [address] [id number] [address] [place] [address] Jul, Allergic contact dermatitis, unspecified trigger L23.9 and Oral abscess K12.2 [facility] [address] [id number] [address] [place] [id number] Jul, Dental caries K02.9 and Surry al examination Z01.20 [facility] [address] [id number] [address] [place] [address] Aug, Periodontal abscess K05.219 [facility] [address] [id number] [address] [place] [address] May, Allergic rhinitis, unspecifi ed allergic rhinitis type J30.9 and Acute otitis externa of left ear, unspecified type H60.502 [facility] [address] [id number] [address] [place] [address] Sep, [facility] [address] [id number] [address] [place] [address] Sep, Ankle pain, right M25.571 [facility] [address] [id number] [address] [place] [address] Aug, [facility] [address] [id number] [address] [place] [address] Aug, [facility] [address] [id number] [address] [place] [address] Jun, [facility] [address] [id number] [address] [place] [id number] May, Dental examination V72.2 [facility] [address] [id number] [address] [place] [address] May, [facility] [address] [id number] [address] [place] [id number] May, Dental examination V72.2 [facility] [address] [id number] [address] [place] [address] [id number] Apr, Dental examination V72.2 [facility] [address] [id number] [address] [place] [address] Apr, [facility] [address] [id number] [address] [place] [address] [id number] March, Dental examination V72.2 [facility] [address] [id number] [address] [place] [address] March, [facility] [address] [id number] [address] [place] [address] Feb, [facility] [address] [id number] [address] [place] [address] Feb, [facility] [address] [id number] [address] [place] [address] Jan, [facility] [address] [id number] [address] [place] [address] 17 Jan, 2015 [facility] [address] [id number] [address] [place] [id number] Jan, [facility] [address] [id number] [address] [place] [address] Jan, [facility] [address] [id number] [address] [place] [address] Jan, [facility] [address] [id number] [address] [place] [address] Jan, [facility] [address] [id number] [address] [place] [address] Dec, [facility] [address] [id number] [address] [place] [address] Dec, [facility] [address] [id number] [address] [place] [address] 16 Dec, 2014 [facility] [address] [id number] [address] [place] [address] Dec, [facility] [address] [id number] [address] [place] [address], [place] [address] Nov, [facility] [address] [id number] [address] [place] [address], [place] [address] Nov, [facility] [address] [id number] [address] [place] [address], [place] [address] Oct, [facility] [address] [id number] [address] [place] [address], [place] [address] Oct, [facility] [address] [id number] [address] [place] [address], [place] [address] Oct, [facility] [address] [id number] [address] [place] [address], [place] [address] Oct, [facility] [address] [id number] [address] [place] [address], [place] [address] Oct, [facility] [address] [id number] [address] [place] [address], [place] [address] Oct, [facility] [address] [id number] [address] [place] [address], [place] [address] Sep, [facility] [address] [id number] [address] [place] [address], [place] [address] Sep, [facility] [address] [id number] [address] [place] [address], [place] [address] Sep, [facility] [address] [id number] [address] [place] [address], [place] [address] Sep, [facility] [address] [id number] [address] [place] [address], [place] [address] Sep, [facility] [address] [id number] [address] [place] [address], [place] [address] Sep, [facility] [address] [id number] [address] [place] [address], [place] [address] 15 Sep, 2014 [facility] [address] [id number] [address] [place] [address], [place] [address] Sep, [facility] [address] [id number] [address] [place] [address], [place] [address] Aug, [facility] [address] [id number] [address] [place] [address], [place] [address] Aug, [facility] [address] [id number] [address] [place] [address], [place] [address] Aug, [facility] [address] [id number] [address] [place] [address], [place] [address] Aug, [facility] [address] [id number] [address] [place] [address], [place] [address] Aug, [facility] [address] [id number] [address] [place] [address], [place] [address] Aug, [facility] [address] [id number] [address] [place] [address], [place] [address] Aug, [facility] [address] [id number] [address] [place] [address], [place] [address] Aug, [facility] [address] [id number] [address] [place] [address], [place] [address] Aug, [facility] [address] [id number] [address] [place] [address], [place] [address] Aug, [facility] [address] [id number] [address] [place] [address], [place] [address] Jul, [facility] [address] [id number] [address] [place] [address], [place] [address] Jul, [facility] [address] [id number] [address] [place] [address], [place] [address] Jun, [facility] [address] [id number] [address] [place] [address], [place] [address] Jun, [facility] [address] [id number] [address] [place] [address], [place] [address] May, [facility] [address] [id number] [address] [place] [address], [place] [address] May, [facility] [address] [id number] [address] [place] [address], [place] [address] Apr, [facility] [address] [id number] [address] [place] [address], [place] [address] Apr, [facility] [address] [id number] [address] [place] [address], [place] [address] Apr, [facility] [address] [id number] [address] [place] [address], [place] [address] Apr, [facility] [address] [id number] [address] [place] [address], [place] [address] March, [facility] [address] [id number] [address] [place] [address], [place] [address] March, [facility] [address] [id number] [address] [place] [address], [place] [address] Jan, [facility] [address] [id number] [address] [place] [address], [place] [address] Jan, [facility] [address] [id number] [address] [place] [address], [place] [address] Oct, [facility] [address] [id number] [address] [place] [address], [place] [address] Oct, [facility] [address] [id number] [address] [place] [address], [place] [address] Sep, [facility] [address] [id number] [address] [place] [address], [place] [address] Sep, [facility] [address] [id number] [address] [place] [address], [place] [address] Aug, [facility] [address] [id number] [address] [place] [address], [place] [address] Aug, [facility] [address] [id number] [address] [place] [address], [place] [address] Jul, 2012 [facility] [address] [id number] [address] [place] [address], [place] [address] 20 Jul, 2012 [facility] [address] [id number] [address] [place] [address], [place] [address] 16 Jul, 2012 [facility] [address] [id number] [address] [place] [address], [place] [address] 09 Jul, 2012 [facility] [address] [id number] [address] [place] [address], [place] [address] 05 Jul, 2012 [facility] [address] [id number] [address] [place] [address], [place] [address] 05 Jul, 2012 [facility] [address] [id number] [address] [place] [address], [place] [address] Jul, [facility] [address] [id number] [address] [place] [address], [place] [address] Jun, [facility] [address] [id number] [address] [place] [address], [place] [address] Jun, [facility] [address] [id number] [address] [place] [address], [place] [address] May, [facility] [address] [id number] [address] [place] [address], [place] [address] May, [facility] [address] [id number] [address] [place] [address], [place] [address] May, [facility] [address] [id number] [address] [place] [address], [place] [address] May, [facility] [address] [id number] [address] [place] [address], [place] [address] May, [facility] [address] [id number] [address] [place] [address], [place] [address] March, [facility] [address] [id number] [address] [place] [address], [place] [address] March, [facility] [address] [id number] [address] [place] [address] 14 Oct, 2012 [facility] [address] [id number] [address] [place] [address] Oct, [facility] [address] [id number] [address] [place] [address] Jun, [facility] [address] [id number] [address] [place] [address] Nov, [facility] [address] [id number] [address] [place] [address] Aug, [facility] [address] [id number] [address] [place] [address] Aug, [facility] [address] [id number] [address] [place] [address] Dec, [facility] [address] [id number] [address] [place] [address] Oct, [facility] [address] [id number] [address] [place] [address] Oct, [facility] [address] [id number] [address] [place] [address] Jun, IMMUNIZATIONS No Known Immunizations SOCIAL HISTORY Never Assessed REASON FOR VISIT Triage JStrasserRN PLAN OF CARE VITAL SIGNS Height 64 in 2018-08-13 Weight 187.4 lbs 2018-08-13 Temperature 98.1 degrees Fahrenheit 2018-08-13 Heart Rate 88 bpm 2018-08-13 Respiratory Rate 20 2018-08-13 BMI 32.16 kg/m2 2018-08-13 Blood pressure systolic 124 mmHg 2018-08-13 Blood pressure diastolic 80 mmHg 2018-08-13 MEDICATIONS Medication Instructions Dosage Frequency Start Date End Date Duration S tatus Lisinopril 20 MG TAKE ONE TABLET BY MOUTH DAILY 30 Active tramadol 50 mg take 1 tablet by Oral route 1 ti me per day as needed PRN pain Jan, Active Flonase 50 MCG/ACT Nasally twice a day 1 spray in each nostril 12h May, 30 days Active RESULTS No Results PROCEDURES No Known procedures INSTRUCTIONS MEDICATIONS ADMINISTERED No Known Medications MEDICAL (GENERAL) HISTORY Type Description Date Medical History hypertension Medical History Arthritis Medical History Family history of diabetes mellitus Medical History Flat foot Medical History Cervicalgia Surgical History bladder surgery Surgical History cyst removal Hospitalization History surgery related
--- OUTSIDE RECORDS SUMMARY | 2020-05-26 23:11 | XMS REPORT ---
Author Author Riya Aguirre Doctor Organization [facility] Address Unknown Phone Unavailable Care Team Providers Care Astro Technician Name Role Phone Migration, Doctor Unavailable Unavailable PROBLEMS Type Condition ICD9-CM Code [id number]-CO Code Onset Dates Condition S tatus SNOMED Code Problem Seasonal allergic rhinitis, unspecified trigger J3 0.2 Active [id number] ALLERGIES No Information ENCOUNTERS Encounter Location Date Diagnosis [facility] [address] [place] [phone] Oct, Acute bronchitis, unspecifie d organism J20.9 [facility] [address] [place] [phone] Jul, [facility] [address] [place] [phone] Jul, Urinary frequency R35.0 ; Ac ekwok cystitis with hematuria N30.01 and Seasonal allergic rhinitis, unspecified trigger J30.2 [facility] [address] [place] [phone] Jul, [facility] [address] [place] [address] Jun, Seasonal allergic rhinitis, unspecified trigger J30.2 [facility] [address] [place] [phone] 16 Dec, 2017 Urinary frequency R35.0 ; Ac ekwok cystitis with hematuria N30.01 ; Seasonal allergic rhinitis, unspecified trigger J30.2 and Impacted cerumen, bilateral H61.23 [facility] [address] [place] [phone] Nov, Sore throat J02.9 and Strep pharyngitis J02.0 [facility] [address] [id number] [address] [place] [id number] Aug, Dental caries K02.9 [facility] [address] [id number] [address] [place] [phone] Jul, Allergic contact dermatitis, unspecified trigger L23.9 and Oral abscess K12.2 [facility] [address] [id number] [address] [place] [id number] Jul, Dental caries K02.9 and Green al examination Z01.20 [facility] [address] [id number] [address] [place] [phone] Aug, Periodontal abscess K05.219 [facility] [address] [facility] [id number] [address] [place] [phone] May, Allergic rhinitis, unspecifi ed allergic rhinitis type J30.9 and Acute otitis externa of left ear, unspecified type H60.502 [facility] [address] [facility] [id number] [address] [place] [phone] Sep, [facility] [address] [id number] [address] [place] [address] Sep, Ankle pain, right M25.571 [facility] [address] [facility] [id number] [address] [place] [phone] Aug, [facility] [address] [id number] [address] [place] [phone] Aug, [facility] [address] [facility] [id number] [address] [place] [phone] Jun, [facility] [address] [id number] [address] [place] [id number] May, Dental examination V72.2 [facility] [address] [id number] [address] [place] [phone] May, [facility] [address] [id number] [address] [place] [address] [phone] May, Dental examination V72.2 [facility] [address] [id number] [address] [place] [id number] Apr, Dental examination V72.2 [facility] [address] [id number] [address] [place] [phone] Apr, [facility] [address] [id number] [address] [place] [phone] March, Dental examination V72.2 [facility] [address] [id number] [address] [place] [phone] March, [facility] [address] [id number] [address] [place] [phone] Feb, [facility] [address] [id number] [address] [place] [phone] Feb, [facility] [address] [id number] [address] [place] [phone] 17 Jan, 2015 [facility] [address] [id number] [address] [place] [phone] 17 Jan, 2015 [facility] [address] [id number] [address] [place] [phone] Jan, [facility] [address] [id number] [address] [place] [phone] Jan, [facility] [address] [id number] [address] [place] [phone] Jan, [facility] [address] [id number] [address] [place] [phone] Jan, [facility] [address] [id number] [address] [place] [phone] Dec, [facility] [address] [id number] [address] [place] [phone] Dec, [facility] [address] [id number] [address] [place] [phone] Dec, [facility] [address] [id number] [address] [place] [address], [place] [address] 16 Dec, 2014 [facility] [address] [id number] [address] [place] [address], [place] [address] Nov, [facility] [address] [id number] [address] [place] [address], [place] [address] Nov, [facility] [address] [id number] [address] [place] [address], [place] [address] Oct, [facility] [address] [id number] [address] [place] [address], [place] [address] Oct, [facility] [address] [id number] [address] [place] [address], [place] [address] Oct, [facility] [address] [id number] [address] [place] [address], [place] [address] Oct, [facility] [address] [id number] [address] [place] [address], [place] [address] Oct, [facility] [address] [id number] [address] [place] [address], [place] [address] Oct, [facility] [address] [id number] [address] [place] [address], [place] [address] Sep, [facility] [address] [id number] [address] [place] [address], [place] [address] Sep, [facility] [address] [id number] [address] [place] [address], [place] [address] Sep, [facility] [address] [id number] [address] [place] [address], [place] [address] Sep, [facility] [address] [id number] [address] [place] [address], [place] [address] Sep, [facility] [address] [id number] [address] [place] [address], [place] [address] Sep, [facility] [address] [id number] [address] [place] [address], [place] [address] Sep, [facility] [address] [id number] [address] [place] [address], [place] [address] Sep, [facility] [address] [id number] [address] [place] [address], [place] [address] Aug, [facility] [address] [id number] [address] [place] [address], [place] [address] Aug, [facility] [address] [id number] [address] [place] [address], [place] [address] Aug, [facility] [address] [id number] [address] [place] [address], [place] [address] Aug, [facility] [address] [id number] [address] [place] [address], [place] [address] Aug, [facility] [address] [id number] [address] [place] [address], [place] [address] Aug, [facility] [address] [id number] [address] [place] [address], [place] [address] Aug, [facility] [address] [id number] [address] [place] [address], [place] [address] Aug, [facility] [address] [id number] [address] [place] [phone] Aug, [facility] [address] [id number] [address] [place] [address], [place] [address] Aug, [facility] [address] [id number] [address] [place] [phone] Jul, [facility] [address] [id number] [address] [place] [address], [place] [address] Jul, [facility] [address] [id number] [address] [place] [address], [place] [address] Jun, [facility] [address] [id number] [address] [place] [address], [place] [address] Jun, [facility] [address] [id number] [address] [place] [address], [place] [address] May, [facility] [address] [id number] [address] [place] [address], [place] [address] May, [facility] [address] [id number] [address] [place] [address], [place] [address] Apr, [facility] [address] [id number] [address] [place] [address], [place] [address] Apr, [facility] [address] [id number] [address] [place] [address], [place] [address] Apr, [facility] [address] [id number] [address] [place] [address], [place] [address] Apr, [facility] [address] [id number] [address] [place] [address], [place] [address] March, [facility] [address] [id number] [address] [place] [address], [place] [address] March, [facility] [address] [id number] [address] [place] [address], [place] [address] Jan, [facility] [address] [id number] [address] [place] [address], [place] [address] Jan, [facility] [address] [id number] [address] [place] [address], [place] [address] Oct, [facility] [address] [id number] [address] [place] [address], [place] [address] Oct, [facility] [address] [id number] [address] [place] [address], [place] [address] Sep, [facility] [address] [id number] [address] [place] [address], [place] [address] Sep, [facility] [address] [id number] [address] [place] [address], [place] [address] Aug, [facility] [address] [id number] [address] [place] [address], [place] [address] Aug, [facility] [address] [id number] [facility] [place] [address] 25 Jul, 2012 [facility] [address] [id number] [address] [place] [address], [place] [address] 20 Jul, 2012 [facility] [address] [id number] [address] [place] [address], [place] [address] 16 Jul, 2012 [facility] [address] [id number] [address] [place] [address], [place] [address] 09 Jul, 2012 [facility] [address] [id number] [address] [place] [address], [place] [address] 05 Jul, 2012 [facility] [address] [id number] [address] [place] [address], [place] [address] 05 Jul, 2012 [facility] [address] [id number] [address] [place] [address], [place] [address] 03 Jul, 2012 [facility] [address] [id number] [address] [place] [address], [place] [address] Jun, [facility] [address] [id number] [address] [place] [address], [place] [address] Jun, [facility] [address] [id number] [address] [place] [address], [place] [address] May, [facility] [address] [id number] [address] [place] [address], [place] [address] May, [facility] [address] [id number] [address] [place] [address], [place] [address] May, [facility] [address] [id number] [address] [place] [address], [place] [address] May, [facility] [address] [id number] [address] [place] [address], [place] [address] May, [facility] [address] [id number] [address] [place] [address], [place] [address] March, [facility] [address] [id number] [address] [place] [address], [place] [address] March, [facility] [address] [id number] [address] [place] [address] Oct, [facility] [address] [id number] [address] [place] [address] Oct, [facility] [address] [id number] [address] [place] [phone] Jun, [facility] [address] [id number] [address] [place] [phone] Nov, [facility] [address] [id number] [address] [place] [address] Aug, [facility] [address] [id number] [address] [place] [address] Aug, [facility] [address] [id number] [address] [place] [address] Dec, [facility] [address] [id number] [address] [place] [phone] Oct, [facility] [address] [id number] [address] [place] [address] Oct, [facility] [address] [id number] [address] [place] [address] Jun, IMMUNIZATIONS No Known Immunizations SOCIAL HISTORY Never Assessed REASON FOR VISIT EMR-[facility] [place] PLAN OF CARE VITAL SIGNS MEDICATIONS No [...]
--- OUTSIDE RECORDS SUMMARY | 2020-05-26 23:11 | XMS REPORT ---
Author Author Riya Aguirre Doctor Organization [facility] Address Unknown Phone Unavailable Care Team Providers Care Audio Visual Specialist Name Role Phone Migration, Doctor Unavailable Unavailable PROBLEMS Type Condition ICD9-CM Code OMV96-HV Code Onset Dates Condition S tatus SNOMED Code Problem Seasonal allergic rhinitis, unspecified trigger J3 0.2 Active [id number] ALLERGIES No Information ENCOUNTERS Encounter Location Date Diagnosis [facility] [address] [place] [id number] Oct, Acute bronchitis, unspecifie d organism J20.9 [facility] [address] [place] [phone] Jul, [facility] [address] [place] [phone] Jul, Urinary frequency R35.0 ; Ac [place] cystitis with hematuria N30.01 and Seasonal allergic rhinitis, unspecified trigger J30.2 [facility] [address] [phone] Jul, [facility] [address] [phone] Jun, Seasonal allergic rhinitis, unspecified trigger J30.2 [facility] [address] [phone] 16 Dec, 2017 Urinary frequency R35.0 ; Ac [place] cystitis with hematuria N30.01 ; Seasonal allergic rhinitis, unspecified trigger J30.2 and Impacted cerumen, bilateral H61.23 [facility] [address] [phone] Nov, Sore throat J02.9 and Strep pharyngitis J02.0 [facility] [address] [id number] [place] [phone] Aug, Dental caries K02.9 [facility] [address] [id number] [address] [place] [phone] Jul, Allergic contact dermatitis, unspecified trigger L23.9 and Oral abscess K12.2 [facility] [address] [id number] [address] [place] [id number] Jul, Dental caries K02.9 and Ponce al examination Z01.20 [facility] [address] [id number] [address] [place] [phone] Aug, Periodontal abscess K05.219 [facility] [address] [facility] [id number] [address] [place] [phone] May, Allergic rhinitis, unspecifi ed allergic rhinitis type J30.9 and Acute otitis externa of left ear, unspecified type H60.502 [facility] [address] [facility] [id number] [address] [place] [phone] Sep, [facility] [address] [id number] [address] [place] [phone] Sep, Ankle pain, right M25.571 [facility] [address] [facility] [id number] [address] [place] [phone] Aug, [facility] [address] [id number] [address] [place] [phone] Aug, [facility] [address] [facility] [id number] [address] [place] [phone] Jun, [facility] [address] [id number] [address] [place] [id number] May, Dental examination V72.2 [facility] [address] [id number] [address] [place] [phone] May, [facility] [address] [id number] [address] [place] [address] [id number] May, Dental examination V72.2 [facility] [address] [id number] [address] [place] [address] [id number] Apr, Dental examination V72.2 [facility] [address] [id number] [address] [place] [phone] Apr, [facility] [address] [id number] [address] [place] [id number] March, Dental examination V72.2 [facility] [address] [id number] [address] [place] [phone] March, [facility] [address] [id number] [address] [place] [phone] Feb, [facility] [place] [address] [id number] [address] [place] [phone] Feb, [facility] [place] [address] [id number] [address] [place] [phone] 17 Jan, 2015 [facility] [address] [id number] [address] [place] [phone] 17 Jan, 2015 [facility] [place] [address] [id number] [address] [place] [phone] Jan, [facility] [address] [id number] [address] [place] [phone] Jan, [facility] [place] [address] [id number] [address] [place] [phone] Jan, [facility] [address] [id number] [address] [place] [phone] Jan, [facility] [address] [id number] [address] [place] [phone] Dec, [facility] [address] [id number] [address] [place] [phone] Dec, [facility] [address] [id number] [address] [place] [phone] Dec, [facility] [address] [id number] [address] [place] [address], [place] [id number] 16 Dec, 2014 [facility] [address] [id number] [address] [place] [address], [place] [id number] Nov, [facility] [address] [id number] [address] [place] [address], [place] [id number] Nov, [facility] [address] [id number] [address] [place] [address], [place] [id number] Oct, [facility] [address] [id number] [address] [place] [address], [place] [id number] Oct, [facility] [address] [id number] [address] [place] [address], [place] [id number] Oct, [facility] [address] [id number] [address] [place] [address], [place] [id number] Oct, [facility] [address] [id number] [address] [place] [address], [place] [id number] Oct, [facility] [address] [id number] [address] [place] [address], [place] [id number] Oct, [facility] [address] [id number] [address] [place] [address], [place] [id number] Sep, [facility] [address] [id number] [address] [place] [address], [place] [id number] Sep, [facility] [address] [id number] [address] [place] [address], [place] [id number] Sep, [facility] [address] [id number] [address] [place] [address], [place] [id number] Sep, [facility] [address] [id number] [address] [place] [address], [place] [id number] Sep, [facility] [address] [id number] [address] [place] [address], [place] [id number] Sep, [facility] [address] [id number] [address] [place] [address], [place] [id number] Sep, [facility] [address] [id number] [address] [place] [address], [place] [id number] Sep, [facility] [address] [id number] [address] [place] [address], [place] [id number] Aug, [facility] [address] [id number] [address] [place] [address], [place] [id number] Aug, [facility] [address] [id number] [address] [place] [address], [place] [id number] Aug, [facility] [address] [id number] [address] [place] [address], [place] [id number] Aug, [facility] [address] [id number] [address] [place] [address], [place] [id number] Aug, [facility] [address] [id number] [address] [place] [address], [place] [id number] Aug, [facility] [address] [id number] [address] [place] [address], [place] [id number] Aug, [facility] [address] [id number] [address] [place] [address], [place] [id number] Aug, [facility] [address] [id number] [address] [place] [phone] Aug, [facility] [address] [id number] [address] [place] [address], [place] [id number] Aug, [facility] [address] [id number] [address] [place] [phone] Jul, [facility] [address] [id number] [address] [place] [address], [place] [id number] Jul, [facility] [address] [id number] [address] [place] [address], [place] [id number] Jun, [facility] [address] [id number] [address] [place] [address], [place] [id number] Jun, [facility] [address] [id number] [address] [place] [address], [place] [id number] May, [facility] [address] [id number] [address] [place] [address], [place] [id number] May, [facility] [address] [id number] [address] [place] [address], [place] [id number] Apr, [facility] [address] [id number] [address] [place] [address], [place] [id number] Apr, [facility] [address] [id number] [address] [place] [address], [place] [id number] Apr, [facility] [address] [id number] [address] [place] [address], [place] [id number] Apr, [facility] [address] [id number] [address] [place] [address], [place] [id number] March, [facility] [address] [id number] [address] [place] [address], [place] [id number] March, [facility] [address] [id number] [address] [place] [address], [place] [id number] Jan, [facility] [address] [id number] [address] [place] [address], [place] [id number] Jan, [facility] [address] [id number] [address] [place] [address], [place] [id number] Oct, [facility] [address] [id number] [address] [place] [address], [place] [id number] Oct, [facility] [address] [id number] [address] [place] [address], [place] [id number] Sep, [facility] [address] [id number] [address] [place] [address], [place] [id number] Sep, [facility] [address] [id number] [address] [place] [address], [place] [id number] Aug, [facility] [address] [id number] [address] [place] [address], [place] [id number] Aug, [facility] [address] [id number] [facility] [id number] 25 Jul, 2012 [facility] [address] [id number] [address] [place] [address], [place] [id number] 20 Jul, 2012 [facility] [address] [id number] [address] [place] [address], [place] [id number] 16 Jul, 2012 [facility] [address] [id number] [address] [place] [address], [place] [id number] 09 Jul, 2012 [facility] [address] [id number] [address] [place] [address], [place] [id number] 05 Jul, 2012 [facility] [address] [id number] [address] [place] [address], [place] [id number] 05 Jul, 2012 [facility] [address] [id number] [address] [place] [address], [place] [id number] 03 Jul, 2012 [facility] [address] [id number] [address] [place] [address], [place] [id number] Jun, [facility] [address] [id number] [address] [place] [address], [place] [id number] Jun, [facility] [place] [address] [id number] [address] [place] [address], [place] [id number] May, [facility] [address] [id number] [address] [place] [address], [place] [id number] May, [facility] [address] [id number] [address] [place] [address], [place] [id number] May, [facility] [address] [id number] [address] [place] [address], [place] [id number] May, [facility] [address] [id number] [address] [place] [address], [place] [id number] May, [facility] [address] [id number] [address] [place] [address], [place] [id number] March, [facility] [address] [id number] [address] [place] [address], [place] [id number] March, [facility] [address] [id number] [address] [place] [id number] Oct, [facility] [address] [id number] [address] [place] [phone] Oct, [facility] [address] [id number] [address] [place] [phone] Jun, [facility] [address] [id number] [address] [place] [phone] Nov, [facility] [address] [id number] [address] [place] [id number] Aug, [facility] [address] [id number] [address] [place] [phone] Aug, [facility] [address] [id number] [address] [place] [id number] Dec, [facility] [address] [id number] [address] [place] [id number] Oct, [facility] [address] [id number] [address] [place] [id number] Oct, [facility] [address] [id number] [address] [place] [phone] Jun, IMMUNIZATIONS No Known Immunizations SOCIAL HISTORY Never Assessed REASON FOR VISIT EMR-[facility] [place] PLAN OF CARE VITAL SIGNS MEDICATIONS No [...]
--- OUTSIDE RECORDS SUMMARY | 2020-05-26 23:11 | XMS REPORT ---
Author Author Riya Aguirre Doctor Organization [facility] Address Unknown Phone Unavailable Care Team Providers Care Ops Analyst Name Role Phone Migration, Doctor Unavailable Unavailable PROBLEMS Type Condition ICD9-CM Code ELS67-QF Code Onset Dates Condition S tatus SNOMED Code Problem Seasonal allergic rhinitis, unspecified trigger J3 0.2 Active [id number] ALLERGIES No Information ENCOUNTERS Encounter Location Date Diagnosis [facility] [address] [place] [phone] Oct, Acute bronchitis, unspecifie d organism J20.9 [facility] [address] [place] [phone] Jul, [facility] [address] [place] [phone] Jul, Urinary frequency R35.0 ; Ac [place] cystitis with hematuria N30.01 and Seasonal allergic rhinitis, unspecified trigger J30.2 [facility] [address] [place] [phone] Jul, [facility] [address] [place] [address] Jun, Seasonal allergic rhinitis, unspecified trigger J30.2 [facility] [address] [place] [id number] 16 Dec, 2017 Urinary frequency R35.0 ; Ac [place] cystitis with hematuria N30.01 ; Seasonal allergic rhinitis, unspecified trigger J30.2 and Impacted cerumen, bilateral H61.23 [facility] [address] [place] [phone] Nov, Sore throat J02.9 and Strep pharyngitis J02.0 [facility] [address] [id number] [place] [id number] Aug, Dental caries K02.9 [facility] [address] [id number] [address] [place] [id number] Jul, Allergic contact dermatitis, unspecified trigger L23.9 and Oral abscess K12.2 [facility] [address] [id number] [address] [place] [id number] Jul, Dental caries K02.9 and [place] al examination Z01.20 [facility] [address] [id number] [address] [place] [id number] Aug, Periodontal abscess K05.219 [facility] [address] [facility] [id number] [address] [place] [phone] May, Allergic rhinitis, unspecifi ed allergic rhinitis type J30.9 and Acute otitis externa of left ear, unspecified type H60.502 [facility] [address] [facility] [id number] [address] [place] [phone] Sep, [facility] [address] [id number] [address] [place] [id number] Sep, Ankle pain, right M25.571 [facility] [address] [facility] [id number] [address] [place] [id number] Aug, [facility] [address] [id number] [address] [place] [id number] Aug, [facility] [address] [facility] [id number] [address] [place] [phone] Jun, [facility] [address] [id number] [address] [place] [id number] May, Dental examination V72.2 [facility] [address] [id number] [address] [place] [phone] May, [facility] [address] [id number] [address] [place] [id number] May, Dental examination V72.2 [facility] [address] [id number] [address] [place] [address] [id number] Apr, Dental examination V72.2 [facility] [address] [id number] [address] [place] [phone] Apr, [facility] [address] [id number] [address] [place] [address] [id number] March, Dental examination V72.2 [facility] [address] [id number] [address] [place] [phone] March, [facility] [address] [id number] [address] [place] [id number] Feb, [facility] [address] [id number] [address] [place] [phone] Feb, [facility] [address] [id number] [address] [place] [phone] 17 Jan, 2015 [facility] [address] [id number] [address] [place] [id number] 17 Jan, 2015 [facility] [address] [id number] [address] [place] [phone] Jan, [facility] [address] [id number] [address] [place] [phone] Jan, [facility] [address] [id number] [address] [place] [id number] Jan, [facility] [address] [id number] [address] [place] [phone] Jan, [facility] [address] [id number] [address] [place] [id number] Dec, [facility] [address] [id number] [address] [place] [id number] Dec, [facility] [address] [id number] [address] [place] [phone] Dec, [facility] [address] [id number] [address] [place] [address], [place] [address] 16 Dec, 2014 [facility] [address] [id number] [address] [place] [address], [place] [address] Nov, [facility] [address] [id number] [address] [place] [address], [place] [address] Nov, [facility] [address] [id number] [address] [place] [address], [place] [address] Oct, [facility] [address] [id number] [address] [place] [address], [place] [address] Oct, [facility] [address] [id number] [address] [place] [address], [place] [address] Oct, [facility] [address] [id number] [address] [place] [address], [place] [address] Oct, [facility] [address] [id number] [address] [place] [address], [place] [address] Oct, [facility] [address] [id number] [address] [place] [address], [place] [address] Oct, [facility] [address] [id number] [address] [place] [address], [place] [address] Sep, [facility] [address] [id number] [address] [place] [address], [place] [address] Sep, [facility] [address] [id number] [address] [place] [address], [place] [address] Sep, [facility] [address] [id number] [address] [place] [address], [place] [address] Sep, [facility] [address] [id number] [address] [place] [address], [place] [address] Sep, [facility] [address] [id number] [address] [place] [address], [place] [address] Sep, [facility] [address] [id number] [address] [place] [address], [place] [address] Sep, [facility] [address] [id number] [address] [place] [address], [place] [address] Sep, [facility] [address] [id number] [address] [place] [address], [place] [address] Aug, [facility] [address] [id number] [address] [place] [address], [place] [address] Aug, [facility] [address] [id number] [address] [place] [address], [place] [address] Aug, [facility] [address] [id number] [address] [place] [address], [place] [address] Aug, [facility] [address] [id number] [address] [place] [address], [place] [address] Aug, [facility] [address] [id number] [address] [place] [address], [place] [address] Aug, [facility] [address] [id number] [address] [place] [address], [place] [address] Aug, [facility] [address] [id number] [address] [place] [address], [place] [address] Aug, [facility] [address] [id number] [address] [place] [id number] Aug, [facility] [address] [id number] [address] [place] [address], [place] [address] Aug, [facility] [address] [id number] [address] [place] [phone] Jul, [facility] [address] [id number] [address] [place] [address], [place] [address] Jul, [facility] [address] [id number] [address] [place] [address], [place] [address] Jun, [facility] [address] [id number] [address] [place] [address], [place] [address] Jun, [facility] [address] [id number] [address] [place] [address], [place] [address] May, [facility] [address] [id number] [address] [place] [address], [place] [address] May, [facility] [address] [id number] [address] [place] [address], [place] [address] Apr, [facility] [address] [id number] [address] [place] [address], [place] [address] Apr, [facility] [address] [id number] [address] [place] [address], [place] [address] Apr, [facility] [address] [id number] [address] [place] [address], [place] [address] Apr, [facility] [address] [id number] [address] [place] [address], [place] [address] March, [facility] [address] [id number] [address] [place] [address], [place] [address] March, [facility] [address] [id number] [address] [place] [address], [place] [address] Jan, [facility] [address] [id number] [address] [place] [address], [place] [address] Jan, [facility] [address] [id number] [address] [place] [address], [place] [address] Oct, [facility] [address] [id number] [address] [place] [address], [place] [address] Oct, [facility] [address] [id number] [address] [place] [address], [place] [address] Sep, [facility] [address] [id number] [address] [place] [address], [place] [address] Sep, [facility] [address] [id number] [address] [place] [address], [place] [address] Aug, [facility] [address] [id number] [address] [place] [address], [place] [address] Aug, [facility] [address] [id number] [facility] [place] [address] 25 Jul, 2012 [facility] [address] [id number] [address] [place] [address], [place] [address] 20 Jul, 2012 [facility] [address] [id number] [address] [place] [address], [place] [address] 16 Jul, 2012 [facility] [address] [id number] [address] [place] [address], [place] [address] 09 Jul, 2012 [facility] [address] [id number] [address] [place] [address], [place] [address] 05 Jul, 2012 [facility] [address] [id number] [address] [place] [address], [place] [address] 05 Jul, 2012 [facility] [address] [id number] [address] [place] [address], [place] [address] 03 Jul, 2012 [facility] [address] [id number] [address] [place] [address], [place] [address] Jun, [facility] [address] [id number] [address] [place] [address], [place] [address] Jun, [facility] [address] [id number] [address] [place] [address], [place] [address] May, [facility] [address] [id number] [address] [place] [address], [place] [address] May, [facility] [address] [id number] [address] [place] [address], [place] [address] May, [facility] [address] [id number] [address] [place] [address], [place] [address] May, [facility] [address] [id number] [address] [place] [address], [place] [address] May, [facility] [address] [id number] [address] [place] [address], [place] [address] March, [facility] [address] [id number] [address] [place] [address], [place] [address] March, [facility] [address] [id number] [address] [place] [address] Oct, [facility] [address] [id number] [address] [place] [id number] Oct, [facility] [address] [id number] [address] [place] [address] Jun, [facility] [address] [id number] [address] [place] [address] Nov, [facility] [address] [id number] [address] [place] [address] Aug, [facility] [address] [id number] [address] [place] [address] Aug, [facility] [address] [id number] [address] [place] [address] Dec, [facility] [address] [id number] [address] [place] [address] Oct, [facility] [address] [id number] [address] [place] [id number] Oct, [facility] [address] [id number] [address] [place] [address] Jun, IMMUNIZATIONS No Known Immunizations SOCIAL HISTORY Never Assessed REASON FOR VISIT EMR-[facility] PLAN OF CARE VITAL SIGNS MEDICATIONS Medication Instructions Dosage Frequency Start Date End Date Duration S tatus Clotrimazole 1 % 1 inch by Topical route 2 times per d ay for 10 days Sep, Active Doxycycline Hyclate 100 mg 1 tablet by Oral rout e 2 times per day for 14 days Apr, Active tramadol 50 mg take 1 tablet by Oral route 1 ti me per day as needed PRN pain Jan, Active Flonase 50 mcg/actuation 1 sprays by Gideon al route 2 times per day in each nostril Sep, Active RESULTS No Results PROCEDURES No Known procedures INSTRUCTIONS MEDICATIONS ADMINISTERED No Known Medications MEDICAL (GENERAL) HISTORY Type Description Date Medical History hypertension Medical History Arthritis Medical History Family history of diabetes mellitus Medical History Flat foot Medical History Cervicalgia Surgical History bladder surgery Surgical History cyst removal Hospitalization History surgery related
--- OUTSIDE RECORDS SUMMARY | 2020-05-26 23:11 | XMS REPORT ---
Author Author Riya PRADO Organization [facility] Address [address] [place] [address] Care Team Providers Care Outbound Call Center Representative Name Role Phone JAYY PRADO Unavailable PROBLEMS Type Condition ICD9-CM Code OWU44-IB Code Onset Dates Condition S tatus SNOMED Code Problem Seasonal allergic rhinitis, unspecified trigger J3 0.2 Active [id number] ALLERGIES No Known Allergies ENCOUNTERS Encounter Location Date Diagnosis [facility] [address] [address] Aug, [facility] [address] [address] Jul, [facility] [address] [address] Jul, Urinary frequency R35.0 ; Ac [place] cystitis with hematuria N30.01 and Seasonal allergic rhinitis, unspecified trigger J30.2 [facility] [address] [address] Jul, [facility] [address] [address] Jun, Seasonal allergic rhinitis, unspecified trigger J30.2 [facility] [address] [address] 16 Dec, 2017 Urinary frequency R35.0 ; Ac [place] cystitis with hematuria N30.01 ; Seasonal allergic rhinitis, unspecified trigger J30.2 and Impacted cerumen, bilateral H61.23 [facility] [address] [address] Nov, Sore throat J02.9 and Strep pharyngitis J02.0 [facility] [address] [id number] [address] [place] [id number] Aug, Dental caries K02.9 [facility] [address] [id number] [address] [place] [address] Jul, Allergic contact dermatitis, unspecified trigger L23.9 and Oral abscess K12.2 [facility] [address] [id number] [address] [place] [id number] Jul, Dental caries K02.9 and [place] al examination Z01.20 [facility] [address] [id number] [address] [place] [address] Aug, Periodontal abscess K05.219 [facility] [address] [facility] [id number] [address] [place] [address] May, Allergic rhinitis, unspecifi ed allergic rhinitis type J30.9 and Acute otitis externa of left ear, unspecified type H60.502 [facility] [address] [id number] [address] [place] [address] Sep, [facility] [address] [address] Sep, Ankle pain, right M25.571 [facility] [address] [id number] [address] [place] [address] Aug, [facility] [id number] [place] [address] Aug, [facility] [address] [facility] [id number] [address] [place] [phone] Jun, [facility] [address] [id number] [place] [id number] May, Dental examination V72.2 [facility] [address] [id number] [address] [place] [address] May, [facility] [address] [id number] [place] [id number] May, Dental examination V72.2 [facility] [address] [id number] [address] [place] [address] [id number] Apr, Dental examination V72.2 [facility] [address] [id number] [address] [place] [phone] Apr, [facility] [address] [id number] [address] [place] [id number] March, Dental examination V72.2 [facility] [address] [id number] [address] [place] [phone] March, [facility] [address] [id number] [address] [place] [id number] 14 Feb, 2015 [facility] [address] [id number] [address] [place] [phone] Feb, [facility] [address] [id number] [address] [place] [phone] 17 Jan, 2015 [facility] [address] [id number] [address] [place] [phone] 17 Jan, 2015 [facility] [address] [id number] [address] [place] [address] 16 Jan, 2015 [facility] [address] [id number] [address] [place] [id number] 16 Jan, 2015 [facility] [address] [id number] [address] [place] [address] 16 Jan, 2015 [facility] [address] [id number] [address] [place] [phone] 16 Jan, 2015 [facility] [address] [id number] [address] [place] [phone] 19 Dec, 2014 [facility] [address] [id number] [address] [place] [id number] 19 Dec, 2014 [facility] [address] [id number] [address] [place] [phone] Dec, [facility] [address] [id number] [address] [place] [address], [place] [address] Dec, [facility] [address] [id number] [address] [place] [address], [place] [address] Nov, [facility] [address] [id number] [address] [place] [address], [place] [address] Nov, [facility] [address] [id number] [address] [place] [address], [place] [address] Oct, [facility] [address] [id number] [address] [place] [address], [place] [address] Oct, [facility] [address] [id number] [address] [place] [address], [place] [address] Oct, [facility] [address] [id number] [address] [place] [address], [place] [address] Oct, [facility] [address] [id number] [address] [place] [address], [place] [address] Oct, [facility] [address] [id number] [address] [place] [address], [place] [address] Oct, [facility] [address] [id number] [address] [place] [address], [place] [address] Sep, [facility] [address] [id number] [address] [place] [address], [place] [address] Sep, [facility] [address] [id number] [address] [place] [address], [place] [address] Sep, [facility] [address] [id number] [address] [place] [address], [place] [address] Sep, [facility] [address] [id number] [address] [place] [address], [place] [address] Sep, [facility] [address] [id number] [address] [place] [address], [place] [address] Sep, [facility] [address] [id number] [address] [place] [address], [place] [address] Sep, [facility] [address] [id number] [address] [place] [address], [place] [address] Sep, [facility] [address] [id number] [address] [place] [address], [place] [address] Aug, [facility] [address] [id number] [address] [place] [address], [place] [address] Aug, [facility] [address] [id number] [address] [place] [address], [place] [address] Aug, [facility] [address] [id number] [address] [place] [address], [place] [address] Aug, [facility] [address] [id number] [address] [place] [address], [place] [address] Aug, [facility] [address] [id number] [address] [place] [address], [place] [address] Aug, [facility] [address] [id number] [address] [place] [address], [place] [address] Aug, [facility] [address] [id number] [address] [place] [address], [place] [address] Aug, [facility] [address] [id number] [address] [place] [address], [place] [address] Aug, [facility] [address] [id number] [address] [place] [address], [place] [address] Aug, [facility] [address] [id number] [address] [place] [address], [place] [address] Jul, [facility] [address] [id number] [address] [place] [address], [place] [address] Jul, [facility] [address] [id number] [address] [place] [address], [place] [address] Jun, [facility] [address] [id number] [address] [place] [address], [place] [address] Jun, [facility] [address] [id number] [address] [place] [address], [place] [address] May, [facility] [address] [id number] [address] [place] [address], [place] [address] May, [facility] [address] [id number] [address] [place] [address], [place] [address] Apr, [facility] [address] [id number] [address] [place] [address], [place] [address] Apr, [facility] [address] [id number] [address] [place] [address], [place] [address] Apr, [facility] [address] [id number] [address] [place] [address], [place] [address] Apr, [facility] [address] [id number] [address] [place] [address], [place] [address] March, [facility] [address] [id number] [address] [place] [address], [place] [address] March, [facility] [address] [id number] [address] [place] [address], [place] [address] Jan, [facility] [address] [id number] [address] [place] [address], [place] [address] Jan, [facility] [address] [id number] [address] [place] [address], [place] [address] Oct, [facility] [address] [id number] [address] [place] [address], [place] [address] Oct, [facility] [address] [id number] [address] [place] [address], [place] [address] Sep, [facility] [address] [id number] [address] [place] [address], [place] [address] Sep, [facility] [address] [id number] [address] [place] [address], [place] [address] Aug, [facility] [address] [id number] [address] [place] [address], [place] [address] 17 Aug, 2013 [facility] [address] [id number] [address] [place] [address], [place] [address] 25 Jul, 2012 [facility] [address] [id number] [address] [place] [address], [place] [address] 20 Jul, 2012 [facility] [address] [id number] [address] [place] [address], [place] [address] 16 Jul, 2012 [facility] [address] [id number] [address] [place] [address], [place] [address] 09 Jul, 2012 [facility] [address] [id number] [address] [place] [address], [place] [address] 05 Jul, 2012 [facility] [address] [id number] [address] [place] [address], [place] [address] 05 Jul, 2012 [facility] [address] [id number] [address] [place] [address], [place] [address] Jul, [facility] [address] [id number] [address] [place] [address], [place] [address] Jun, [facility] [address] [id number] [address] [place] [address], [place] [address] Jun, [facility] [address] [id number] [address] [place] [address], [place] [address] May, [facility] [address] [id number] [address] [place] [address], [place] [address] May, [facility] [address] [id number] [address] [place] [address], [place] [address] May, [facility] [address] [id number] [address] [place] [address], [place] [address] May, [facility] [address] [id number] [address] [place] [address], [place] [address] May, [facility] [address] [id number] [address] [place] [address], [place] [address] March, [facility] [address] [id number] [address] [place] [address] March, [facility] [address] [id number] [address] [place] [address] Oct, [facility] [address] [id number] [address] [place] [address] Oct, [facility] [address] [id number] [address] [place] [address] Jun, [facility] [address] [id number] [address] [place] [address] Nov, [facility] [address] [id number] [address] [place] [address] Aug, [facility] [address] [id number] [address] [place] [address] Aug, [facility] [address] [id number] [address] [place] [address] Dec, [facility] [address] [id number] [address] [place] [address] Oct, [facility] [address] [id number] [address] [place] [address] Oct, [facility] [address] [id number] [address] [place] [phone] Jun, IMMUNIZATIONS No Known Immunizations SOCIAL HISTORY Never Assessed REASON FOR VISIT Nasal congestion, sore throat JStrasserRN, Urinary frequency for awhile, worse n ow PLAN OF CARE Activity Details Follow Up w/ PCP, prn Reason:if sympto ms worsen or not improving VITAL SIGNS Height 64 in 2018-08-13 Weight 187.4 lbs 2018-08-13 Temperature 98.1 degrees Fahrenheit 2018-08-13 Heart Rate 88 bpm 2018-08-13 Respiratory Rate 20 2018-08-13 BMI 32.16 kg/m2 2018-08-13 Blood pressure systolic 124 mmHg 2018-08-13 Blood pressure diastolic 80 mmHg 2018-08-13 MEDICATIONS Medication Instructions Dosage Frequency Start Date End Date Duration S tatus Lisinopril 20 MG TAKE ONE TABLET BY MOUTH DAILY 30 Active Cetirizine HCl 10 mg Orally Once a day 1 tablet 24h 18 Jul, 8 18 Aug, 2018 30 day(s) Active Flonase 50 MCG/ACT Nasally twice a day 1 spray in each nostril 12h 16 May, 2016 30 days Active tramadol 50 mg take 1 tablet by Oral route 1 ti me per day as needed PRN pain Jan, Active Sulfamethoxazole-Trimethoprim 800-160 MG Orally Twice a day 1 table t 12h Jul, Jul, 5 days Active RESULTS No Results PROCEDURES Procedure Date Ordered Result Body Site URINALYSIS, AUTO, W/O SCOPE Aug 13, 2018 LAB NOT BILLED BY [facility] Aug 13, 2018 FQ VISIT ESTABLISHED PATIENT Aug 13, 2018 INSTRUCTIONS MEDICATIONS ADMINISTERED No Known Medications MEDICAL (GENERAL) HISTORY Type Description Date Medical History hypertension Medical History Arthritis Medical History Family history of diabetes mellitus Medical History Flat foot Medical History Cervicalgia Surgical History bladder surgery Surgical History cyst removal Hospitalization History surgery related
--- OUTSIDE RECORDS SUMMARY | 2020-05-26 23:11 | XMS REPORT ---
Author Author Riya PRADO Organization [facility] Address [address] [place] [address] Care Team Providers Care [place] Tour Guide Name Role Phone JAYY PRADO Unavailable PROBLEMS Type Condition ICD9-CM Code [id number] Code Onset Dates Condition S tatus SNOMED Code Problem Seasonal allergic rhinitis, unspecified trigger J3 0.2 Active [id number] ALLERGIES No Information ENCOUNTERS Encounter Location Date Diagnosis [facility] [address] [address] Aug, [facility] [address] [address] Jul, [facility] [address] [address] Jul, Urinary frequency R35.0 ; Ac [place] cystitis with hematuria N30.01 and Seasonal allergic rhinitis, unspecified trigger J30.2 [facility] [address] [address] Jul, [facility] [address] [address] Jun, Seasonal allergic rhinitis, unspecified trigger J30.2 [facility] [address] [address] 16 Dec, 2017 Urinary frequency R35.0 ; [place] cystitis with hematuria N30.01 ; Seasonal allergic rhinitis, unspecified trigger J30.2 and Impacted cerumen, bilateral H61.23 [facility] [address] [address] Nov, Sore throat J02.9 and Strep pharyngitis J02.0 [facility] [address] [id number] [address] [place] [id number] Aug, Dental caries K02.9 [facility] [address] [id number] [address] [place] [address] Jul, Allergic contact dermatitis, unspecified trigger L23.9 and Oral abscess K12.2 [facility] [address] [id number] [address] [place] [id number] Jul, Dental caries K02.9 and [place] examination Z01.20 [facility] [address] [id number] [address] [place] [address] Aug, Periodontal abscess K05.219 [facility] [address] [facility] [id number] [address] [place] [address] May, Allergic rhinitis, unspecifi ed allergic rhinitis type J30.9 and Acute otitis externa of left ear, unspecified type H60.502 [facility] [address] [id number] [address] [place] [address] Sep, [facility] [address] [place] [id number] [place] [address] Sep, Ankle pain, right M25.571 [facility] [address] [facility] [id number] [address] [place] [address] Aug, [facility] [address] [id number] [address] [place] [address] Aug, [facility] [address] [id number] [address] [place] [address] Jun, [facility] [address] [id number] [place] [id number] May, Dental examination V72.2 [facility] [address] [id number] [address] [place] [address] May, [facility] [address] [id number] [address] [place] [id number] May, Dental examination V72.2 [facility] [address] [id number] [address] [place] [id number] Apr, Dental examination V72.2 [facility] [address] [id number] [address] [place] [address] Apr, [facility] [address] [id number] [address] [place] [id number] March, Dental examination V72.2 [facility] [address] [id number] [address] [place] [address] March, [facility] [address] [id number] [address] [place] [address] 14 Feb, 2015 [facility] [address] [id number] [address] [place] [address] Feb, [facility] [address] [id number] [address] [place] [address] 17 Jan, 2015 [facility] [address] [id number] [address] [place] [address] 17 Jan, 2015 [facility] [address] [id number] [address] [place] [address] 16 Jan, 2015 [facility] [address] [id number] [address] [place] [address] 16 Jan, 2015 [facility] [address] [id number] [address] [place] [phone] 16 Jan, 2015 [facility] [address] [id number] [address] [place] [address] 16 Jan, 2015 [facility] [address] [id number] [address] [place] [address] 19 Dec, 2014 [facility] [address] [id number] [address] [place] [id number] 19 Dec, 2014 [facility] [address] [id number] [address] [place] [address] Dec, [facility] [address] [id number] [address] [place] [address], [place] [address] Dec, [facility] [address] [id number] [address] [place] [address], [place] [address] Nov, [facility] [address] [id number] [address] [place] [address], [place] [address] Nov, [facility] [address] [id number] [address] [place] [address], [place] [address] Oct, [facility] [address] [id number] [address] [place] [address], [place] [address] Oct, [facility] [address] [id number] [address] [place] [address], [place] [address] Oct, [facility] [address] [id number] [address] [place] [address], [place] [address] Oct, [facility] [address] [id number] [address] [place] [address], [place] [address] Oct, [facility] [address] [id number] [address] [place] [address], [place] [address] Oct, [facility] [address] [id number] [address] [place] [address], [place] [address] Sep, [facility] [address] [id number] [address] [place] [address], [place] [address] Sep, [facility] [address] [id number] [address] [place] [address], [place] [address] Sep, [facility] [address] [id number] [address] [place] [address], [place] [address] Sep, [facility] [address] [id number] [address] [place] [address], [place] [address] Sep, [facility] [address] [id number] [address] [place] [address], [place] [address] Sep, [facility] [address] [id number] [address] [place] [address], [place] [address] Sep, [facility] [address] [id number] [address] [place] [address], [place] [address] Sep, [facility] [address] [id number] [address] [place] [address], [place] [address] Aug, [facility] [address] [id number] [address] [place] [address], [place] [address] Aug, [facility] [address] [id number] [address] [place] [address], [place] [address] Aug, [facility] [address] [id number] [address] [place] [address], [place] [address] Aug, [facility] [address] [id number] [address] [place] [address], [place] [address] Aug, [facility] [address] [id number] [address] [place] [address], [place] [address] Aug, [facility] [address] [id number] [address] [place] [address], [place] [address] Aug, [facility] [address] [id number] [address] [place] [address], [place] [address] Aug, [facility] [address] [id number] [address] [place] [address], [place] [address] Aug, [facility] [address] [id number] [address] [place] [address], [place] [address] Aug, [facility] [address] [id number] [address] [place] [address], [place] [address] Jul, [facility] [address] [id number] [address] [place] [address], [place] [address] Jul, [facility] [address] [id number] [address] [place] [address], [place] [address] Jun, [facility] [address] [id number] [address] [place] [address], [place] [address] Jun, [facility] [address] [id number] [address] [place] [address], [place] [address] May, [facility] [address] [id number] [address] [place] [address], [place] [address] May, [facility] [address] [id number] [address] [place] [address], [place] [address] Apr, [facility] [address] [id number] [address] [place] [address], [place] [address] Apr, [facility] [address] [id number] [address] [place] [address], [place] [address] Apr, [facility] [address] [id number] [address] [place] [address], [place] [address] Apr, [facility] [address] [id number] [address] [place] [address], [place] [address] March, [facility] [address] [id number] [address] [place] [address], [place] [address] March, [facility] [address] [id number] [address] [place] [address], [place] [address] Jan, [facility] [address] [id number] [address] [place] [address], [place] [address] Jan, [facility] [address] [id number] [address] [place] [address], [place] [address] Oct, [facility] [address] [id number] [address] [place] [address], [place] [address] Oct, [facility] [address] [id number] [address] [place] [address], [place] [address] Sep, [facility] [address] [id number] [address] [place] [address], [place] [address] Sep, [facility] [address] [id number] [address] [place] [address], [place] [address] Aug, [facility] [address] [id number] [address] [place] [address], [place] [address] 17 Aug, 2013 [facility] [address] [id number] [address] [place] [address], [place] [address] 25 Jul, 2012 [facility] [address] [id number] [address] [place] [address], [place] [address] 20 Jul, 2012 [facility] [address] [id number] [address] [place] [address], [place] [address] 16 Jul, 2012 [facility] [address] [id number] [address] [place] [address], [place] [address] 09 Jul, 2012 [facility] [address] [id number] [address] [place] [address], [place] [address] 05 Jul, 2012 [facility] [address] [id number] [address] [place] [address], [place] [address] 05 Jul, 2012 [facility] [address] [id number] [address] [place] [address], [place] [address] Jul, [facility] [address] [id number] [address] [place] [address], [place] [address] Jun, [facility] [address] [id number] [address] [place] [address], [place] [address] Jun, [facility] [address] [id number] [address] [place] [address], [place] [address] May, [facility] [address] [id number] [address] [place] [address], [place] [address] May, [facility] [address] [id number] [address] [place] [address], [place] [address] May, [facility] [address] [id number] [address] [place] [address], [place] [address] May, [facility] [address] [id number] [address] [place] [address], [place] [address] May, [facility] [address] [id number] [address] [place] [address], [place] [address] March, [facility] [address] [id number] [address] [place] [address] March, [facility] [address] [id number] [address] [place] [address] Oct, [facility] [address] [id number] [address] [place] [address] Oct, [facility] [address] [id number] [address] [place] [address] Jun, [facility] [address] [id number] [address] [place] [address] Nov, [facility] [address] [id number] [address] [place] [address] Aug, [facility] [address] [id number] [address] [place] [address] Aug, [facility] [address] [id number] [address] [place] [address] Dec, [facility] [address] [id number] [address] [place] [address] Oct, [facility] [address] [id number] [address] [place] [address] Oct, [facility] [address] [id number] [address] [place] [address] Jun, IMMUNIZATIONS No Known Immunizations SOCIAL HISTORY Never Assessed REASON FOR VISIT questioning care PLAN OF CARE VITAL SIGNS MEDICATIONS Unknown Medications RESULTS No Results PROCEDURES No Known procedures INSTRUCTIONS MEDICATIONS ADMINISTERED No Known Medications MEDICAL (GENERAL) HISTORY Type Description Date Medical History hypertension Medical History Arthritis Medical History Family history of diabetes mellitus Medical History Flat foot Medical History Cervicalgia Surgical History bladder surgery Surgical History cyst removal Hospitalization History surgery related
--- OUTSIDE RECORDS SUMMARY | 2020-05-26 23:12 | XMS REPORT | Continuity of Care Document ---
Author Organization Unknown Address Unknown Phone Unavailable Allergies Active Description Code Type Severity Reaction Onset Reported/Identified Relationship to Patient Clinical Status Yes No Known Drug Allergies [id number] Drug Allergy Unknown N/A 08/17/2016 Medications There is no data. Problems Date Dx Coded Attending Type Code Diagnosis Diagnosed By 07/14/2009 JOCELYNE GOODRICH DOA K 692.9 DERMATITIS 07/14/2009 692.9 DERM ATITIS 07/14/2009 VIVIAN AQUINO APRN A 69 2.9 DERMATITIS 07/14/2009 ORQUIDEA FIORE APRN S 692.9 DERMATITIS 07/14/2009 GOODRICH DO HILDA K 692.9 DERMATITIS 07/14/2009 DEVON DDS, RUTH Dacosta 69 2.9 DERMATITIS 07/14/2009 JOEY ARMSTRONG APRN 692 .9 DERMATITIS 07/14/2009 MALICK MOFFETT APRN 69 2.9 DERMATITIS 07/14/2009 GOODRICH DO, HILDA K 692.9 DERMATITIS 07/14/2009 JORGE FIORE APRNA S 692.9 DERMATITIS 07/14/2009 GOODRICH DO, HILDA K 692.9 DERMATITIS 07/14/2009 GOODRICH DO, HILDA K 692.9 DERMATITIS 07/14/2009 JORGE FIORE APRNA S 692.9 DERMATITIS 11/02/2009 JOCELYNE GOODRICH DOA K 595.0 CYSTITIS ACUTE 11/02/2009 JOLEEN CASTILLO HILDA K 788.42 frequent, full-bladder emptying (polyuria) 11/02/2009 595.0 CYST ITIS ACUTE 11/02/2009 788.42 jaswinder quent, full- bladder emptying (polyuria) 11/02/2009 VIVIAN AQUINO APRN A 59 5.0 CYSTITIS ACUTE 11/02/2009 CARLOS A AQUINO APRNIDI A 788.42 frequent, full-bladder emptying (polyuria) 11/02/2009 ORQUIDEA FIORE APRN S 595.0 CYSTITIS ACUTE 11/02/2009 [facility] PET CARE TECHNICIAN, ORQUIDEA S 788.42 FREQUENT, FULL-BLADDER EMPTYING (POLYURIA) 11/02/2009 GOODRICH DO, HILDA K 595.0 CYSTITIS ACUTE 11/02/2009 GOODRICH DO, HILDA K 788.42 FREQUENT, FULL-BLADDER EMPTYING (POLYURIA) 11/02/2009 WHITE DDS, RUTH D 59 5.0 CYSTITIS ACUTE 11/02/2009 WHITE DDS, RUTH D 788.42 FREQUENT, FULL-BLADDER EMPTYING (POLYURIA) 11/02/2009 [facility] PET CARE TECHNICIAN, JOEY L 595 .0 CYSTITIS ACUTE 11/02/2009 MAD[facility] PET CARE TECHNICIAN, JOEY L 788 .42 FREQUENT, FULL-BLADDER EMPTYING (POLYURIA) 11/02/2009 [facility] PET CARE TECHNICIAN, MALICK T 59 5.0 CYSTITIS ACUTE 11/02/2009 ZUHAIR PET CARE TECHNICIAN, MALICK T 788.42 FREQUENT, FULL-BLADDER EMPTYING (POLYURIA) 11/02/2009 GOODRICH DO, HILDA K 595.0 CYSTITIS ACUTE 11/02/2009 GOODRICH DO, HILDA K 788.42 FREQUENT, FULL-BLADDER EMPTYING (POLYURIA) 11/02/2009 [facility] PET CARE TECHNICIAN, ORQUIDEA S 595.0 CYSTITIS ACUTE 11/02/2009 [facility] PET CARE TECHNICIAN, ORQUIDEA S 788.42 FREQUENT, FULL-BLADDER EMPTYING (POLYURIA) 11/02/2009 GOODRICH DO, HILDA K 595.0 CYSTITIS ACUTE 11/02/2009 GOODRICH DO, HILDA K 788.42 FREQUENT, FULL-BLADDER EMPTYING (POLYURIA) 11/02/2009 GOODRICH DO, HILDA K 595.0 CYSTITIS ACUTE 11/02/2009 GOODRICH DO, HILDA K 788.42 FREQUENT, FULL-BLADDER EMPTYING (POLYURIA) 11/02/2009 [facility] PET CARE TECHNICIAN, ORQUIDEA S 595.0 CYSTITIS ACUTE 11/02/2009 [facility] PET CARE TECHNICIAN, ORQUIDEA S 788.42 FREQUENT, FULL-BLADDER EMPTYING (POLYURIA) 11/16/2009 GOODRICH DO, HILDA K V72.31 Pelvic Exam (Internal) 11/16/2009 V72.31 Pel bren Exam (Internal) 11/16/2009 VIVIAN AQUINO APRN V72.31 Pelvic Exam (Internal) 11/16/2009 A[facility] COATS ORQUIDEA S V72.31 PELVIC EXAM (INTERNAL) 11/16/2009 GOODRICH JOCELYNE CASTILLOA K V72.31 PELVIC EXAM (INTERNAL) 11/16/2009 DEVON DDS RUTH Dacosta V72.31 PELVIC EXAM (INTERNAL) 11/16/2009 JOEY ARMSTRONG APRN V72 .31 PELVIC EXAM (INTERNAL) 11/16/2009 MALICK MOFFETT APRN V72.31 PELVIC EXAM (INTERNAL) 11/16/2009 GOODRICH DO HILDA K V72.31 PELVIC EXAM (INTERNAL) 11/16/2009 RANJANA FIORE APRNNDA S V72.31 PELVIC EXAM (INTERNAL) 11/16/2009 GOODRICH DO HILDA K V72.31 PELVIC EXAM (INTERNAL) 11/16/2009 GOODRICH DO HILDA K V72.31 PELVIC EXAM (INTERNAL) 11/16/2009 RANJANA FIORE APRNNDA S V72.31 PELVIC EXAM (INTERNAL) 01/12/2010 JOLEEN CASTILLO HILDA K 599.0 URINARY TRACT INFECTION 01/12/2010 JOLEEN CASTILLO HILDA K 788.41 urinary frequency increased 01/12/2010 JOLEEN DO, HILDA K 795.01 Cerv Pap Smear (+) Atyp Squamous Cells Undetermined Signif 01/12/2010 599.0 URIN ARETHA TRACT INFECTION 01/12/2010 788.41 uri nary frequency increased 01/12/2010 795.01 Cer v Pap Smear (+) Atyp Squamous Cells Undetermined Signif 01/12/2010 [facility] PET CARE TECHNICIAN, VIVIAN A 59 9.0 URINARY TRACT INFECTION 01/12/2010 [facility] PET CARE TECHNICIAN, VIVIAN A 788.41 urinary frequency increased 01/12/2010 [facility] PET CARE TECHNICIAN, VIVIAN A 795.01 Cerv Pap Smear (+) Atyp Squamous Cells Undetermined Si gnif 01/12/2010 ADE[facility]O COATS, ORQUIDEA S 599.0 URINARY TRACT INFECTION 01/12/2010 A[facility] COATS ORQUIDEA S 788.41 URINARY FREQUENCY INCREASED 01/12/2010 ADE[facility] COATS ORQUIDEA S 795.01 CERV PAP SMEAR (+) ATYP SQUAMOUS CELLS UNDETERMINED SI GNIF 01/12/2010 GOODRICH DO HILDA K 599.0 URINARY TRACT INFECTION 01/12/2010 JOLEEN CASTILLO HILDA K 788.41 URINARY FREQUENCY INCREASED 01/12/2010 GOODRICH DO, HILDA K 795.01 CERV PAP SMEAR (+) ATYP SQUAMOUS CELLS UNDETERMINED SIGNIF 01/12/2010 WHITE DDS, RUTH D 59 9.0 URINARY TRACT INFECTION 01/12/2010 WHITE DDS, RUTH D 788.41 URINARY FREQUENCY INCREASED 01/12/2010 WHITE DDS, RUTH D 795.01 CERV PAP SMEAR (+) ATYP SQUAMOUS CELLS UNDETERMINED SI GNIF 01/12/2010 MAD[facility] PET CARE TECHNICIAN, JOEY L 599 .0 URINARY TRACT INFECTION 01/12/2010 MADL PET CARE TECHNICIAN, JOEY L 788 .41 URINARY FREQUENCY INCREASED 01/12/2010 MAD[facility] PET CARE TECHNICIAN, JOEY L 795 .01 CERV PAP SMEAR (+) ATYP SQUAMOUS CELLS UNDETERMINED SIGNIF 01/12/2010 [facility] PET CARE TECHNICIAN, MALICK T 59 9.0 URINARY TRACT INFECTION 01/12/2010 [facility]IR PET CARE TECHNICIAN, MALICK T 788.41 URINARY FREQUENCY INCREASED 01/12/2010 [facility] PET CARE TECHNICIAN MALICK T 795.01 CERV PAP SMEAR (+) ATYP SQUAMOUS CELLS UNDETERMINED SI GNIF 01/12/2010 GOODRIHC DO, HILDA K 599.0 URINARY TRACT INFECTION 01/12/2010 GOODRICH DO, HILAD K 788.41 URINARY FREQUENCY INCREASED 01/12/2010 GOODRICH DO, HILDA K 795.01 CERV PAP SMEAR (+) ATYP SQUAMOUS CELLS UNDETERMINED SIGNIF 01/12/2010 [facility] PET CARE TECHNICIAN, ORQUIDEA S 599.0 URINARY TRACT INFECTION 01/12/2010 [facility] PET CARE TECHNICIAN, ORQUIDEA S 788.41 URINARY FREQUENCY INCREASED 01/12/2010 [facility] PET CARE TECHNICIAN, ORQUIDEA S 795.01 CERV PAP SMEAR (+) ATYP SQUAMOUS CELLS UNDETERMINED SI GNIF 01/12/2010 GOODRICH DO, HILDA K 599.0 URINARY [...] ATYP SQUAMOUS CELLS UNDETERMINED SIGNIF 01/12/2010 [facility] PET CARE TECHNICIAN, ORQUIDEA S 599.0 URINARY TRACT INFECTION 01/12/2010 [facility] PET CARE TECHNICIAN, ORQUIDEA S 788.41 URINARY FREQUENCY INCREASED 01/12/2010 [facility] PET CARE TECHNICIAN, ORQUIDEA S 795.01 CERV PAP SMEAR (+) ATYP SQUAMOUS CELLS UNDETERMINED SI GNIF 01/31/2010 GOODRICH DO, HILDA K 380.4 IMPACTED CERUMEN 01/31/2010 GOODRICH DO, HILDA K 599.70 HEMATURIA, UNSPECIFIED 01/31/2010 380.4 IMPA CTED CERUMEN 01/31/2010 599.70 HEM ATURIA, UNSPECIFIED 01/31/2010 [facility] PET CARE TECHNICIAN, VIVIAN A 38 0.4 IMPACTED CERUMEN 01/31/2010 [facility] PET CARE TECHNICIAN, VIVIAN A 599.70 HEMATURIA, UNSPECIFIED 01/31/2010 [facility] PET CARE TECHNICIAN, ORQUIDEA S 380.4 IMPACTED CERUMEN 01/31/2010 [facility] PET CARE TECHNICIAN, ORQUIDEA S 599.70 HEMATURIA, UNSPECIFIED 01/31/2010 GOODRICH DO, HILDA K 380.4 IMPACTED CERUMEN 01/31/2010 GOODRICH DO, HILDA K 599.70 HEMATURIA, UNSPECIFIED 01/31/2010 WHITE DDS, RUTH D 38 0.4 IMPACTED CERUMEN 01/31/2010 WHITE DDS, RUTH D 599.70 HEMATURIA, UNSPECIFIED 01/31/2010 [facility] PET CARE TECHNICIAN, JOEY L 380 .4 IMPACTED CERUMEN 01/31/2010 MADL PET CARE TECHNICIAN, JOEY L 599 .70 HEMATURIA, UNSPECIFIED 01/31/2010 [facility] PET CARE TECHNICIAN, MALICK T 38 0.4 IMPACTED CERUMEN 01/31/2010 ZUHAIR PET CARE TECHNICIAN, MALICK T 599.70 HEMATURIA, UNSPECIFIED 01/31/2010 GOODRICH DO, HILDA K 380.4 IMPACTED CERUMEN 01/31/2010 GOODRICH DO, HILDA K 599.70 HEMATURIA, UNSPECIFIED 01/31/2010 [facility] PET CARE TECHNICIAN, ORQUIDEA S 380.4 IMPACTED CERUMEN 01/31/2010 [facility] PET CARE TECHNICIAN, ORQUIDEA S 599.70 HEMATURIA, UNSPECIFIED 01/31/2010 GOODRICH DO, HILDA K 380.4 IMPACTED CERUMEN 01/31/2010 GOODRICH DO, HILDA K 599.70 HEMATURIA, UNSPECIFIED 01/31/2010 GOODRICH DO, HILDA K 380.4 IMPACTED CERUMEN 01/31/2010 GOODRICH DO, HILDA K 599.70 HEMATURIA, UNSPECIFIED 01/31/2010 [facility] PET CARE TECHNICIAN, ORQUIDEA S 380.4 IMPACTED CERUMEN 01/31/2010 [facility] PET CARE TECHNICIAN, ORQUIDEA S 599.70 HEMATURIA, UNSPECIFIED 04/15/2010 GOODRICH DOHILDA K V06.5 DT, TETANUS-DIPHTHERIA [Td] ,TDAP 04/15/2010 V06.5 DT, TETANUS- DIPHTHERIA [Td] ,TDAP 04/15/2010 [facility] PET CARE TECHNICIAN, VIVIAN Castorena V0 6.5 DT, TETANUS-DIPHTHERIA [Td] ,TDAP 04/15/2010 ADE[facility]YO COATS, ORQUIDEA S V06.5 DT, TETANUS-DIPHTHERIA [TD] ,TDAP 04/15/2010 GOODRICH DOHILDA K V06.5 DT, TETANUS-DIPHTHERIA [TD] ,TDAP 04/15/2010 DEVON DDS, RUTH Dacosta V0 6.5 DT, TETANUS-DIPHTHERIA [TD] ,TDAP 04/15/2010 [facility] PET CARE TECHNICIAN, JOEY Haile V06 .5 DT, TETANUS-DIPHTHERIA [TD] ,TDAP 04/15/2010 ZU[facility]IR PET CARE TECHNICIANMALICK Brandt V0 6.5 DT, TETANUS-DIPHTHERIA [TD] ,TDAP 04/15/2010 GOODRICH DOHILDA K V06.5 DT, TETANUS-DIPHTHERIA [TD] ,TDAP 04/15/2010 ORQUIDEA FIORE APRN S V06.5 DT, TETANUS-DIPHTHERIA [TD] ,TDAP 04/15/2010 GOODRICH DOHILDA K V06.5 DT, TETANUS-DIPHTHERIA [TD] ,TDAP 04/15/2010 GOODRICH DOHILDA K V06.5 DT, TETANUS-DIPHTHERIA [TD] ,TDAP 04/15/2010 ORQUIDEA FIORE APRN S V06.5 DT, TETANUS-DIPHTHERIA [TD] ,TDAP 08/16/2011 JOLEEN CASTILLO, HILDA K 401.0 HYPERTENSION MALIGNANT ESSENTIAL 08/16/2011 HILDA GOODRICH DO K 729.5 PAIN IN LIMB 08/16/2011 401.0 HYPE RTENSION MALIGNANT ESSENTIAL 08/16/2011 729.5 PAIN IN LIMB 08/16/2011 [facility] PET CARE TECHNICIAN, VIVIAN A 40 1.0 HYPERTENSION MALIGNANT ESSENTIAL 08/16/2011 [facility] PET CARE TECHNICIAN, VIVAIN A 72 9.5 PAIN IN LIMB 08/16/2011 [facility] PET CARE TECHNICIAN, ORQUIDEA S 401.0 HYPERTENSION MALIGNANT ESSENTIAL 08/16/2011 [facility] PET CARE TECHNICIAN, ORQUIDEA S 729.5 PAIN IN LIMB 08/16/2011 GOODRICH DO, HILDA K 401.0 HYPERTENSION MALIGNANT ESSENTIAL 08/16/2011 GOODRICH DO, HILDA K 729.5 PAIN IN LIMB 08/16/2011 WHITE DDS, RUTH D 40 1.0 HYPERTENSION MALIGNANT ESSENTIAL 08/16/2011 WHITE DDS, RUTH D 72 9.5 PAIN IN LIMB 08/16/2011 MAD[facility] PET CARE TECHNICIAN, JOEY L 401 .0 HYPERTENSION MALIGNANT ESSENTIAL 08/16/2011 MADL PET CARE TECHNICIAN, JOEY L 729 .5 PAIN IN LIMB 08/16/2011 ZUHAIR COATS MALICK T 40 1.0 HYPERTENSION MALIGNANT ESSENTIAL 08/16/2011 ZUHAIR JORGE L, MALICK T 72 9.5 PAIN IN LIMB 08/16/2011 GOODRICH DO, HILDA K 401.0 HYPERTENSION MALIGNANT ESSENTIAL 08/16/2011 GOODRICH DO, HILDA K 729.5 PAIN IN LIMB 08/16/2011 [facility] PET CARE TECHNICIAN, ORQUIDEA S 401.0 HYPERTENSION MALIGNANT ESSENTIAL 08/16/2011 [facility] PET CARE TECHNICIAN, ORQUIDEA S 729.5 PAIN IN LIMB 08/16/2011 GOODRICH DO, HILDA K 401.0 HYPERTENSION MALIGNANT ESSENTIAL 08/16/2011 GOODRICH DO, HILDA K 729.5 PAIN IN LIMB 08/16/2011 GOODRICH DO, HILDA K 401.0 HYPERTENSION MALIGNANT ESSENTIAL 08/16/2011 GOODRICH DO, HILDA K 729.5 PAIN IN LIMB 08/16/2011 [facility] PET CARE TECHNICIAN, ORQUIDEA S 401.0 HYPERTENSION MALIGNANT ESSENTIAL 08/16/2011 [facility] PET CARE TECHNICIAN, ORQUIDEA S 729.5 PAIN IN LIMB 08/23/2011 GOODRICH DO, HILDA K 465.9 UPPER RESPIRATORY INFECTION 08/23/2011 465.9 UPPE R RESPIRATORY INFECTION 08/23/2011 KENIA COATS VIVIAN A 46 5.9 UPPER RESPIRATORY INFECTION 08/23/2011 [facility] PET CARE TECHNICIAN, ORQUIDEA S 465.9 UPPER RESPIRATORY INFECTION 08/23/2011 GOODRICH DO, HILDA K 465.9 UPPER RESPIRATORY INFECTION 08/23/2011 WHITE DDS, RUTH D 46 5.9 UPPER RESPIRATORY INFECTION 08/23/2011 MAD[facility] PET CARE TECHNICIAN, JOEY L 465 .9 UPPER RESPIRATORY INFECTION 08/23/2011 ZUHAIR MIDDLETONN, MALICK T 46 5.9 UPPER RESPIRATORY INFECTION 08/23/2011 GOODRICH DO, HILDA K 465.9 UPPER RESPIRATORY INFECTION 08/23/2011 [facility] PET CARE TECHNICIAN, ORQUIDEA S 465.9 UPPER RESPIRATORY INFECTION 08/23/2011 GOODRICH DO, HILDA K 465.9 UPPER RESPIRATORY INFECTION 08/23/2011 GOODRICH DO, HILDA K 465.9 UPPER RESPIRATORY INFECTION 08/23/2011 [facility] PET CARE TECHNICIAN, ORQUIDEA S 465.9 UPPER RESPIRATORY INFECTION 09/06/2011 GOODRICH DO, HILDA K V04.81 FLU DX (3 YRS AND ABOVE, IM) 09/06/2011 V04.81 FLU DX (3 YRS AND ABOVE, IM) 09/06/2011 KENIA MIDDLETONN, VIVIAN A V04.81 FLU DX (3 YRS AND ABOVE, IM) 09/06/2011 [facility] PET CARE TECHNICIAN, ORQUIDEA S V04.81 FLU DX (3 YRS AND ABOVE, IM) 09/06/2011 GOODRICH DO, HILDA K V04.81 FLU DX (3 YRS AND ABOVE, IM) 09/06/2011 WHITE DDS, RUTH D V04.81 FLU DX (3 YRS AND ABOVE, IM) 09/06/2011 PAT[facility] PET CARE TECHNICIAN, JOEY L V04 .81 FLU DX (3 YRS AND ABOVE, IM) 09/06/2011 MALICK MOFFETT APRN T V04.81 FLU DX (3 YRS AND ABOVE, IM) 09/06/2011 GOODRICH DO, HILDA K V04.81 FLU DX (3 YRS AND ABOVE, IM) 09/06/2011 [facility] PET CARE TECHNICIAN, ORQUIDEA S V04.81 FLU DX (3 YRS AND ABOVE, IM) 09/06/2011 GOODRICH DO, HILDA K V04.81 FLU DX (3 YRS AND ABOVE, IM) 09/06/2011 GOODRICH DO, HILDA K V04.81 FLU DX (3 YRS AND ABOVE, IM) 09/06/2011 [facility] PET CARE TECHNICIAN, ORQUIDEA S V04.81 FLU DX (3 YRS AND ABOVE, IM) 12/22/2011 GOODRICH DO, HILDA K 726.79 TENDONITIS PERONEAL 12/22/2011 GOODRICH DO, HILDA K 734 FLAT FOOT 12/22/2011 GOODRICH DO, HILDA K 735.4 HAMMER TOE (ACQUIRED) 12/22/2011 726.79 TEN DONITIS PERONEAL 12/22/2011 734 FLAT FOOT 12/22/2011 735.4 EUGENE ER TOE (ACQUIRED) 12/22/2011 [facility] PET CARE TECHNICIAN, VIVIAN A 726.79 TENDONITIS PERONEAL 12/22/2011 [facility] PET CARE TECHNICIAN, VIVIAN A 73 4 FLAT FOOT 12/22/2011 [facility] PET CARE TECHNICIAN, VIVIAN A 73 5.4 HAMMER TOE (ACQUIRED) 12/22/2011 RANJANA FIORE APRNNDA S 726.79 TENDONITIS PERONEAL 12/22/2011 RANJANA FIORE APRNNDA S 734 FLAT FOOT 12/22/2011 JORGE FIORE APRNA S 735.4 HAMMER TOE (ACQUIRED) 12/22/2011 GOODRICH DO, HILDA K 726.79 TENDONITIS PERONEAL 12/22/2011 GOODRICH DO, HILDA K 734 FLAT FOOT 12/22/2011 GOODRICH DO, HILDA K 735.4 HAMMER TOE (ACQUIRED) 12/22/2011 WHITE DDS, RUTH D 726.79 TENDONITIS PERONEAL 12/22/2011 WHITE DDS, RUTH D 73 4 FLAT FOOT 12/22/2011 WHITE DDS, RUTH D 73 5.4 HAMMER TOE (ACQUIRED) 12/22/2011 M[facility] PET CARE TECHNICIAN, JOEY L 726 .79 TENDONITIS PERONEAL 12/22/2011 MADL PET CARE TECHNICIAN, JOEY L 734 FLAT FOOT 12/22/2011 MADL PET CARE TECHNICIAN, JOEY L 735 .4 HAMMER TOE (ACQUIRED) 12/22/2011 MALICK MOFFETT APRN 726.79 TENDONITIS PERONEAL 12/22/2011 MALICK MOFFETT APRN 73 4 FLAT FOOT 12/22/2011 MALICK MOFFETT APRN 73 5.4 HAMMER TOE (ACQUIRED) 12/22/2011 GOODRICH DO HILDA K 726.79 TENDONITIS PERONEAL 12/22/2011 GOODRICH DO, HILDA K 734 FLAT FOOT 12/22/2011 GOODRICH DO, HILDA K 735.4 HAMMER TOE (ACQUIRED) 12/22/2011 ADE[facility]O COATS ORQUIDEA S 726.79 TENDONITIS PERONEAL 12/22/2011 ADEBAYO COATS, ORQUIDEA S 734 FLAT FOOT 12/22/2011 RANJANA FIORE APRNNDA S 735.4 HAMMER TOE (ACQUIRED) 12/22/2011 GOODRICH DO, HILDA K 726.79 TENDONITIS PERONEAL 12/22/2011 GOODRICH DO, HILDA K 734 FLAT FOOT 12/22/2011 GOODRICH DO, HILDA K 735.4 HAMMER TOE (ACQUIRED) 12/22/2011 GOODRICH DO, HILDA K 726.79 TENDONITIS PERONEAL 12/22/2011 GOODRICH DO, HILDA K 734 FLAT FOOT 12/22/2011 GOODRICH DO, HILDA K 735.4 HAMMER TOE (ACQUIRED) 12/22/2011 RANJANA FIORE APRNNDA S 726.79 TENDONITIS PERONEAL 12/22/2011 RANJANA FIORE APRNNDA S 734 FLAT FOOT 12/22/2011 ADEBAYO COATS, ORQUIDEA S 735.4 HAMMER TOE (ACQUIRED) 05/27/2013 724.2 BACK PAIN, LOWER 05/27/2013 780.79 fatigue 05/27/2013 V18.0 FAMI LY HISTORY OF DIABETES MELLITUS 05/27/2013 V70.0 EXAM - ROUTINE H&P 05/27/2013 KENIA COATS, VIVIAN A 72 4.2 BACK PAIN, LOWER 05/27/2013 KENIA COATS, VIVIAN A 780.79 fatigue 05/27/2013 [facility] PET CARE TECHNICIAN, VIVIAN A V1 8.0 FAMILY HISTORY OF DIABETES MELLITUS 05/27/2013 [facility] PET CARE TECHNICIAN, VIVIAN A V7 0.0 EXAM - ROUTINE H&P 05/27/2013 RANJANA FIORE APRNNDA S 724.2 BACK PAIN, LOWER 05/27/2013 RANJANA FIORE APRNNDA S 780.79 FATIGUE 05/27/2013 RANJANA FIORE APRNNDA S V18.0 FAMILY HISTORY OF DIABETES MELLITUS 05/27/2013 [facility] PET CARE TECHNICIAN, ORQUIDEA S V70.0 EXAM - ROUTINE H&P 05/27/2013 GOODRICH DO, HILDA K 724.2 BACK PAIN, LOWER 05/27/2013 GOODRICH DO, HILDA K 780.79 FATIGUE 05/27/2013 GOODRICH DO, HILDA K V18.0 FAMILY HISTORY OF DIABETES MELLITUS 05/27/2013 GOODRICH DO, HILDA K V70.0 EXAM - ROUTINE H&P 05/27/2013 WHITE DDS, RUTH D 72 4.2 BACK PAIN, LOWER 05/27/2013 WHITE DDS, RUTH D 780.79 FATIGUE 05/27/2013 WHITE DDS, RUTH D V1 8.0 FAMILY HISTORY OF DIABETES MELLITUS 05/27/2013 WHITE DDS, RUTH D V7 0.0 EXAM - ROUTINE H&P 05/27/2013 MADL PET CARE TECHNICIAN, JOEY L 724 .2 BACK PAIN, LOWER 05/27/2013 MADL PET CARE TECHNICIAN, JOEY L 780 .79 FATIGUE 05/27/2013 MADL PET CARE TECHNICIAN, JOEY L V18 .0 FAMILY HISTORY OF DIABETES MELLITUS 05/27/2013 MADL PET CARE TECHNICIAN, JOEY L V70 .0 EXAM - ROUTINE H&P 05/27/2013 ZUHAIR COATS, MALICK T 72 4.2 BACK PAIN, LOWER 05/27/2013 ZUHAIR COATS, MALICK T 780.79 FATIGUE 05/27/2013 ZUHAIR COATS, MALICK T V1 8.0 FAMILY HISTORY OF DIABETES MELLITUS 05/27/2013 ZUHAIR COATS MALICK T V7 0.0 EXAM - ROUTINE H&P 05/27/2013 GOODRICH DO, HILDA K 724.2 BACK PAIN, LOWER 05/27/2013 GOODRICH DO, HILDA K 780.79 FATIGUE 05/27/2013 GOODRICH DO, HILDA K V18.0 FAMILY HISTORY OF DIABETES MELLITUS 05/27/2013 GOODRICH DO, HILDA K V70.0 EXAM - ROUTINE H&P 05/27/2013 [facility] PET CARE TECHNICIAN, ORQUIDEA S 724.2 BACK PAIN, LOWER 05/27/2013 A[facility] PET CARE TECHNICIAN, ORQUIDEA S 780.79 FATIGUE 05/27/2013 A[facility] PET CARE TECHNICIAN, ORQUIDEA S V18.0 FAMILY HISTORY OF DIABETES MELLITUS 05/27/2013 A[facility] PET CARE TECHNICIAN ORQUIDEA S V70.0 EXAM - ROUTINE H&P [...] EXAM - ROUTINE H&P 05/27/2013 ADEBAYO COATS ORQUIDEA S 724.2 BACK PAIN, LOWER 05/27/2013 ADEBAYO COATS ORQUIDEA S 780.79 FATIGUE 05/27/2013 ADEBAYOALAINA COATS ORQUIDEA S V18.0 FAMILY HISTORY OF DIABETES MELLITUS 05/27/2013 ADEBAYO COATS ORQUIDEA S V70.0 EXAM - ROUTINE H&P 07/23/2013 VIVIAN AQUINO APRN A 72 3.1 CERVICALGIA 07/23/2013 ADEBAYO COATS ORQUIDEA S 723.1 CERVICALGIA 07/23/2013 GOODRICH DO, HILDA K 723.1 CERVICALGIA 07/23/2013 RUTH OSORIO DDS 72 3.1 CERVICALGIA 07/23/2013 JOEY ARMSTRONG APRN 723 .1 CERVICALGIA 07/23/2013 MALICK MOFFETT APRN 72 3.1 CERVICALGIA 07/23/2013 GOODRICH DO, HILDA K 723.1 CERVICALGIA 07/23/2013 ADEBAYO COATS ORQUIEDA S 723.1 CERVICALGIA 07/23/2013 GOODRICH DO, HILDA K 723.1 CERVICALGIA 07/23/2013 GOODRICH DO, HILDA K 723.1 CERVICALGIA 07/23/2013 ADEBAYO COATS ORQUIDEA S 723.1 CERVICALGIA 07/29/2013 VIVIAN AQUINO APRN V65.49 OTHER SPECIFIED COUNSELING 07/29/2013 VIVIAN AQUINO APRN V73.81 HPV SCREENING 07/29/2013 [facility] PET CARE TECHNICIAN, VIVIAN A V76.10 BREAST CANCER SCREENING 07/29/2013 K[facility]IA PET CARE TECHNICIAN, VIVIAN A V7 6.2 CERVICAL CANCER SCREENING (PAP SMEAR) 07/29/2013 K[facility]IA PET CARE TECHNICIAN, VIVIAN A V76.51 COLON CANCER SCREENING 07/29/2013 KENIA PET CARE TECHNICIAN, VIVIAN A V82.81 SPECIAL SCREENING FOR OSTEOPOROSIS 07/29/2013 A[facility] PET CARE TECHNICIAN, ORQUIDEA S V65.49 OTHER SPECIFIED COUNSELING 07/29/2013 ADE[facility]O PET CARE TECHNICIAN, ORQUIDEA S V73.81 HPV SCREENING 07/29/2013 ADE[facility]YO PET CARE TECHNICIAN, ORQUIDEA S V76.10 BREAST CANCER SCREENING 07/29/2013 ADE[facility] PET CARE TECHNICIAN, ORQUIDEA S V76.2 CERVICAL CANCER SCREENING (PAP SMEAR) 07/29/2013 ADEBAYO PET CARE TECHNICIAN, ORQUIDEA S V76.51 COLON CANCER SCREENING 07/29/2013 ADE[facility]YO PET CARE TECHNICIAN, ORQUIDEA S V82.81 SPECIAL SCREENING FOR OSTEOPOROSIS [...] OTHER SPECIFIED COUNSELING 07/29/2013 WHITE DDS, RUTH Dcaosta V73.81 HPV SCREENING 07/29/2013 WHITE DDS, RUTH D V76.10 BREAST CANCER SCREENING 07/29/2013 WHITE DDSRUTH V7 6.2 CERVICAL CANCER SCREENING (PAP SMEAR) 07/29/2013 WHITE DDS, RTUH Dacosta V76.51 COLON CANCER SCREENING 07/29/2013 WHITE DDS, RUTH D V82.81 SPECIAL SCREENING FOR OSTEOPOROSIS 07/29/2013 [facility] PET CARE TECHNICIAN, JOEY L V65 .49 OTHER SPECIFIED COUNSELING 07/29/2013 MADL PET CARE TECHNICIAN, JOEY L V73 .81 HPV SCREENING 07/29/2013 MADL PET CARE TECHNICIAN, JOEY L V76 .10 BREAST CANCER SCREENING 07/29/2013 JOEY ARMSTRONG APRN L V76 .2 CERVICAL CANCER SCREENING (PAP SMEAR) 07/29/2013 PAT[facility] PET CARE TECHNICIANJOEY Brandt L V76 .51 COLON CANCER SCREENING 07/29/2013 PATTI PET CARE TECHNICIAN, JOEY L V82 .81 SPECIAL SCREENING FOR OSTEOPOROSIS 07/29/2013 MALICK MOFFETT APRN V65.49 OTHER SPECIFIED COUNSELING 07/29/2013 MALICK MOFFETT APRN V73.81 HPV SCREENING 07/29/2013 MALICK MOFFETT APRN V76.10 BREAST CANCER SCREENING 07/29/2013 MALICK MOFFETT APRN V7 6.2 CERVICAL CANCER SCREENING (PAP SMEAR) 07/29/2013 MALICK MOFFETT APRN V76.51 COLON CANCER SCREENING 07/29/2013 MALICK MOFFETT APRN V82.81 SPECIAL SCREENING FOR OSTEOPOROSIS 07/29/2013 JOLEEN CASTILLO HILDA K V65.49 OTHER SPECIFIED COUNSELING 07/29/2013 JOLEEN CASTILLO HILDA K V73.81 HPV SCREENING 07/29/2013 JOLEEN CASTILLO HILDA K V76.10 BREAST CANCER SCREENING 07/29/2013 JOLEEN CASTILLO HILDA K V76.2 CERVICAL CANCER SCREENING (PAP SMEAR) 07/29/2013 JOLEEN CASTILLO HILDA K V76.51 COLON CANCER SCREENING 07/29/2013 JOLEEN CASTILLO HILDA K V82.81 SPECIAL SCREENING FOR OSTEOPOROSIS 07/29/2013 RANJANA FIORE APRNNDA S V65.49 OTHER SPECIFIED COUNSELING 07/29/2013 RANJANA FIORE APRNNDA S V73.81 HPV SCREENING 07/29/2013 RANJANA FIORE APRNNDA S V76.10 BREAST CANCER SCREENING 07/29/2013 RANJANA FIORE APRNNDA S V76.2 CERVICAL CANCER SCREENING (PAP SMEAR) 07/29/2013 ADEBAYO COATS ORQUIDEA S V76.51 COLON CANCER SCREENING 07/29/2013 ADEBAYO COATS ORQUIDEA S V82.81 SPECIAL SCREENING FOR OSTEOPOROSIS 07/29/2013 GOODRICH DO HILDA K V65.49 OTHER SPECIFIED COUNSELING 07/29/2013 GOODRICH DO HILDA K V73.81 HPV SCREENING 07/29/2013 GOODRICH DO HILDA K V76.10 BREAST CANCER SCREENING 07/29/2013 GOODRICH DO HILDA K V76.2 CERVICAL CANCER SCREENING (PAP SMEAR) 07/29/2013 GOODRICH DO, HILDA K V76.51 COLON CANCER SCREENING 07/29/2013 [...] V82.81 SPECIAL SCREENING FOR OSTEOPOROSIS 07/29/2013 A[facility] PET CARE TECHNICIAN ORQUIDEA S V65.49 OTHER SPECIFIED COUNSELING 07/29/2013 ADE[facility] PET CARE TECHNICIAN, ORQUIDEA S V73.81 HPV SCREENING 07/29/2013 A[facility] PET CARE TECHNICIAN ORQUIDEA S V76.10 BREAST CANCER SCREENING 07/29/2013 ADE[facility] PET CARE TECHNICIAN ORQUIDEA S V76.2 CERVICAL CANCER SCREENING (PAP SMEAR) 07/29/2013 ADE[facility]YO PET CARE TECHNICIAN, ORQUIDEA S V76.51 COLON CANCER SCREENING 07/29/2013 A[facility] PET CARE TECHNICIAN, ORQUIDEA S V82.81 SPECIAL SCREENING FOR OSTEOPOROSIS 05/08/2014 MADL JOEY COATS 919 .4 INSECT BITE NONVENOMOUS OF OTHER MULTIPLE AND UNSPECIFIED SITES WITHOUT INFECTION 05/08/2014 MALICK MOFFETT APRN 91 9.4 INSECT BITE NONVENOMOUS OF OTHER MULTIPLE AND UNSPECIFIED SITES WITHOUT INFECTION 05/08/2014 HILDA GOODRICH DO K 919.4 INSECT BITE NONVENOMOUS OF OTHER MULTIPLE AND UNSPECIFIED SITES WITHOUT INFECTION 05/08/2014 ADEBAYO COATS ORQUIDEA S 919.4 INSECT BITE NONVENOMOUS OF OTHER MULTIPL E AND UNSPECIFIED SITES WITHOUT INFECTION 05/08/2014 JOCELYNE GOODRICH DOA K 919.4 INSECT BITE NONVENOMOUS OF OTHER MULTIPLE AND UNSPECIFIED SITES WITHOUT INFECTION 05/08/2014 GOODRICH DO HILDA K 919.4 INSECT BITE NONVENOMOUS OF OTHER MULTIPLE AND UNSPECIFIED SITES WITHOUT INFECTION 05/08/2014 ADEBAYO COATS ORQUIDEA S 919.4 INSECT BITE NONVENOMOUS OF OTHER MULTIPL E AND UNSPECIFIED SITES WITHOUT INFECTION 06/16/2014 MALICK MOFFETT APRN 70 1.9 SKIN TAG 06/16/2014 GOODRICH DO, HILDA K 701.9 SKIN TAG 06/16/2014 ADE[facility]YO PET CARE TECHNICIAN, ORQUIDEA S 701.9 SKIN TAG 06/16/2014 GOODRICH DO, HILDA K 701.9 SKIN TAG 06/16/2014 GOODRICH DO, HILDA K 701.9 SKIN TAG 06/16/2014 ADEBAYO PET CARE TECHNICIAN, ORQUIDEA S 701.9 SKIN TAG 07/29/2014 GOODRICH DO, HILDA K V65.49 OTHER SPECIFIED COUNSELING 07/29/2014 GOODRICH DO, HILDA K V72.31 CAREER AGENT EXAM, ROUTINE 07/29/2014 GOODRICH DO, HILDA K V76.10 BREAST CANCER SCREENING 07/29/2014 GOODRICH DO, HILDA K V76.51 COLON CANCER SCREENING 07/29/2014 ADEBAYO PET CARE TECHNICIAN, ORQUIDEA S V65.49 OTHER SPECIFIED COUNSELING 07/29/2014 ADE[facility]O PET CARE TECHNICIAN, ORQUIDEA S V72.31 CAREER AGENT EXAM, ROUTINE 07/29/2014 ADEBAYO PET CARE TECHNICIAN, ORQUIDEA S V76.10 BREAST CANCER SCREENING 07/29/2014 ADEBAYO PET CARE TECHNICIAN, ORQUIDEA S V76.51 COLON CANCER SCREENING 07/29/2014 GOODRICH DO, HILDA K V65.49 OTHER SPECIFIED COUNSELING 07/29/2014 GOODRICH DO, HILDA K V72.31 CAREER AGENT EXAM, ROUTINE 07/29/2014 GOODRICH DO, HILDA K V76.10 BREAST CANCER SCREENING 07/29/2014 GOODRICH DO, HILDA K V76.51 COLON CANCER SCREENING 07/29/2014 GOODRICH DO, HILDA K V65.49 OTHER SPECIFIED COUNSELING 07/29/2014 GOODRICH DO, HILDA K V72.31 CAREER AGENT EXAM, ROUTINE 07/29/2014 GOODRICH DO, HILDA K V76.10 BREAST CANCER SCREENING 07/29/2014 GOODRICH DO, HILDA K V76.51 COLON CANCER SCREENING 07/29/2014 [facility] PET CARE TECHNICIAN, ORQUIDEA S V65.49 OTHER SPECIFIED COUNSELING 07/29/2014 [facility] CARE TECHNICIAN, ORQUIDEA S V72.31 CAREER AGENT EXAM, ROUTINE 07/29/2014 [facility] PET CARE TECHNICIAN ORQUIDEA S V76.10 BREAST CANCER SCREENING 07/29/2014 [facility] COATS ORQUIDEA S V76.51 COLON CANCER SCREENING 09/14/2014 [facility] COATS ORQUIDEA S 380.4 CERUMEN IMPACTION 09/14/2014 GOODRICH DO, HILDA K 380.4 CERUMEN IMPACTION 09/14/2014 GOODRICH DO, HILDA K 380.4 CERUMEN IMPACTION 09/14/2014 [facility] PET CARE TECHNICIAN, ORQUIDEA S 380.4 CERUMEN IMPACTION 10/15/2014 GOODRICH DO, HILDA K 477.0 ALLERGIC RHINITIS DUE TO POLLEN 10/15/2014 GOODRICH DO, HILDA K 782.1 RASH 10/15/2014 GOODRICH DO, HILDA K 477.0 ALLERGIC RHINITIS DUE TO POLLEN 10/15/2014 GOODRICH DO, HILDA K 782.1 RASH 10/15/2014 [facility] PET CARE TECHNICIAN, ORQUIDEA S 477.0 ALLERGIC RHINITIS DUE TO POLLEN 10/15/2014 [facility] COATS ORQUIDEA S 782.1 RASH 11/06/2014 VIVIAN AQUINO APRN Ot V76.12 11/12/2014 GOODRICH DO, HILDA K 729.5 PAIN IN LIMB 11/12/2014 RANJANA FIORE APRNNDA S 729.5 PAIN IN LIMB 02/08/2015 RANJANA FIORE APRNNDA S 719.40 PAIN IN JOINT SITE UNSPECIFIED 02/02/2016 VIVIAN AQUINO PET CARE TECHNICIAN Ot V76.12 02/02/2016 VIVIAN AQUINO PET CARE TECHNICIAN Ot V76.12 02/16/2016 KRISTAL PARIKH, BETTY Dacosta Ot Z12.3 1 02/18/2016 HOWARD PARIKH, MARCO A Ot Z01.81 8 02/18/2016 HOWARD PARIKH, MARCO A Ot Z12.11 02/22/2016 HOWARD PARIKH, MARCO A Ot Z01.81 8 02/22/2016 HOWARD PARIKH, MARCO A Ot Z12.11 02/23/2016 HOWARD PARIKH, MARCO A Ot Z01.81 8 02/23/2016 HOWARD PARIKH, MARCO A Ot Z12.11 02/23/2016 HOWARD PARIKH, MARCO A Ot Z01.81 8 02/23/2016 MARCO A LAWRENCE MD Ot Z12.11 02/23/2016 HOWARD PARIKH, MARCO A Sagastume Z01.81 8 02/23/2016 MARCO A LAWRENCE MD, Ot Z12.11 02/23/2016 MARCO A LAWRENCE MD, Ot Z01.81 8 02/23/2016 MARCO A LAWRENCE MD, Ot Z12.11 02/23/2016 MARCO A LAWRENCE MD, Ot K57.90 DVRTCLOS OF INTEST, PART UNSP, W/O PERF 02/23/2016 MARCO A LAWRENCE MD, Ot K64.0 FIRST DEGREE HEMORRHOIDS 02/23/2016 MARCO A LAWRENCE MD, Ot Z12.11 ENCOUNTER FOR SCREENING FOR MALIGNANT NE 02/23/2016 BETTY GIRALDO MD, Ot Z12.3 1 04/20/2016 JACKIE FREYP Ot V76.12 OTH SCREEN MAMMO-MALIGN NEOPLASM OF FRANCOIS 04/21/2016 BETTY GIRALDO MD Ot R31.9 HEMATURIA, UNSPECIFIED 04/21/2016 BETTY GIRALDO MD Ot R31.9 HEMATURIA, UNSPECIFIED 05/01/2016 BETTY GIRALDO MD Ot R19.0 4 LEFT LOWER QUADRANT ABDOMINAL SWELLING, 05/05/2016 BETTY GIRALDO MD Ot R31.9 HEMATURIA, UNSPECIFIED 05/10/2016 BETTY GIRALDO MD Ot R19.0 4 LEFT LOWER QUADRANT ABDOMINAL SWELLING, 08/14/2016 JACKIE FREYP Ot V76.12 OTH SCREEN MAMMO-MALIGN NEOPLASM OF FRANCOIS 08/14/2016 BETTY GIRALDO MD Ot R31.9 HEMATURIA, UNSPECIFIED 08/14/2016 BETTY GIRALDO MD Ot R19.0 4 LEFT LOWER QUADRANT ABDOMINAL SWELLING, 08/14/2016 RICKY IBARRA DO Ot N81.10 CYSTOCELE, UNSPECIFIED 08/14/2016 RICKY IBARRA DO Ot N83.20 UNSPECIFIED OVARIAN CYSTS 08/14/2016 RICKY IBARRA DO Ot R3 2 UNSPECIFIED URINARY INCONTINENCE 08/14/2016 RICKY IBARRA DO Ot Z01.812 ENCOUNTER FOR PREPROCEDURAL LABORATORY E 08/14/2016 RICKY IBARRA DO Ot Z11.2 ENCOUNTER FOR SCREENING FOR OTHER BACTER 08/18/2016 RICKY IBARRA DO Ot N39.3 STRESS INCONTINENCE (FEMALE) (MALE) 08/18/2016 FENECH DO, IRCKY S Ot N81.4 UTEROVAGINAL PROLAPSE, UNSPECIFIED 08/18/2016 FENECH DO, RICKY S Ot N83.20 UNSPECIFIED OVARIAN CYSTS 08/18/2016 FENECH DO, RICKY S Ot N83.8 OTH NONINFLAMMATORY DISORD OF OVARY, FAL 08/18/2016 FENECH DO, RICKY S Ot N84.0 POLYP OF CORPUS UTERI 08/18/2016 SAURAV DO, CORA K Ot I10 ESSENTIAL (PRIMARY) HYPERTENSION 08/18/2016 SAURAV DO, CORA K Ot N39.0 URINARY TRACT INFECTION, SITE NOT SPECIF 08/18/2016 SAURAV DO, CORA K Ot R30.0 DYSURIA 08/18/2016 SAURAV DO, CORA K Ot Z79.899 OTHER MINE SAFETY DIRECTOR (CURRENT) DRUG THERAPY 08/21/2016 FENECH DO, RICKY S Ot N39.3 STRESS INCONTINENCE (FEMALE) (MALE) 08/21/2016 FENECH DO RICKY S Ot N81.4 UTEROVAGINAL PROLAPSE, UNSPECIFIED [...] Ot I10 ESSENTIAL (PRIMARY) HYPERTENSION 08/24/2016 SAURAV DO, CORA K Ot N39.0 URINARY TRACT INFECTION, SITE NOT SPECIF 08/24/2016 SAURAV DO, CORA K Ot R30.0 DYSURIA 08/24/2016 SAURAV DO CORA K Ot Z79.899 OTHER ASSISTED (CURRENT) DRUG THERAPY 08/25/2016 FRED CASTILLO RICKY Guaman Ot N39.3 STRESS INCONTINENCE (FEMALE) (MALE) 08/25/2016 FRED CASTILLO RICKY Guaman Ot N81.4 UTEROVAGINAL PROLAPSE, UNSPECIFIED 08/25/2016 FRED CASTILLO RICKY Guaman Ot N83.20 UNSPECIFIED OVARIAN CYSTS 08/25/2016 FRED CASTILLO RICKY Guaman Ot N83.8 OTH NONINFLAMMATORY DISORD OF OVARY, FAL 08/25/2016 FRED RICKY CASTILLO Rowena Ot N84.0 POLYP OF CORPUS UTERI 08/30/2016 JACKIE FREYP Ot V76.12 OTH SCREEN MAMMO-MALIGN NEOPLASM OF FRANCOIS 08/30/2016 BETTY GIRALDO MD Ot R31.9 HEMATURIA, UNSPECIFIED 08/30/2016 BETTY GIRALDO MD Ot R19.0 4 LEFT LOWER QUADRANT ABDOMINAL SWELLING, 08/30/2016 JACKIE FREY [facility] Ot V76.12 OTH SCREEN MAMMO-MALIGN NEOPLASM OF FRANCOIS 08/30/2016 BETTY GIRALDO MD Ot R31.9 HEMATURIA, UNSPECIFIED 08/30/2016 BETTY GIRALDO MD Ot R19.0 4 LEFT LOWER QUADRANT ABDOMINAL SWELLING, 08/30/2016 LUIS ANTONIO THORPE MD, Ot S61.411A LACERATION WITHOUT FOREIGN BODY OF RIGHT 08/30/2016 LUIS ANTONIO THORPE MD Ot W25.XXXA CONTACT WITH [place], INITIAL ENCOUN 08/30/2016 LUIS ANTONIO THORPE MD Ot Y92.[address] [facility] [address] IN [facility] NON-[facility] (PRIVATE 08/30/2016 LUIS ANTONIO THORPE MD Ot Y93.E5 ACTIVITY, FLOOR MOPPING AND CLEANING 08/30/2016 LUIS ANTONIO THORPE MD Ot Y99.8 OTHER EXTERNAL CAUSE STATUS 08/30/2016 LUIS ANTONIO THORPE MD, Ot Z23 ENCOUNTER FOR IMMUNIZATION 09/01/2016 LUIS ANTONIO THORPE MD, Ot S61.411A LACERATION WITHOUT FOREIGN BODY OF RIGHT 09/01/2016 LUIS ANTONIO THORPE MD, Ot W25.XXXA CONTACT WITH [place], INITIAL ENCOUN 09/01/2016 LUIS ANTONIO THORPE MD Ot Y92.[address] IN [facility] NON-INSTIT[facility] (PRIVATE 09/01/2016 LUIS ANTONIO THORPE MD [...] 09/05/2016 LUIS ANTONIO THORPE MD Ot Y92.[address] [facility] [address] IN [facility] NON-[facility] (PRIVATE 09/05/2016 LUIS ANTONIO THORPE MD Ot Y93.E5 ACTIVITY, FLOOR MOPPING AND CLEANING 09/05/2016 LUIS ANTONIO THORPE MD Ot Y99.8 OTHER EXTERNAL CAUSE STATUS 09/05/2016 LUIS ANTONIO THORPE MD Ot Z23 ENCOUNTER FOR IMMUNIZATION 09/07/2016 RD OSULLIVAN MD Ot S61.412D LACERATION WITHOUT FOREIGN BODY OF LEFT 11/12/2016 JACKIE FREY [facility] Ot V76.12 OTH SCREEN MAMMO-MALIGN NEOPLASM OF FRANCOIS 11/12/2016 BETTY GIRALDO MD Ot R31.9 HEMATURIA, UNSPECIFIED 11/12/2016 BETTY GIRALDO MD Ot R19.0 4 LEFT LOWER QUADRANT ABDOMINAL SWELLING, 10/09/2017 JACKIE FREYP Ot V76.12 OTH SCREEN MAMMO-MALIGN NEOPLASM OF FRANCOIS 10/09/2017 BETTY GIRALDO MD Ot R31.9 HEMATURIA, UNSPECIFIED 10/09/2017 BETTY GIRALDO MD Ot R19.0 4 LEFT LOWER QUADRANT ABDOMINAL SWELLING, 10/10/2017 BETTY GIRALDO MD Ot Z12.3 1 ENCNTR SCREEN MAMMOGRAM FOR MALIGNANT NE 10/15/2017 BETTY GIRALDO MD Ot Z12.3 1 ENCNTR SCREEN MAMMOGRAM FOR MALIGNANT NE 10/17/2017 BETTY GIRALDO MD Ot Z12.3 1 ENCNTR SCREEN MAMMOGRAM FOR MALIGNANT NE 08/14/2018 DOMINIQUE PARIKH, MAVERICK Dacosta Ot G43.909 MIGRAINE, UNSP, NOT INTRACTABLE, WITHOUT 08/14/2018 MAVERICK FOX MD Ot I10 ESSENTIAL (PRIMARY) HYPERTENSION 08/14/2018 MAVERICK FOX MD Ot J06.9 ACUTE UPPER RESPIRATORY INFECTION, UNSPE 08/14/2018 MAVERICK FOX MD Ot Z80.41 FAMILY HISTORY OF MALIGNANT NEOPLASM OF 08/14/2018 MAVERICK FOX MD Ot Z87.448 PERSONAL HISTORY OF OTHER DISEASES OF UR 08/14/2018 MAVERICK FOX MD Ot Z90.710 ACQUIRED ABSENCE OF BOTH CERVIX AND UTER 08/14/2018 MAVERICK FOX MD Ot Z96.0 PRESENCE OF UROGENITAL IMPLANTS 08/15/2018 MAVERICK FOX MD, Ot G43.909 MIGRAINE, UNSP, NOT INTRACTABLE, WITHOUT 08/15/2018 MAVERICK FOX MD Ot I10 ESSENTIAL (PRIMARY) HYPERTENSION 08/15/2018 MAVERICK FOX MD Ot J06.9 ACUTE UPPER RESPIRATORY INFECTION, UNSPE 08/15/2018 MAVERICK FOX MD Ot Z80.41 FAMILY HISTORY OF MALIGNANT NEOPLASM OF 08/15/2018 MAVERICK FOX MD Ot Z87.448 PERSONAL HISTORY OF OTHER DISEASES OF UR 08/15/2018 MAVERICK FOX MD Ot Z90.710 ACQUIRED ABSENCE OF BOTH CERVIX AND UTER 08/15/2018 MAVERICK FOX MD Ot Z96.0 PRESENCE OF UROGENITAL IMPLANTS 02/13/2019 VIVIAN AQUINO APRN Ot V76.12 OTH SCREEN MAMMO-MALIGN NEOPLASM OF FRANCOIS 02/13/2019 BETTY GIRALDO MD Ot Z12.3 1 ENCNTR SCREEN MAMMOGRAM FOR MALIGNANT NE 02/13/2019 MARCO A LAWRENCE MD Ot Z01.81 8 ENCOUNTER FOR OTHER PREPROCEDURAL EXAMIN 02/13/2019 MARCO A LAWRENCE MD Ot Z12.11 ENCOUNTER FOR SCREENING FOR MALIGNANT NE 02/18/2019 VIVIAN AQUINO PET CARE TECHNICIAN Ot V76.12 OTH SCREEN MAMMO-MALIGN NEOPLASM OF FRANCOIS 02/18/2019 BETTY GIRALDO MD Ot Z12.3 1 ENCNTR SCREEN MAMMOGRAM FOR MALIGNANT NE 02/18/2019 MARCO A LAWRENCE MD Ot Z01.81 8 ENCOUNTER FOR OTHER PREPROCEDURAL EXAMIN 02/18/2019 MARCO A LAWRENCE MD Ot Z12.11 ENCOUNTER FOR SCREENING FOR MALIGNANT NE 05/26/2019 MARCO A LAWRENCE MD Ot Z01.81 8 ENCOUNTER FOR OTHER PREPROCEDURAL EXAMIN 05/28/2019 BETTY GIRALDO MD Ot R19.5 OTHER FECAL ABNORMALITIES 05/28/2019 BETTY GIRALDO MD Ot Z12.3 1 ENCNTR SCREEN MAMMOGRAM FOR MALIGNANT NE 05/28/2019 BETTY GIRALDO MD Ot R19.5 OTHER FECAL ABNORMALITIES 05/28/2019 BETTY GIRALDO MD Ot Z12.3 1 ENCNTR SCREEN MAMMOGRAM FOR MALIGNANT NE 05/28/2019 MARCO A LAWRENCE MD Ot I10 ESSENTIAL (PRIMARY) HYPERTENSION 05/28/2019 MARCO A LAWRENCE MD Ot K52.9 NONINFECTIVE GASTROENTERITIS AND COLITIS 05/28/2019 MARCO A LAWRENCE MD Ot K57.30 DVRTCLOS OF LG INT W/O PERFORATION OR AB 05/28/2019 MARCO A LAWRENCE MD Ot K64.1 SECOND DEGREE HEMORRHOIDS 05/28/2019 MARCO A LAWRENCE MD Ot M19.91 PRIMARY OSTEOARTHRITIS, UNSPECIFIED SITE 05/28/2019 MARCO A LAWRENCE MD Ot Z79.89 9 OTHER ASSISTED (CURRENT) DRUG THERAPY 06/03/2019 MARCO A LAWRENCE MD Ot I10 ESSENTIAL (PRIMARY) HYPERTENSION 06/03/2019 MARCO A LAWRENCE MD Ot K52.9 NONINFECTIVE GASTROENTERITIS AND COLITIS 06/03/2019 MARCO A LAWRENCE MD Ot K57.30 DVRTCLOS OF LG INT W/O PERFORATION OR AB 06/03/2019 MARCO A LAWRENCE MD Ot K64.1 SECOND DEGREE HEMORRHOIDS 06/03/2019 MARCO A LAWRENCE MD Ot M19.91 PRIMARY OSTEOARTHRITIS, UNSPECIFIED SITE 06/03/2019 MARCO A LAWRENCE MD Ot Z79.89 9 OTHER ASSISTED (CURRENT) DRUG THERAPY 06/19/2019 BETTY GIRALDO MD Ot R19.5 OTHER FECAL ABNORMALITIES 06/19/2019 BETTY GIRALDO MD Ot Z12.3 1 ENCNTR SCREEN MAMMOGRAM FOR MALIGNANT NE 02/05/2020 BETTY GIRALDO MD Ot R19.5 OTHER FECAL ABNORMALITIES 02/05/2020 BETTY GIRALDO MD Ot Z12.3 1 ENCNTR SCREEN MAMMOGRAM FOR MALIGNANT NE 02/05/2020 SATURNINO LOPEZ MD Ot I10 ESSENTIAL (PRIMARY) HYPERTENSION 02/05/2020 SATURNINO LOPEZ MD Ot J01. 90 ACUTE SINUSITIS, UNSPECIFIED 02/05/2020 SATURNINO LOPEZ MD Ot R09. 81 NASAL CONGESTION 02/05/2020 SATURNINO LOPEZ MD Ot Z80. 8 FAMILY HISTORY OF MALIGNANT NEOPLASM OF Procedures Code Description [place] [address] BONE MINERAL DENSITY, HEEL US (IN HOUSE) 07/29/2013 67479 UA L CHAN DIP 07/29/2013 42736 HEMOCCULT 07/29/2013 47777 MAMM OGRAM, SCREENING 07/31/2013 35769 CULT URE URINE 07/31/2013 44389 PAP SMEAR 07/31/2013 Q0091 PAP SMEAR OBTAIN SMEAR 07/31/2013 37658 SKIN TAG REM 1-15 06/16/2014 49542 MAMM OGRAM, SCREENING 07/29/2014 GENERAL S JANE LAWRENCE 07/29/2014 83601 CERU MEN REMOVAL 09/18/2014 06956 ROUT INE VENIPUNCTURE 09/18/2014 27975 LIPI D PANEL 09/18/2014 65578 CBC 09/18/2014 [id number] GF R CALC (RESULT ONLY) 09/18/2014 83413 CMP 09/18/2014 09227 XRAY FOOT LEFT 2 VIEWS 11/12/2014 35859 [employer] 02/08/2015 Results Test Result Range Methicillin resistant Staphylococcus aur eus (MRSA) screening culture - 08/14/16 13:35 Methicillin resistant Staphylococcus aureus (MRSA) scr eening culture NEG NRG Complete blood count (CBC) with automate d white blood cell (WBC) differential - 08/14/16 13:40 Blood leukocytes automated count (number/volume) 6.6 10*3/uL 4.3-11.0 Blood erythrocytes automated count (number/volume) 3.85 10*6/uL 4.35-5.85 Venous blood hemoglobin measurement (mass/volume) 11.5 g/dL 11.5-16.0 Blood hematocrit (volume fraction) 35 % 35-52 Automated erythrocyte mean corpuscular volume 90 [ foz_us] 80-99 Automated erythrocyte mean corpuscular h emoglobin (mass per erythrocyte) 30 pg 25-34 Automated erythrocyte mean corpuscular h emoglobin concentration measurement (mass/volume) 33 g/dL 32-36 Automated erythrocyte distribution width ratio 12. 3 % 10.0- 14.5 Automated blood platelet count (count/volume) 203 10*3/uL [...] 10*3 1.0-4.0 Blood monocytes automated count (number/volume) 0. 4 10*3 0.0-1.0 Automated eosinophil count 0.3 10*3/uL 0 .0-0.3 Automated blood basophil count (count/volume) 0.0 10*3/uL 0.0-0.1 Blood type T Indirect antibody screen [facility] - 08/14/16 13:40 ABO+Rh group OP NRG Transfusion band number TNP NR Blood group antibody screen NEGATIVE NR G Blood type T Indirect antibody screen [facility] - 08/17/16 08:11 ABO+Rh group OP NRG Transfusion band number [id number] NRG Blood group antibody screen NEGATIVE NR G Complete urinalysis with reflex to cultu - 08/18/16 21:45 Urine color determination YELLOW NRG Urine clarity determination CLEAR NR G Urine pH measurement by test strip 6.5 5-9 Specific gravity of urine by test strip 1.005 1.016-1.022 Urine protein assay by test strip, semi-quantitative 1+ NEGATIVE Urine glucose detection by automated test strip NE GATIVE NEGATIVE Erythrocytes detection in urine sediment by light micr oscopy 5+ NEGATIVE Urine ketones detection by automated test strip NE GATIVE NEGATIVE Urine nitrite detection by test strip NEGATIVE NEGATIVE Urine total bilirubin detection by test strip NEGA TIVE NEGATIVE Urine urobilinogen measurement by automated test strip (mass/volume) NORMAL NORMAL Urine leukocyte esterase detection by dipstick 3+ NEGATIVE Automated urine sediment erythrocyte cou nt by microscopy (number/high power field) [HPF] NRG Automated urine sediment leukocyte count by microscopy (number/high power field) [HPF] NRG Bacteria detection in urine sediment by light microsco py FEW NRG Crystals detection in urine sediment by light microsco py NONE NRG Casts detection in urine sediment by light microscopy NONE NRG Mucus detection in urine sediment by light microscopy NEGATIVE NRG Complete urinalysis with reflex to culture YES NRG Bacterial urine culture - 08/18/16 21:45 Bacterial urine culture [id number] NRG COLONY COUNT <10,000 NRG FTX;REPORT[place] 0811, NRG Bacterial susceptibility panel - 6 21:45 Gentamicin susceptibility test by minimum inhibitory c oncentration <= NRG Trimethoprim/sulfamethoxazole susceptibi lity test by minimum inhibitoryconcentration <= NRG Tobramycin susceptibility test by minimum inhibitory c oncentration <= NRG Cefazolin susceptibility test by minimum inhibitory co ncentration >= NRG Piperacillin/tazobactam susceptibility t est by minimum inhibitory concentration <= NRG Ciprofloxacin susceptibility test by minimum inhibitor y concentration <= NRG Meropenem susceptibility test by minimum inhibitory co ncentration <= NRG Nitrofurantoin susceptibility test by mi nimum inhibitory concentration 32 NRG Aztreonam susceptibility test by minimum inhibitory co ncentration <= NRG Cefepime susceptibility test by minimum inhibitory con centration <= NRG CULTURE, URINE - 08/13/18 17:43 CULTURE, URINE, ROUTINE SEE NOTE NRG Encounters ACCT No. Visit Date/Time Discharge Status Pt. Type Provider Facility Loc./Unit Complaint [id number] 02/08/2015 14:51:00 02/08/2015 23:59: 59 CLS Outpatient ORQUIDEA FIORE APRN [id number] 11/12/2014 13:42:00 11/12/2014 23:59: 59 CLS Outpatient HILDA GOODRICH DO [id number] 10/15/2014 12:51:00 10/15/2014 23:59: 59 CLS Outpatient HILDA GOODRICH DO [id number] 09/18/2014 07:58:00 09/18/2014 23:59: 59 CLS Outpatient ORQUIDEA FIORE APRN [id number] 07/29/2014 11:00:00 07/29/2014 23:59: 59 CLS Outpatient HILDA GOODRICH DO Erna [id number] 06/16/2014 13:48:00 06/16/2014 23:59: 59 CLS Outpatient MALICK MOFFETT APRN [id number] 05/08/2014 09:30:00 05/08/2014 23:59: 59 CLS Outpatient JOEY ARMSTRONG APRN [id number] 05/01/2014 14:53:00 05/01/2014 23:59: 59 CLS Outpatient DEVON JANY RUTH Dacosta [id number] 02/02/2014 16:57:00 02/02/2014 23:59: 59 CLS Outpatient HILDA GOODRICH DO Erna [id number] 09/11/2013 13:07:00 09/11/2013 23:59: 59 CLS Outpatient RANJANA FIORE APRNANATOLY Guaman [id number] 07/29/2013 15:50:00 07/29/2013 23:59: 59 CLS Outpatient KENIA COATS VIVIAN Castorena [id number] 12/22/2011 08:27:00 12/22/2011 23:59: 59 CLS Outpatient HILDA GOODRICH DO [id number] 05/30/2013 08:41:00 Document Registration [id number] 05/26/2020 22:05:00 22:46:00 DIS Emergency NICHOLAS MCCLURE [facility] ER FACIAL SWELLING,DENTAL PAIN [id number] 02/05/2020 02:22:00 02:57:00 DIS Emergency SATURNINO LOPEZ MD [facility] ER STUFFED UP NOSE [id number] 05/28/2019 10:49:00 15:33:00 DIS Outpatient MARCO A LAWRENCE MD Via [facility] ENDO + OCCULT BLOOD IN STOOL [id number] 05/27/2019 11:33:00 23:59:59 CLS Outpatient BETTY GIRALDO MD [facility] RAD SCREENING [id number] 05/26/2019 09:15:00 09:27:00 DIS Outpatient MARCO A LAWRENCE MD [facility] PREOP COLONOSCOPY [id number] 08/13/2018 23:06:00 018 00:03:00 DIS Emergency DOMINIQUE PARIKH, MAVERICK Dacosta [facility] ER CONGESTION [id number] 10/09/2017 09:27:00 23:59:59 CLS Outpatient BETTY GIRALDO MD [facility] RAD SCREENING [id number] 09/07/2016 08:05:00 08:50:[address] OSULLIVAN MD [facility] ER STICHES REMOVAL [id number] 08/30/2016 07:31:00 09:20:00 DIS Emergency MAURILIO PARIKH, LUIS ANTONIO Melchor [facility] ER FALL/MULTIPLE L AC ON RIGHT HAND [id number] 08/18/2016 21:24:00 22:37:00 DIS Emergency CORA MG DO Vi [facility] ER BURNING WHEN URINATING, INCONTINENCE [id number] 08/17/2016 07:58:00 11:47:00 DIS Outpatient RICKY IBARRA DO [facility] SDC RIGHT PELVIC ORGAN PRO LAPSE; CYSTOCELE [id number] 08/14/2016 13:06:00 13:55:00 DIS Outpatient RICKY IBARRA DO [facility] PREOP RIGHT PELVIC ORGAN PROLAPSE;CYSTOCELE [id number] 04/28/2016 09:22:00 23:59:59 CLS Outpatient BETTY GIRALDO MD [facility] RAD L ADNEXA MASS [id number] 04/20/2016 12:35:00 23:59:59 CLS Outpatient BETTY GIRALDO MD [facility] RAD HEMATURIA, NO INFECTION [id number] 02/23/2016 05:37:00 Kit 23:59:59 CLS Outpatient MARCO A LAWRENCE MD [facility] PREOP SCREENING [id number] 02/23/2016 08:31:00 Kit 11:36:00 DIS Outpatient MARCO A LAWRENCE MD [facility] SDC SCREENING [id number] 02/02/2016 08:06:00 016 23:59:59 CLS Outpatient BETTY GIRALDO MD [facility] RAD SCREENING [id number] 11/13/2014 10:15:00 014 23:59:59 CLS Preadmit RICKY MARCOS MD [facility] RAD ASYMMETRICAL HEARING LO SS [id number] 08/26/2014 09:32:00 014 23:59:59 CLS Outpatient VIVIAN AQUINO APRN [facility] RAD ROUTINE [id number] 08/15/2013 09:15:00 013 23:59:59 CLS Outpatient JACKIE FREY [facility] RAD SCREENING [id number] 04/20/2016 12:34:00 Document Registration [id number] 11/09/2018 10:15:00 11/09/2018 23:59:5 9 CLS Outpatient CHAGO GONZALEZ [facility] [id number] 08/13/2018 17:10:00 Document Registration
[2020-05-27] MEDS ORDERED: AUGMENTIN 875 MG TAB (AMOXICILLIN/CLAVULANATE) PO SCH (08:00)
== END 2020-05-26 22:46 | disposition home or self-care (01) ==
LOC: EDUNIT# 22:04 → ER 22:05
DX: K04.7 Periapical abscess without sinus (principal); I10 Essential (primary) hypertension; G43.909 Migraine, unspecified, not intractable, without status migrainosus; M19.90 Unspecified osteoarthritis, unspecified site; Z79.899 Other long term (current) drug therapy
CPT/HCPCS: 99283

== ENCOUNTER 2021-07-25 06:44 | Outpatient (CLI) | payer MEDICARE ==
[~2021-07-25] VITALS: Ht 160 cm; Wt 77.3 kg
[~2021-07-25 06:44] MED LIST changes: +AMOX-358 PO; -LISI-552 PO; +LISI20TA26 PO
== END 2021-07-25 14:58 ==
LOC: PREOP 06:44
PROVIDERS: ATTEND Specialist
DX: Z01.818 Encounter for other preprocedural examination (principal)

== ENCOUNTER 2021-07-29 09:33 | Day surgery (SDC) | payer MEDICARE ==
[~2021-07-29] VITALS: Ht 160 cm; Wt 77.3 kg
[2021-07-29 09:52] VITALS: BP 140/82
[2021-07-29] MEDS: TETRACAINE 0.5% OPHTH SOLN 4 ML BTL (SINGLE DOSE ONLY) OU PRN ×4 (09:54→10:10)
[2021-07-29] MEDS ORDERED: POVIDONE (BETADINE) OPHTH SOLN 5% 30 ML OP ONE (10:00)
[2021-07-29] MEDS ORDERED: MOXIFLOXACIN OPHTH SOLN 5 MG/ML 0.3 ML SYRINGE OP ONE (10:00)
[2021-07-29] MEDS ORDERED: TIMOLOL MALEATE 0.5% 5 ML (TIMOPTIC) BTL OU PRN (10:00)
[2021-07-29] MEDS ORDERED: LIDOCAINE PF 1% 2 ML VIAL IR PRN (10:00)
[2021-07-29] MEDS: TROPICAMIDE 1% OPH SOLN (MYDRIACYL) 15 ML BTL OP SCH ×3 (10:00→10:10)
[2021-07-29] MEDS: PHENYLEPHRINE 10% OPHTH (NEO-SYN) 5 ML BTL OU SCH ×3 (10:00→10:10)
[2021-07-29] MEDS ORDERED: MIDAZOLAM 2 MG/2 ML (VERSED) VIAL ONE ×2 (10:05→11:01)
--- NOTE | 2021-07-29 10:25 | Ophthalmologist Pre-Op Note ---
Pre-Operative Progress Note H&P Reviewed The H&P was reviewed, patient examined and no changes noted. Date H&P Reviewed: Jul 29, 2021 Time H&P Reviewed: 10:24 Pre-Op Dx Cataract, Left Eye RAMY JENKINS MD Jul 29, 2021 10:25
--- NOTE | 2021-07-29 10:52 | Ophthalmology Operative Report ---
Cataract removal/placement IOL PREOPERATIVE DIAGNOSIS: Cataract Left Eye POSTOPERATIVE DIAGNOSIS: Cataract Left Eye PROCEDURE: Cataract removal and placement of posterior chamber implant, left eye SURGEON: David Jenkins ANESTHESIA: Topical with sedation COMPLICATIONS: None ESTIMATED BLOOD LOSS: Minimal DESCRIPTION OF PROCEDURE: After proper informed consent was obtained, the patient, a 66 female, was taken to the Operating Room and the left eye was anesthetized with tetracaine. The left eye was then prepped and draped in the usual manner. A wire lid speculum was placed. A paracentesis was made at the left hand position. Preservative free lidocaine was injected into the anterior chamber followed by viscoelastic. A clear corneal incision was made in the temporal position. A capsulorrhexis was preformed and the central nuclear and cortical material were removed. The posterior capsule was polished and an Randall 22.0 AU00T0 was placed into the capsular bag. The residual viscoelastic was aspirated and balanced saline solution was injected into the anterior chamber. Moxifloxacin was injected into the anterior chamber. The wound was checked and found to be water tight. The patient tolerated the procedure well without complications. DAVID JENKINS MD Jul 29, 2021 10:52
[2021-07-29 10:58] VITALS: BP 156/66
[2021-07-29] MEDS ORDERED: proPOfol 200 MG/20 ML (DIPRIVAN) VIAL IV ONE (11:08)
[2021-07-29] MEDS ORDERED: acetaZOLAMIDE ER 500 MG CAP (DIAMOX SEQUELS) PO ONE (11:30)
--- NOTE | 2021-07-29 13:57 | Anesthesia-General Post-Op ---
MAC Patient Condition Mental Status/LOC: Same as Preop Cardiovascular: Satisfactory Nausea/Vomiting: Absent Respiratory: Satisfactory Pain: Controlled Complications: Absent Post Op Complications Complications None Follow Up Care/Instructions Patient Instructions None needed. Anesthesiology Discharge Order Discharge Order Patient is doing well, no complaints, stable vital signs, no apparent adverse anesthesia problems. No complications reported per nursing. RONNY KENNEDY CRNA Jul 29, 2021 13:57
== END 2021-07-29 10:58 | disposition home or self-care (01) ==
LOC: SDC 09:33
PROVIDERS: ATTEND Specialist
DX: H25.12 Age-related nuclear cataract, left eye (principal); I10 Essential (primary) hypertension; M19.90 Unspecified osteoarthritis, unspecified site; R06.7 Sneezing; Z79.899 Other long term (current) drug therapy
CPT/HCPCS: 66984; V2632

== ENCOUNTER 2021-08-08 06:17 | Outpatient (CLI) | payer MEDICARE | END 2021-08-09 10:21 | disposition home or self-care (01) | LOC: PREOP 06:17 | PROVIDERS: ATTEND Specialist | DX: Z01.818 Encounter for other preprocedural examination (principal) ==

== ENCOUNTER 2021-08-12 09:37 | Day surgery (SDC) | payer MEDICARE ==
[~2021-08-12] VITALS: Ht 160 cm; Wt 77.3 kg
[2021-08-12] MEDS ORDERED: MOXIFLOXACIN OPHTH SOLN 5 MG/ML 0.3 ML SYRINGE OP ONE (09:45)
[2021-08-12] MEDS ORDERED: POVIDONE (BETADINE) OPHTH SOLN 5% 30 ML OP ONE (09:45)
[2021-08-12] MEDS ORDERED: LIDOCAINE PF 1% 2 ML VIAL IR PRN (09:45)
[2021-08-12] MEDS: TETRACAINE 0.5% OPHTH SOLN 4 ML BTL (SINGLE DOSE ONLY) OU PRN ×4 (09:45→10:05)
[2021-08-12] MEDS ORDERED: TIMOLOL MALEATE 0.5% 5 ML (TIMOPTIC) BTL OU PRN (09:45)
[2021-08-12] MEDS: TROPICAMIDE 1% OPH SOLN (MYDRIACYL) 15 ML BTL OP SCH ×3 (09:55→10:05)
[2021-08-12] MEDS: PHENYLEPHRINE 10% OPHTH (NEO-SYN) 5 ML BTL OU SCH ×3 (09:55→10:05)
[2021-08-12 10:01] VITALS: BP 109/69
[2021-08-12] MEDS ORDERED: MIDAZOLAM 2 MG/2 ML (VERSED) VIAL ONE (10:13)
--- NOTE | 2021-08-12 10:32 | Ophthalmologist Pre-Op Note ---
Pre-Operative Progress Note H&P Reviewed The H&P was reviewed, patient examined and no changes noted. Date H&P Reviewed: Aug 12, 2021 Time H&P Reviewed: 10:32 Pre-Op Dx Cataract, Right Eye RAMY JENKINS MD Aug 12, 2021 10:32
--- NOTE | 2021-08-12 10:54 | Ophthalmology Operative Report ---
Cataract removal/placement IOL PREOPERATIVE DIAGNOSIS: Cataract Right Eye POSTOPERATIVE DIAGNOSIS: Cataract Right Eye PROCEDURE: Cataract removal and placement of posterior chamber implant, right eye SURGEON: David Jenkins ANESTHESIA: Topical with sedation COMPLICATIONS: None ESTIMATED BLOOD LOSS: Minimal DESCRIPTION OF PROCEDURE: After proper informed consent was obtained, the patient, a 66 female, was taken to the Operating Room and the right eye was anesthetized with tetracaine. The right eye was then prepped and draped in the usual manner. A wire lid speculum was placed. A paracentesis was made at the left hand position. Preservative free lidocaine was injected into the anterior chamber followed by viscoelastic. A clear corneal incision was made in the temporal position. A capsulorrhexis was preformed and the central nuclear and cortical material were removed. The posterior capsule was polished and Randall 21.0 AU00T0 IOL was placed into the capsular bag. The residual viscoelastic was aspirated and balanced saline solution was injected into the anterior chamber. Moxifloxacin was injected into the anterior chamber. The wound was checked and found to be water tight. The patient tolerated the procedure well without complications. DAVID JENKINS MD Aug 12, 2021 10:54
[2021-08-12 10:59] VITALS: BP 129/88
[2021-08-12] MEDS ORDERED: acetaZOLAMIDE ER 500 MG CAP (DIAMOX SEQUELS) PO ONE (11:30)
--- NOTE | 2021-08-12 14:04 | Anesthesia-General Post-Op ---
MAC Patient Condition Mental Status/LOC: Same as Preop Cardiovascular: Satisfactory Nausea/Vomiting: Absent Respiratory: Satisfactory Pain: Controlled Complications: Absent Post Op Complications Complications None Follow Up Care/Instructions Patient Instructions None needed. Anesthesiology Discharge Order Discharge Order Patient was seen after the procedure and she was doing well, no complaints, stable vital signs, no apparent adverse anesthesia problems. SOHAIL SUAREZ DO Aug 12, 2021 14:04
== END 2021-08-12 11:02 ==
LOC: SDC 09:37
PROVIDERS: ATTEND Specialist
DX: H25.11 Age-related nuclear cataract, right eye (principal); I10 Essential (primary) hypertension; M19.90 Unspecified osteoarthritis, unspecified site; Z79.899 Other long term (current) drug therapy
CPT/HCPCS: 66984; V2632

== ENCOUNTER → 2022-09-22 | Outpatient (CLI) | payer MEDICARE ==
[~2022-09-22] VITALS: Ht 160 cm; Wt 78.2 kg
[~2022-09-22] MED LIST changes: +NS IV 500 ML 500 ML IV ONE
[2022-09-22 12:30] VITALS: BP 106/69
== END ==
LOC: SDC 12:17
PROVIDERS: ATTEND Nurse Practitioner Family
DX: E87.1 Hypo-osmolality and hyponatremia (principal)

== ENCOUNTER → 2022-09-25 | Outpatient (CLI) | payer MEDICARE ==
[~2022-09-25] MED LIST changes: -NS IV 500 ML 500 ML IV ONE
[2022-09-25 15:28] LABS: ABSOLUTE RETIC # 46 10e9/uL (24-90); BASOPHILS # (AUTO) 0.1 10^3/uL (0.0-0.1); BASOPHILS % (AUTO) 1 % (0-10); EOSINOPHILS # (AUTO) 0.2 10^3/uL (0.0-0.3); EOSINOPHILS % (AUTO) 3 % (0-10); HEMATOCRIT 34 % (35-52); HEMOGLOBIN 11.2 g/dL (11.5-16.0); LYMPHOCYTES # (AUTO) 2.2 10^3/uL (1.0-4.0); LYMPHOCYTES % (AUTO) 28 % (12-44); MEAN CORPUSCULAR HEMOGLOBIN 30 pg (25-34); MEAN CORPUSCULAR HGB CONC 33 g/dL (32-36); MEAN CORPUSCULAR VOLUME 91 fL (80-99); MEAN PLATELET VOLUME 10.1 fL (9.0-12.2); MONOCYTES # (AUTO) 0.5 10^3/uL (0.0-1.0); MONOCYTES % (AUTO) 6 % (0-12); NEUTROPHILS % (AUTO) 62 % (42-75); PLATELET COUNT 261 10^3/uL (130-400); RETICULOCYTE % 1.24 % (0.50-2.40); WHITE BLOOD COUNT 8.1 10^3/uL (4.3-11.0)
[2022-09-25 15:50] LABS: BASOPHILS % (MANUAL) 1 %; EOSINOPHILS % (MANUAL) 1 %; LYMPHOCYTES % (MANUAL) 30 %; MONOCYTES % (MANUAL) 5 %; NEUTROPHILS % (MANUAL) 63 %
[2022-09-25 15:51] LABS: RBC MORPH NORMAL
== END ==
LOC: LAB 14:56
PROVIDERS: ATTEND Nurse Practitioner Family
DX: D64.9 Anemia, unspecified (principal)
CPT/HCPCS: 36415; 85007; 85027; 85045; 85055

== ENCOUNTER → 2022-10-09 | Outpatient (CLI) | payer MEDICARE ==
--- NOTE | 2022-10-09 11:23 | Diagnostic Imaging Report ---
PROCEDURE: US Renal Bilateral. TECHNIQUE: Multiple Real-time grayscale images were obtained over the kidneys in various projections bilaterally. INDICATION: Urinary frequency and dysuria. FINDINGS: The right kidney measures 9.7 x 4.8 x 4.5 cm and the left kidney measures 10.1 x 4.7 x 4.1 cm. The cortical thickness and echogenicity appear normal. No calculi are seen. There is no hydronephrosis. The urinary bladder is unremarkable. The right ureteral jet could not be visualized. The left jet is visualized. IMPRESSION: Unremarkable renal ultrasound. Dictated by: Dictated on workstation # [id number]
== END ==
LOC: RAD 10:24
PROVIDERS: ATTEND Nurse Practitioner Family
DX: R35.0 Frequency of micturition (principal); R30.0 Dysuria
CPT/HCPCS: 76770

== ENCOUNTER 2022-11-07 23:37 | Emergency (ER) | payer MEDICARE ==
[~2022-11-07] VITALS: Ht 160 cm; Wt 75.0 kg
[2022-11-07 23:47] VITALS: BP 138/83
--- NOTE | 2022-11-07 23:56 | ED Cough/URI ---
General Chief Complaint: Cough/Cold/Flu Symptoms Stated Complaint: COUGH,WHEEZING,RUNNY NOSE Source: patient History of Present Illness Date Seen by Provider: Nov 07, 2022 Time Seen by Provider: 23:53 Initial Comments PT ARRIVES VIA POV FROM HOME C/O COUGH AND CLEAR RUNNY NOSE X 1 WEEK DOES NOT KNOW IF SHE HAS HAD FEVER OR NOT--HAS NOT CHECKED HER TEMP, STATES SHE THINKS SHE "MIGHT HAVE HAD A LITTLE BIT OF ONE--I'M NOT SURE" NO SHORTNESS OF BREATH WENT TO [facility] ON SUNDAY AND NO TESTS WERE DONE AND NO RX'S GIVEN. WAS TOLD SHE HAD A VIRUS. HAS NOT ATTEMPTED TO CONTACT DR. GIRALDO'S OFFICE AT ANY TIME FOR THIS PROBLEM SYMPTOMS ARE NOT ANY DIFFERENT RIKA HAS BEEN TAKING NYQUIL AT NIGHT AND IT HELPS AND SHE IS ABLE TO SLEEP. NO HISTORY OF RESPIRATORY PROBLEMS HER AND GRAND DAUGHTER ARE ILL WITH SAME SYMPTOMS, THEY HAVE NOT BEEN SEEN BY A DR OR HAD ANY TESTING DONE. PCP: DR. GIRALDO Allergies and Home Medications Allergies Coded Allergies: No Known Drug Allergies (Verified , 02/23/16) Patient Home Medication List Home Medication List Reviewed: Yes Benzonatate (Tessalon Perles) 100 Mg Capsule, 200 MG PO TID Prescribed by: CORA MG on 11/08/22 011 Cetirizine HCl (Cetirizine HCl) 10 Mg Tablet, 10 MG PO DAILY, (Reported) Entered as Reported by: ANTONIO GUTIERREZ on 05/26/19 0901 Doxycycline Hyclate (Doxycycline Hyclate) 100 Mg Tablet, 100 MG PO BID Prescribed by: CORA MG on 11/08/22113 Lisinopril (Lisinopril) 20 Mg Tablet, 20 MG PO DAILY, (Reported) Entered as Reported by: CRYS JIMENEZ on 02/22/16 1517 Review of Systems Review of Systems Constitutional: see HPI EENTM: see HPI, nose congestion Respiratory: see HPI, cough; No short of breath Cardiovascular: no symptoms reported Gastrointestinal: no symptoms reported Genitourinary: no symptoms reported Musculoskeletal: no symptoms reported Skin: no symptoms reported Psychiatric/Neurological: No Symptoms Reported Hematologic/Lymphatic: No Symptoms Reported Immunological/Allergic: no symptoms reported Past Wtdooaw-Xphsxl-Abfies Hx Patient Social History Tobacco Use?: No Substance use?: No Alcohol Use?: No Immunizations Up To Date Tetanus Booster (TDap): Unknown Seasonal Allergies Seasonal Allergies: Yes Past Medical History Surgery/Hospitalization HX: COLONOSCOPY 2018 Surgeries: Yes (BLADDER SLING/CYSTOCOELE REPAIR + HYST/BSO 08/17/16;PIERRE CATARACTS 07/2021) Bladder Surgery, Eye Surgery, Gallbladder, Hysterectomy, Oophorectomy Respiratory: No Cardiac: Yes Hypertension Neurological: Yes Headaches /Migraines Reproductive Disorders: Yes 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 Genitourinary: No Gastrointestinal: Yes (NOTED ON COLONSCOPY) Diverticulosis, Hemorrhoids Musculoskeletal: Yes (MUSCLE CRAMPS; LEG CRAMPS --CRISTIAN AT NIGHT) Arthritis Endocrine: No HEENT: No Loss of Vision: Bilateral Hearing Impairment: Denies Cancer: No Psychosocial: No Integumentary: No Blood Disorders: No Family Medical History Diabetes mellitus 19 FATHER Drug abuse G8 BROTHER FH: ovarian cancer G8 SISTER Respiratory disorder 19 MOTHER Physical Exam Vital Signs - First Documented 11/07/22 23:47 Temp 36.7 Pulse 79 Resp 16 B/P (MAP) 138/83 (101) Pulse Ox 98 O2 Delivery Room Air Capillary Refill : Height: 5'3.00" Weight: 175lbs. 0.0oz. [id number]; 31.00 BMI Method:Stated General Appearance: WD/WN, no apparent distress, other (DOES NOT APPEAR ILL OR TO BE IN ANY DISCOMFORT OR DISTRESS) HEENT: PERRL/EOMI, normal ENT inspection, TMs normal, pharynx normal Neck: normal inspection Respiratory: normal breath sounds, no respiratory distress, no accessory muscle use Cardiovascular: regular rate, rhythm, no murmur Gastrointestinal: non tender, soft Extremities: normal inspection, no pedal edema, normal capillary refill Neurologic/Psychiatric: manager meat II-XII nml as tested, no motor/sensory deficits, alert, normal mood/affect, oriented x 3 Skin: normal color, warm/dry Procedures/Interventions Suture Size: 5-0 Progress/Results/Core Measures Suspected Sepsis SIRS Temperature: Pulse: Respiratory Rate: Blood Pressure / Mean: Results/Orders Lab Results Laboratory Tests Test 11/07/22 23:51 Range/Units Influenza Type A (RT-PCR) Not Detected Not Detecte Influenza Type B (RT-PCR) Not Detected Not Detecte SARS-CoV-2 RNA (RT-PCR) Not Detected Not Detecte My Orders Orders - CORA MG DO Covid 19 Inhouse Test (11/07/22 23:53) Influenza A And B By Pcr (11/07/22 23:53) Isolation Central Supply Req (11/07/22 23:53) Rx-Doxycycline Tablet (Rx-Vibramycin Tab (11/08/22 01:12) Vital Signs/I&O 11/07/22 23:47 Temp 36.7 Pulse 79 Resp 16 B/P (MAP) 138/83 (101) Pulse Ox 98 O2 Delivery Room Air Capillary Refill : Progress Note : Progress Note PPE WORN COVID AND FLU TESTING DONE UNEVENTFUL ER STAY NO COUGH AT ANY TIME NO DYSPNEA OR WHEEZING NO FEVER NO HYPOXIA AT ANY TIME DURING ER STAY ANTICIPATED COURSE, SYMPTOMATIC TREATMENT, NEED FOR FOLLOW UP AND RETURN PRECAUTIONS DISCUSSED WITH PT. Departure Impression Primary Impression: Upper respiratory infection Disposition: HOME, SELF-CARE Condition: Stable Departure-Patient Inst. Decision time for Depature: 01:12 Referrals: BETTY GIRALDO MD (PCP/Family) Primary Care Physician Patient Instructions: Upper Respiratory Infection ED Add. Discharge Instructions: HOME, REST LOTS OF CLEAR LIQUIDS CONTINUE NYQUIL AT NIGHT NEEDED FOR COUGH TYLENOL AND MOTRIN NEEDED FOR PAIN OR FEVER FOLLOW UP WITH DR. GIRALDO IN 4-5 DAYS IF NO BETTER, RETURN TO ER IF WORSE All discharge instructions reviewed with patient and/or family. Voiced understanding. Scripts Benzonatate (TESSALON PERLES) 100 Mg Capsule 200 MG PO TID, #30 CAP Prov: CORA MG DO 11/08/22 Doxycycline Hyclate (Doxycycline Hyclate) 100 Mg Tablet 100 MG PO BID, #20 TAB 0 Refills Prov: CORA MG DO 11/08/22 CORA MG DO Nov 07, 2022 23:56
[2022-11-08] MEDS ORDERED: RX-DOXYCYCLINE 100 MG (VIBRAMYCIN) TAB PPK#2 PO STA (01:12)
[2022-11-08] MEDS ORDERED: BENZ100C18 PO (01:14)
[2022-11-08] MEDS ORDERED: DOXY100T2 PO (01:14)
== END 2022-11-08 01:17 | disposition home or self-care (01) ==
LOC: EDUNIT# 23:37 → ER 23:40
DX: J06.9 Acute upper respiratory infection, unspecified (principal); Z20.822 Contact with and (suspected) exposure to COVID-19
CPT/HCPCS: 87636; 99283

== ENCOUNTER → 2023-01-01 | Outpatient (CLI) | payer MEDICARE ==
[~2023-01-01] MED LIST changes: +BENZ100C18 PO; +DOXY100T2 PO
--- NOTE | 2023-01-01 11:08 | Diagnostic Imaging Report ---
INDICATION: Routine screening. COMPARISON: 05/27/2019 and 10/09/2017. TECHNIQUE: 2D and 3D bilateral screening mammography was performed with CAD. FINDINGS: Scattered fibroglandular densities are identified bilaterally. The parenchymal pattern is stable. No mass or malignant-appearing microcalcifications are seen. The axillae are unremarkable. IMPRESSION: No mammographic features suspicious for malignancy are identified. ACR BI-RADS Category 1: Negative. Result letter will be mailed to the patient. Note: At least 10% of breast cancer is not imaged by mammography. Dictated by: Dictated on workstation # [id number]
== END ==
LOC: RAD 08:30
PROVIDERS: ATTEND Nurse Practitioner Family
DX: Z12.31 Encounter for screening mammogram for malignant neoplasm of breast (principal)
CPT/HCPCS: 77063; 77067